=== PATIENT | female | born 1960 | race Caucasian/White ===

== ENCOUNTER 2016-12-01 15:24 | Observation (INO) | payer SELFPAY ==
[~2016-12-01 15:24] MED LIST: BACT2OIN TOP; BACT800T5 PO
[2016-12-01] MEDS ORDERED: IOHEXOL 350 MG/ML 10 ML VIAL (for RAD DIAG) IVCONTRAST ONE (15:25)
[2016-12-01] MEDS ORDERED: ASPIRIN 81 MG CHEW TAB PO ONE (15:45)
[2016-12-01] MEDS ORDERED: SODIUM CHLORIDE 0.9% FLUSH 10 ML FLUSH IVF PRN (15:45)
[2016-12-01] MEDS ORDERED: MORPHINE SULFATE 4 MG/ML INJ IV PUSH ONE (15:45)
[2016-12-01] MEDS ORDERED: SODIUM CHLORID 0.9% 500 ML INJ 500 ML IV ONE (15:45)
[2016-12-01 15:47] VITALS: BP 167/78; PULSE 122; RESP 18; O2SAT 97
[2016-12-01 15:50] LABS: AUTOMATED NEUTROPHIL # 7.8 TH/MM3 (1.8-7.7); BASOPHIL # 0.3 TH/MM3 (0-0.2); BASOPHIL % 2.7 % (0.0-2.0); EOSINOPHIL % 0.3 % (0.0-4.0); HEMATOCRIT 39.6 % (35.0-46.0); HEMO FLAGS DIFF FINAL; LYMPH % 22.1 % (9.0-44.0); LYMPHOCYTE # 2.5 TH/MM3 (1.0-4.8); MEAN CELL VOLUME 98.7 FL (80.0-100.0); MEAN CORPUSCULAR HEMOGLOBIN 33.3 PG (27.0-34.0); MEAN CORPUSCULAR HGB CONC 33.7 % (32.0-36.0); MONO % 5.3 % (0.0-8.0); NEUT % 69.6 % (16.0-70.0); PLATELET COUNT 168 TH/MM3 (150-450); RED BLOOD COUNT 4.02 MIL/MM3 (4.00-5.30); RED CELL DISTRIBUTION WIDTH 13.7 % (11.6-17.2); WHITE BLOOD COUNT 11.2 TH/MM3 (4.0-11.0)
[2016-12-01 15:57] VITALS: BP 157/82; PULSE 112; RESP 18; TEMP 98.1; O2SAT 99
[2016-12-01 15:59] LABS: CHLORIDE 97 MEQ/L (98-107); POTASSIUM 4.1 MEQ/L (3.5-5.1); SODIUM (NA) 130 MEQ/L (136-145)
[2016-12-01 16:03] LABS: ANION GAP 16 MEQ/L (5-15); BICARBONATE 17.3 MEQ/L (21.0-32.0); BLOOD UREA NITROGEN 4 MG/DL (7-18)
[2016-12-01 16:05] LABS: APTT (PATIENT) 26.4 SEC (24.3-30.1); INTERNATIONAL NORMALIZED RATIO 0.9 RATIO; PROTHROMBIN TIME - PATIENT 10.1 SEC (9.8-11.6)
[2016-12-01 16:06] LABS: ALT (GPT) 67 U/L (10-53); AST (GOT) 150 U/L (15-37); GLOMERULAR FILTRATION RATE 113 ML/MIN (>89)
[2016-12-01 16:07] LABS: TOTAL BILIRUBIN ADULT 1.1 MG/DL (0.2-1.0)
[2016-12-01 16:09] LABS: ALKALINE PHOSPHATASE 145 U/L (45-117)
--- NOTE | 2016-12-01 16:17 | RADRPT ---
EXAM DATE/TIME: 12/01/2016 15:46 [facility] COMPARISON: CHEST PA & LAT, April 06, 2014, 11:57. INDICATIONS : Chest pain, short of breath, nausea MEDICAL HISTORY : None. SURGICAL HISTORY : None. ENCOUNTER: Initial ACUITY: 1 day PAIN SCORE: 7/10 LOCATION: Bilateral chest FINDINGS: The current examination demonstrates abnormal opacity in the right paratracheal region, unchanged fro m previous studies. A right paratracheal mass can have this appearance. The lungs are otherwise clear . Heart size normal. Osseous structures are intact. CONCLUSION: Abnormal right paratracheal opacity. CT chest with contrast recommended for further assessment. Melvin Barnett MD on December 01, 2016 at 16:15 Board Certified Radiologist. This report was verified electronically.
[2016-12-01 16:22] LABS: CREATINE KINASE 55 U/L (26-192)
[2016-12-01 16:59] VITALS: BP 137/68; PULSE 105; RESP 18; O2SAT 97
--- NOTE | 2016-12-01 17:10 | RADRPT ---
EXAM DATE/TIME: 12/01/2016 16:44 [facility] COMPARISON: CHEST SINGLE AP, December 01, 2016, 15:46. INDICATIONS : Mass, seen on chest x-ray. Chest pain, shortness of breath, nausea. IV CONTRAST: 70 cc Omnipaque 350 (iohexol) IV RADIATION DOSE: 6.19 CTDIvol (mGy) MEDICAL HISTORY : None Smoker. SURGICAL HISTORY : Appendectomy. ENCOUNTER: Initial ACUITY: 2 days PAIN SCALE: 6/10 LOCATION: Bilateral chest TECHNIQUE: Volumetric scanning of the chest was performed. Using automated exposure control and adjustment of t he mA and/or kV according to patient size, radiation dose was kept as low as reasonably achievable to obtain optimal diagnostic quality images. DICOM format image data is available electronically for review and comparison. Follow-up recommendations for detected pulmonary nodules are based at a minimum on nodule size and pa tient risk factors according to Fleischner Society Guidelines. FINDINGS: LUNGS: There is moderate emphysema present diffusely. There is a 4 mm nodular density in the central right l bernabe base. No evidence of alveolar consolidation. PLEURA: There is no pleural thickening or pleural effusion. MEDIASTINUM: There is a large right paratracheal mass which measures slightly greater than 5 cm in maximum sagitta l dimension. There is additionally a slightly greater than 2 cm right hilar jamin mass. AXILLAE: Within normal limits. No lymphadenopathy. SKELETAL: Within normal limits for patient age. MISCELLANEOUS: The visualized upper abdominal organs demonstrate no acute abnormality. CONCLUSION: Right hilar and mediastinal jamin masses. Tiny right lung base nodule. Spenser Frey MD on December 01, 2016 at 17:03 Board Certified Radiologist. This report was verified electronically.
[2016-12-01] MEDS ORDERED: RESP: ALBUTEROL 2.5 MG/IPRATROPIUM 0.5 MG NEB (SCH) NEB ONE (17:15)
--- NOTE | 2016-12-01 17:18 | PD ---
HPI Chief Complaint: Chest Pain Time Seen by Provider: 15:35 Travel History International Travel<30 days: No Contact w/Intl Traveler<30days: No Traveled to known affect area: No History of Present Illness HPI Patient is a 55-year-old female comes in complaining of shortness of breath with chest pain and nausea. She says she started to have left-sided chest pain last night and has been on and off since then. She says she feels like she has a pressure and left-sided her chest. She also reports difficulty breathing and feeling very nauseous. She denies fever or chills. She says she has been coughing for a few days now. She is a smoker. She says she has never had pain like this before. PFSH Past Medical History Asthma: No Heart Rhythm Problems: No Diabetes: No Diminished Hearing: No Myocardial Infarction: No Influenza Vaccination: No ?: Not Menopausal: Yes Past Surgical History Appendectomy: Yes Section: Yes Gynecologic Surgery: Yes (CS X's 2) Social History Alcohol Use: Yes Tobacco Use: Yes (1 PPD) Substance Use: No (Denies) Allergies-Medications (Allergen,Severity, Reaction): Coded Allergies: No Known Allergies (Verified , 12/01/16) Reported Meds & Prescriptions Reported Meds & Active Scripts Active No Active Prescriptions or Reported Medications Review of Systems Except as stated in HPI: all other systems reviewed are Neg General / Constitutional: No: Fever, Chills Eyes: No: Blurred Vision HENT: No: Headaches, Lightheadedness Cardiovascular: Positive: Chest Pain or Discomfort Respiratory: Positive: Shortness of Breath Gastrointestinal: Positive: Nausea, No: Vomiting, Abdominal Pain Musculoskeletal: No: Myalgias, Edema Skin: No Rash, No Change in Pigmentation Neurologic: No: Weakness, Dizziness Physical Exam Narrative GENERAL: Awake and alert, in no acute distress. Ulnar than her stated age. SKIN: Focused skin assessment warm/dry. HEAD: Atraumatic. Normocephalic. EYES: Pupils equal and round. No scleral icterus. ENT: Mucous membranes pink and moist. NECK: Trachea midline. No JVD. CARDIOVASCULAR: Tachycardia. No murmur appreciated. RESPIRATORY: No accessory muscle use. Occasional wheezes. Breath sounds equal bilaterally. GASTROINTESTINAL: Abdomen soft, non-tender, nondistended. MUSCULOSKELETAL: No obvious deformities. No clubbing. No cyanosis. No edema. NEUROLOGICAL: Awake and alert. No obvious cranial nerve deficits. Motor grossly within normal limits. Normal speech. PSYCHIATRIC: Appropriate mood and affect; insight and judgment normal. Data Data Last Documented VS Vital Signs Date Time Temp Pulse Resp B/P (MAP) Pulse Ox O2 Delivery O2 Flow Rate FiO2 12/01/16 16:59 105 18 137/68 (91) 97 Room Air 12/01/16 15:57 98.1 Orders Orders Ckmb (Isoenzyme) Profile (12/01/16 15:39) Complete Blood Count With Diff (12/01/16 15:39) Comprehensive Metabolic Panel (12/01/16 15:39) Prothrombin Time / Inr (Pt) (12/01/16 15:39) Act Partial Throm Time (Ptt) (12/01/16 15:39) Troponin I (12/01/16 15:39) Chest, Single Ap (12/01/16 15:39) Ecg Monitoring (12/01/16 15:39) Bilateral Bp Monitoring (12/01/16 15:39) Iv Access Insert/Monitor (12/01/16 15:39) Oximetry (12/01/16 15:39) Oxygen Administration (12/01/16 15:39) Aspirin Chew (Aspirin Chew) (12/01/16 15:45) Morphine Inj (Morphine Inj) (12/01/16 15:45) Sodium Chloride 0.9% Flush (Ns Flush) (12/01/16 15:45) Sodium Chlorid 0.9% 500 Ml Inj (Ns 500 M (12/01/16 15:45) Ct Thorax/ Chest W Iv Contrast (12/01/16 ) Iohexol 350 Inj (Omnipaque 350 Inj) (12/01/16 15:25) Albuterol-Ipratropium Neb (Duoneb Neb) (12/01/16 17:15) Admit Order (Ed Use Only) (12/01/16 ) Arterial Blood Gas (Abg) (12/01/16 ) Labs Laboratory Tests Test 12/01/16 15:45 White Blood Count 11.2 TH/MM3 Red Blood Count 4.02 MIL/MM3 Hemoglobin 13.4 GM/DL Hematocrit 39.6 % Mean Corpuscular Volume 98.7 FL Mean Corpuscular Hemoglobin 33.3 PG Mean Corpuscular Hemoglobin Concent 33.7 % Red Cell Distribution Width 13.7 % Platelet Count 168 TH/MM3 Mean Platelet Volume 8.0 FL Neutrophils (%) (Auto) 69.6 % Lymphocytes (%) (Auto) 22.1 % Monocytes (%) (Auto) 5.3 % Eosinophils (%) (Auto) 0.3 % Basophils (%) (Auto) 2.7 % Neutrophils # (Auto) 7.8 TH/MM3 Lymphocytes # (Auto) 2.5 TH/MM3 Monocytes # (Auto) 0.6 TH/MM3 Eosinophils # (Auto) 0.0 TH/MM3 Basophils # (Auto) 0.3 TH/MM3 CBC Comment DIFF FINAL Differential Comment Prothrombin Time 10.1 SEC Prothromb Time International Ratio 0.9 RATIO Activated Partial Thromboplast Time 26.4 SEC Blood Urea Nitrogen 4 MG/DL Creatinine 0.56 MG/DL Random Glucose 114 MG/DL Total Protein 6.7 GM/DL Albumin 2.8 GM/DL Calcium Level 8.3 MG/DL Alkaline Phosphatase 145 U/L Aspartate Amino Transf (AST/SGOT) 150 U/L Alanine Aminotransferase (ALT/SGPT) 67 U/L Total Bilirubin 1.1 MG/DL Sodium Level 130 MEQ/L Potassium Level 4.1 MEQ/L Chloride Level 97 MEQ/L Carbon Dioxide Level 17.3 MEQ/L Anion Gap 16 MEQ/L Estimat Glomerular Filtration Rate 113 ML/MIN Total Creatine Kinase 55 U/L Troponin I LESS THAN 0.02 NG/ML MDM Medical Decision Making Medical Screen Exam Complete: Yes Emergency Medical Condition: Yes Medical Record Reviewed: Yes Interpretation(s) ECG shows sinus tachycardia at [address] elevation or depression. Differential Diagnosis ACS versus NSTEMI versus STEMI versus pneumonia versus COPD Narrative Course Patient is a 55-year-old female who comes in complaining of chest pain with shortness of breath and nausea. Exam shows tachycardia and occasional wheezes. IV established, labs sent. Patient given aspirin and a small dose of morphine. Her tachycardia improved with this. Chest x-ray shows possible mass. CT of the chest performed shows evidence of 2 masses around the hilum. Patient was informed of these results. She says she feels better, but is still having shortness of breath and feels like she needs a breathing treatment. Given 1 DuoNeb. Patient will require admission for ACS rule out and management of lung mass. Diagnosis Primary Impression: Chest pain Qualified Codes: R07.9 - Chest pain, unspecified Additional Impression: Lung mass Admitting Information Admitting Physician Requests: Admit Scripts No Active Prescriptions or Reported Meds Condition: Angélica Laguerre MD Dec 01, 2016 17:18
[2016-12-01] MEDS ORDERED: SENNOSIDES 8.6 MG TAB PO PRN (18:00)
[2016-12-01] MEDS ORDERED: NALOXONE HCL 0.4 MG/ML AMP IV PUSH PRN (18:00)
[2016-12-01] MEDS ORDERED: RESP: ALBUTEROL 2.5 MG/IPRATROPIUM 0.5 MG NEB (PRN) NEB (18:00)
[2016-12-01] MEDS ORDERED: ONDANSETRON HCL 4 MG/2 ML VIAL IVP PRN (18:00)
[2016-12-01] MEDS ORDERED: ACETAMINOPHEN 325 MG TAB PO PRN (18:00)
[2016-12-01] MEDS ORDERED: LORazepam 2 MG/ML VIAL IV PUSH PRN ×4 (18:00)
[2016-12-01] MEDS ORDERED: FLUMAZENIL 0.5 MG/5 ML VIAL IV PUSH PRN (18:00)
[2016-12-01] MEDS ORDERED: LORazepam 2 MG TAB PO PRN (18:00)
[2016-12-01] MEDS ORDERED: SODIUM CHLORIDE 0.9% FLUSH 10 ML FLUSH IV FLUSH PRN (18:00)
[2016-12-01] MEDS ORDERED: LORazepam 1 MG TAB PO PRN (18:00)
[2016-12-01] MEDS ORDERED: methylPREDNISolone SOD SUCC 125 MG/2 ML VIAL IV PUSH ONE (18:00)
--- NOTE | 2016-12-01 18:08 | HHI.HP ---
[facility] Primary Care Physician Unknown Admission Diagnosis Chest pain, COPD, lung mass Diagnoses: Chief Complaint: Chest pain Travel History International Travel<30 Days: No Contact w/Intl Traveler <30 Da: No Traveled to Known Affected Are: No History of Present Illness This patient is a 55-year-old female with minimal past medical history and a prolonged tobacco history who presents with left-sided chest pain associated with nausea occurring acutely at 9 PM while watching TV/at rest. She noted no aggravating factors but says the pain got better with some morphine here in the emergency room. She came to the emergency room because the pain was intermittent but did not resolve. She notes some nausea associated with the discomfort. On evaluation emergency which was found have a right. Tracheal mass of about 5 cm. She denies any history of COPD and no known history of a lung mass. Patient been admitted to the hospital for further evaluation of these symptoms. Review of Systems Constitutional: COMPLAINS OF: Weight loss (chronic and vaguely described in a patient who is always underweight) Endocrine: DENIES: Abnorml menstrual pattern, Heat/cold intolerance, Polydipsia , Polyuria, Polyphagia Eyes: DENIES: Blurred vision, Diplopia, Eye inflammation, Eye pain, Vision loss , Photosensitivity, Double Vision Ears, nose, mouth, throat: DENIES: Tinnitus, Hearing loss, Vertigo, Nasal discharge, Oral lesions, Throat pain, Hoarseness, Ear Pain, Running Nose, Epistaxis, Sinus Pain, Toothache, Odynophagia Respiratory: DENIES: Apneas, Cough, Snoring, Wheezing, Hemoptysis, Sputum production, Shortness of breath Cardiovascular: COMPLAINS OF: Chest pain, Dyspnea on Exertion, DENIES: Palpitations, Syncope, PND, Lower Extremity Edema, Orthopnea, Claudication Gastrointestinal: COMPLAINS OF: Nausea, DENIES: Abdominal pain, Black stools, Bloody stools, Constipation, Diarrhea, Vomiting, Difficulty Swallowing, Anorexia Genitourinary: DENIES: Abnormal vaginal bleeding, Dysmenorrhea, Dyspareunia, Sexual dysfunction, Urinary frequency, Urinary incontinence, Urgency, Hematuria , Dysuria, Nocturia, Vaginal discharge Musculoskeletal: DENIES: Joint pain, Muscle aches, Stiffness, Joint Swelling, Back pain, Neck pain Integumentary: DENIES: Abnormal pigmentation, Pruritus, Rash, Nail changes, Breast masses, Breast skin changes, Nipple discharge Immunologic/allergic: DENIES: Eczema, Urticaria Psychiatric: DENIES: Anxiety, Confusion, Mood changes, Depression, Hallucinations, Agitation, Suicidal Ideation, Homicidal Ideation, Delusions Except as stated in HPI: all other systems reviewed are Neg Past Family Social History Past Medical History none Past Surgical History c/s btl appy Reported Medications none Allergies: Coded Allergies: No Known Allergies (Verified , 12/01/16) Active Ordered Medications Reviewed in the EMR Family History Sister has diabetes, grandmother had ovarian cancer, mother from COPD father COPD Social History Patient smokes at least a pack per day for the last 50 years, alcohol 6 pack several times a week, not employed, no recent travel Physical Exam Vital Signs Vital Signs Date Time Temp Pulse Resp B/P (MAP) Pulse Ox O2 Delivery O2 Flow Rate FiO2 12/01/16 16:59 105 18 137/68 (91) 97 Room Air 12/01/16 16:07 18 12/01/16 15:57 98.1 112 18 157/82 (107) 99 Room Air 12/01/16 15:48 99 Room Air 12/01/16 15:47 122 18 167/78 (107) 97 Room Air 12/01/16 15:38 126 18 100 Room Air Physical Exam GENERAL: This is a frail, well-developed patient, in no apparent distress. SKIN: No rashes, ecchymoses or lesions. Cool and dry. HEAD: Atraumatic. Normocephalic. No temporal or scalp tenderness. EYES: Pupils equal round and reactive. Extraocular motions intact. No scleral icterus. No injection or drainage. ENT: Nose without bleeding, purulent drainage or septal hematoma. Throat without erythema, tonsillar hypertrophy or exudate. Uvula midline. Airway patent. NECK: Trachea midline. No JVD or lymphadenopathy. Supple, nontender, no meningeal signs. CARDIOVASCULAR: Regular rate and rhythm without murmurs, gallops, or rubs. RESPIRATORY: poor air flow, but Breath sounds equal bilaterally. No wheezes, rales, or rhonchi. GASTROINTESTINAL: Abdomen soft, non-tender, nondistended. No hepato-splenomegaly , or palpable masses. No guarding. MUSCULOSKELETAL: Extremities without clubbing, cyanosis, or edema. No joint tenderness, effusion, or edema noted. No calf tenderness. Negative Homans sign bilaterally. NEUROLOGICAL: Awake and alert. Cranial nerves II through XII intact. Motor and sensory grossly within normal limits. Five out of 5 muscle strength in all muscle groups. Normal speech. Laboratory Laboratory Tests Test 12/01/16 15:45 White Blood Count 11.2 Red Blood Count 4.02 Hemoglobin 13.4 Hematocrit 39.6 Mean Corpuscular Volume 98.7 Mean Corpuscular Hemoglobin 33.3 Mean Corpuscular Hemoglobin Concent 33.7 Red Cell Distribution Width 13.7 Platelet Count 168 Mean Platelet Volume 8.0 Neutrophils (%) (Auto) 69.6 Lymphocytes (%) (Auto) 22.1 Monocytes (%) (Auto) 5.3 Eosinophils (%) (Auto) 0.3 Basophils (%) (Auto) 2.7 Neutrophils # (Auto) 7.8 Lymphocytes # (Auto) 2.5 Monocytes # (Auto) 0.6 Eosinophils # (Auto) 0.0 Basophils # (Auto) 0.3 CBC Comment DIFF FINAL Differential Comment Prothrombin Time 10.1 Prothromb Time International Ratio 0.9 Activated Partial Thromboplast Time 26.4 Blood Urea Nitrogen 4 Creatinine 0.56 Random Glucose 114 Total Protein 6.7 Albumin 2.8 Calcium Level 8.3 Alkaline Phosphatase 145 Aspartate Amino Transf (AST/SGOT) 150 Alanine Aminotransferase (ALT/SGPT) 67 Total Bilirubin 1.1 Sodium Level 130 Potassium Level 4.1 Chloride Level 97 Carbon Dioxide Level 17.3 Anion Gap 16 Estimat Glomerular Filtration Rate 113 Total Creatine Kinase 55 Troponin I LESS THAN 0.02 Result Diagram: 12/01/16 1545 12/01/16 1545 Imaging Last Impressions Chest X-Ray 12/01/16 1539 Signed Impressions: Service Date/Time: Thursday, December 01, 2016 15:46 - CONCLUSION: Abnormal right paratracheal opacity. CT chest with contrast recommended for further assessment. Melvin Barnett MD Chest CT 12/01/16 0000 Signed Impressions: Service Date/Time: Thursday, December 01, 2016 16:44 - CONCLUSION: Right hilar and mediastinal jamin masses. Tiny right lung base nodule. Spenser MD Kelton Hoffman VTE Risk Assessment Caprinmelvi VTE Risk Assessment: Mod/High Risk (score >= 2) Caprini Risk Assessment Model Point Value = 1 Point Value = 2 Point Value = 3 Point Value = 5 Age 41-60 Minor surgery BMI > 25 kg/m2 Swollen legs Varicose veins or History of unexplained or recurrent spontaneous Oral contraceptives or hormone replacement Sepsis (< 1 month) Serious lung disease, including pneumonia (< 1 month) Abnormal pulmonary function Acute myocardial infarction Congestive heart failure (< 1 month) History of inflammatory bowel disease Medical patient at bed rest Age 61-74 Arthroscopic surgery Major open surgery (> 45 min) Laparoscopic surgery (> 45 min) Malignancy Confined to bed (> 72 hours) Immobilizing plaster cast Central venous access Age >= 75 History of VTE Family history of VTE Factor V Leiden Prothrombin [id number] Lupus anticoagulant Anticardiolipin antibodies Elevated serum homocysteine Heparin-induced thrombocytopenia Other congenital or acquired thrombophilia Stroke (< 1 month) Elective arthroplasty Hip, pelvis, or leg fracture Acute spinal cord injury (< 1 month) Prophylaxis Regimen Total Risk Factor Score Risk Level Prophylaxis Regimen 0-1 Low Early ambulation 2 Moderate Order ONE of the following: *Sequential Compression Device (SCD) *Heparin 5000 units SQ BID 3-4 Higher Order ONE of the following medications: *Heparin 5000 units SQ TID *Enoxaparin/Lovenox 40 mg SQ daily (WT < 150 kg, CrCl > 30 mL/min) *Enoxaparin/Lovenox 30 mg SQ daily (WT < 150 kg, CrCl > 10-29 mL/min) *Enoxaparin/Lovenox 30 mg SQ BID (WT < 150 kg, CrCl > 30 mL/min) AND/OR *Sequential Compression Device (SCD) 5 or more Highest Order ONE of the following medications: *Heparin 5000 units SQ TID (Preferred with Epidurals) *Enoxaparin/Lovenox 40 mg SQ daily (WT < 150 kg, CrCl > 30 mL/min) *Enoxaparin/Lovenox 30 mg SQ daily (WT < 150 kg, CrCl > 10-29 mL/min) *Enoxaparin/Lovenox 30 mg SQ BID (WT < 150 kg, CrCl > 30 mL/min) AND *Sequential Compression Device (SCD) Assessment and Plan Problem List: (1) Hyponatremia ICD Code: E87.1 - Hypo-osmolality and hyponatremia Plan: May be due to COPD versus dehydration, continue IV hydration and follow electrolytes (2) Transaminitis ICD Code: R74.0 - Nonspecific elevation of levels of transaminase and lactic acid dehydrogenase [LDH] Plan: Patient with a known history of alcohol dependence, will check hepatitis panel, follow clinically Liver ultrasound (3) EtOH dependence ICD Code: F10.20 - Alcohol dependence, uncomplicated Plan: [facility] protocol (4) Chest pain ICD Code: R07.9 - Chest pain, unspecified Status: Acute Plan: Atypical in nature, rule out mass related versus COPD related versus true cardiac chest discomfort Follow cardiac enzymes and EKG, continue on telemetry pending respiratory status may need stress test (5) Mediastinal mass ICD Code: J98.59 - Other diseases of mediastinum, not elsewhere classified Plan: May need biopsy Will discuss with pulmonology (6) Tachycardia ICD Code: R00.0 - Tachycardia, unspecified Plan: Continue telemetry, may be due to bronchodilator effect Consider stress test when stable Problem Qualifiers (1) Chest pain: Qualified Codes: R07.9 - Chest pain, unspecified Kelly Goldstein MD Dec 01, 2016 18:08
[2016-12-01] MEDS: SODIUM CHLOR 0.9% 1000 ML INJ 1,000 ML IV SCH (18:10)
[2016-12-01 18:26] LABS: BLOOD GAS BASE EXCESS -6.3 mmol/L (-2-2); BLOOD GAS CARBOXYHEMOGLOBIN 4.3 % (0-4); BLOOD GAS HCO3 17 mmol/L (22-26); BLOOD GAS O2 HGB SATURATION 92 % (90-100); BLOOD GAS OXYGEN CONTENT 16.3 Vol % (12.0-20.0); BLOOD GAS PCO2 28 mmHG (38-42); BLOOD GAS PO2 86 mmHG (61-120); BLOOD GAS TOTAL HGB 12.6 G/DL (12.0-16.0); CRITICAL VALUE NO; DRAW SITE LT RADIAL; FIO2 21 %; NUMBER OF ARTERIAL PUNCTURES 1; OXYGEN DEVICE ROOM AIR; STAT YES; TEMP CORR TO 98.6; ULNAR PULSE Y
[2016-12-01 18:30] VITALS: BP 144/66; PULSE 95; RESP 20; O2SAT 98
[2016-12-01 19:58] VITALS: O2SAT 99
[2016-12-01] MEDS: RESP: ALBUTEROL 2.5 MG/IPRATROPIUM 0.5 MG NEB (SCH) NEB (19:58)
[2016-12-01 20:00] VITALS: BP 122/74; PULSE 108; PULSE 110; RESP 18; TEMP 97.3; O2SAT 100
[2016-12-01] MEDS: SODIUM CHLORIDE 0.9% FLUSH 10 ML FLUSH IV FLUSH SCH (21:00)
[2016-12-01] MEDS: NITROGLYCERIN 0.4 MG SL 25 TABS/BTL SL PRN (21:39)
[2016-12-01] MEDS ORDERED: methylPREDNISolone SOD SUCC 40 MG/1 ML VIAL IV PUSH SCH (23:00)
[2016-12-01] MEDS ORDERED: methylPREDNISolone SOD SUCC 40 MG/1 ML VIAL IV PUSH ONE (23:30)
[2016-12-01] MEDS: HEPARIN SODIUM - SQ 10,000 UNITS/ML VIAL SQ SCH (23:37)
[2016-12-02] VITALS (9 sets, daily range): BP systolic 101–131; BP diastolic 54–86; PULSE 93–117; RESP 18; TEMP 96.8–98.2; O2SAT 95–100
[2016-12-02] MEDS: SODIUM CHLOR 0.9% 1000 ML INJ 1,000 ML IV SCH ×2 (03:53→06:27)
--- NOTE | 2016-12-02 06:00 | EKG ---
Date Performed: 12/01/2016 Time Performed: 15:33:25 PTAGE: 55 years EKG: SINUS TACHYCARDIA ANTEROSEPTAL MYOCARDIAL INFARCTION ABNORMAL ECG PREVIOUS TRACING : 12/04/2009 10.09 DOCTOR: Baldo Roque Interpretating Date/Time 12/02/2016 05:56:26
[2016-12-02] MEDS: HEPARIN SODIUM - SQ 10,000 UNITS/ML VIAL SQ SCH ×3 (06:27→21:58)
[2016-12-02] MEDS: RESP: ALBUTEROL 2.5 MG/IPRATROPIUM 0.5 MG NEB (SCH) NEB ×3 (07:42→20:10)
[2016-12-02 07:51] LABS: AUTOMATED NEUTROPHIL # 7.5 TH/MM3 (1.8-7.7); BASOPHIL # 0.1 TH/MM3 (0-0.2); BASOPHIL % 0.8 % (0.0-2.0); HEMATOCRIT 37.2 % (35.0-46.0); HEMO FLAGS DIFF FINAL; LYMPH % 3.8 % (9.0-44.0); LYMPHOCYTE # 0.3 TH/MM3 (1.0-4.8); MEAN CELL VOLUME 99.5 FL (80.0-100.0); MEAN CORPUSCULAR HEMOGLOBIN 32.3 PG (27.0-34.0); MEAN CORPUSCULAR HGB CONC 32.4 % (32.0-36.0); MONO % 0.3 % (0.0-8.0); NEUT % 95.1 % (16.0-70.0); PLATELET COUNT 149 TH/MM3 (150-450); RED BLOOD COUNT 3.74 MIL/MM3 (4.00-5.30); RED CELL DISTRIBUTION WIDTH 13.8 % (11.6-17.2); WHITE BLOOD COUNT 7.9 TH/MM3 (4.0-11.0)
[2016-12-02 07:59] LABS: CHLORIDE 102 MEQ/L (98-107); POTASSIUM 4.5 MEQ/L (3.5-5.1); SODIUM (NA) 136 MEQ/L (136-145)
[2016-12-02 08:04] LABS: ANION GAP 14 MEQ/L (5-15); BICARBONATE 20.4 MEQ/L (21.0-32.0); BLOOD UREA NITROGEN 3 MG/DL (7-18)
[2016-12-02 08:07] LABS: GLOMERULAR FILTRATION RATE 146 ML/MIN (>89)
--- NOTE | 2016-12-02 08:17 | PD.PN.STU ---
Subjective Remarks Pt. experiencing chest pain when examined which she described as "dull and increased heaviness" located in the sternal area with no radiation. Reports that the pain comes and goes and lasts for about 15min. Denies receiving morphine since first dose in the ER. reports chills. denies LUNA, SOB, fever. Objective Vitals Vital Signs Date Time Temp Pulse Resp B/P (MAP) Pulse Ox O2 Delivery O2 Flow Rate FiO2 12/02/16 04:00 97.7 93 18 107/69 (82) 99 12/02/16 00:00 98.1 102 18 117/70 (86) 99 12/01/16 20:00 97.3 110 18 122/74 (90) 100 12/01/16 20:00 108 12/01/16 19:58 99 21 12/01/16 18:36 12/01/16 18:30 95 20 144/66 (92) 98 Room Air 12/01/16 18:01 110 18 97 Room Air 12/01/16 16:59 105 18 137/68 (91) 97 Room Air 12/01/16 16:07 18 12/01/16 15:57 98.1 112 18 157/82 (107) 99 Room Air 12/01/16 15:48 99 Room Air 12/01/16 15:47 122 18 167/78 (107) 97 Room Air 12/01/16 15:38 126 18 100 Room Air I/O 12/01/16 12/01/16 12/01/16 12/02/16 12/02/16 12/02/16 07:00 15:00 23:00 07:00 15:00 23:00 Intake Total 500 ml 0 ml Balance 500 ml 0 ml Intake Oral 0 ml IV Total 500 ml # Voids 1 Result Diagram: 12/02/16 0735 12/02/1635 Objective Remarks GENERAL: frail, pleasant female who was in no acute distress SKIN: Warm and dry. HEAD: Normocephalic. EYES: No scleral icterus. No injection or drainage. NECK: Supple, trachea midline. No JVD or lymphadenopathy. CARDIOVASCULAR: Regular rate and rhythm without murmurs, gallops, or rubs. RESPIRATORY: decreased breath sounds bilaterally. No wheezes, ronchi, rales GASTROINTESTINAL: Abdomen soft, non-tender, nondistended. A/P Assessment and Plan 1. Chest pain- continue albuterol treatments, follow cardiac enzymes and EKG, continue on telemetry, provide pain management, order stress EKG when stable 2. Alcohol Dependence- monitor pt for DT, ciwa protocol 3. Mediastinal Mass- discuss with pulmonology about poss need for biopsy and further workup 4. Tachycardia- poss secondary to albuterol treatments, monitor telemetry 5. Hyponatremia- f/u with labs 6. Elevated LFT's- f/u with labs Medical Decision Making Impression and Plan The exam, history, and the medical decision-making described in the above note were completed with the assistance of the medical student. I reviewed and agree with the findings presented. I attest that I had a [id number] encounter with the patient on the same day, and personally performed and documented my assessment and findings in the medical record. GENERAL: This is a well-nourished, well-developed patient, in no apparent distress. CARDIOVASCULAR: Regular rate and rhythm without murmurs, gallops, or rubs. RESPIRATORY: Overall improved air flow after bronchodilator treatment. No wheezes, rales, or rhonchi. GASTROINTESTINAL: Abdomen soft, non-tender, nondistended. Normal active bowel sounds MUSCULOSKELETAL: Extremities without clubbing, cyanosis, or edema. NEURO: Alert & Oriented x4 to person, place, time, situation. Moves all ext x4 Chest pain as above, not improved with nitroglycerin but better with morphine Patient will continue with current medicine and follow-up with pulmonary regarding mediastinal mass Continue further workup, ST in am d/w pond workerLindsay Estevez Dec 02, 2016 07:40 Kelly Goldstein MD Dec 02, 2016 08:41
--- NOTE | 2016-12-02 08:23 | RADRPT ---
EXAM DATE/TIME: 12/02/2016 07:54 [facility] COMPARISON: No previous studies available for comparison. INDICATIONS : Increased lab values. MEDICAL HISTORY : Nausea. Vomiting. Weight loss. Alcohol use. Tobacco use. SURGICAL HISTORY : Appendectomy. section. ENCOUNTER: Initial ACUITY: 2 days PAIN SCORE: 0/10 LOCATION: Bilateral upper quadrant MEASUREMENTS: LIVER: 11.6 cm length COMMON DUCT: 2 mm RIGHT KIDNEY: 9.3 x 4.5 x 3.7 cm SPLEEN: 5.9 cm length FINDINGS: LIVER: There is mildly increased echotexture of the liver. No focal mass is seen. No biliary duct dilation i s evident. COMMON DUCT: No intraluminal mass or stone visualized. GALLBLADDER: Contains no stones, demonstrates no wall thickening or pericholecystic fluid. PANCREAS: The visualized portions are within normal limits. RIGHT KIDNEY: No hydronephrosis, stone or mass. SPLEEN: No focal lesion. CONCLUSION: 1. Increased echogenicity of the liver suggesting fatty infiltration. The exam is otherwise within no rmal limits. Joon Duval MD on December 02, 2016 at 8:20 Board Certified Radiologist. This report was verified electronically.
[2016-12-02] MEDS: SODIUM CHLORIDE 0.9% FLUSH 10 ML FLUSH IV FLUSH SCH ×2 (09:24→21:00)
[2016-12-02] MEDS: methylPREDNISolone SOD SUCC 40 MG/1 ML VIAL IV PUSH SCH ×2 (09:25→21:57)
--- NOTE | 2016-12-02 13:22 | MB ---
cc: LIVIER MAIER M.D. DATE OF CONSULTATION: 12/02/2016. REASON FOR CONSULTATION: Right hilar mass. HISTORY OF PRESENT ILLNESS: The patient is a 55-year-old female with a long smoking history. She smokes a pack of cigarettes a day for almost 30 years and continued to smoke until the time of hospitalization. Upon presentation, she complained of left-sided chest pain, which was atypical and dull in nature. It comes and goes, lasting for several minutes. She denies history of fever, chills, hemoptysis. She had a cough with expectoration of yellowish greenish mucoid sputum which has improved since hospitalization. Upon presentation to the emergency room, a CT scan of the chest was undertaken revealing a right hilar mass with mediastinal involvement. The patient denies history of anorexia or weight loss. PAST MEDICAL HISTORY: No diabetes. No hypertension. No heart disease. MEDICATIONS AT HOME: None. ALLERGIES: NONE KNOWN TO MEDICATIONS. FAMILY HISTORY: A sister is diabetic. Positive history of diabetes and COPD. REVIEW OF SYSTEMS: A twelve-point review of systems is as per the history of present illness and past history, otherwise negative. SOCIAL HISTORY: 50 pack/year smoking history and continues to smoke until presentation. Drinks alcohol regularly about three six-packs a week. PHYSICAL EXAMINATION: GENERAL: On exam, the patient is alert. VITAL SIGNS: Temperature 98, pulse 86, respirations 18, blood pressure 150/80. Oxygen saturation 97% on room air. HEAD, EYES, EARS, NOSE, THROAT: Unremarkable. Eyes without icterus. NECK: Without adenopathy, thyroid enlargement, central trachea. CHEST: Scattered rhonchi at bases and decreased with cough. CARDIAC: PMI distant. S1-S2 audible. There is a 1/6 systolic ejection murmur at the left sternal border. ABDOMEN: Lax. Liver two fingerbreadths below the right costal margin. Bowel sounds audible. EXTREMITIES: No cyanosis, clubbing or edema. LABS: White count 11,000, hemoglobin 13, hematocrit 39, platelets at 168,000. Sodium 130, potassium 4.1, BUN 4, creatinine 0.5. IMAGING STUDIES: CT scan of the chest as mentioned above with a right hilar mass with evidence of mediastinal adenopathy. IMPRESSION: 1. Right hilar mass, malignancy suspect. 2. Long heavy smoking history, underlying COPD suspect. 3. Atypical chest pain, significance unclear. PLAN: The patient is on bronchodilator therapy at present and treatment for underlying tracheobronchitis will be appropriate. Would obtain pulmonary function to assess if any significant underlying airway obstruction is present. Meanwhile, she will need tissue diagnosis and given the location of the mass, bronchoscopy would be the most direct approach and the patient will need to be transferred to the main campus to proceed with same. I have discussed this in detail with the patient and will follow her care along with you. I do thank you for asking me to partake in Mrs. Barillas's care. Livier Maier MD WWW/JAIR /1:01 PM /1:13 PM
[2016-12-02] MEDS: NITROGLYCERIN 0.4 MG SL 25 TABS/BTL SL PRN (19:59)
[2016-12-02] MEDS: diphenhydrAMINE HCL 50 MG CAP PO PRN (21:58)
[2016-12-03] VITALS (7 sets, daily range): BP systolic 109–144; BP diastolic 59–86; PULSE 96–116; RESP 17–20; TEMP 97.5–98.1; O2SAT 95–98
[2016-12-03] MEDS: SODIUM CHLOR 0.9% 1000 ML INJ 1,000 ML IV SCH ×4 (06:22→17:35)
[2016-12-03] MEDS: HEPARIN SODIUM - SQ 10,000 UNITS/ML VIAL SQ SCH ×3 (06:23→21:53)
[2016-12-03] MEDS: RESP: ALBUTEROL 2.5 MG/IPRATROPIUM 0.5 MG NEB (SCH) NEB ×2 (07:59→15:33)
[2016-12-03] MEDS: SODIUM CHLORIDE 0.9% FLUSH 10 ML FLUSH IV FLUSH SCH ×2 (09:58→20:09)
[2016-12-03] MEDS: methylPREDNISolone SOD SUCC 40 MG/1 ML VIAL IV PUSH SCH ×2 (09:59→20:09)
[2016-12-03] MEDS: ASPIRIN 325 MG TAB PO SCH (09:59)
--- NOTE | 2016-12-03 10:09 | HHI.PR ---
Subjective Remarks Patient seen and evaluated in follow-up for atypical chest pain and shortness of breath with new mediastinal mass. Pulmonary consult appreciated. No new issues overnight. Patient feels better breathing after bronchodilators. Still with intermittent vaguely described chest discomfort. Stress test completed this morning Objective Vitals Vital Signs Date Time Temp Pulse Resp B/P (MAP) Pulse Ox O2 Delivery O2 Flow Rate FiO2 12/03/16 08:01 95 21 12/03/16 08:00 98.1 99 17 122/86 (98) 98 12/03/16 04:33 98.0 110 20 130/63 (85) 97 12/03/16 00:32 98.0 109 18 127/60 (82) 98 12/02/16 21:49 117 18 131/86 (101) 100 12/02/16 20:10 97 21 12/02/16 20:00 106 12/02/16 16:00 98.2 113 18 101/54 (70) 98 12/02/16 12:00 98.2 112 18 113/57 (75) 98 12/02/16 10:32 18 I/O 12/02/16 12/02/16 12/02/16 12/03/16 12/03/16 12/03/16 07:00 15:00 23:00 07:00 15:00 23:00 Intake Total 0 ml 2111 ml Balance 0 ml 2111 ml Intake Oral 0 ml 1160 ml IV Total 951 ml # Voids 1 3 3 # Bowel Movements 1 0 Result Diagram: 12/02/16 0735 12/02/16 0735 Imaging Last Impressions Liver Ultrasound 12/02/16 0000 Signed Impressions: Service Date/Time: Friday, December 02, 2016 07:54 - CONCLUSION: 1. Increased echogenicity of the liver suggesting fatty infiltration. The exam is otherwise within normal limits. Joon Duval MD Chest X-Ray 12/01/16 1539 Signed Impressions: Service Date/Time: Thursday, December 01, 2016 15:46 - CONCLUSION: Abnormal right paratracheal opacity. CT chest with contrast recommended for further assessment. Melvin Barnett MD Chest CT 12/01/16 0000 Signed Impressions: Service Date/Time: Thursday, December 01, 2016 16:44 - CONCLUSION: Right hilar and mediastinal jamin masses. Tiny right lung base nodule. Spenser Frye MD Objective Remarks GENERAL: This is a thin but well-nourished, well-developed patient, in no apparent distress. CARDIOVASCULAR: Regular rate and rhythm without murmurs, gallops, or rubs. RESPIRATORY: Clear to auscultation. Breath sounds equal bilaterally. No wheezes , rales, or rhonchi. GASTROINTESTINAL: Abdomen soft, non-tender, nondistended. Normal active bowel sounds MUSCULOSKELETAL: Extremities without clubbing, cyanosis, or edema. NEURO: Alert & Oriented x4 to person, place, time, situation. Moves all ext x4 A/P Problem List: (1) Hyponatremia ICD Code: E87.1 - Hypo-osmolality and hyponatremia Plan: resolved (2) Transaminitis ICD Code: R74.0 - Nonspecific elevation of levels of transaminase and lactic acid dehydrogenase [LDH] Plan: Ultrasound consistent with fatty liver hepatitis panel pending (3) EtOH dependence ICD Code: F10.20 - Alcohol dependence, uncomplicated Plan: [facility] protocol (4) Chest pain ICD Code: R07.9 - Chest pain, unspecified Status: Acute Plan: Atypical in nature, rule out mass related versus COPD related versus true cardiac chest discomfort Enzymes negative, follow-up stress test (5) Mediastinal mass ICD Code: J98.59 - Other diseases of mediastinum, not elsewhere classified Plan: Likely for biopsy, we'll need to transfer to the main hospital for this Pulmonary consult appreciated (6) Tachycardia ICD Code: R00.0 - Tachycardia, unspecified Plan: Continue telemetry, may be due to bronchodilator effect f/u st Discharge Planning to [facility] for biopsy Problem Qualifiers (1) Chest pain: Qualified Codes: R07.9 - Chest pain, unspecified Kelly Goldstein MD Dec 03, 2016 10:09
--- NOTE | 2016-12-03 11:04 | RADRPT ---
EXAM DATE/TIME: 12/03/2016 08:49 [place] COMPARISON: No previous studies available for comparison. INDICATIONS : Left sided chest pain with nausea. Angina. DOSE: 26.1 mCi Tc99m Myoview at stress. 8.8 mCi Tc99m Myoview at rest. 0.4 mg Lexiscan STRESS SYMPTOMS: Dizziness. EJECTION FRACTION: > 70% MEDICAL HISTORY : None SURGICAL HISTORY : Appendectomy. Tubal ligation. ENCOUNTER: Initial ACUITY: 2 days PAIN SCALE: 4/10 LOCATION: Left chest TECHNIQUE: The patient underwent pharmacologic stress with infusion of prescribed dose. Continuous ECG tracing was monitored during stress. Gated SPECT imaging was performed after stress and conventional SPECT i maging was performed at rest. The examination was performed on a SPECT/CT scanner, both attenuation and non-corrected datasets were reviewed. FINDINGS: DISTRIBUTION: The maximum perfused segment at stress is in the anterior inferior wall PERFUSION STUDY: The pattern of perfusion at stress is within normal limits. GATED STUDY: There is intact wall motion and thickening without hypokinetic or dyskinetic segments. CONCLUSION: Negative for stress-induced ischemia. RISK CATEGORY: Low (<1% Annual Mortality Rate) Christopher Duval MD FACR on December 03, 2016 at 11:02 Board Certified Radiologist. This report was verified electronically.
[2016-12-03 12:43] LABS: CHLORIDE 106 MEQ/L (98-107); POTASSIUM 3.7 MEQ/L (3.5-5.1); SODIUM (NA) 139 MEQ/L (136-145)
[2016-12-03 12:47] LABS: ANION GAP 7 MEQ/L (5-15); BLOOD UREA NITROGEN 4 MG/DL (7-18)
[2016-12-03 12:50] LABS: ALT (GPT) 40 U/L (10-53); AST (GOT) 33 U/L (15-37); GLOMERULAR FILTRATION RATE 123 ML/MIN (>89)
[2016-12-03 12:51] LABS: TOTAL BILIRUBIN ADULT 0.4 MG/DL (0.2-1.0)
[2016-12-03 12:52] LABS: ALKALINE PHOSPHATASE 102 U/L (45-117)
--- NOTE | 2016-12-03 13:24 | HHI.PR ---
Subjective Remarks ALERT LESS SOB Objective Vital Signs Date Time Temp Pulse Resp B/P (MAP) Pulse Ox O2 Delivery O2 Flow Rate FiO2 12/03/16 08:01 95 21 12/03/16 08:00 98.1 99 17 122/86 (98) 98 12/03/16 08:00 111 12/03/16 04:33 98.0 110 20 130/63 (85) 97 12/03/16 00:32 98.0 109 18 127/60 (82) 98 12/02/16 21:49 117 18 131/86 (101) 100 12/02/16 20:10 97 21 12/02/16 20:00 106 12/02/16 16:00 98.2 113 18 101/54 (70) 98 I/O 12/02/16 12/02/16 12/02/16 12/03/16 12/03/16 12/03/16 06:59 14:59 22:59 06:59 14:59 22:59 Intake Total 0 ml 2111 ml Balance 0 ml 2111 ml Intake Oral 0 ml 1160 ml IV Total 951 ml # Voids 1 3 3 # Bowel Movements 1 0 Result Diagram: 12/02/16 0735 12/03/16 1220 Objective Remarks GENERAL: SKIN: Warm and dry. HEAD: Atraumatic. Normocephalic. EYES: Pupils equal and round. No scleral icterus. No injection or drainage. ENT: No nasal bleeding or discharge. Mucous membranes pink and moist. NECK: Trachea midline. No JVD. CARDIOVASCULAR: Regular rate and rhythm. RESPIRATORY: No accessory muscle use. Clear to auscultation. Breath sounds equal bilaterally. GASTROINTESTINAL: Abdomen soft, non-tender, nondistended. Hepatic and splenic margins not palpable. MUSCULOSKELETAL: Extremities without clubbing, cyanosis, or edema. No obvious deformities. NEUROLOGICAL: Awake and alert. No obvious cranial nerve deficits. Motor grossly within normal limits. Five out of 5 muscle strength in the arms and legs. Normal speech. PSYCHIATRIC: Appropriate mood and affect; insight and judgment normal. Medications and IVs Laboratory Tests Test 12/01/16 15:45 12/01/16 18:22 12/01/16 18:30 12/01/16 21:25 White Blood Count 11.2 TH/MM3 (4.0-11.0) Basophils (%) (Auto) 2.7 % (0.0-2.0) Neutrophils # (Auto) 7.8 TH/MM3 (1.8-7.7) Basophils # (Auto) 0.3 TH/MM3 (0-0.2) Blood Urea Nitrogen 4 MG/DL (7-18) Random Glucose 114 MG/DL (74-106) Albumin 2.8 GM/DL (3.4-5.0) Calcium Level 8.3 MG/DL (8.5-10.1) Alkaline Phosphatase 145 U/L (45-117) Aspartate Amino Transf (AST/SGOT) 150 U/L (15-37) Alanine Aminotransferase (ALT/SGPT) 67 U/L (10-53) Total Bilirubin 1.1 MG/DL (0.2-1.0) Sodium Level 130 MEQ/L (136-145) Chloride Level 97 MEQ/L (98-107) Carbon Dioxide Level 17.3 MEQ/L (21.0-32.0) Anion Gap 16 MEQ/L (5-15) Troponin I LESS THAN 0.02 NG/ML Blood Gas HCO3 17 mmol/L (22-26) Blood Gas Base Excess -6.3 mmol/L (-2-2) Arterial Blood Partial Pressure CO2 28 mmHG (38-42) Arterial Blood Carboxyhemoglobin 4.3 % (0-4) Test 12/02/16 07:35 12/03/16 12:20 Red Blood Count 3.74 MIL/MM3 (4.00-5.30) Platelet Count 149 TH/MM3 (150-450) Neutrophils (%) (Auto) 95.1 % (16.0-70.0) Lymphocytes (%) (Auto) 3.8 % (9.0-44.0) Lymphocytes # (Auto) 0.3 TH/MM3 (1.0-4.8) Blood Urea Nitrogen 3 MG/DL (7-18) 4 MG/DL (7-18) Creatinine 0.45 MG/DL (0.50-1.00) Random Glucose 165 MG/DL (74-106) 189 MG/DL (74-106) Calcium Level 7.9 MG/DL (8.5-10.1) 7.9 MG/DL (8.5-10.1) Carbon Dioxide Level 20.4 MEQ/L (21.0-32.0) Troponin I LESS THAN 0.02 NG/ML Total Protein 5.7 GM/DL (6.4-8.2) Albumin 2.3 GM/DL (3.4-5.0) Assessment and Plan Assessment and Plan HILAR MASS PLAN BRONCHOSCOPY Livier Ponce MD Dec 03, 2016 13:23
[2016-12-03 14:10] LABS: APTT (PATIENT) 26.1 SEC (24.3-30.1); INTERNATIONAL NORMALIZED RATIO 0.9 RATIO; PROTHROMBIN TIME - PATIENT 9.7 SEC (9.8-11.6)
[2016-12-03] MEDS: MORPHINE SULFATE 2 MG/ML INJ IV PUSH PRN ×2 (17:34→21:52)
[2016-12-03] MEDS ORDERED: REGADENOSON INJ 0.4 MG/5 ML SYR IV ONE (17:43)
[2016-12-03] MEDS: diphenhydrAMINE HCL 50 MG CAP PO PRN (21:52)
[2016-12-04] VITALS (12 sets, daily range): BP systolic 115–145; BP diastolic 59–95; PULSE 79–130; RESP 16–20; TEMP 97.1–98.5; O2SAT 94–97
[2016-12-04] MEDS: MORPHINE SULFATE 2 MG/ML INJ IV PUSH PRN ×3 (02:59→18:35)
[2016-12-04] MEDS: SODIUM CHLOR 0.9% 1000 ML INJ 1,000 ML IV SCH (03:13)
[2016-12-04] MEDS: HEPARIN SODIUM - SQ 10,000 UNITS/ML VIAL SQ SCH ×3 (05:51→20:04)
[2016-12-04] MEDS: SODIUM CHLORIDE 0.9% FLUSH 10 ML FLUSH IV FLUSH SCH ×2 (07:13→20:06)
[2016-12-04] MEDS: RESP: ALBUTEROL 2.5 MG/IPRATROPIUM 0.5 MG NEB (SCH) NEB ×3 (07:23→19:42)
[2016-12-04] MEDS: ASPIRIN 325 MG TAB PO SCH (08:59)
[2016-12-04] MEDS: methylPREDNISolone SOD SUCC 40 MG/1 ML VIAL IV PUSH SCH ×2 (09:01→20:07)
--- NOTE | 2016-12-04 09:35 | HHI.PR ---
Subjective Remarks Pt states she is anxious about the anesthesia. Pt states that when she had her c /s w her daughter she got very sick and is worried about this. otherwise denies any pains at this time. no worsening SOB, nausea or vomiting Objective Vitals Vital Signs Date Time Temp Pulse Resp B/P (MAP) Pulse Ox O2 Delivery O2 Flow Rate FiO2 12/04/16 08:00 97.5 100 134/62 (86) 94 12/04/16 07:25 97 12/04/16 06:00 97.8 97 16 115/67 (83) 96 12/04/16 04:00 79 12/04/16 00:00 88 12/04/16 00:00 98.5 100 17 120/70 (87) 97 12/03/16 20:00 98.1 104 18 109/59 (76) 97 12/03/16 20:00 116 12/03/16 17:38 105 12/03/16 12:00 97.5 96 17 118/72 (87) 96 I/O 12/03/16 12/03/16 12/03/16 12/04/16 12/04/16 12/04/16 07:00 15:00 23:00 07:00 15:00 23:00 Intake Total 1000 ml Balance 1000 ml IV Total 1000 ml # Voids 3 4 # Bowel Movements 0 Result Diagram: 12/02/16 0735 12/03/16 1220 Imaging Last Impressions Myocardial Perfusion Scan Nuc Med 12/03/16 0600 Signed Impressions: Service Date/Time: Saturday, December 03, 2016 08:49 - CONCLUSION: Negative for stress-induced ischemia. RISK CATEGORY: Low (<1%% Annual Mortality Rate) Christopher Duval MD FACR Liver Ultrasound 12/02/16 0000 Signed Impressions: Service Date/Time: Friday, December 02, 2016 07:54 - CONCLUSION: 1. Increased echogenicity of the liver suggesting fatty infiltration. The exam is otherwise within normal limits. Joon Duval MD Chest X-Ray 12/01/16 1539 Signed Impressions: Service Date/Time: Thursday, December 01, 2016 15:46 - CONCLUSION: Abnormal right paratracheal opacity. CT chest with contrast recommended for further assessment. Melvin Barnett MD Chest CT 12/01/16 0000 Signed Impressions: Service Date/Time: Thursday, December 01, 2016 16:44 - CONCLUSION: Right hilar and mediastinal jamin masses. Tiny right lung base nodule. Spenser Frye MD Objective Remarks GENERAL: This is a thin female, sitting up in bed. NC in place. CARDIOVASCULAR: Regular rate and rhythm without murmurs RESPIRATORY: Clear to auscultation. Breath sounds equal bilaterally. No wheezes GASTROINTESTINAL: Abdomen soft, non-tender, nondistended. Normal active bowel sounds MUSCULOSKELETAL: Extremities without edema. NEURO: Alert & Oriented. Moves all ext x4 A/P Problem List: (1) Hyponatremia ICD Code: E87.1 - Hypo-osmolality and hyponatremia (2) Transaminitis ICD Code: R74.0 - Nonspecific elevation of levels of transaminase and lactic acid dehydrogenase [LDH] (3) EtOH dependence ICD Code: F10.20 - Alcohol dependence, uncomplicated (4) Chest pain ICD Code: R07.9 - Chest pain, unspecified Status: Acute (5) Mediastinal mass ICD Code: J98.59 - Other diseases of mediastinum, not elsewhere classified (6) Tachycardia ICD Code: R00.0 - Tachycardia, unspecified Assessment and Plan (1) Hyponatremia resolved (2) Transaminitis Ultrasound consistent with fatty liver hepatitis panel neg (3) EtOH dependence ciwa protocol in place (4) Chest pain Atypical in nature, Enzymes negative, stress test neg (5) Mediastinal mass Pulmonary following. pt is scheduled for bronchoscopy this afternoon (6) Tachycardia Continue telemetry, may be due to bronchodilator effect seems to be resolving. Discharge Planning schedule for bronchoscopy this pm. Problem Qualifiers (1) Chest pain: Qualified Codes: R07.9 - Chest pain, unspecified Stephanie Case MD Dec 04, 2016 09:35
[2016-12-04] MEDS ORDERED: ESMOLOL HCL 100 MG/10 ML VIAL IV ONE (12:00)
[2016-12-04] MEDS ORDERED: LIDOCAINE HCL 1% PF 5 ML AMPULE OTHER ONE (12:00)
[2016-12-04] MEDS ORDERED: PROPOFOL 200 MG/20 ML AMP IV ONE (12:00)
[2016-12-04] MEDS ORDERED: DO NOT ADM ANY ANTICOAGULANT DRUGS PRN (17:43)
--- NOTE | 2016-12-04 18:35 | MR ---
cc: JERAMIE BOBO DATE 12/04/16 PROCEDURE Fiberoptic bronchoscopy flexible. REASON FOR BRONCHOSCOPY Right hilar mass, malignancy suspect. PROCEDURE IN DETAIL Fiberoptic bronchoscopy performed via LMA. Vocal cords visualized, appeared intact. Trachea mildly hyperemic. Shayy sharp. Right mainstem bronchus, right upper, middle and lower lobes, left main bronchus, left upper and lower lobes inspected. No obstructive pathology or mass lesion seen. Washings obtained from the right mainstem bronchus, upper, middle and lower lobe sent for cytological exam. Cytologic brush biopsies right midlung lobe with more hyperemia than the upper and lower lobes sent for cytological examination. Procedure well tolerated. The patient transferred to recovery in stable condition. IMPRESSION 1. Mild tracheobronchitis. 2. No obstruction or mass lesion. 3. Samples obtained as above. 4. Procedure well tolerated. 5. The patient transferred to the recovery room in stable condition. MD KEVIN Martell/ISRAEL /6:02 PM /6:20 PM
[2016-12-05] VITALS: BP 128/66; PULSE 115; PULSE 90; RESP 16; TEMP 97.8; O2SAT 98
[2016-12-05] MEDS: MORPHINE SULFATE 2 MG/ML INJ IV PUSH PRN ×2 (00:04→10:41)
[2016-12-05] MEDS: SODIUM CHLOR 0.9% 1000 ML INJ 1,000 ML IV SCH ×2 (01:35→10:45)
[2016-12-05 04:00] VITALS: BP 117/66; PULSE 106; PULSE 90; RESP 17; TEMP 96.3; O2SAT 95
[2016-12-05] MEDS: HEPARIN SODIUM - SQ 10,000 UNITS/ML VIAL SQ SCH (05:12)
[2016-12-05] MEDS: RESP: ALBUTEROL 2.5 MG/IPRATROPIUM 0.5 MG NEB (SCH) NEB ×2 (07:21→14:00)
[2016-12-05 07:50] VITALS: BP 153/70; PULSE 112; RESP 20; TEMP 96.8; O2SAT 94
[2016-12-05 08:02] VITALS: PULSE 86
[2016-12-05] MEDS: methylPREDNISolone SOD SUCC 40 MG/1 ML VIAL IV PUSH SCH (10:30)
[2016-12-05] MEDS: ASPIRIN 325 MG TAB PO SCH (10:30)
[2016-12-05] MEDS: SODIUM CHLORIDE 0.9% FLUSH 10 ML FLUSH IV FLUSH SCH (10:31)
[2016-12-05 11:50] VITALS: BP 138/66; PULSE 103; RESP 20; TEMP 98; O2SAT 92
[2016-12-05] MEDS ORDERED: ASPI325T PO (11:57)
[2016-12-05] MEDS ORDERED: PRED5PAK PO (11:57)
[2016-12-05] MEDS ORDERED: NORC5TAB PO (11:57)
[2016-12-05] MEDS ORDERED: PANT40TA3 PO (11:57)
--- NOTE | 2016-12-05 11:57 | HHI.DCPOC ---
Discharge Care Plan Diagnosis: (1) Chest pain (2) Hyponatremia (3) Tachycardia (4) Mediastinal mass (5) Transaminitis (6) EtOH dependence Goals to Promote Your Health * To prevent worsening of your condition and complications * To maintain your health at the optimal level Directions to Meet Your Goals Take your medications as prescribed Follow your dietary instruction Follow activity as directed Keep your appointments as scheduled Take your immunizations and boosters as scheduled If your symptoms worsen call your PCP, if no PCP go to Urgent Care Center or Emergency Room Smoking is Dangerous to Your Health. Avoid second hand smoke Call the 24-hour hour crisis hotline for domestic abuse at Ulises Crowe MD Dec 05, 2016 11:57
--- NOTE | 2016-12-05 11:59 | HHI.DS ---
Discharge Summary Admission Date Dec 01, 2016 at 17:42 Discharge Date: Dec 05, 2016 Admitting Diagnosis Chest pain, COPD, lung mass (1) Hyponatremia ICD Code: E87.1 - Hypo-osmolality and hyponatremia (2) Transaminitis ICD Code: R74.0 - Nonspecific elevation of levels of transaminase and lactic acid dehydrogenase [LDH] (3) EtOH dependence ICD Code: F10.20 - Alcohol dependence, uncomplicated (4) Chest pain ICD Code: R07.9 - Chest pain, unspecified Status: Acute (5) Mediastinal mass ICD Code: J98.59 - Other diseases of mediastinum, not elsewhere classified (6) Tachycardia ICD Code: R00.0 - Tachycardia, unspecified Procedures 12/04/16 bronchoscopy Brief History - From Admission This patient is a 55-year-old female with minimal past medical history and a prolonged tobacco history who presents with left-sided chest pain associated with nausea occurring acutely at 9 PM while watching TV/at rest. She noted no aggravating factors but says the pain got better with some morphine here in the emergency room. She came to the emergency room because the pain was intermittent but did not resolve. She notes some nausea associated with the discomfort. On evaluation emergency which was found have a right. Tracheal mass of about 5 cm. She denies any history of COPD and no known history of a lung mass. Patient been admitted to the hospital for further evaluation of these symptoms. CBC/BMP: 12/02/16 0735 12/03/16 1220 Significant Findings Laboratory Tests Test 12/03/16 12:20 12/03/16 13:50 Blood Urea Nitrogen 4 MG/DL (7-18) Random Glucose 189 MG/DL (74-106) Total Protein 5.7 GM/DL (6.4-8.2) Albumin 2.3 GM/DL (3.4-5.0) Calcium Level 7.9 MG/DL (8.5-10.1) Prothrombin Time 9.7 SEC (9.8-11.6) PE at Discharge General: Thin female in no acute distress. Appears older than stated age. Heart: Regular rate and rhythm. No murmur. Lungs: Clear to auscultation bilaterally. No wheezes, rales, or rhonchi. Breathing is nonlabored. Abdomen: Soft, nontender, nondistended. Extremities: No lower extremity edema. Psych: Alert and oriented. Hospital Course The patient was admitted for further evaluation of atypical chest pain and mediastinal mass. Pulmonology was consulted. Workup of the chest pain was negative for cardiac etiology. She was transferred to [facility] for bronchoscopy. The patient tolerated the procedure well and her symptoms were improving. She was cleared for discharge by pulmonology and given instructions to follow-up as an outpatient for biopsy results. Pt Condition on Discharge: Stable Discharge Disposition: Discharge Home Discharge Time: > 30 minutes Discharge Instructions DIET: Follow Instructions for: As Tolerated, No Restrictions Activities you can perform: Regular-No Restrictions Follow up Referrals: PCP Follow-up - 2 Weeks Pulmonology - 1 Week with Livier Maier MD New Medications: Hydrocodone-Acetaminophen ([place]) 5-325 mg Tab 1 TAB PO Q6H PRN for PAIN, #10 TAB 0 Refills Pantoprazole (Pantoprazole) 40 Mg Tab 40 MG PO DAILY for Reflux, #30 TAB 0 Refills Prednisone (21) 5 mg tab Dose Pack (Prednisone (21) 5 mg tab Dose Pack) 5 Mg Dspk 5 MG PO DIRECTED for Inflammation, #1 DSPK 0 Refills Aspirin (Aspirin) 325 Mg Tab 325 MG PO DAILY for Heart, #30 TAB 0 Refills Ulises Crowe MD Dec 05, 2016 11:58
[2016-12-05 12:16] VITALS: PULSE 94
--- NOTE | 2016-12-07 12:25 | RSPPFT ---
DATE OF PROCEDURE: 12/02/16 COMMENTS: Spirometry with FVC of 2.7, FEV1 of 1.8, FEV1/FVC ratio at 65%. A non-significant response to acutely inhaled bronchodilator noted. IMPRESSION: 1. Moderately severe airways obstruction. 2. Non-significant response to inhaled bronchodilator.
== END 2016-12-05 15:35 | disposition home or self-care (01) ==
LOC: PHED 15:24 → PHEDA 17:42 → INTOOBSV 17:42 → PH3A 18:42 → HOCA 12-03 17:09
PROVIDERS: ADMIT Family Medicine; ATTEND Family Medicine
DX: E87.1 Hypo-osmolality and hyponatremia (principal); R74.0 Nonspecific elevation of levels of transaminase and lactic acid dehydrogenase [LDH]; F10.20 Alcohol dependence, uncomplicated; R07.9 Chest pain, unspecified; J98.59 Other diseases of mediastinum, not elsewhere classified; R00.0 Tachycardia, unspecified; J44.9 Chronic obstructive pulmonary disease, unspecified; R11.0 Nausea; R63.4 Abnormal weight loss; R06.02 Shortness of breath; I20.9 Angina pectoris, unspecified; R94.31 Abnormal electrocardiogram [ECG] [EKG]; R79.89 Other specified abnormal findings of blood chemistry; J40 Bronchitis, not specified as acute or chronic; F17.200 Nicotine dependence, unspecified, uncomplicated
CPT/HCPCS: 36600; 71010; 71260; 76705; 78452; 80048; 80053; 80074; 82550; 82805; 84484; 85025; 85610; 85730; 87015; 87070; 87102; 87116; 87205; 87206; 93005; 93017; 94060; 94640; 94664; 96361; 96372; 96374; 96375; 96376; 99281; A9502; G0378; J1644; J2270; J2405; J2785; J2920; J7030; J7040; Q0163; Q9967

== ENCOUNTER 2017-01-07 18:18 | Emergency (ER) | payer OTHER ==
[~2017-01-07] VITALS: Ht 157.5 cm; Wt 40.0 kg
[~2017-01-07 18:18] MED LIST changes: +ASPI-183 PO; -BACT2OIN TOP; -BACT800T5 PO; +NORC5TAB PO; +PANT40TA3 PO; +PRED5PAK PO
[2017-01-07 18:29] VITALS: BP 124/77; PULSE 110; RESP 20; TEMP 97.8; O2SAT 95
--- NOTE | 2017-01-07 19:06 | PD ---
HPI . Fall Chief Complaint: Fall Time Seen by Provider: 18:29 Travel History International Travel<30 days: No Contact w/Intl Traveler<30days: No Traveled to known affect area: No History of Present Illness HPI This patient presents to us via [facility] status post a fall. She has a [place]. She was walking the dog when it pulled her causing her to fall forward onto her knees. I was initially told that she was complaining with neck pain. She did complain of low back pain. However, on subsequent interview , she is complaining with bilateral knee pain. She now denies neck or back pain. She doesn't really have a mechanism for injury to her neck or back. She landed on her knees. This patient is also complaining with chest pain. She's been having chest pain for a month or so. She rates the pain 8/10. She was admitted to the hospital in mid November for further evaluation of her chest pain. She was found to have a perihilar mass by bronchoscopy. Bronchial washings were negative for cancer. She has continued to have chest discomfort since that time. She has a history of COPD was treated in the hospital with duo nebs and Solu-Medrol. It does not appear that she was discharged on a bronchodilator. PFSH Past Medical History Asthma: No Heart Rhythm Problems: No Congestive Heart Failure: No Coronary Artery Disease: No Diabetes: No Diminished Hearing: No Myocardial Infarction: No ?: Not Menopausal: Yes Past Surgical History Appendectomy: Yes Section: Yes Gynecologic Surgery: Yes (CS X's 2) Other Surgery: Yes (appy, tubal) Social History Alcohol Use: Yes Tobacco Use: Yes (1 PPD) Substance Use: No Allergies-Medications (Allergen,Severity, Reaction): Coded Allergies: No Known Allergies (Verified Adverse Reaction, Unknown, 01/07/17) Reported Meds & Prescriptions Reported Meds & Active Scripts Active Aspirin 325 Mg Tab 325 Mg PO DAILY Review of Systems Except as stated in HPI: all other systems reviewed are Neg Cardiovascular: Positive: Chest Pain or Discomfort Respiratory: Positive: Shortness of Breath Musculoskeletal: Positive: Arthralgias (bilateral knees, left worse than right) Physical Exam Narrative GENERAL: This is a very thin woman who does not appear to be in any acute distress. SKIN: warm/dry. Multiple scabbed lesions especially on her left upper extremity. HEAD: Normocephalic. Atraumatic. EYES: Pupils equal and round. No scleral icterus. No injection or drainage. ENT: No nasal bleeding or discharge. Mucous membranes pink and moist. NECK: Trachea midline. She was initially immobilized. Immobilization was discontinued when she stated that she no longer has neck pain. CARDIOVASCULAR: Regular rate and rhythm. Heart sounds are normal. RESPIRATORY: No accessory muscle use. Diminished breath sounds throughout. GASTROINTESTINAL: Abdomen soft. Nontender. Bowel sounds present. Nondistended. MUSCULOSKELETAL: No obvious deformities. She does have some bruising especially over the left knee. Both knees are tender. She is distally neurovascularly intact. She is able to flex and extend her knees without difficulty. NEUROLOGICAL: Awake and alert. No obvious cranial nerve deficits. Motor grossly within normal limits. Normal speech. PSYCHIATRIC: Appropriate mood and affect; insight and judgment normal. Data Data Last Documented VS Vital Signs Date Time Temp Pulse Resp B/P (MAP) Pulse Ox O2 Delivery O2 Flow Rate FiO2 01/07/17 18:29 97.8 110 20 124/77 (93) 95 Orders Orders Drug Screen, Random Urine (01/07/17 18:35) Knee, Complete (4vws) (01/07/17 18:54) Knee, Complete (4vws) (01/07/17 18:54) Albuterol-Ipratropium Neb (Duoneb Neb) (01/07/17 19:00) Labs Laboratory Tests Test 01/07/17 19:30 Urine Opiates Screen NEG Urine Barbiturates Screen NEG Urine Amphetamines Screen NEG Urine Benzodiazepines Screen NEG Urine Cocaine Screen NEG Urine Cannabinoids Screen NEG MDM Medical Decision Making Medical Screen Exam Complete: Yes Emergency Medical Condition: Yes Medical Record Reviewed: Yes (patient was admitted here 12/01-12/05 for evaluation of chest pain and a newly found perihilar mass. Cardiac evaluation was negative. Cytology from bronchial washing was negative.) Differential Diagnosis Differential diagnosis of extremity trauma includes but is not limited to fracture, sprain or strain, dislocation, contusion Narrative Course Patient presented status post fall. We were initially told that she had neck and back pain. However, on subsequent interview, she is complaining with bilateral knee pain. She is also complaining with chest pain but the chest pain is chronic. The previously ordered CT of her neck and back were discontinued and replaced by plain films of her knees. The patient's diminished breath sounds will be treated with nebs. Last Impressions Knee X-Ray 01/07/[id number] Signed Impressions: Service Date/Time: Saturday, January 07, 2017 19:05 - CONCLUSION: No acute disease. Spenser Borjas MD Knee X-Ray [id number]/07/[id number] Signed Impressions: Service Date/Time: Saturday, January 07, 2017 19:09 - CONCLUSION: No acute disease. Spenser Borjas MD The x-rays were independently viewed by me. I did a drug screen because of the scabbing in her left arm. The scabbing look like it could be track awad. Drug screen was negative. Diagnosis Primary Impression: Contusion of left knee, initial encounter Additional Impressions: Contusion of right knee, initial encounter COPD (chronic obstructive pulmonary disease) Qualified Codes: J44.1 - Chronic obstructive pulmonary disease with (acute) exacerbation Patient Instructions: COPD (Chronic Obstructive Pulmonary Disease) (DC), General Instructions Med/Other Pt SpecificInfo: Prescription(s) given Scripts Albuterol 18 GM Inh (Ventolin Hfa 18 GM Inh) 90 Mcg/Act Aer 2 PUFF INH Q4H Y for SHORTNESS OF BREATH, #1 INHALER 0 Refills Prov: Paola Winn MD 01/07/17 Disposition: 01 DISCHARGE HOME Condition: Stable Paola Winn MD Jan 07, 2017 19:06
[2017-01-07] MEDS: RESP: ALBUTEROL 2.5 MG/IPRATROPIUM 0.5 MG NEB (SCH) INH ×2 (19:34→19:35)
--- NOTE | 2017-01-07 19:41 | RADRPT ---
EXAM DATE/TIME: 01/07/2017 19:05 [facility] COMPARISON: No previous studies available for comparison. INDICATIONS : Evaluate right knee for trauma, fell MEDICAL HISTORY : None. SURGICAL HISTORY : None. ENCOUNTER: Initial ACUITY: 1 day PAIN SCORE: 0/10 LOCATION: Right Knee FINDINGS: Four view examination of the right knee demonstrates no evidence of fracture or dislocation. Bony mi neralization is normal. The articular surfaces are intact. The suprapatellar soft tissues have a no rmal configuration. CONCLUSION: No acute disease. Spenser Borjas MD on January 07, 2017 at 19:39 Board Certified Radiologist. This report was verified electronically.
--- NOTE | 2017-01-07 19:48 | RADRPT ---
EXAM DATE/TIME: 01/07/2017 19:09 [facility] COMPARISON: No previous studies available for comparison. INDICATIONS : Left knee pain, fell MEDICAL HISTORY : None. SURGICAL HISTORY : None. ENCOUNTER: Initial ACUITY: 1 day PAIN SCORE: 8/10 LOCATION: Left Knee FINDINGS: Four view examination of the left knee demonstrates no evidence of fracture or dislocation. The bones are osteopenic. The articular surfaces are intact. The suprapatellar soft tissues have a normal con figuration. CONCLUSION: No acute disease. Spenser Borjas MD on January 07, 2017 at 19:46 Board Certified Radiologist. This report was verified electronically.
[2017-01-07] MEDS ORDERED: VENTAER INH (20:30)
[2017-01-07] MEDS ORDERED: IBUPROFEN 800 MG TAB PO ONE (21:00)
== END 2017-01-07 21:56 | disposition home or self-care (01) ==
LOC: NEPD 18:18
DX: M25.561 Pain in right knee (principal); S80.02XA Contusion of left knee, initial encounter; S80.01XA Contusion of right knee, initial encounter; J44.1 Chronic obstructive pulmonary disease with (acute) exacerbation; W18.39XA Other fall on same level, initial encounter; Y93.K1 Activity, walking an animal
CPT/HCPCS: 73564; 80307; 94640; 94664; 99285

== ENCOUNTER 2017-02-08 12:15 | Inpatient (IN) | payer OTHER ==
[2017-02-08] VITALS (8 sets, daily range): BP systolic 96–143; BP diastolic 55–83; PULSE 79–127; RESP 18–20; TEMP 98.4; O2SAT 98–100
[~2017-02-08] VITALS: Ht 157.5 cm; Wt 43.9 kg
[~2017-02-08 12:15] MED LIST changes: -NORC5TAB PO; -PANT40TA3 PO; -PRED5PAK PO; +VENTAER INH
[2017-02-08] MEDS ORDERED: MORPHINE SULFATE 2 MG/ML INJ IV PUSH ONE (12:45)
[2017-02-08] MEDS ORDERED: SODIUM CHLOR 0.9% 1000 ML INJ 1,000 ML IV SCH (12:45)
[2017-02-08] MEDS ORDERED: ONDANSETRON HCL 4 MG/2 ML VIAL IV PUSH ONE (12:45)
--- NOTE | 2017-02-08 12:59 | PD ---
HPI Chief Complaint: Pain: Acute or Chronic Time Seen by Provider: 12:28 Travel History International Travel<30 days: No Contact w/Intl Traveler<30days: No Traveled to known affect area: No History of Present Illness HPI 56-year-old female complains of chest pain and epigastric abdominal pain. Patient states that the pain started several months ago. Patient was admitted to [facility] in November 2016 for chest pain. Patient was diagnosed with hyponatremia, transaminitis, EtOH dependence, chest pain, intestinal mass, tachycardia. Patient was referred to outpatient follow-up for lung mass. Interventional radiologist was consulted and advised that patient is not amenable to percutaneous access to the mastoid biopsy. Patient was referred to Dr. Pittman, thoracic surgeon for biopsy. Patient's awaiting appointment. Patient states that she had persistent substernal chest pain for the past few months. Patient states the pain inflammation of sharp pain and heaviness pressure pain substernally and epigastric area. Patient denies any pain radiation. Patient denies any fever chills. Patient states that she productive cough recently. Patient denies any nausea vomiting diarrhea. Patient denies any dysuria or frequency. Patient is a smoker. Patient Has nebulizer at home. On a scale of 1-10 the pain is an 8. PFSH Past Medical History Asthma: No Heart Rhythm Problems: No Congestive Heart Failure: No Coronary Artery Disease: No Diabetes: No Diminished Hearing: No Respiratory: Yes (lung mass) Myocardial Infarction: No ?: Not Menopausal: Yes Past Surgical History Appendectomy: Yes Section: Yes Gynecologic Surgery: Yes (CS X's 2) Other Surgery: Yes (appy, tubal) Social History Alcohol Use: Yes Tobacco Use: Yes (1 PPD) Substance Use: No Allergies-Medications (Allergen,Severity, Reaction): Coded Allergies: No Known Allergies (Verified Adverse Reaction, Unknown, 01/07/17) Reported Meds & Prescriptions Reported Meds & Active Scripts Active Ventolin Hfa 18 GM Inh (Albuterol Sulfate) 90 Mcg/Act Aer 2 Puff INH Q4H PRN Aspirin 325 Mg Tab 325 Mg PO DAILY Review of Systems General / Constitutional: No: Fever Eyes: No: Visual changes HENT: No: Headaches Cardiovascular: Positive: Chest Pain or Discomfort Respiratory: No: Shortness of Breath Gastrointestinal: No: Abdominal Pain Genitourinary: No: Dysuria Musculoskeletal: No: Pain Skin: No Rash Neurologic: No: Weakness Psychiatric: No: Depression Endocrine: No: Polydipsia Hematologic/Lymphatic: No: Easy Bruising Physical Exam Narrative GENERAL: Well-nourished, well-developed patient. SKIN: Focused skin assessment warm/dry. HEAD: Normocephalic. EYES: No scleral icterus. No injection or drainage. NECK: Supple, trachea midline. No JVD or lymphadenopathy. CARDIOVASCULAR: Tachycardia rate and rhythm without murmurs, gallops, or rubs. RESPIRATORY: Breath sounds equal bilaterally. No accessory muscle use. GASTROINTESTINAL: Abdomen soft, non-tender, nondistended. MUSCULOSKELETAL: No cyanosis, or edema. BACK: Nontender without obvious deformity. No CVA tenderness. Neurologic exam. Data Data Last Documented VS Vital Signs Date Time Temp Pulse Resp B/P (MAP) Pulse Ox O2 Delivery O2 Flow Rate FiO2 02/08/17 13:22 99 Nasal Cannula 2.00 02/08/17 13:20 19 02/08/17 12:35 127 143/80 (101) Orders Orders Electrocardiogram (02/08/17 12:43) Complete Blood Count With Diff (02/08/17 12:43) Comprehensive Metabolic Panel (02/08/17 12:43) Creatine Kinase (Cpk) (02/08/17 12:43) Troponin I (02/08/17 12:43) Prothrombin Time / Inr (Pt) (02/08/17 12:43) Act Partial Throm Time (Ptt) (02/08/17 12:43) D-Dimer (02/08/17 12:43) Iv Access Insert/Monitor (02/08/17 12:43) Ecg Monitoring (02/08/17 12:43) Oxygen Administration (02/08/17 12:43) Oximetry (02/08/17 12:43) Sodium Chlor 0.9% 1000 Ml Inj (Ns 1000 M (02/08/17 12:45) Morphine Inj (Morphine Inj) (02/08/17 12:45) Ondansetron Inj (Zofran Inj) (02/08/17 12:45) Ct Pulmonary Angiogram (02/08/17 12:45) Lipase (02/08/17 12:46) Famotidine Inj (Pepcid Inj) (02/08/17 13:00) Al-Mag Hy-Si 40-40-4 Mg/Ml Liq (Mag-Al P (02/08/17 13:00) Hnhit-Mfimin-Gvhtrn-Pb Liq ( Liq (02/08/17 13:00) Potassium Chloride (Kcl) (02/08/17 13:45) Potassium Chlor 20 Meq Premix (Kcl 20 Me (02/08/17 13:45) Sodium Chlor 0.9% 1000 Ml Inj (Ns 1000 M (02/08/17 14:30) Iohexol 350 Inj (Omnipaque 350 Inj) (02/08/17 14:30) Labs Laboratory Tests Test 02/08/17 13:00 White Blood Count 11.8 TH/MM3 Red Blood Count 4.12 MIL/MM3 Hemoglobin 13.7 GM/DL Hematocrit 40.3 % Mean Corpuscular Volume 98.0 FL Mean Corpuscular Hemoglobin 33.3 PG Mean Corpuscular Hemoglobin Concent 34.0 % Red Cell Distribution Width 12.7 % Platelet Count 171 TH/MM3 Mean Platelet Volume 8.6 FL Neutrophils (%) (Auto) 82.4 % Lymphocytes (%) (Auto) 9.1 % Monocytes (%) (Auto) 5.5 % Eosinophils (%) (Auto) 0.1 % Basophils (%) (Auto) 2.9 % Neutrophils # (Auto) 9.8 TH/MM3 Lymphocytes # (Auto) 1.1 TH/MM3 Monocytes # (Auto) 0.6 TH/MM3 Eosinophils # (Auto) 0.0 TH/MM3 Basophils # (Auto) 0.3 TH/MM3 CBC Comment DIFF FINAL Differential Comment Prothrombin Time 9.8 SEC Prothromb Time International Ratio 1.0 RATIO Activated Partial Thromboplast Time 25.3 SEC D-Dimer Quantitative (PE/DVT) 0.54 MG/L FEU Blood Urea Nitrogen 4 MG/DL Creatinine 0.71 MG/DL Random Glucose 149 MG/DL Total Protein 6.8 GM/DL Albumin 2.8 GM/DL Calcium Level 8.5 MG/DL Alkaline Phosphatase 149 U/L Aspartate Amino Transf (AST/SGOT) 52 U/L Alanine Aminotransferase (ALT/SGPT) 30 U/L Total Bilirubin 0.9 MG/DL Sodium Level 129 MEQ/L Potassium Level 2.9 MEQ/L Chloride Level 94 MEQ/L Carbon Dioxide Level 22.2 MEQ/L Anion Gap 13 MEQ/L Estimat Glomerular Filtration Rate 86 ML/MIN Total Creatine Kinase 56 U/L Troponin I LESS THAN 0.02 NG/ML Lipase 97 U/L [facility] Medical Decision Making Medical Screen Exam Complete: Yes Emergency Medical Condition: Yes Interpretation(s) 1427 PM. CBC WBC 11.8. 82 neutrophil. Sodium 129. Potassium 2.9. Chloride 94. Bicarbonate 22.2. AST 52. Alkaline phosphatase 149. Cardiac enzymes are normal. Lipase 97. D-dimer 0.54. 1504 PM. Differential Diagnosis Differential diagnosis including acute exacerbation of chronic pain, angina, [place] , PE, pneumothorax, gastritis, PUD, pancreatitis, colitis, UTI, pyelonephritis. Narrative Course 56-year-old female with chest pain and lung mass. Patient awaiting lung biopsy. Patient has history of COPD and is a smoker. Normal saline solution 1 25 cc an hour. Morphine 2 mg IV. Zofran 4 mg IV. Normal saline solution 1 L IV bolus. KCl 40 mEq by mouth given. KCl 20 mEq IV given. Pepcid 20 mg IV. Maalox 30 cc by mouth 10 cc by mouth. Diagnosis Primary Impression: Chest pain Qualified Codes: R07.9 - Chest pain, unspecified Additional Impressions: Lung mass Pancreatic mass Hypokalemia Hyponatremia Kenny Herman MD Feb 08, 2017 12:59
[2017-02-08] MEDS ORDERED: FAMOTIDINE 20 MG/2 ML VIAL IV PUSH ONE (13:00)
[2017-02-08] MEDS ORDERED: ATROPINE/SCOPOLAM/HYOSCYAM/PB ELIXIR 10 ML CUP PO ONE (13:00)
[2017-02-08] MEDS ORDERED: ALUMINUM/MAGNESIUM/SIMETH 30 ML CUP PO ONE (13:00)
[2017-02-08 13:32] LABS: ALKALINE PHOSPHATASE 149 U/L (45-117); ALT (GPT) 30 U/L (10-53); ANION GAP 13 MEQ/L (5-15); AST (GOT) 52 U/L (15-37); BICARBONATE 22.2 MEQ/L (21.0-32.0); BLOOD UREA NITROGEN 4 MG/DL (7-18); CHLORIDE 94 MEQ/L (98-107); GLOMERULAR FILTRATION RATE 86 ML/MIN (>89); SODIUM (NA) 129 MEQ/L (136-145); TOTAL BILIRUBIN ADULT 0.9 MG/DL (0.2-1.0)
[2017-02-08 13:36] LABS: CREATINE KINASE 56 U/L (26-192)
[2017-02-08 13:39] LABS: POTASSIUM 2.9 MEQ/L (3.5-5.1)
[2017-02-08 13:41] LABS: AUTOMATED NEUTROPHIL # 9.8 TH/MM3 (1.8-7.7); BASOPHIL # 0.3 TH/MM3 (0-0.2); BASOPHIL % 2.9 % (0.0-2.0); EOSINOPHIL % 0.1 % (0.0-4.0); HEMATOCRIT 40.3 % (35.0-46.0); HEMO FLAGS DIFF FINAL; LYMPH % 9.1 % (9.0-44.0); LYMPHOCYTE # 1.1 TH/MM3 (1.0-4.8); MEAN CORPUSCULAR HEMOGLOBIN 33.3 PG (27.0-34.0); MONO % 5.5 % (0.0-8.0); NEUT % 82.4 % (16.0-70.0); PLATELET COUNT 171 TH/MM3 (150-450); RED BLOOD COUNT 4.12 MIL/MM3 (4.00-5.30); RED CELL DISTRIBUTION WIDTH 12.7 % (11.6-17.2); WHITE BLOOD COUNT 11.8 TH/MM3 (4.0-11.0)
[2017-02-08 13:42] LABS: APTT (PATIENT) 25.3 SEC (24.3-30.1); PROTHROMBIN TIME - PATIENT 9.8 SEC (9.8-11.6)
[2017-02-08] MEDS ORDERED: POTASSIUM CHLORIDE 20 MEQ CONTROLLED RELEASE TAB PO ONE (13:45)
[2017-02-08] MEDS ORDERED: POTASSIUM CHLOR 20 MEQ PREMIX 100 ML IV ONE (13:45)
[2017-02-08] MEDS ORDERED: IOHEXOL 350 MG/ML 10 ML VIAL (for RAD DIAG) IVCONTRAST ONE (14:30)
[2017-02-08] MEDS ORDERED: SODIUM CHLOR 0.9% 1000 ML INJ 1,000 ML IV ONE (14:30)
--- NOTE | 2017-02-08 14:49 | RADRPT ---
EXAM DATE/TIME: 02/08/2017 14:18 [facility] COMPARISON: CT THORAX W CONTRAST, December 01, 2016, 16:44. CT CONSULTATION, December 28, 2016, 0:00. INDICATIONS : Substernal chest pain and epigastric pain. Recent productive cough. IV CONTRAST: 75 cc Omnipaque 350 (iohexol) IV RADIATION DOSE: 5.48 CTDIvol (mGy) MEDICAL HISTORY : Lung mass. SURGICAL HISTORY : Appendectomy. Tubal ligation. section. ENCOUNTER: Initial ACUITY: 4 - 6 days PAIN SCALE: 8/10 LOCATION: Bilateral chest TECHNIQUE: Volumetric scanning of the chest was performed using a pulmonary embolism protocol MIP images were re constructed. Using automated exposure control and adjustment of the mA and/or kV according to patien t size, radiation dose was kept as low as reasonably achievable to obtain optimal diagnostic quality images. DICOM format image data is available electronically for review and comparison. Follow-up recommendations for detected pulmonary nodules are based at a minimum on nodule size and pa tient risk factors according to Fleischner Society Guidelines. FINDINGS: The examination is of good diagnostic quality. The pulmonary outflow tract is well visualized. No pul monary embolus is identified. Imaging through the mediastinum demonstrates a 4.3 x 2.6 cm mediastinal mass. In addition, there is a 2.1 x 1.9 cm right hilar mass. Direct comparison is made to the patient's previous study of 12/01/16. The overall size of these lesions is similar. They are suspicious for malignancy. Imaging through the pulmonary parenchyma demonstrates advanced COPD changes. There is no significant pleural effusion. There is a 4.4 mm nodule in the right lung base. The remainder of the parenchyma is clear. The The limited portions of upper abdomen demonstrate a partially visualized possible mass within the mid body and tail of pancreas. CT imaging of the abdomen and pelvis would be warranted for further asses sment. The visualized bony structures are grossly intact. CONCLUSION: 1. No pulmonary embolus identified. 2. 4.3 x 2.5 cm mediastinal mass. 3. 1.9 x 2.1 cm right hilar mass. 4. The mediastinal masses are suspicious for malignancy. 5. 4 mm nonspecific nodule in the right lung base. 6. COPD changes. 7. Possible partially visualized mass in the tail of the pancreas. This is only seen on the last imag e of the study. CT imaging of the abdomen and pelvis would be of benefit for further assessment. Joon Duval MD on February 08, 2017 at 14:41 Board Certified Radiologist. This report was verified electronically.
[2017-02-08] MEDS: SODIUM CHLOR 0.9% 1000 ML INJ 1,000 ML IV SCH (15:39)
[2017-02-08] MEDS ORDERED: ACETAMINOPHEN 325 MG TAB PO PRN (15:45)
[2017-02-08] MEDS ORDERED: ONDANSETRON HCL 4 MG/2 ML VIAL IVP PRN (15:45)
[2017-02-08] MEDS ORDERED: NALOXONE HCL 0.4 MG/ML AMP IV PUSH PRN (15:45)
--- NOTE | 2017-02-08 16:59 | HHI.HP ---
[facility] No Primary Care Physician Admission Diagnosis Chest pain. Lung mass. Pancreatic mass. Hypokalemia. Hyponatremia. Diagnoses: (1) Lung mass Chief Complaint: Epigastric pain Chest pain Travel History International Travel<30 Days: No Contact w/Intl Traveler <30 Da: No Traveled to Known Affected Are: No History of Present Illness Ms. Sosa is a 56-year-old female patient with a known medical history of COPD , tobacco abuse and lung mass who presented to the ED with complaints of epigastric vs chest pain. Patient states that on Saturday of this week she became nauseous and has been dry heaving intermittently. Has not been able to tolerate any PO intake without emesis. She states that she also has pain in her epigastric area that radiates to her midsternal chest. Feels pressure-like in and intermittent in nature, cannot identify any aggravating factors, rates the pain an 8/10 on pain scale, improved with IV narcotics. Admits to associated shortness of breath with pain. Denies any associated diaphoresis. Last BM was today, admits to diarrhea. Denies any recent dysuria. Denies any hematochezia. Patient states that she was recently admitted to the hospital in November of this year for similar complaints. At that time it was found that patient had been diagnosed with a lung mass. Patient sees Dr. Maier, pulmonology, in the outpatient setting who attempted to bronchoscope and biopsy the mass with no amendable way to obtain the biopsy. Interventional radiologist was then consulted who attempted to perform a percutaneous biopsy who also did not feel it safe to obtain biopsy through percutaneous access. Patient does have an appointment with the cardiothoracic surgeon on 02/14/17. Does admit to a significant amount of weight loss over the past few months. Admits to current tobacco use and usually drinks 5 beers daily, last drink was 1 week ago. A nuclear stress test was performed on 12/03/16 of this year which was negative for any stressed-induced ischemia. Review of Systems Constitutional: COMPLAINS OF: Fever, Weight loss, Chills Respiratory: COMPLAINS OF: Shortness of breath, DENIES: Cough, Sputum production Cardiovascular: DENIES: Chest pain Gastrointestinal: COMPLAINS OF: Abdominal pain, Diarrhea, Nausea, DENIES: Black stools, Bloody stools, Constipation, Vomiting Musculoskeletal: DENIES: Joint pain Neurologic: DENIES: Abnormal gait Psychiatric: COMPLAINS OF: Anxiety Except as stated in HPI: all other systems reviewed are Neg Past Family Social History Past Medical History COPD Lung mass ETOH dependance Past Surgical History x 2 Tubal ligation Appendectomy Reported Medications Active Ventolin Hfa 18 GM Inh (Albuterol Sulfate) 90 Mcg/Act Aer 2 Puff INH Q4H PRN Aspirin 325 Mg Tab 325 Mg PO DAILY Allergies: Coded Allergies: No Known Allergies (Verified Allergy, Unknown, 02/08/17) Active Ordered Medications Current Medications Medications (Trade) Dose Ordered Sig/Tonya Route Start Time Stop Time Status Last Admin Sodium Chloride 1,000 ml @ 125 mls/hr Q8H IV 02/08/17 12:45 02/08/17 13:06 Sodium Chloride 1,000 ml @ 100 mls/hr Q10H IV 02/08/17 15:39 (NS Flush) 2 ml UNSCH PRN IV FLUSH 02/08/17 15:45 (NS Flush) 2 ml BID IV FLUSH 02/08/17 21:00 (Tylenol) 650 mg Q4H PRN PO 02/08/17 15:45 (Zofran Inj) 4 mg Q6H PRN IVP 02/08/17 15:45 (Narcan Inj) 0.4 mg UNSCH PRN IV PUSH 02/08/17 15:45 (Britt-Colace) 1 tab BID PO 02/08/17 21:00 Family History Sister has a history of lung CA now . Brother has a history of bladder CA now . Father and mother have a history of COPD. Social History Admits to smoking 1/2 ppd x 17 years. Admits to drinking 5 beers per day, last drink was one week ago. Denies any illicit drug use. Physical Exam Vital Signs Vital Signs Date Time Temp Pulse Resp B/P (MAP) Pulse Ox O2 Delivery O2 Flow Rate FiO2 02/08/17 16:34 89 18 108/65 (79) 100 Room Air 02/08/17 14:30 103 20 105/83 (90) 100 Nasal Cannula 2.00 02/08/17 13:22 99 Nasal Cannula 2.00 02/08/17 13:20 19 98 Room Air 02/08/17 12:35 127 20 143/80 (101) 100 Physical Exam GENERAL: This is a well-developed, thin and frail female patient, lying in bed on supplemental O2, in no apparent distress. SKIN: No rashes, ecchymoses or lesions. Warm and dry. HEAD: Atraumatic. Normocephalic. Pupils equal round and reactive. Extraocular motions intact. No scleral icterus. No injection or drainage. Nose without bleeding. Airway patent. NECK: Trachea midline. No JVD. Supple. CARDIOVASCULAR: Regular rate and rhythm without murmurs, gallops, or rubs. RESPIRATORY: Clear to auscultation. Breath sounds equal bilaterally. No wheezes , rales, or rhonchi. GASTROINTESTINAL: Abdomen soft, non-tender, nondistended. No guarding. MUSCULOSKELETAL: Extremities without clubbing, cyanosis, or edema. No joint tenderness, effusion, or edema noted. NEUROLOGICAL: Awake and alert. Cranial nerves II through XII intact. Motor and sensory grossly within normal limits. Five out of 5 muscle strength in all muscle groups. Normal speech. Laboratory Laboratory Tests Test 02/08/17 13:00 White Blood Count 11.8 Red Blood Count 4.12 Hemoglobin 13.7 Hematocrit 40.3 Mean Corpuscular Volume 98.0 Mean Corpuscular Hemoglobin 33.3 Mean Corpuscular Hemoglobin Concent 34.0 Red Cell Distribution Width 12.7 Platelet Count 171 Mean Platelet Volume 8.6 Neutrophils (%) (Auto) 82.4 Lymphocytes (%) (Auto) 9.1 Monocytes (%) (Auto) 5.5 Eosinophils (%) (Auto) 0.1 Basophils (%) (Auto) 2.9 Neutrophils # (Auto) 9.8 Lymphocytes # (Auto) 1.1 Monocytes # (Auto) 0.6 Eosinophils # (Auto) 0.0 Basophils # (Auto) 0.3 CBC Comment DIFF FINAL Differential Comment Prothrombin Time 9.8 Prothromb Time International Ratio 1.0 Activated Partial Thromboplast Time 25.3 D-Dimer Quantitative (PE/DVT) 0.54 Blood Urea Nitrogen 4 Creatinine 0.71 Random Glucose 149 Total Protein 6.8 Albumin 2.8 Calcium Level 8.5 Alkaline Phosphatase 149 Aspartate Amino Transf (AST/SGOT) 52 Alanine Aminotransferase (ALT/SGPT) 30 Total Bilirubin 0.9 Sodium Level 129 Potassium Level 2.9 Chloride Level 94 Carbon Dioxide Level 22.2 Anion Gap 13 Estimat Glomerular Filtration Rate 86 Total Creatine Kinase 56 Troponin I LESS THAN 0.02 Lipase 97 Result Diagram: 02/08/17 1300 02/08/17 [address] Angiography 02/08/17 1245 Signed Impressions: Service Date/Time: Wednesday, February 08, 2017 14:18 - CONCLUSION: 1. No pulmonary embolus identified. 2. 4.3 x 2.5 cm mediastinal mass. 3. 1.9 x 2.1 cm right hilar mass. 4. The mediastinal masses are suspicious for malignancy. 5. 4 mm nonspecific nodule in the right lung base. 6. COPD changes. 7. Possible partially visualized mass in the tail of the pancreas. This is only seen on the last image of the study. CT imaging of the abdomen and pelvis would be of benefit for further assessment. Joon Duval MD Septic Shock Reassessment Septic shock perfusion: reassessment completed Caprini VTE Risk Assessment Caprini VTE Risk Assessment: No/Low Risk (score <= 1) Caprini Risk Assessment Model Point Value = 1 Point Value = 2 Point Value = 3 Point Value = 5 Age 41-60 Minor surgery BMI > 25 kg/m2 Swollen legs Varicose veins or History of unexplained or recurrent spontaneous Oral contraceptives or hormone replacement Sepsis (< 1 month) Serious lung disease, including pneumonia (< 1 month) Abnormal pulmonary function Acute myocardial infarction Congestive heart failure (< 1 month) History of inflammatory bowel disease Medical patient at bed rest Age 61-74 Arthroscopic surgery Major open surgery (> 45 min) Laparoscopic surgery (> 45 min) Malignancy Confined to bed (> 72 hours) Immobilizing plaster cast Central venous access Age >= 75 History of VTE Family history of VTE Factor V Leiden Prothrombin [id number] Lupus anticoagulant Anticardiolipin antibodies Elevated serum homocysteine Heparin-induced thrombocytopenia Other congenital or acquired thrombophilia Stroke (< 1 month) Elective arthroplasty Hip, pelvis, or leg fracture Acute spinal cord injury (< 1 month) Prophylaxis Regimen Total Risk Factor Score Risk Level Prophylaxis Regimen 0-1 Low Early ambulation 2 Moderate Order ONE of the following: *Sequential Compression Device (SCD) *Heparin 5000 units SQ BID 3-4 Higher Order ONE of the following medications: *Heparin 5000 units SQ TID *Enoxaparin/Lovenox 40 mg SQ daily (WT < 150 kg, CrCl > 30 mL/min) *Enoxaparin/Lovenox 30 mg SQ daily (WT < 150 kg, CrCl > 10-29 mL/min) *Enoxaparin/Lovenox 30 mg SQ BID (WT < 150 kg, CrCl > 30 mL/min) AND/OR *Sequential Compression Device (SCD) 5 or more Highest Order ONE of the following medications: *Heparin 5000 units SQ TID (Preferred with Epidurals) *Enoxaparin/Lovenox 40 mg SQ daily (WT < 150 kg, CrCl > 30 mL/min) *Enoxaparin/Lovenox 30 mg SQ daily (WT < 150 kg, CrCl > 10-29 mL/min) *Enoxaparin/Lovenox 30 mg SQ BID (WT < 150 kg, CrCl > 30 mL/min) AND *Sequential Compression Device (SCD) Assessment and Plan Problem List: (1) Lung mass ICD Code: R91.8 - Other nonspecific abnormal finding of lung field Status: Acute Plan: D-dimer mildly elevated on presentation, 0.54. CTA reviewed showing no signs of PE. Does show a 4.3 cm x 2.5cm mediastinal mass 1.9 cm x 2.1cm right hilar mass which are suspicious for malignancy. Also a 4 mm nonspecific nodule found in the right base. A new mass was found on the tail of the pancreas. CT ab /pelvis recommended for further assessment. Ordered and pending. Follow. Patient will be transferred to [facility] for possible lung biopsy and evaluation of pancreatic mass. Consult will be placed to cardiothoracic surgeon depending on CT results. Follow. Medical oncology will also be consulted for lung mass and new finding of pancreatic mass, appreciate further input and recommendations in diagnosis and next step in treatment. (2) Pancreatic mass ICD Code: K86.9 - Disease of pancreas, unspecified Status: Acute Plan: Please see plan above. Lipase level 97. (3) Chest pain ICD Code: R07.9 - Chest pain, unspecified Status: Acute Plan: Suspect secondary to above. Serial EKGs and serial troponins will be ordered for ruling out ACS purposes. A nuclear stress test was performed in 11/2016 which was negative for ischemia. Continue to monitor on cardiac telemetry for any arrhythmias. EKG reviewed showing NSR with HR initially 135. Now NSR HR 90's. Will continue to trend. At this time patient's pain is located in the epigastric area. Chest pain has resolved. Morphine IV given in ED. Maalox 30 ml by mouth 10 ml by mouth. (4) Hyponatremia ICD Code: E87.1 - Hypo-osmolality and hyponatremia Plan: Status post 1 L NS bolus in ED. Continue IVF. Recheck BMP in am. Follow. (5) Hypokalemia ICD Code: E87.6 - Hypokalemia Status: Acute Plan: Suspect secondary to poor PO intake and diarrhea. K 2.9 on presentation. Given a total of 60 meq replacement. Recheck BMP in am. Follow. DVT prophylaxis: SCDs. Physician Certification 2 Midnight Certification Type: Admission for Inpatient Services Order for Inpatient Services The services are ordered in accordance with Medicare regulations or non- Medicare payer requirements, as applicable. In the case of services not specified as inpatient-only, they are appropriately provided as inpatient services in accordance with the 2-midnight benchmark. Estimated LOS (days): 3 3 days is the estimated time the patient will need to remain in the hospital, assuming treatment plan goals are met and no additional complications. Post-Hospital Plan: Home Problem Qualifiers (1) Chest pain: Qualified Codes: R07.9 - Chest pain, unspecified Angélica Knapp Feb 08, 2017 16:59
--- NOTE | 2017-02-08 17:29 | EKG ---
Date Performed: 02/08/2017 Time Performed: 12:24:21 PTAGE: 56 years EKG: SINUS TACHYCARDIA SEPTAL MYOCARDIAL INFARCTION BASELINE ARTEFACT ABNORMAL ECG NO PREVIOUS TRACING DOCTOR: Lexa Daley Interpretating Date/Time 02/08/2017 17:27:32
[2017-02-08] MEDS ORDERED: GLUCAGON 1 MG/ML VIAL OTHER PRN (18:30)
[2017-02-08] MEDS ORDERED: DEXTROSE 50% IN WATER 50 ML VIAL(D50) IV PUSH PRN (18:30)
[2017-02-08] MEDS: MORPHINE SULFATE 4 MG/ML INJ IV PUSH PRN ×2 (19:11→22:43)
[2017-02-08] MEDS: DOCUSATE SODIUM 50 MG/SENNA 8.6 MG TAB PO SCH (21:00)
--- NOTE | 2017-02-08 21:24 | MB ---
cc: JANNA KNAPP HUNG MD DEVERAS,TU Varma M.D. DATE OF CONSULTATION 02/08/17 [address] Kenny Herman CHIEF COMPLAINT Dr. Knapp requests a consultation for Ms. Sosa regarding a mediastinal mass associated with right hilar mass and possible mass in the tail of the pancreas. HISTORY OF PRESENT ILLNESS Ms. Sosa is a 56-year-old woman with long history of smoking. She presented with left-sided chest pain and nausea. She came into the emergency room initially in November of 2106. She was found to have a pretracheal mass measuring about [address] scan of the chest from 12/01/2016 shows a large right paratracheal mass measuring 5 cm with additional 2 cm right hilar jamin mass. There is a small right lung base nodule as well. She underwent a bronchoscopic evaluation by Dr. Livier Maier on December 05, 2016. Fortunately, the bronchoscopy was non-diagnostic. She was referred to interventional radiology to do a percutaneous biopsy of the large right paratracheal node. There was no safe percutaneous access to this biopsy. She was subsequently referred to cardiothoracic surgery and she awaits other consultative appointment. She represented to the emergency room on 02/08/2017 with chest pain, epigastric abdominal pain. Her appetite has been decreased. She describes having dry heaves. It hurts when she eats. She denies any weight loss prior to that, but has lost 10 pounds since her presentation in November. She has worsening shortness of breath as well. CT angiogram was performed on 02/08/2017 and the finding shows no pulmonary embolism. There is a 4.3 x 2.5 cm mediastinal mass, a 1.9 x 2.1 cm right hilar mass and a 4 mm nonspecific nodule in the right lung base. There are COPD changes and a possible mass in the tail of the pancreas. For this reason, she was admitted for further evaluation and management of the shortness of breath. Laboratory evaluation shows a mild leukocytosis. Sodium was 129, potassium of 2.9, glucose was 149. No prior history of diabetes. Lipase is normal. D-dimer is elevated. She denies any blurry vision. She describes intermittent whitish rim in the lower part of her vision. She denies any abdominal discomfort or urinary complaints. She has no neurologic deficit. She feels weak at times. She has shortness of breath with activity as described above. The rest of her review of systems is negative. PAST MEDICAL HISTORY 1. Chronic tobacco use 2. Lung mass, 3. COPD, 4. Unintentional weight loss 5. Hyponatremia, 6. Hypokalemia. 7. Hyperglycemia. PAST SURGICAL HISTORY 1. x2. 2. Tubal ligation, 3. Appendectomy 4. Bronchoscopy FAMILY HISTORY A younger sister had of cancer in her late 30s, brother of cancer in his 60s. Both parents are , a mother at age 72, father age 73. No cancer. SOCIAL HISTORY She lives with her son. She smoked half a pack a day for 17 years. She drinks five beers per day. Last drink a week ago. She denies any illicit drug use. PHYSICAL EXAMINATION VITAL SIGNS: She is afebrile, heart rate 95, respiratory rate 16, blood pressure 114/70, saturation 100%. GENERAL: Ms. Sosa is a slender woman who looks older than stated age. HEENT: Her pupils are round, reactive to light and accommodation. Oropharynx is dry. NECK: Supple. LUNGS: Diminished breath sounds throughout. CARDIOVASCULAR: Exam reveals mild tachycardia. ABDOMEN: Benign EXTREMITIES: Lower extremity with no edema. SKIN: With erythematous, excoriated rash on the left forearm and antecubital area. LABORATORY DATA As described above. ASSESSMENT/PLAN Ms. Sosa is a 56-year-old woman with history of tobacco and alcohol use. She has mediastinal hilar mass concerning for bronchogenic carcinoma. There has been a non-diagnostic bronchoscopy and no easy way to do a CT-guided biopsy. We will consult Dr. Maier and see if a repeat bronchoscopy may be able to yield us with a diagnosis. She is having symptoms of dysphagia. We will consult gastroenterology to see if endoscopic ultrasound may be able to yield a diagnosis as well. I suspect a mediastinal mass is affecting her ability to swallow. She has evidence of hyponatremia. We will correct her dehydration and poor oral intake. Potassium will be replaced. Sodium will be checked to the morning. I am concerned if this is a paraneoplastic syndrome. She has excoriations left arm from itching. Seems to be a local effect. There is no other skin rash. CT scan of the abdomen with pancreatic protocol will be performed. Ultimately, she will need an MRI of the brain to rule out LEAD C[employer] MANAGER metastatic disease. The visual symptoms she describes do not appear to be the LEAD C[employer] MANAGER metastatic disease. I defer recommendations on treatment of cancer pending definitive diagnosis. Continue treatment and support of her underlying medical problems. MD DOROTA Gilliam/ /8:34 PM /8:56 PM [id number]
[2017-02-08] MEDS: SODIUM CHLORIDE 0.9% FLUSH 10 ML FLUSH IV FLUSH SCH (21:49)
[2017-02-09] VITALS (10 sets, daily range): BP systolic 108–151; BP diastolic 55–82; PULSE 73–107; RESP 18–22; TEMP 97.1–98.4; O2SAT 94–100
[2017-02-09 00:07] LABS: CREATINE KINASE 49 U/L (26-192)
[2017-02-09] MEDS: SODIUM CHLOR 0.9% 1000 ML INJ 1,000 ML IV SCH ×3 (01:17→21:11)
[2017-02-09] MEDS: MORPHINE SULFATE 4 MG/ML INJ IV PUSH PRN ×6 (02:13→21:10)
[2017-02-09 08:06] LABS: AUTOMATED NEUTROPHIL # 4.6 TH/MM3 (1.8-7.7); BASOPHIL % 0.6 % (0.0-2.0); EOSINOPHIL # 0.1 TH/MM3 (0-0.4); EOSINOPHIL % 1.8 % (0.0-4.0); HEMATOCRIT 34.1 % (35.0-46.0); HEMO FLAGS DIFF FINAL; LYMPH % 25.9 % (9.0-44.0); LYMPHOCYTE # 1.9 TH/MM3 (1.0-4.8); MEAN CELL VOLUME 103.4 FL (80.0-100.0); MEAN CORPUSCULAR HEMOGLOBIN 34.6 PG (27.0-34.0); MEAN CORPUSCULAR HGB CONC 33.4 % (32.0-36.0); MONO % 8.2 % (0.0-8.0); NEUT % 63.5 % (16.0-70.0); PLATELET COUNT 127 TH/MM3 (150-450); RED CELL DISTRIBUTION WIDTH 12.9 % (11.6-17.2); WHITE BLOOD COUNT 7.2 TH/MM3 (4.0-11.0)
[2017-02-09 08:13] LABS: ANION GAP 7 MEQ/L (5-15); BICARBONATE 23.2 MEQ/L (21.0-32.0); BLOOD UREA NITROGEN 2 MG/DL (7-18); CHLORIDE 108 MEQ/L (98-107); GLOMERULAR FILTRATION RATE 145 ML/MIN (>89); POTASSIUM 3.9 MEQ/L (3.5-5.1); SODIUM (NA) 138 MEQ/L (136-145)
[2017-02-09 08:18] LABS: CREATINE KINASE 49 U/L (26-192)
[2017-02-09] MEDS: SODIUM CHLORIDE 0.9% FLUSH 10 ML FLUSH IV FLUSH SCH ×2 (09:00→21:00)
[2017-02-09] MEDS: DOCUSATE SODIUM 50 MG/SENNA 8.6 MG TAB PO SCH (09:09)
[2017-02-09] MEDS ORDERED: PNEUMOCOCCAL POLYVALENT INJ 25 MCG/0.5 ML SYR IM ONE (10:00)
[2017-02-09] MEDS ORDERED: INFLUENZA VIRUS VACCINE (QUADRIVALENT) 0.5 ML SYR IM ONE (10:00)
--- NOTE | 2017-02-09 11:12 | PD.CONS ---
HPI History of Present Illness This is a 56 year old F who presented to the ER yesterday with complaints of epigastric pain. Pain started on Saturday, intermittent, denies any relation to eating or known aggravating factors. Associated nausea and dry heaving, has not vomited, but reports she has been unable to eat. Also report diarrhea which began the day before coming to the ER, denies blood in the stool. Reports ten pound weight loss since admission in November when she was admitted with SOB and found to have a lung mass. Pt has been evaluated by pulmonology and IR who have both been unsuccessful at obtaining biopsy, plan is cardiothoracic to evaluate pt and do biopsy. GI was consulted due to new pancreatic mass seen on chest CTA (02/08) --> Poosible partially visualized mass in the tail of the pancreas. This is only seen on the last image of the study. Ct imaging of the abdomen and pelvis would be of benefit for further assessment. This test has been ordered, but is pending. Lipase currently 97. Pt denies history of pancreatitis. She does report ETOH use of 4-5 beers approx 3-4 times a week, last ETOH drink was a little over a week. Pt is also a heavy smoker, reports ten cigarettes a day recently, previously pack a day smoker but has cut back since admission in November when she was diagnosed with lung mass. Has been smoking since 19 years old. Denies ever having EGD or colonoscopy. PFSH Past Medical History COPD Lung mass ETOH dependance Nicotine dependence Past Surgical History x 2 Tubal ligation Appendectomy Coded Allergies: No Known Allergies (Verified Allergy, Unknown, 02/08/17) Family History Sister has a history of lung CA now . Brother has a history of bladder CA now . Father and mother have a history of COPD. Social History Admits to smoking 1/2 ppd x 17 years. Admits to drinking 5 beers per day, last drink was one week ago. Denies any illicit drug use. Review of Systems Constitutional: COMPLAINS OF: Weight loss Gastrointestinal: COMPLAINS OF: Abdominal pain (epigastric pain- TTP), Diarrhea , Nausea, DENIES: Black stools, Bloody stools, Constipation, Vomiting, Difficulty Swallowing, Swelling of Abdomen, Heartburn, Hematemesis GI Exam Vitals I&O Vital Signs Date Time Temp Pulse Resp B/P (MAP) Pulse Ox O2 Delivery O2 Flow Rate FiO2 02/09/17 08:00 98.0 95 18 108/68 (81) 100 02/09/17 08:00 105 02/09/17 04:00 97.9 97 22 151/82 (105) 95 02/09/17 04:00 84 02/09/17 00:00 98.4 73 20 117/59 (78) 100 02/09/17 00:00 77 02/08/17 21:00 Nasal Cannula 2.00 02/08/17 21:00 86 02/08/17 20:06 98.4 79 19 106/55 (72) 100 02/08/17 19:25 95 16 114/70 (85) 100 02/08/17 19:25 16 02/08/17 19:00 95 16 02/08/17 18:04 85 20 96/66 (76) 100 Nasal Cannula 2.00 02/08/17 16:34 89 18 108/65 (79) 100 Room Air 02/08/17 14:30 103 20 105/83 (90) 100 Nasal Cannula 2.00 02/08/17 13:22 99 Nasal Cannula 2.00 02/08/17 13:20 19 98 Room Air 02/08/17 12:35 127 20 143/80 (101) 100 I/O 02/08/17 02/08/17 02/08/17 02/09/17 02/09/17 02/09/17 07:00 15:00 23:00 07:00 15:00 23:00 Intake Total 1900 ml 400 ml Output Total 450 ml Balance 1900 ml -50 ml Intake Oral 400 ml IV Total 1900 ml Output Urine Total 450 ml Imaging Last Impressions CT Angiography 02/08/17 1245 Signed Impressions: Service Date/Time: Wednesday, February 08, 2017 14:18 - CONCLUSION: 1. No pulmonary embolus identified. 2. 4.3 x 2.5 cm mediastinal mass. 3. 1.9 x 2.1 cm right hilar mass. 4. The mediastinal masses are suspicious for malignancy. 5. 4 mm nonspecific nodule in the right lung base. 6. COPD changes. 7. Possible partially visualized mass in the tail of the pancreas. This is only seen on the last image of the study. CT imaging of the abdomen and pelvis would be of benefit for further assessment. Joon Duval MD Laboratory Test 02/08/17 13:00 02/08/17 23:19 02/09/17 06:50 White Blood Count 11.8 TH/MM3 7.2 TH/MM3 Red Blood Count 4.12 MIL/MM3 3.30 MIL/MM3 Hemoglobin 13.7 GM/DL 11.4 GM/DL Hematocrit 40.3 % 34.1 % Mean Corpuscular Volume 98.0 FL 103.4 FL Mean Corpuscular Hemoglobin 33.3 PG 34.6 PG Mean Corpuscular Hemoglobin Concent 34.0 % 33.4 % Red Cell Distribution Width 12.7 % 12.9 % Platelet Count 171 TH/MM3 127 TH/MM3 Mean Platelet Volume 8.6 FL 9.0 FL Neutrophils (%) (Auto) 82.4 % 63.5 % Lymphocytes (%) (Auto) 9.1 % 25.9 % Monocytes (%) (Auto) 5.5 % 8.2 % Eosinophils (%) (Auto) 0.1 % 1.8 % Basophils (%) (Auto) 2.9 % 0.6 % Neutrophils # (Auto) 9.8 TH/MM3 4.6 TH/MM3 Lymphocytes # (Auto) 1.1 TH/MM3 1.9 TH/MM3 Monocytes # (Auto) 0.6 TH/MM3 0.6 TH/MM3 Eosinophils # (Auto) 0.0 TH/MM3 0.1 TH/MM3 Basophils # (Auto) 0.3 TH/MM3 0.0 TH/MM3 CBC Comment DIFF FINAL DIFF FINAL Differential Comment Prothrombin Time 9.8 SEC Prothromb Time International Ratio 1.0 RATIO Activated Partial Thromboplast Time 25.3 SEC D-Dimer Quantitative (PE/DVT) 0.54 MG/L FEU Blood Urea Nitrogen 4 MG/DL 2 MG/DL Creatinine 0.71 MG/DL 0.45 MG/DL Random Glucose 149 MG/DL 63 MG/DL Total Protein 6.8 GM/DL Albumin 2.8 GM/DL Calcium Level 8.5 MG/DL 8.0 MG/DL Alkaline Phosphatase 149 U/L Aspartate Amino Transf (AST/SGOT) 52 U/L Alanine Aminotransferase (ALT/SGPT) 30 U/L Total Bilirubin 0.9 MG/DL Sodium Level 129 MEQ/L 138 MEQ/L Potassium Level 2.9 MEQ/L 3.9 MEQ/L Chloride Level 94 MEQ/L 108 MEQ/L Carbon Dioxide Level 22.2 MEQ/L 23.2 MEQ/L Anion Gap 13 MEQ/L 7 MEQ/L Estimat Glomerular Filtration Rate 86 ML/MIN 145 ML/MIN Total Creatine Kinase 56 U/L 49 U/L 49 U/L Troponin I LESS THAN 0.02 NG/ML LESS THAN 0.02 NG/ML LESS THAN 0.02 NG/ML Lipase 97 U/L Physical Examination HEENT: Normocephalic; atraumatic CHEST: Even/unlabored- 2 L NC CARDIAC: RRR ABDOMEN: Soft, nondistended, epigastric TTP; no hepatosplenomegaly; bowel sounds active x 4. EXTREMITIES: No clubbing, cyanosis, or edema. SKIN: Normal; no rash; no jaundice. METAL GRADER: No focal deficits; alert and oriented times three. Assessment and Plan Plan Assessment: - Possible mass in the tail of the pancreas- CT pulmonary angiogram (02/08) -- > Possible partially visualized mass in the tail of the pancreas. This is only seen on the last image of the study. CT imaging of the abdomen and pelvis would be of benefit for further assessment. CT abdomen/pelvis pending at this time. Pt denies history of pancreatitis. Lipase currently-97. Heavy ETOH, approx 4-5 beers 3-4 times a week. Reports epigastric pain, TTP, nausea, and dry heaving. Denies acid reflux, does report taking Protonix at home. Has never had EGD or colonoscopy. Will plan for EGD on Saturday. Pending CT abdomen results and CA 19-9, if EUS is indicated then would plan for this procedure to be done at later date, possibly Feb 23. - Diarrhea- Began day prior to hospitalization- per nurse pt has not had a BM since being transferred from [place] yesterday. Denies blood on in stool. Will order stool studies and plan for colonoscopy on Saturday, prep on Saturday. Of note, pt does report family history of colon cancer, maternal aunt. - Known lung mass- no biopsy has been done yet. Pulmonology and IR unable to obtain biopsy, plan is for cardiothoracic to biopsy. Nicotine dependence, 10 cigarettes a day since being diagnosed with mass during admission in November was previously pack a day smoker since 19 years old. Plan - Stool studies - PPI - Pending CT abdomen/pelvis - CA 19-9 - EGD/colonoscopy on Saturday - [facility] prep on Saturday - Obtain consents - NPO after MN Saturday - Clear liquids Saturday - Monitor labs - Supportive care - Further recommendations to follow based on results of above Pt has been seen and examined by myself and Dr. Rolon and this note is written on his behalf Rebeca Bella Feb 09, 2017 11:12
--- NOTE | 2017-02-09 11:48 | HHI.PR ---
Subjective Remarks Patient reports she is feeling okay. Still having some midepigastric discomfort. She will like medications to help her sleep. Objective Vitals Vital Signs Date Time Temp Pulse Resp B/P (MAP) Pulse Ox O2 Delivery O2 Flow Rate FiO2 02/09/17 08:00 98.0 95 18 108/68 (81) 100 02/09/17 08:00 105 02/09/17 07:00 2.00 02/09/17 04:00 97.9 97 22 151/82 (105) 95 02/09/17 04:00 84 02/09/17 00:00 98.4 73 20 117/59 (78) 100 02/09/17 00:00 77 02/08/17 21:00 Nasal Cannula 2.00 02/08/17 21:00 86 02/08/17 20:06 98.4 79 19 106/55 (72) 100 02/08/17 19:25 95 16 114/70 (85) 100 02/08/17 19:25 16 02/08/17 19:00 95 16 02/08/17 18:04 85 20 96/66 (76) 100 Nasal Cannula 2.00 02/08/17 16:34 89 18 108/65 (79) 100 Room Air 02/08/17 14:30 103 20 105/83 (90) 100 Nasal Cannula 2.00 02/08/17 13:22 99 Nasal Cannula 2.00 02/08/17 13:20 19 98 Room Air 02/08/17 12:35 127 20 143/80 (101) 100 I/O 02/08/17 02/08/17 02/08/17 02/09/17 02/09/17 02/09/17 07:00 15:00 23:00 07:00 15:00 23:00 Intake Total 1900 ml 400 ml Output Total 450 ml Balance 1900 ml -50 ml Intake Oral 400 ml IV Total 1900 ml Output Urine Total 450 ml Result Diagram: 02/09/17 0650 02/09/[address] Angiography 02/08/17 1245 Signed Impressions: Service Date/Time: Wednesday, February 08, 2017 14:18 - CONCLUSION: 1. No pulmonary embolus identified. 2. 4.3 x 2.5 cm mediastinal mass. 3. 1.9 x 2.1 cm right hilar mass. 4. The mediastinal masses are suspicious for malignancy. 5. 4 mm nonspecific nodule in the right lung base. 6. COPD changes. 7. Possible partially visualized mass in the tail of the pancreas. This is only seen on the last image of the study. CT imaging of the abdomen and pelvis would be of benefit for further assessment. Joon Duval MD Objective Remarks GENERAL: Cachectic-looking patient. In no acute distress CARDIOVASCULAR: Normal rate and regular rhythm without murmurs, gallops, or rubs. RESPIRATORY: Good respiratory efforts. Diminished breath sounds at the bases. GASTROINTESTINAL: Abdomen soft, tender to palpation in the midepigastric region. Normal and active bowel sounds MUSCULOSKELETAL: Extremities without cyanosis, or edema. NEURO: Alert & Oriented x4 to person, place, time, situation. Moves all ext x4 PSYCH: Appropriate mood and affect. A/P Problem List: (1) Lung mass ICD Code: R91.8 - Other nonspecific abnormal finding of lung field Status: Acute (2) Pancreatic mass ICD Code: K86.9 - Disease of pancreas, unspecified Status: Acute (3) Chest pain ICD Code: R07.9 - Chest pain, unspecified Status: Acute (4) Hyponatremia ICD Code: E87.1 - Hypo-osmolality and hyponatremia (5) Hypokalemia ICD Code: E87.6 - Hypokalemia Status: Acute Assessment and Plan 56-year-old female who presented with a mediastinal mass associated with a right hilar mass suspicious for malignancy. The patient also has a mass about the tail of the pancreas. - Hematology, CT surgery following. Pulmonology following - CT surgery planning for biopsy. - GI also on the case and planning for EGD/colonoscopy - Abdomen/pelvis CT has been ordered to further evaluate the pancreatic mass. - Breathing treatments as needed. Supplemental oxygen as needed - Pain control with morphine as needed Insomnia: - Add Ambien as needed at night. DVT PPx: SCDs. Problem Qualifiers (1) Chest pain: Qualified Codes: R07.9 - Chest pain, unspecified Fred Rodriguez MD Feb 09, 2017 11:48
--- NOTE | 2017-02-09 12:59 | PD.ONC.PN ---
Subjective Subjective Remarks Afebrile Having a hard time breathing; asking for nebulizers that she normally takes at home Reports she is having EGD in a.m. Still waiting to see a pumping station engineer Objective Data Date Time Temp Pulse Resp B/P (MAP) Pulse Ox O2 Delivery O2 Flow Rate FiO2 02/09/17 12:00 97.1 96 18 120/72 (88) 98 02/09/17 08:00 98.0 95 18 108/68 (81) 100 02/09/17 08:00 105 02/09/17 07:00 2.00 02/09/17 04:00 97.9 97 22 151/82 (105) 95 02/09/17 04:00 84 02/09/17 00:00 98.4 73 20 117/59 (78) 100 02/09/17 00:00 77 02/08/17 21:00 Nasal Cannula 2.00 02/08/17 21:00 86 02/08/17 20:06 98.4 79 19 106/55 (72) 100 02/08/17 19:25 95 16 114/70 (85) 100 02/08/17 19:25 16 02/08/17 19:00 95 16 02/08/17 18:04 85 20 96/66 (76) 100 Nasal Cannula 2.00 02/08/17 16:34 89 18 108/65 (79) 100 Room Air 02/08/17 14:30 103 20 105/83 (90) 100 Nasal Cannula 2.00 02/08/17 13:22 99 Nasal Cannula 2.00 02/08/17 13:20 19 98 Room Air 02/09/17 02/09/17 02/09/17 07:00 15:00 23:00 Intake Total 400 ml 1000 ml Output Total 450 ml Balance -50 ml 1000 ml Result Diagram: 02/09/17 0650 02/09/17 0650 Laboratory Results Laboratory Tests Test 02/08/17 13:00 02/08/17 23:19 02/09/17 06:50 White Blood Count 11.8 TH/MM3 7.2 TH/MM3 Red Blood Count 4.12 MIL/MM3 3.30 MIL/MM3 Hemoglobin 13.7 GM/DL 11.4 GM/DL Hematocrit 40.3 % 34.1 % Mean Corpuscular Volume 98.0 FL 103.4 FL Mean Corpuscular Hemoglobin 33.3 PG 34.6 PG Mean Corpuscular Hemoglobin Concent 34.0 % 33.4 % Red Cell Distribution Width 12.7 % 12.9 % Platelet Count 171 TH/MM3 127 TH/MM3 Mean Platelet Volume 8.6 FL 9.0 FL Neutrophils (%) (Auto) 82.4 % 63.5 % Lymphocytes (%) (Auto) 9.1 % 25.9 % Monocytes (%) (Auto) 5.5 % 8.2 % Eosinophils (%) (Auto) 0.1 % 1.8 % Basophils (%) (Auto) 2.9 % 0.6 % Neutrophils # (Auto) 9.8 TH/MM3 4.6 TH/MM3 Lymphocytes # (Auto) 1.1 TH/MM3 1.9 TH/MM3 Monocytes # (Auto) 0.6 TH/MM3 0.6 TH/MM3 Eosinophils # (Auto) 0.0 TH/MM3 0.1 TH/MM3 Basophils # (Auto) 0.3 TH/MM3 0.0 TH/MM3 CBC Comment DIFF FINAL DIFF FINAL Differential Comment Prothrombin Time 9.8 SEC Prothromb Time International Ratio 1.0 RATIO Activated Partial Thromboplast Time 25.3 SEC D-Dimer Quantitative (PE/DVT) 0.54 MG/L FEU Blood Urea Nitrogen 4 MG/DL 2 MG/DL Creatinine 0.71 MG/DL 0.45 MG/DL Random Glucose 149 MG/DL 63 MG/DL Total Protein 6.8 GM/DL Albumin 2.8 GM/DL Calcium Level 8.5 MG/DL 8.0 MG/DL Alkaline Phosphatase 149 U/L Aspartate Amino Transf (AST/SGOT) 52 U/L Alanine Aminotransferase (ALT/SGPT) 30 U/L Total Bilirubin 0.9 MG/DL Sodium Level 129 MEQ/L 138 MEQ/L Potassium Level 2.9 MEQ/L 3.9 MEQ/L Chloride Level 94 MEQ/L 108 MEQ/L Carbon Dioxide Level 22.2 MEQ/L 23.2 MEQ/L Anion Gap 13 MEQ/L 7 MEQ/L Estimat Glomerular Filtration Rate 86 ML/MIN 145 ML/MIN Total Creatine Kinase 56 U/L 49 U/L 49 U/L Troponin I LESS THAN 0.02 NG/ML LESS THAN 0.02 NG/ML LESS THAN 0.02 NG/ML Lipase 97 U/L Administered Medications Medications (Trade) Dose Ordered Sig/Tonya Route PRN Reason Start Time Stop Time Status Last Admin Dose Admin Sodium Chloride 1,000 ml @ 100 mls/hr Q10H IV 02/08/17 15:39 02/09/17 11:41 Sodium Chloride (NS Flush) 2 ml BID IV FLUSH 02/08/17 21:00 02/08/17 21:49 Ondansetron HCl (Zofran Inj) 4 mg Q6H PRN IVP NAUSEA OR VOMITING 02/08/17 15:45 02/08/17 19:11 Senna/Docusate Sodium (Britt-Colace) 1 tab BID PO 02/08/17 21:00 02/09/17 09:09 Morphine Sulfate (Morphine Inj) 4 mg Q3H PRN IV PUSH PAIN 02/08/17 18:00 02/09/17 12:06 Objective Remarks GENERAL: Older female resting in bed in no acute distress SKIN: Warm and dry. HEAD: Normocephalic. EYES: No scleral icterus. No injection or drainage. NECK: Supple, trachea midline. No JVD or lymphadenopathy. CARDIOVASCULAR: Regular rate and rhythm without murmurs. RESPIRATORY: Scattered rhonchi. On 2 L nasal cannula GASTROINTESTINAL: Abdomen soft, non-tender, nondistended. EXTREMITIES: No cyanosis. MUSCULOSKELETAL: Adequate muscle tone. NEUROLOGICAL: No obvious focal deficit. Awake, alert, and oriented x3. Assessment/Plan Problem List: (1) Lung mass ICD Codes: R91.8 - Other nonspecific abnormal finding of lung field Status: Acute Plan: -- Patient has a mediastinal mass associated with right hilar mass and possible mass in the tail of the pancreas. -- Mediastinal mass concerning for bronchogenic carcinoma -- CTA shows 4.3 x 2.5 cm mediastinal mass and a 1.9 x 2.1 cm right hilar mass -- Awaiting pulmonary consult for repeat bronchoscopy for eventual diagnosis -- GI has also been consulted to see if they can do biopsy via endoscopic ultrasound -- Patient having electrolyte abnormalities concerning for perineoplastic syndrome Hx/Workup: Patient has long history of smoking. She initially presented in November [address] scan of the chest showed a large right paratracheal mass measuring 5 cm with additional 2 cm right hilar jamin mass unfortunately bronchoscopic evaluation of the time was nondiagnostic. She was unable to safely percutaneous biopsy either. She has lost 10 pounds from her previous presentation in November and her shortness of breath is worsening. (2) Pancreatic mass ICD Codes: K86.9 - Disease of pancreas, unspecified Status: Acute Plan: -- CT abdomen and pelvis with pancreatic protocol ordered Assessment 56 y/o female with mediastinal mass admitted for worsening shortness of breath Plan 1. Await results of CT abdomen pelvis with pancreatic focus 2. Await pulmonology consult 3. Monitor electrolytes 4. Add on Duonebs Q6H prn Attending Statement The exam, history, and the medical decision-making described in the above note were completed with the assistance of the mid-level provider. I reviewed and agree with the findings presented. I attest that I had a [id number] encounter with the patient on the same day, and personally performed and documented my assessment and findings in the medical record. Pt seen and examined. Family at bedside. Noted evaluation by GI, dysphagia resolved, she was able to eat now. Noted CTS surgery plan for biopsy. Pulmonary likewise has a plan for repeat bronchoscopy to evaluate for tissue. Pt preference to have CTS. Pending biopsy on Saturday. Anabel Chacon Feb 09, 2017 12:59 Florinda Lowe MD Feb 09, 2017 15:00
[2017-02-09] MEDS ORDERED: RESP: ALBUTEROL 2.5 MG/IPRATROPIUM 0.5 MG NEB (PRN) NEB (13:00)
--- NOTE | 2017-02-09 13:12 | PD.CONS ---
History of Present Illness Service CT Surgery Consult Requested By Dr. Maier Reason for Consult Right mediastinal and hilar mass Primary Care Physician No Primary Care Physician Diagnoses: (1) Tobacco abuse (2) COPD (chronic obstructive pulmonary disease) (3) Lung mass (4) Mediastinal mass (5) Pancreatic mass History of Present Illness 56y/o female with longstanding smoking history presents with ~10 lb weight loss , fatigue, epigastric pain, nausea, and vomiting. She initially presented with chest pain and malaise in November and was admitted. She was found to have a mediastinal mass in the right paratracheal area as well as a hilar lung mass. She underwent bronchoscopy which is non-diagnostic. She underwent a stress test which was low-risk for ischemia. Percutaneous biopsy was deemed unsafe based on the mass location. She was transferred to [facility] for further evaluation. She is currently asymptomatic but is weak. She continues to smoke and also has a significant ETOH history. She was also found to have a mass on the distal pancreas. Review of Systems Constitutional: COMPLAINS OF: Fatigue, Weight loss, DENIES: Diaphoretic episodes, Fever, Weight gain, Chills, Dizziness, Change in appetite, Night Sweats Endocrine: DENIES: Abnorml menstrual pattern, Heat/cold intolerance, Polydipsia , Polyuria, Polyphagia Eyes: DENIES: Blurred vision, Diplopia, Eye inflammation, Eye pain, Vision loss , Photosensitivity, Double Vision Ears, nose, mouth, throat: DENIES: Tinnitus, Hearing loss, Vertigo, Nasal discharge, Oral lesions, Throat pain, Hoarseness, Ear Pain, Running Nose, Epistaxis, Sinus Pain, Toothache, Odynophagia Respiratory: DENIES: Apneas, Cough, Snoring, Wheezing, Hemoptysis, Sputum production, Shortness of breath Cardiovascular: COMPLAINS OF: Chest pain, DENIES: Palpitations, Syncope, Dyspnea on Exertion, PND, Lower Extremity Edema, Orthopnea, Claudication Gastrointestinal: COMPLAINS OF: Abdominal pain, Constipation, Nausea, Vomiting , Anorexia, DENIES: Black stools, Bloody stools, Diarrhea, Difficulty Swallowing Genitourinary: DENIES: Abnormal vaginal bleeding, Dysmenorrhea, Dyspareunia, Sexual dysfunction, Urinary frequency, Urinary incontinence, Urgency, Hematuria , Dysuria, Nocturia, Vaginal discharge Musculoskeletal: DENIES: Joint pain, Muscle aches, Stiffness, Joint Swelling, Back pain, Neck pain Integumentary: DENIES: Abnormal pigmentation, Pruritus, Rash, Nail changes, Breast masses, Breast skin changes, Nipple discharge Hematologic/lymphatic: DENIES: Bruising, Lymphadenopathy Immunologic/allergic: DENIES: Eczema, Urticaria Neurologic: DENIES: Abnormal gait, Headache, Localized weakness, Paresthesias, Seizures, Speech Problems, Tremor, Poor Balance Psychiatric: DENIES: Anxiety, Confusion, Mood changes, Depression, Hallucinations, Agitation, Suicidal Ideation, Homicidal Ideation, Delusions Past Family Social History Allergies: Coded Allergies: No Known Allergies (Verified Allergy, Unknown, 02/08/17) Past Medical History as above COPD Tobacco abuse ETOH abuse Past Surgical History C section x 2 Appendectomy Bronchoscopy Tubal ligation Reported Medications ASA Albuterol inhaler Active Ordered Medications Current Medications Medications (Trade) Dose Ordered Sig/Tonya Route Start Time Stop Time Status Last Admin Sodium Chloride 1,000 ml @ 100 mls/hr Q10H IV 02/08/17 15:39 02/09/17 11:41 (NS Flush) 2 ml UNSCH PRN IV FLUSH 02/08/17 15:45 (NS Flush) 2 ml BID IV FLUSH 02/08/17 21:00 02/08/17 21:49 (Tylenol) 650 mg Q4H PRN PO 02/08/17 15:45 (Zofran Inj) 4 mg Q6H PRN IVP 02/08/17 15:45 02/08/17 19:11 (Narcan Inj) 0.4 mg UNSCH PRN IV PUSH 02/08/17 15:45 (Britt-Colace) 1 tab BID PO 02/08/17 21:00 02/09/17 09:09 (Morphine Inj) 4 mg Q3H PRN IV PUSH 02/08/17 18:00 02/09/17 12:06 (D50w (Vial) Inj) 50 ml UNSCH PRN IV PUSH 02/08/17 18:30 (Glucagon Inj) 1 mg UNSCH PRN OTHER 02/08/17 18:30 (Colyte Liq) 4,000 ml ONCE ONCE PO 02/10/17 16:00 02/10/17 16:01 Family History Family h/o cancer - sister passed recently Social History + tobacco at least 1 ppd since age 19 + ETOH, 5 beers daily Physical Exam Vital Signs Vital Signs Date Time Temp Pulse Resp B/P (MAP) Pulse Ox O2 Delivery O2 Flow Rate FiO2 02/09/17 12:00 97.1 96 18 120/72 (88) 98 02/09/17 08:00 98.0 95 18 108/68 (81) 100 02/09/17 08:00 105 02/09/17 07:00 2.00 02/09/17 04:00 97.9 97 22 151/82 (105) 95 02/09/17 04:00 84 02/09/17 00:00 98.4 73 20 117/59 (78) 100 02/09/17 00:00 77 02/08/17 21:00 Nasal Cannula 2.00 02/08/17 21:00 86 02/08/17 20:06 98.4 79 19 106/55 (72) 100 02/08/17 19:25 95 16 114/70 (85) 100 02/08/17 19:25 16 02/08/17 19:00 95 16 02/08/17 18:04 85 20 96/66 (76) 100 Nasal Cannula 2.00 02/08/17 16:34 89 18 108/65 (79) 100 Room Air 02/08/17 14:30 103 20 105/83 (90) 100 Nasal Cannula 2.00 02/08/17 13:22 99 Nasal Cannula 2.00 02/08/17 13:20 19 98 Room Air Physical Exam GENERAL: This is a cachectic patient, in no apparent distress. She appears much older than her stated age. SKIN: No rashes, ecchymoses or lesions. Cool and dry. HEAD: Atraumatic. Normocephalic. No temporal or scalp tenderness. EYES: Pupils equal round and reactive. Extraocular motions intact. No scleral icterus. No injection or drainage. ENT: Nose without bleeding, purulent drainage or septal hematoma. Throat without erythema, tonsillar hypertrophy or exudate. Uvula midline. Airway patent. NECK: Trachea midline. No JVD or lymphadenopathy. Supple, nontender, no meningeal signs. CARDIOVASCULAR: Regular rate and rhythm without murmurs, gallops, or rubs. RESPIRATORY: Clear to auscultation. Breath sounds equal bilaterally. No wheezes , rales, or rhonchi. GASTROINTESTINAL: Abdomen soft, non-tender, nondistended. No hepato-splenomegaly , or palpable masses. No guarding. MUSCULOSKELETAL: Extremities without clubbing, cyanosis, or edema. No joint tenderness, effusion, or edema noted. No calf tenderness. Negative Homans sign bilaterally. NEUROLOGICAL: Awake and alert. Cranial nerves II through XII intact. Motor and sensory grossly within normal limits. Five out of 5 muscle strength in all muscle groups. Normal speech. Laboratory Laboratory Tests Test 02/08/17 13:00 02/08/17 23:19 02/09/17 06:50 White Blood Count 11.8 7.2 Red Blood Count 4.12 3.30 Hemoglobin 13.7 11.4 Hematocrit 40.3 34.1 Mean Corpuscular Volume 98.0 103.4 Mean Corpuscular Hemoglobin 33.3 34.6 Mean Corpuscular Hemoglobin Concent 34.0 33.4 Red Cell Distribution Width 12.7 12.9 Platelet Count 171 127 Mean Platelet Volume 8.6 9.0 Neutrophils (%) (Auto) 82.4 63.5 Lymphocytes (%) (Auto) 9.1 25.9 Monocytes (%) (Auto) 5.5 8.2 Eosinophils (%) (Auto) 0.1 1.8 Basophils (%) (Auto) 2.9 0.6 Neutrophils # (Auto) 9.8 4.6 Lymphocytes # (Auto) 1.1 1.9 Monocytes # (Auto) 0.6 0.6 Eosinophils # (Auto) 0.0 0.1 Basophils # (Auto) 0.3 0.0 CBC Comment DIFF FINAL DIFF FINAL Differential Comment Prothrombin Time 9.8 Prothromb Time International Ratio 1.0 Activated Partial Thromboplast Time 25.3 D-Dimer Quantitative (PE/DVT) 0.54 Blood Urea Nitrogen 4 2 Creatinine 0.71 0.45 Random Glucose 149 63 Total Protein 6.8 Albumin 2.8 Calcium Level 8.5 8.0 Alkaline Phosphatase 149 Aspartate Amino Transf (AST/SGOT) 52 Alanine Aminotransferase (ALT/SGPT) 30 Total Bilirubin 0.9 Sodium Level 129 138 Potassium Level 2.9 3.9 Chloride Level 94 108 Carbon Dioxide Level 22.2 23.2 Anion Gap 13 7 Estimat Glomerular Filtration Rate 86 145 Total Creatine Kinase 56 49 49 Troponin I LESS THAN 0.02 LESS THAN 0.02 LESS THAN 0.02 Lipase 97 Result Diagram: 02/09/17 0650 02/09/[address] Angiography 02/08/17 1245 Signed Impressions: Service Date/Time: Wednesday, February 08, 2017 14:18 - CONCLUSION: 1. No pulmonary embolus identified. 2. 4.3 x 2.5 cm mediastinal mass. 3. 1.9 x 2.1 cm right hilar mass. 4. The mediastinal masses are suspicious for malignancy. 5. 4 mm nonspecific nodule in the right lung base. 6. COPD changes. 7. Possible partially visualized mass in the tail of the pancreas. This is only seen on the last image of the study. CT imaging of the abdomen and pelvis would be of benefit for further assessment. Joon Duval MD Course Patient has been seen by Oncology and GI. Endoscopy is planned for Saturday. Assessment and Plan Problem List: (1) Mediastinal mass ICD Codes: J98.59 - Other diseases of mediastinum, not elsewhere classified Status: Chronic (2) Lung mass ICD Codes: R91.8 - Other nonspecific abnormal finding of lung field Status: Acute (3) COPD (chronic obstructive pulmonary disease) ICD Codes: J44.9 - Chronic obstructive pulmonary disease, unspecified Status: Chronic (4) Tobacco abuse ICD Codes: Z72.0 - Tobacco use Status: Chronic (5) Pancreatic mass ICD Codes: K86.9 - Disease of pancreas, unspecified Status: Acute Assessment and Plan 56y/o cachectic female presents with probable malignancy of undetermined etiology. She is being evaluated by GI for GI source. The mediastinal mass appears large and should be accessible by transbronchial biopsy. If this is not feasible, the mass would also be amenable to mediastinoscopy or VATS for biopsy. The location this mass would likely preclude complete resection. Will follow. Problem Qualifiers (1) COPD (chronic obstructive pulmonary disease): Qualified Codes: J43.9 - Emphysema, unspecified Sena Vance MD Feb 09, 2017 13:12
[2017-02-09] MEDS ORDERED: DIATRIZOATE MEGLUM/DIATRIZOATE SOD 9 ML CUP PO ONE (13:30)
[2017-02-09] MEDS: RESP: ALBUTEROL 2.5 MG/IPRATROPIUM 0.5 MG NEB (SCH) NEB ×2 (14:00→22:13)
--- NOTE | 2017-02-09 15:32 | MB ---
cc: Maria Esther RYDER M.D. DATE OF CONSULTATION: 02/09/2017. HISTORY OF PRESENT ILLNESS: Ms. Sosa is a 56-year-old white female who has a mediastinal mass and a right hilar lymph node enlargement suspicious for primary lung malignancy. She has been followed now for a little over a month and had a negative bronchoscopy back in November, was seen by interventional radiology but they did not feel that access to this lesion was safe percutaneously and thoracic surgery has seen her and asked if we could consider endobronchial ultrasound directed transthoracic biopsy. The patient has been a lifelong smoker. She also drinks beer excessively up to five per day but has not had anything to drink in the last five days. She also came in with abdominal complaints and GI is seeing her and plans an endoscopy on Saturday. She has had no hematemesis, no hemoptysis. She has had some anterior chest discomfort, probably related to this mass. A CT angiogram on 02/08 revealed no pulmonary embolism but a 4 x 2 cm mediastinal mass in the right with a right perihilar lymph node as well. There is a questionable mass in the tail of the pancreas. PAST MEDICAL HISTORY: 1. COPD. 2. Hyponatremia. 3. Prior tubal ligation. 4. section. 5. Appendectomy. 6. A bronchoscopy in November that was nondiagnostic. FAMILY HISTORY: A sister who of cancer in her 30s. Another brother with cancer as well. Parents both in their 70s. SOCIAL HISTORY: She is single, lives with her son, smoking and drinking noted above. PHYSICAL EXAMINATION: GENERAL: A thin elderly appearing woman in no distress at rest. VITAL SIGNS: Afebrile, pulse is 90, respirations 18, 02 saturation on two liters 99%, blood pressure 120/70. LYMPHATIC: No adenopathy in the neck or supraclavicular regions. CHEST: Clear. Diminished but no congestion or wheezing. No rales. HEART: No harsh murmur. No audible S3. EXTREMITIES: Thin extremities. No edema. No cyanosis. LABORATORY STUDIES: White count is 7200, hemoglobin is 11.4, platelet count is 127,000. BUN is 2, sodium is 138. PT and INR, APTT normal. DISCUSSION: Ms. Sosa presents into the hospital with some nausea and vomiting, no hemoptysis or hematemesis and a large anterior mediastinal mass with right perihilar lymph node enlargement as well. This certainly appears to be a primary lung malignancy and given its size and location, small cell cancer would be suspect. Her previous bronchoscopy revealed no endobronchial pathology and was nondiagnostic. She is scheduled for an endoscopy Saturday. If all are in agreement, will try to get her scheduled for a transthoracic needle aspirate with ultrasound on Saturday and see if we can establish a definitive diagnosis. Further diagnostic and/or therapeutic intervention will depend on these initial diagnostic studies. R. MD NIALL Booker/JAIR /1:46 PM /3:12 PM
[2017-02-09 16:57] LABS: BLOOD GAS BASE EXCESS -1.7 mmol/L (-2-2); BLOOD GAS CARBOXYHEMOGLOBIN 1.4 % (0-4); BLOOD GAS HCO3 23 mmol/L (22-26); BLOOD GAS METHEMOGLOBIN 1.1 % (0-2); BLOOD GAS O2 HGB SATURATION 94 % (90-100); BLOOD GAS PCO2 39 mmHg (38-42); BLOOD GAS PO2 82 mmHg (61-120); BLOOD GAS TOTAL HGB 10.5 G/DL (12.0-16.0); CRITICAL VALUE NO; DRAW SITE LT RADIAL; NUMBER OF ARTERIAL PUNCTURES 1; OXYGEN DEVICE RA; STAT NO; TEMP CORR TO 98.6; ULNAR PULSE Y
[2017-02-09] MEDS ORDERED: IOHEXOL 350 MG/ML 10 ML VIAL (for RAD DIAG) IVCONTRAST ONE (20:38)
--- NOTE | 2017-02-09 20:57 | RADRPT ---
EXAM DATE/TIME: 02/09/2017 20:32 [facility] COMPARISON: No previous studies available for comparison. INDICATIONS : Upper abdominal pain; possible pancreatitis. IV CONTRAST: 65 cc Omnipaque 350 (iohexol) IV ORAL CONTRAST: Prescribed oral contrast ingested. RADIATION DOSE: 5.62 CTDIvol (mGy) MEDICAL HISTORY : Cardiovascular disease. SURGICAL HISTORY : Appendectomy. Tubal ligation. ENCOUNTER: Initial ACUITY: 1 day PAIN SCALE: 6/10 LOCATION: abdomen TECHNIQUE: Volumetric scanning of the abdomen and pelvis was performed. Using automated exposure control and ad justment of the mA and/or kV according to patient size, radiation dose was kept as low as reasonably achievable to obtain optimal diagnostic quality images. DICOM format image data is available electro nically for review and comparison. FINDINGS: Small bilateral pleural effusions are present. No acute findings in the liver, spleen, adrenals or pa ncreas. There is a rotation abnormality in the left kidney. Right kidney unremarkable. No calcified g allstones. There is dependent density in the gallbladder possibly from excretion of contrast or sludg e. There is mild anasarca. The bladder is distended. No pelvic masses or significant free fluid. Stomach is fairly markedly distended. CONCLUSION: 1. No CT findings of pancreatitis. 2. Marked gastric distention and mild bladder distention. 3. Mild anasarca. No bowel obstruction, free air or significant free fluid. Trace bilateral pleural e ffusions. Beni Bolton MD on February 09, 2017 at 20:50 Board Certified Radiologist. This report was verified electronically.
[2017-02-09] MEDS: ZOLPIDEM TARTRATE 5 MG TAB PO PRN (21:09)
[2017-02-10] VITALS (10 sets, daily range): BP systolic 97–136; BP diastolic 53–61; PULSE 87–116; RESP 18–21; TEMP 97.5–98.4; O2SAT 95–100
[2017-02-10] MEDS: MORPHINE SULFATE 4 MG/ML INJ IV PUSH PRN ×7 (00:34→23:56)
[2017-02-10 01:58] LABS: C. DIFF EPI 027 PRESUMPTIVE NEGATIVE (NEGATIVE)
[2017-02-10] MEDS: RESP: ALBUTEROL 2.5 MG/IPRATROPIUM 0.5 MG NEB (SCH) NEB ×3 (07:34→20:55)
[2017-02-10] MEDS: SODIUM CHLOR 0.9% 1000 ML INJ 1,000 ML IV SCH ×2 (08:30→18:49)
[2017-02-10] MEDS: SODIUM CHLORIDE 0.9% FLUSH 10 ML FLUSH IV FLUSH SCH ×2 (08:38→20:43)
[2017-02-10 09:59] LABS: ANION GAP 10 MEQ/L (5-15); BICARBONATE 19.9 MEQ/L (21.0-32.0); BLOOD UREA NITROGEN LESS THAN 1 MG/DL (7-18); CHLORIDE 103 MEQ/L (98-107); GLOMERULAR FILTRATION RATE 176 ML/MIN (>89); SODIUM (NA) 133 MEQ/L (136-145)
[2017-02-10 10:00] LABS: POTASSIUM 3.9 MEQ/L (3.5-5.1)
[2017-02-10 10:09] LABS: HEMATOCRIT 35.1 % (35.0-46.0); MEAN CELL VOLUME 101.4 FL (80.0-100.0); MEAN CORPUSCULAR HEMOGLOBIN 34.1 PG (27.0-34.0); MEAN CORPUSCULAR HGB CONC 33.6 % (32.0-36.0); PLATELET COUNT 98 TH/MM3 (150-450); RED BLOOD COUNT 3.46 MIL/MM3 (4.00-5.30); RED CELL DISTRIBUTION WIDTH 12.8 % (11.6-17.2)
[2017-02-10 10:10] LABS: REVIEW FLAG FINAL
--- NOTE | 2017-02-10 10:43 | PD.ONC.PN ---
Subjective Subjective Remarks No complaints. Eating well. No vomiting. Mild anxiety over EGD and colonoscopy, never had colonoscopy. Objective Data Date Time Temp Pulse Resp B/P (MAP) Pulse Ox O2 Delivery O2 Flow Rate FiO2 02/10/17 08:00 97.5 104 18 108/56 (73) 98 02/10/17 04:00 Nasal Cannula 2.00 02/10/17 04:00 87 02/10/17 04:00 97.8 96 18 97/54 (68) 100 02/10/17 00:00 97.8 110 20 108/58 (75) 95 02/10/17 00:00 Nasal Cannula 2.00 02/09/17 23:47 84 02/09/17 22:14 94 21 02/09/17 20:00 Nasal Cannula 2.00 02/09/17 20:00 97.6 107 18 128/60 (82) 95 02/09/17 19:43 80 02/09/17 16:00 86 02/09/17 16:00 97.5 86 18 111/55 (73) 100 02/09/17 13:23 99 Nasal Cannula 2.00 02/09/17 12:00 97.1 96 18 120/72 (88) 98 02/10/17 02/10/17 02/10/17 07:00 15:00 23:00 Intake Total 1219 ml 121 ml Balance 1219 ml 121 ml Result Diagram: 02/10/17 0815 02/10/17 0815 Laboratory Results Laboratory Tests Test 02/09/17 13:55 02/09/17 16:40 02/09/17 21:25 02/10/17 08:15 CA 19-9 Antigen 36.5 U/ML Blood Gas Puncture Site LT RADIAL Blood Gas Patient Temperature 98.6 Blood Gas HCO3 23 mmol/L Blood Gas Base Excess -1.7 mmol/L Blood Gas Oxygen Saturation 94 % Arterial Blood pH 7.38 Arterial Blood Partial Pressure CO2 39 mmHg Arterial Blood Partial Pressure O2 82 mmHg Arterial Blood Oxygen Content 14.0 Vol % Arterial Blood Carboxyhemoglobin 1.4 % Arterial Blood Methemoglobin 1.1 % Blood Gas Hemoglobin 10.5 G/DL Oxygen Delivery Device RA Stool C. difficile Toxin (PCR) NEGATIVE Stl C. difficile Toxin Epiderm 027 PRESUMPTIVE NEGATIVE White Blood Count 11.0 TH/MM3 Red Blood Count 3.46 MIL/MM3 Hemoglobin 11.8 GM/DL Hematocrit 35.1 % Mean Corpuscular Volume 101.4 FL Mean Corpuscular Hemoglobin 34.1 PG Mean Corpuscular Hemoglobin Concent 33.6 % Red Cell Distribution Width 12.8 % Platelet Count 98 TH/MM3 Mean Platelet Volume 9.3 FL Hematology Comments Blood Urea Nitrogen LESS THAN 1 MG/DL Creatinine 0.38 MG/DL Random Glucose 73 MG/DL Calcium Level 7.7 MG/DL Sodium Level 133 MEQ/L Potassium Level 3.9 MEQ/L Chloride Level 103 MEQ/L Carbon Dioxide Level 19.9 MEQ/L Anion Gap 10 MEQ/L Estimat Glomerular Filtration Rate 176 ML/MIN Culture Results Microbiology Date/Time Source Procedure Growth Status 02/09/17 21:25 Stool Stool Cryptosporidium Exam - Final NEGATIVE - NO CRYPTOSPORIDIUM ANTIGEN... Complete 02/09/17 21:25 Stool Stool Giardia Antigen (STACIE) - Final NEGATIVE - NO GIARDIA ANTIGEN DETECTE... Complete 02/09/17 21:25 Stool Stool Pending Received Imaging Studies Last 24 hours Impressions Abdomen/Pelvis CT 02/09/17 1203 Signed Impressions: Service Date/Time: Thursday, February 09, 2017 20:32 - CONCLUSION: 1. No CT findings of pancreatitis. 2. Marked gastric distention and mild bladder distention. 3. Mild anasarca. No bowel obstruction, free air or significant free fluid. Trace bilateral pleural effusions. Beni Bolton MD Administered Medications Medications (Trade) Dose Ordered Sig/Tonya Route PRN Reason Start Time Stop Time Status Last Admin Dose Admin Sodium Chloride 1,000 ml @ 100 mls/hr Q10H IV 02/08/17 15:39 02/10/17 08:30 Sodium Chloride (NS Flush) 2 ml BID IV FLUSH 02/08/17 21:00 02/09/17 21:00 Ondansetron HCl (Zofran Inj) 4 mg Q6H PRN IVP NAUSEA OR VOMITING 02/08/17 15:45 02/08/17 19:11 Morphine Sulfate (Morphine Inj) 4 mg Q3H PRN IV PUSH PAIN 02/08/17 18:00 02/10/17 10:16 Albuterol/ Ipratropium (Duoneb Neb) 1 ampule Q6HR NEB PRN NEB SHORTNESS OF BREATH 02/09/17 13:00 02/09/17 13:20 Albuterol/ Ipratropium (Duoneb Neb) 1 ampule TID NEB NEB 02/09/17 14:00 02/10/17 07:34 Zolpidem Tartrate (Ambien) 5 mg HS PRN PO INSOMNIA 02/09/17 21:00 02/09/17 21:09 Objective Remarks GENERAL: Looks older than stated age. Resting in bed in no acute distress SKIN: Warm and dry. HEAD: Normocephalic. EYES: No scleral icterus. No injection or drainage. NECK: Supple, trachea midline. No JVD or lymphadenopathy. CARDIOVASCULAR: Regular rate and rhythm without murmurs. RESPIRATORY: Scattered rhonchi. On 2 L nasal cannula GASTROINTESTINAL: Abdomen soft, non-tender, nondistended. EXTREMITIES: No cyanosis. MUSCULOSKELETAL: Adequate muscle tone. NEUROLOGICAL: No obvious focal deficit. Awake, alert, and oriented x3. Assessment/Plan Problem List: (1) Lung mass ICD Codes: R91.8 - Other nonspecific abnormal finding of lung field Status: Acute Plan: -- Patient has a mediastinal mass associated with right hilar mass and possible mass in the tail of the pancreas. -- Mediastinal mass concerning for bronchogenic carcinoma -- CTA shows 4.3 x 2.5 cm mediastinal mass and a 1.9 x 2.1 cm right hilar mass -- Awaiting pulmonary consult for repeat bronchoscopy for eventual diagnosis -- GI has also been consulted to see if they can do biopsy via endoscopic ultrasound -- Patient having electrolyte abnormalities concerning for perineoplastic syndrome Hx/Workup: Patient has long history of smoking. She initially presented in November [address] scan of the chest showed a large right paratracheal mass measuring 5 cm with additional 2 cm right hilar jamin mass unfortunately bronchoscopic evaluation of the time was nondiagnostic. She was unable to safely percutaneous biopsy either. She has lost 10 pounds from her previous presentation in November and her shortness of breath is worsening. 02/10/17. Noted CT of abdomen. No lesion to biopsy. Defer to CTS for biopsy. Appreciate pulmonary consult. Further recommendation pending results of biopsy. (2) Pancreatic mass ICD Codes: K86.9 - Disease of pancreas, unspecified Status: Acute Plan: -- CT abdomen and pelvis with pancreatic protocol ordered 02/10/17. CT show no mass in pancreas. Disease in chest. (3) Thrombocytopenia ICD Codes: D69.6 - Thrombocytopenia, unspecified Status: Acute Plan: r/o DIC, possible dilutional. Ct abdomen do not show disease in liver or splenomegaly. Unable to r/o drug effect, no exposure to heparin. No bleeding. Assessment 56 y/o female with mediastinal mass admitted for worsening shortness of breath Plan 1. Proceed with plan for biopsy by CTS 2. Follow MARIAN[facility] at [facility], information for follow up given. 3. Monitor electrolytes 4. Thrombocytopenia- evaluation Coag, fibrinogen, smear, LAC Florinda Lowe MD Feb 10, 2017 10:43
--- NOTE | 2017-02-10 12:37 | HHI.GIFU ---
Subjective Remarks Sitting up in bed, in no apparent distress. Family at bedside. States she is nervous about EGD/Colonoscopy tomorrow. Objective Vitals I&O Vital Signs Date Time Temp Pulse Resp B/P (MAP) Pulse Ox O2 Delivery O2 Flow Rate FiO2 02/10/17 08:00 97.5 104 18 108/56 (73) 98 02/10/17 04:00 Nasal Cannula 2.00 02/10/17 04:00 87 02/10/17 04:00 97.8 96 18 97/54 (68) 100 02/10/17 00:00 97.8 110 20 108/58 (75) 95 02/10/17 00:00 Nasal Cannula 2.00 02/09/17 23:47 84 02/09/17 22:14 94 21 02/09/17 20:00 Nasal Cannula 2.00 02/09/17 20:00 97.6 107 18 128/60 (82) 95 02/09/17 19:43 80 02/09/17 16:00 86 02/09/17 16:00 97.5 86 18 111/55 (73) 100 02/09/17 13:23 99 Nasal Cannula 2.00 I/O 02/09/17 02/09/17 02/09/17 02/10/17 02/10/17 02/10/17 07:00 15:00 23:00 07:00 15:00 23:00 Intake Total 400 ml 1000 ml 2480 ml 1219 ml 121 ml Output Total 450 ml 500 ml Balance -50 ml 1000 ml 1980 ml 1219 ml 121 ml Intake Oral 400 ml 480 ml 340 ml IV Total 1000 ml 2000 ml 879 ml 121 ml Output Urine Total 450 ml 500 ml # Voids 3 # Bowel Movements 0 Laboratory Laboratory Tests Test 02/09/17 13:55 02/09/17 16:40 02/09/17 21:25 02/10/17 08:15 CA 19-9 Antigen 36.5 Blood Gas Puncture Site LT RADIAL Blood Gas Patient Temperature 98.6 Blood Gas HCO3 23 Blood Gas Base Excess -1.7 Blood Gas Oxygen Saturation 94 Arterial Blood pH 7.38 Arterial Blood Partial Pressure CO2 39 Arterial Blood Partial Pressure O2 82 Arterial Blood Oxygen Content 14.0 Arterial Blood Carboxyhemoglobin 1.4 Arterial Blood Methemoglobin 1.1 Blood Gas Hemoglobin 10.5 Oxygen Delivery Device RA Stool C. difficile Toxin (PCR) NEGATIVE Stl C. difficile Toxin Epiderm 027 PRESUMPTIVE NEGATIVE White Blood Count 11.0 Red Blood Count 3.46 Hemoglobin 11.8 Hematocrit 35.1 Mean Corpuscular Volume 101.4 Mean Corpuscular Hemoglobin 34.1 Mean Corpuscular Hemoglobin Concent 33.6 Red Cell Distribution Width 12.8 Platelet Count 98 Mean Platelet Volume 9.3 Hematology Comments Blood Urea Nitrogen LESS THAN 1 Creatinine 0.38 Random Glucose 73 Calcium Level 7.7 Sodium Level 133 Potassium Level 3.9 Chloride Level 103 Carbon Dioxide Level 19.9 Anion Gap 10 Estimat Glomerular Filtration Rate 176 Date/Time Source Procedure Growth Status 02/09/17 21:25 Stool Stool Cryptosporidium Exam - Final NEGATIVE - NO CRYPTOSPORIDIUM ANTIGEN... Complete 02/09/17 21:25 Stool Stool Giardia Antigen (STACIE) - Final NEGATIVE - NO GIARDIA ANTIGEN DETECTE... Complete Imaging Last Impressions Abdomen/Pelvis CT 02/09/17 1203 Signed Impressions: Service Date/Time: Thursday, February 09, 2017 20:32 - CONCLUSION: 1. No CT findings of pancreatitis. 2. Marked gastric distention and mild bladder distention. 3. Mild anasarca. No bowel obstruction, free air or significant free fluid. Trace bilateral pleural effusions. Beni Bolton MD CT Angiography 02/08/17 1245 Signed Impressions: Service Date/Time: Wednesday, February 08, 2017 14:18 - CONCLUSION: 1. No pulmonary embolus identified. 2. 4.3 x 2.5 cm mediastinal mass. 3. 1.9 x 2.1 cm right hilar mass. 4. The mediastinal masses are suspicious for malignancy. 5. 4 mm nonspecific nodule in the right lung base. 6. COPD changes. 7. Possible partially visualized mass in the tail of the pancreas. This is only seen on the last image of the study. CT imaging of the abdomen and pelvis would be of benefit for further assessment. Joon Duval MD Physical Exam HEENT: Normocephalic; atraumatic; no jaundice. NECK: Neck is supple CHEST: Rhonchi. On 2L O2 via NC CARDIAC: RRR with no murmur gallop or rubs. ABDOMEN: Soft, nondistended, nontender; no hepatosplenomegaly; bowel sounds are present in all four quadrants. EXTREMITIES: No clubbing, cyanosis, or edema. SKIN: Normal; no rash; no jaundice. FURNITURE INSTALLER: No focal deficits; alert and oriented times three. Assessment and Plan Plan ASSESSMENT: - Possible mass in the tail of the pancreas- CT pulmonary angiogram (02/08) -- > Possible partially visualized mass in the tail of the pancreas. This is only seen on the last image of the study. CT imaging of the abdomen and pelvis would be of benefit for further assessment. CT abdomen/pelvis pending at this time. Pt denies history of pancreatitis. Lipase currently-97. Heavy ETOH, approx 4-5 beers 3-4 times a week. Reports epigastric pain, TTP, nausea, and dry heaving. Denies acid reflux, does report taking Protonix at home. Has never had EGD or colonoscopy. If EUS is indicated then would plan for this procedure to be done at later date, possibly Feb 23. - Diarrhea- Began day prior to hospitalization- per nurse pt has not had a BM since being transferred from [place] yesterday. Denies blood on in stool. Of note, pt does report family history of colon cancer, maternal aunt. - Known lung mass- no biopsy has been done yet. Pulmonology and IR unable to obtain biopsy, plan is for cardiothoracic to biopsy. Nicotine dependence, 10 cigarettes a day since being diagnosed with mass during admission in November was previously pack a day smoker since 19 years old. 02/10/17--No mass in pancreas noted on CT. Abdomen CT 02/09/17--1. No CT findings of pancreatitis. 2. Marked gastric distention and mild bladder distention 3. Mild anasarca. No bowel obstruction, free air or significant free fluid. Trace bilateral pleural effusions. Pulmonary consulted for repeat bronchoscopy. CA 19-9 elevated, 36.5. C diff negative. Cryptosporidium, Giardia negative PLAN: - EGD/Colonoscopy Saturday - Clear liquid diet today - [facility] - Bowel prep today - Monitor labs - Supportive care - Further recommendations to follow based on results of above Patient seen and examined by Dr. Rolon and myself and this note is written on his behalf. Janice Umana Feb 10, 2017 12:37
--- NOTE | 2017-02-10 13:04 | MB ---
cc: Maria Esther RYDER DATE OF CONSULTATION: 02/10/2017 REASON FOR CONSULTATION: Mediastinal mass in a right hilar lymph node HISTORY OF PRESENT ILLNESS: Ms. Sosa is a 56-year-old white female whom I saw yesterday with a mediastinal mass in a right hilar lymph node that is enlarged. This is suspicious for malignancy. She has had a previous bronchoscopy and was negative but no transbronchial aspirates have been done. I spoke with Dr. Maier and Dr. Vance, cardiovascular surgeon yesterday and we all agreed that the next procedure that might be very helpful would be ultrasound bronchoscopy with needle aspiration. I have returned today and discussed this with the patient and her sister. I have described the procedure in simple terms so she understands what it involves. She understands that there are risks of complications related to anesthesia and/or the biopsy including although not limited to, bleeding and/or pneumothorax. She is agreeable to proceed. Further diagnostic and/or therapeutic intervention will depend on the results of this study. MD NIALL John/MADDY /12:39 PM /12:58 PM
--- NOTE | 2017-02-10 13:39 | HHI.PR ---
Subjective Remarks Patient reports she is feeling okay today. Tolerating clear liquid diet. No increased in shortness of breath. Objective Vitals Vital Signs Date Time Temp Pulse Resp B/P (MAP) Pulse Ox O2 Delivery O2 Flow Rate FiO2 02/10/17 08:00 97.5 104 18 108/56 (73) 98 02/10/17 04:00 Nasal Cannula 2.00 02/10/17 04:00 87 02/10/17 04:00 97.8 96 18 97/54 (68) 100 02/10/17 00:00 97.8 110 20 108/58 (75) 95 02/10/17 00:00 Nasal Cannula 2.00 02/09/17 23:47 84 02/09/17 22:14 94 21 02/09/17 20:00 Nasal Cannula 2.00 02/09/17 20:00 97.6 107 18 128/60 (82) 95 02/09/17 19:43 80 02/09/17 16:00 86 02/09/17 16:00 97.5 86 18 111/55 (73) 100 I/O 02/09/17 02/09/17 02/09/17 02/10/17 02/10/17 02/10/17 07:00 15:00 23:00 07:00 15:00 23:00 Intake Total 400 ml 1000 ml 2480 ml 1219 ml 121 ml Output Total 450 ml 500 ml Balance -50 ml 1000 ml 1980 ml 1219 ml 121 ml Intake Oral 400 ml 480 ml 340 ml IV Total 1000 ml 2000 ml 879 ml 121 ml Output Urine Total 450 ml 500 ml # Voids 3 # Bowel Movements 0 Result Diagram: 02/10/1715 02/10/17 0815 Objective Remarks GENERAL: Cachectic-looking patient. In no acute distress CARDIOVASCULAR: Normal rate and regular rhythm without murmurs, gallops, or rubs. RESPIRATORY: Good respiratory efforts. Diminished breath sounds at the bases. GASTROINTESTINAL: Abdomen soft, tender to palpation in the midepigastric region. Normal and active bowel sounds MUSCULOSKELETAL: Extremities without cyanosis, or edema. NEURO: Alert & Oriented x4 to person, place, time, situation. Moves all ext x4 PSYCH: Appropriate mood and affect. A/P Problem List: (1) Lung mass ICD Code: R91.8 - Other nonspecific abnormal finding of lung field Status: Acute (2) Pancreatic mass ICD Code: K86.9 - Disease of pancreas, unspecified Status: Acute (3) Chest pain ICD Code: R07.9 - Chest pain, unspecified Status: Acute (4) Hyponatremia ICD Code: E87.1 - Hypo-osmolality and hyponatremia (5) Hypokalemia ICD Code: E87.6 - Hypokalemia Status: Acute Assessment and Plan 56-year-old female who presented with a mediastinal mass associated with a right hilar mass suspicious for malignancy. The patient also has a mass about the tail of the pancreas. - Hematology, CT surgery following. Pulmonology following -Pulmonology planning for bronchoscopy and biopsy. - GI also on the case and planning for EGD/colonoscopy tomorrow. CA-19-9 slightly elevated. - Abdomen/pelvis CT did not show a pancreatic mass. Mild gastric distention noted. - Breathing treatments as needed. Supplemental oxygen as needed - Pain control with morphine as needed Insomnia: - Ambien as needed at night. DVT PPx: SCDs. Problem Qualifiers (1) Chest pain: Qualified Codes: R07.9 - Chest pain, unspecified Fred Rodriguez MD Feb 10, 2017 13:39
[2017-02-10] MEDS ORDERED: PEG (High)/E-LYTE SOLN 4000 ML BTL PO ONE (16:00)
[2017-02-10] MEDS: ZOLPIDEM TARTRATE 5 MG TAB PO PRN (23:56)
[2017-02-10] MEDS: SODIUM CHLORIDE 0.9% FLUSH 10 ML FLUSH IV FLUSH PRN (23:57)
[2017-02-11] VITALS (7 sets, daily range): BP systolic 106–123; BP diastolic 52–57; PULSE 89–103; RESP 16–21; TEMP 97.6–98.9; O2SAT 95–100
[2017-02-11] MEDS: SODIUM CHLOR 0.9% 1000 ML INJ 1,000 ML IV SCH (04:07)
[2017-02-11] MEDS: MORPHINE SULFATE 4 MG/ML INJ IV PUSH PRN ×2 (04:09→08:21)
[2017-02-11] MEDS: SODIUM CHLORIDE 0.9% FLUSH 10 ML FLUSH IV FLUSH PRN (04:10)
[2017-02-11] MEDS ORDERED: LACTATED RINGER'S 1000 ML IV PRN (06:15)
[2017-02-11] MEDS ORDERED: CHLORHEXIDINE GLUCONATE 2 % 1 PACK (2 CLOTHS) TOPICAL PRN (06:15)
[2017-02-11] MEDS ORDERED: POVIDONE IODINE 5% (ANTISEPSIS KIT) 4 APPLICATIONS EACH NARE PRN (06:15)
[2017-02-11] MEDS: RESP: ALBUTEROL 2.5 MG/IPRATROPIUM 0.5 MG NEB (SCH) NEB ×3 (07:59→21:40)
[2017-02-11 09:10] LABS: AUTOMATED NEUTROPHIL # 6.9 TH/MM3 (1.8-7.7); BASOPHIL % 0.6 % (0.0-2.0); EOSINOPHIL # 0.1 TH/MM3 (0-0.4); EOSINOPHIL % 0.8 % (0.0-4.0); HEMATOCRIT 29.1 % (35.0-46.0); LYMPH % 11.6 % (9.0-44.0); MEAN CELL VOLUME 100.8 FL (80.0-100.0); MEAN CORPUSCULAR HEMOGLOBIN 34.7 PG (27.0-34.0); MEAN CORPUSCULAR HGB CONC 34.4 % (32.0-36.0); MONO % 7.4 % (0.0-8.0); NEUT % 79.6 % (16.0-70.0); PLATELET COUNT 86 TH/MM3 (150-450); RED BLOOD COUNT 2.89 MIL/MM3 (4.00-5.30); RED CELL DISTRIBUTION WIDTH 12.9 % (11.6-17.2); WHITE BLOOD COUNT 8.7 TH/MM3 (4.0-11.0)
[2017-02-11 09:20] LABS: APTT (PATIENT) 28.9 SEC (24.3-30.1); INTERNATIONAL NORMALIZED RATIO 1.1 RATIO; PROTHROMBIN TIME - PATIENT 10.7 SEC (9.8-11.6)
[2017-02-11 09:53] LABS: HEMO FLAGS AUTO DIFF
[2017-02-11 09:54] LABS: PLATELET ESTIMATE SMEAR LOW (NORMAL); PLATELET MORPHOLOGY NORMAL (NORMAL); SCAN/DIFF AUTO DIFF CONFIRMED
--- NOTE | 2017-02-11 10:10 | GIPROC ---
[facility] [address] [facility]. [facility], [address] EGD PROCEDURE REPORT EXAM DATE: 02/11/2017 PATIENT NAME: Khushbu Sosa MR #: [id number] BIRTHDATE: 1960 ATTENDING: Nathan Sanchez MD ORDER #: [id number] CYCLE LIAISON: Hannah Thomas and Sola Andres STATUS: inpatient INDICATIONS: The patient is a 56 yr old female here for an EGD due to abdominal pain PROCEDURE PERFORMED: EGD w/ biopsy MEDICATIONS: None and Per Anesthesia. TOPICAL ANESTHETIC: none CONSENT: The patient understands the risks and benefits of the procedure and understands that these risks include, but are not limited to: sedation, allergic reaction, infection, perforation and/or bleeding. Alternative means of evaluation and treatment include, among others: physical exam, x-rays, and/or surgical intervention. The patient elects to proceed with this endoscopic procedure. medical equipment was checked for proper function. Hand hygiene and appropriate measures for infection prevention was taken. After the risks, benefits and alternatives of the procedure were thoroughly explained, Informed consent was verified, confirmed and timeout was successfully executed by the treatment team. The patient was anesthetized with topical anesthesia and the EC-3490Li (Pedi C) endoscope was introduced through the mouth and advanced to the second portion of the duodenum. Retroflexion was performed and was normal The gastroscope was then slowly withdrawn and removed. ESOPHAGUS: The mucosa of the esophagus appeared normal. STOMACH: There was erythematous moderate and erosive gastritis in the entire examined stomach. Multiple biopsies were performed using cold forceps. Sample sent for histology. DUODENUM: Medium sized non-bleeding, round and clean-based ulcer(s) were found in the duodenal bulb. ADVERSE EVENTS: There were no complications. IMPRESSIONS: 1. The esophagus appeared normal 2. There was erythematous gastritis in the entire examined stomach; multiple biopsies were performed 3. Medium sized ulcer was found in the duodenal bulb 4. Retroflexion was performed and was normal RECOMMENDATIONS: 1. Await biopsy results. Biopsy results will not be ready for 7-10 days. If you don't hear from us in two weeks, call our office for biopsy results. 2. Continue PPI PATIENT CONDITION: stable DISPOSITION: Observation REPEAT EXAM: NONE Nathan Sanchez MD eSigned: Nathan Sanchez MD 02/11/2017 10:10 AM cc: PATIENT NAME: Khushbu Sosa MR#: [id number]
--- NOTE | 2017-02-11 10:13 | GIPROC ---
[facility] [address] [facility]. [facility], [address] COLONOSCOPY PROCEDURE REPORT EXAM DATE: 02/11/2017 PATIENT NAME: Khusbhu Sosa MR #: [id number] BIRTHDATE: 1960 ENDOSCOPIST: Nathan Sanchez MD ORDER #: [id number] LATHMAKER: Hannah Thomas and Sola Andres STATUS: inpatient INDICATIONS: The patient is a 56 yr old female here for a colonoscopy due to abdominal pain PROCEDURE PERFORMED: Colonoscopy, diagnostic MEDICATIONS: None and Per Anesthesia. PREP QUALITY: fair PREP TYPE:GoLytely ESTIMATED BLOOD LOSS: None CONSENT: The patient understands the risks and benefits of the procedure and understands that these risks include, but are not limited to: sedation, allergic reaction, infection, perforation and/or bleeding. Alternative means of evaluation and treatment include, among others: physical exam, x-rays, and/or surgical intervention. The patient elects to proceed with this endoscopic procedure. medical equipment was checked for proper function. Hand hygiene and appropriate measures for infection prevention was taken. After the risks, benefits and alternatives of the procedure were thoroughly explained, Informed consent was verified, confirmed and timeout was successfully executed by the treatment team. A digital exam revealed no abnormalities of the rectum The Pentax EC-3490Li endoscope was introduced through the anus and advanced to the cecum, which was identified by both the appendix and ileocecal valve. The instrument was then slowly withdrawn as the colon was fully examined. COLON FINDINGS: The colonic mucosa appeared normal throughout the entire examined colon. Retroflexed views revealed internal hemorrhoids and Retroflexed views revealed small internal hemorrhoids The scope was then completely withdrawn from the patient and the procedure terminated. PROCEDURE WITHDRAWAL TIME:9minutes ADVERSE EVENTS: There were no complications. IMPRESSIONS: 1. The colonic mucosa appeared normal throughout the entire examined colon 2. Retroflexed views revealed internal hemorrhoids 3. Retroflexed views revealed small internal hemorrhoids RECOMMENDATIONS: Continue surveillance RECALL: Return 10 years Colonoscopy Nathan Sanchez MD eSigned: Nathan Sanchez MD 02/11/2017 10:12 AM cc:
[2017-02-11] MEDS ORDERED: SODIUM CHLOR 0.45% 1000 ML INJ 1,000 ML IV SCH (11:34)
[2017-02-11] MEDS: MORPHINE SULFATE 2 MG/ML INJ IV PUSH PRN ×4 (11:35→22:52)
[2017-02-11] MEDS ORDERED: RESP: ALBUTEROL CONC 2.5 MG/0.5 ML NEB NEB SCH (11:45)
[2017-02-11] MEDS ORDERED: RESP: LIDOCAINE HCL 4% PF 5 ML NEB NEB SCH (11:45)
[2017-02-11] MEDS ORDERED: CYANOCOBALAMIN 1000 MCG/ML VIAL SQ ONE (12:30)
[2017-02-11] MEDS: FOLIC ACID 1 MG TAB PO SCH (12:30)
--- NOTE | 2017-02-11 13:54 | PD.ONC.PN ---
Subjective Subjective Remarks Afebrile overnight. Patient resting in room. Just back from colonoscopy. Feeling well without pain. Objective Data Date Time Temp Pulse Resp B/P (MAP) Pulse Ox O2 Delivery O2 Flow Rate FiO2 02/11/17 12:00 97.7 89 17 111/53 (72) 96 02/11/17 10:15 99 Nasal Cannula 2 02/11/17 10:15 98.2 94 18 93/53 (66) 99 02/11/17 08:00 98.4 103 17 111/53 (72) 96 02/11/17 08:00 96 Nasal Cannula 2.00 02/11/17 04:00 98.9 102 20 106/57 (73) 99 02/11/17 00:00 97.8 94 16 110/53 (72) 100 02/11/17 00:00 Nasal Cannula 3.00 02/10/17 23:43 97 02/10/17 20:57 98 Nasal Cannula 2.00 02/10/17 20:00 Nasal Cannula 3.00 02/10/17 20:00 98.2 108 21 102/53 (69) 100 02/10/17 19:28 98 02/10/17 16:00 108 02/10/17 16:00 98.0 106 18 113/60 (77) 97 02/11/17 02/11/17 02/11/17 07:00 15:00 23:00 Intake Total 2952 ml 100 ml Balance 2952 ml 100 ml Result Diagram: 02/11/17 0848 02/10/17 0815 Laboratory Results Laboratory Tests Test 02/11/17 08:48 02/11/17 12:40 White Blood Count 8.7 TH/MM3 Red Blood Count 2.89 MIL/MM3 Hemoglobin 10.0 GM/DL Hematocrit 29.1 % Mean Corpuscular Volume 100.8 FL Mean Corpuscular Hemoglobin 34.7 PG Mean Corpuscular Hemoglobin Concent 34.4 % Red Cell Distribution Width 12.9 % Platelet Count 86 TH/MM3 Mean Platelet Volume 9.5 FL Neutrophils (%) (Auto) 79.6 % Lymphocytes (%) (Auto) 11.6 % Monocytes (%) (Auto) 7.4 % Eosinophils (%) (Auto) 0.8 % Basophils (%) (Auto) 0.6 % Neutrophils # (Auto) 6.9 TH/MM3 Lymphocytes # (Auto) 1.0 TH/MM3 Monocytes # (Auto) 0.6 TH/MM3 Eosinophils # (Auto) 0.1 TH/MM3 Basophils # (Auto) 0.0 TH/MM3 CBC Comment AUTO DIFF Differential Comment AUTO DIFF CONFIRMED Platelet Estimate LOW Platelet Morphology Comment NORMAL Blood Smear Pathologist Review Prothrombin Time 10.7 SEC Prothromb Time International Ratio 1.1 RATIO Activated Partial Thromboplast Time 28.9 SEC Fibrinogen 317 mg/dL Mix DRVV Patient/Normal 1:1 Culture Results Microbiology Date/Time Source Procedure Growth Status 02/09/17 21:25 Stool Stool Cryptosporidium Exam - Final NEGATIVE - NO CRYPTOSPORIDIUM ANTIGEN... Complete 02/09/17 21:25 Stool Stool Giardia Antigen (STACIE) - Final NEGATIVE - NO GIARDIA ANTIGEN DETECTE... Complete 02/09/17 21:25 Stool Stool - Final NO ENTERIC PATHOGENS DETECTED BY PCR... Complete Administered Medications Medications (Trade) Dose Ordered Sig/Tonya Route PRN Reason Start Time Stop Time Status Last Admin Dose Admin Sodium Chloride (NS Flush) 2 ml UNSCH PRN IV FLUSH FLUSH AFTER USING IV ACCESS 02/08/17 15:45 02/11/17 04:10 Sodium Chloride (NS Flush) 2 ml BID IV FLUSH 02/08/17 21:00 02/10/17 20:43 Ondansetron HCl (Zofran Inj) 4 mg Q6H PRN IVP NAUSEA OR VOMITING 02/08/17 15:45 02/08/17 19:11 Albuterol/ Ipratropium (Duoneb Neb) 1 ampule Q6HR NEB PRN NEB SHORTNESS OF BREATH 02/09/17 13:00 02/09/17 13:20 Albuterol/ Ipratropium (Duoneb Neb) 1 ampule TID NEB NEB 02/09/17 14:00 02/11/17 07:59 Zolpidem Tartrate (Ambien) 5 mg HS PRN PO INSOMNIA 02/09/17 21:00 02/10/17 23:56 Morphine Sulfate (Morphine Inj) 4 mg Q3H PRN IV PUSH PAIN 02/11/17 11:00 02/11/17 11:35 Objective Remarks GENERAL: Pleasant middle aged female sitting up in bed eating lunch SKIN: Warm and dry. HEAD: Normocephalic. EYES: No injection or drainage. NECK: Supple, trachea midline. CARDIOVASCULAR: Regular rate and rhythm RESPIRATORY: anterior kelly clear. On 2L O2 via NC GASTROINTESTINAL: Abdomen soft, non-tender, nondistended. EXTREMITIES: No cyanosis MUSCULOSKELETAL: Adequate muscle tone. NEUROLOGICAL: No obvious focal deficit. Awake, alert, and oriented x3. Assessment/Plan Problem List: (1) Lung mass ICD Codes: R91.8 - Other nonspecific abnormal finding of lung field Status: Acute Plan: -- Patient has a mediastinal mass associated with right hilar mass and possible mass in the tail of the pancreas. -- Mediastinal mass concerning for bronchogenic carcinoma -- CTA shows 4.3 x 2.5 cm mediastinal mass and a 1.9 x 2.1 cm right hilar mass -- Awaiting pulmonary consult for repeat bronchoscopy for eventual diagnosis -- GI has also been consulted to see if they can do biopsy via endoscopic ultrasound -- Patient having electrolyte abnormalities concerning for perineoplastic syndrome Hx/Workup: Patient has long history of smoking. She initially presented in November [address] scan of the chest showed a large right paratracheal mass measuring 5 cm with additional 2 cm right hilar jamin mass unfortunately bronchoscopic evaluation of the time was nondiagnostic. She was unable to safely percutaneous biopsy either. She has lost 10 pounds from her previous presentation in November and her shortness of breath is worsening. 02/10/17. Noted CT of abdomen. No lesion to biopsy. Defer to CTS for biopsy. Appreciate pulmonary consult. Further recommendation pending results of biopsy. 02/11: pulmonology following and plans ultrasound bronchoscopy with needle aspiration, ?tomorrow. If they are unable to obtain biopsy via bronch, the mass would also be amenable to mediastinoscopy or VATS for biopsy via CTS. (2) Thrombocytopenia ICD Codes: D69.6 - Thrombocytopenia, unspecified Status: Acute Plan: 02/11: HIT pending, LDH and Direct Agustin ordered. will obtain platelet count in blue top tube in case of platelet clumping. Ct abdomen shows no disease in liver or splenomegaly. Unable to r/o drug effect, no exposure to heparin. No bleeding. Assessment 56 y/o female with mediastinal mass admitted for worsening shortness of breath Plan 1. await HIT, LDH, Direct Agustin 2. obtain platelet count in blue top tube in case of platelet clumping. 3. await biopsy tomorrow via bronchoscopy Attending Statement The exam, history, and the medical decision-making described in the above note were completed with the assistance of the mid-level provider. I reviewed and agree with the findings presented. I attest that I had a [id number] encounter with the patient on the same day, and personally performed and documented my assessment and findings in the medical record. Noted thrombocytopenia. No drugs/antibiotics implicated. No clinical bleeding. No liver disease or splenomegaly. PT/PTT Fibrinogen normal argues against DIC. MPV normal argues against ITP or peripheral destruction/consumption. Clinically no signs of VTE. LDH only slightly elevated, normal bilirubin unlikely microangiopathic hemolytic process. Coomb's neg suggest not post transfusion purpura HIT antibody pending, no exposure to heparin this admission. Question of paraneoplastic since platelet count decrease <200K in 2017, previously >200K. Pseudothrombocytopenia most likely. Mariah Delcid Feb 11, 2017 13:54 Florinda Lowe MD Feb 11, 2017 18:24
--- NOTE | 2017-02-11 14:20 | HHI.PR ---
Subjective Remarks Patient is status post EGD with biopsy. Somewhat mild epigastric discomfort. Otherwise no other complaints. Objective Vitals Vital Signs Date Time Temp Pulse Resp B/P (MAP) Pulse Ox O2 Delivery O2 Flow Rate FiO2 02/11/17 12:00 97.7 89 17 111/53 (72) 96 02/11/17 10:15 99 Nasal Cannula 2 02/11/17 10:15 98.2 94 18 93/53 (66) 99 02/11/17 08:00 98.4 103 17 111/53 (72) 96 02/11/17 08:00 96 Nasal Cannula 2.00 02/11/17 04:00 98.9 102 20 106/57 (73) 99 02/11/17 00:00 97.8 94 16 110/53 (72) 100 02/11/17 00:00 Nasal Cannula 3.00 02/10/17 23:43 97 02/10/17 20:57 98 Nasal Cannula 2.00 02/10/17 20:00 Nasal Cannula 3.00 02/10/17 20:00 98.2 108 21 102/53 (69) 100 02/10/17 19:28 98 02/10/17 16:00 108 02/10/17 16:00 98.0 106 18 113/60 (77) 97 I/O 02/10/17 02/10/17 02/10/17 02/11/17 02/11/17 02/11/17 07:00 15:00 23:00 07:00 15:00 23:00 Intake Total 1219 ml 121 ml 2600 ml 2952 ml 100 ml Balance 1219 ml 121 ml 2600 ml 2952 ml 100 ml Intake Oral 340 ml 1700 ml IV Total 879 ml 121 ml 900 ml 2952 ml Other 100 ml # Voids 3 5 # Bowel Movements 3 Result Diagram: 02/11/17 0848 02/10/17 0815 Objective Remarks GENERAL: Cachectic-looking patient. In no acute distress CARDIOVASCULAR: Normal rate and regular rhythm without murmurs, gallops, or rubs. RESPIRATORY: Good respiratory efforts. Diminished breath sounds at the bases. GASTROINTESTINAL: Abdomen soft, tender to palpation in the midepigastric region. Normal and active bowel sounds MUSCULOSKELETAL: Extremities without cyanosis, or edema. NEURO: Alert & Oriented x4 to person, place, time, situation. Moves all ext x4 PSYCH: Appropriate mood and affect. A/P Problem List: (1) Lung mass ICD Code: R91.8 - Other nonspecific abnormal finding of lung field Status: Acute (2) Pancreatic mass ICD Code: K86.9 - Disease of pancreas, unspecified Status: Acute (3) Chest pain ICD Code: R07.9 - Chest pain, unspecified Status: Acute (4) Hyponatremia ICD Code: E87.1 - Hypo-osmolality and hyponatremia (5) Hypokalemia ICD Code: E87.6 - Hypokalemia Status: Acute Assessment and Plan 56-year-old female who presented with a mediastinal mass associated with a right hilar mass suspicious for malignancy. CA-19-9 slightly elevated. - Hematology, CT surgery following. Pulmonology following - Pulmonology planning for bronchoscopy and biopsy tomorrow. -Patient is status post EGD and colonoscopy. EGD shows gastritis and duodenal ulcer. Biopsy taken. Colonoscopy unremarkable. - Abdomen/pelvis CT did not show a pancreatic mass. Mild gastric distention noted. - Breathing treatments as needed. Supplemental oxygen as needed - Pain control with morphine as needed Insomnia: - Ambien as needed at night. DVT PPx: SCDs. Discharge Planning Continue workup for possible malignancy Problem Qualifiers (1) Chest pain: Qualified Codes: R07.9 - Chest pain, unspecified Fred Rodriguez MD Feb 11, 2017 14:20
--- NOTE | 2017-02-11 15:49 | HHI.PR ---
Subjective Remarks ALERT NO SOB POST EGD Objective GENERAL: SKIN: Warm and dry. HEAD: Atraumatic. Normocephalic. EYES: Pupils equal and round. No scleral icterus. No injection or drainage. ENT: No nasal bleeding or discharge. Mucous membranes pink and moist. NECK: Trachea midline. No JVD. CARDIOVASCULAR: Regular rate and rhythm. RESPIRATORY: No accessory muscle use. Clear to auscultation. Breath sounds equal bilaterally. GASTROINTESTINAL: Abdomen soft, non-tender, nondistended. Hepatic and splenic margins not palpable. MUSCULOSKELETAL: Extremities without clubbing, cyanosis, or edema. No obvious deformities. NEUROLOGICAL: Awake and alert. No obvious cranial nerve deficits. Motor grossly within normal limits. Five out of 5 muscle strength in the arms and legs. Normal speech. PSYCHIATRIC: Appropriate mood and affect; insight and judgment normal. Vital Signs Date Time Temp Pulse Resp B/P (MAP) Pulse Ox O2 Delivery O2 Flow Rate FiO2 02/11/17 12:00 97.7 89 17 111/53 (72) 96 02/11/17 10:15 99 Nasal Cannula 2 02/11/17 10:15 98.2 94 18 93/53 (66) 99 02/11/17 08:00 98.4 103 17 111/53 (72) 96 02/11/17 08:00 96 Nasal Cannula 2.00 02/11/17 04:00 98.9 102 20 106/57 (73) 99 02/11/17 00:00 97.8 94 16 110/53 (72) 100 02/11/17 00:00 Nasal Cannula 3.00 02/10/17 23:43 97 02/10/17 20:57 98 Nasal Cannula 2.00 02/10/17 20:00 Nasal Cannula 3.00 02/10/17 20:00 98.2 108 21 102/53 (69) 100 02/10/17 19:28 98 02/10/17 16:00 108 02/10/17 16:00 98.0 106 18 113/60 (77) 97 I/O 02/10/17 02/10/17 02/10/17 02/11/17 02/11/17 02/11/17 07:00 15:00 23:00 07:00 15:00 23:00 Intake Total 1219 ml 121 ml 2600 ml 2952 ml 100 ml Balance 1219 ml 121 ml 2600 ml 2952 ml 100 ml Intake Oral 340 ml 1700 ml IV Total 879 ml 121 ml 900 ml 2952 ml Other 100 ml # Voids 3 5 # Bowel Movements 3 Result Diagram: 02/11/17 1353 02/10/17 0815 Procedures LUNG MASS, MEDIASTINAL AND HILAR PLAN BRONCHOSCOPY AM Medications and IVs GENERAL: SKIN: Warm and dry. HEAD: Atraumatic. Normocephalic. EYES: Pupils equal and round. No scleral icterus. No injection or drainage. ENT: No nasal bleeding or discharge. Mucous membranes pink and moist. NECK: Trachea midline. No JVD. CARDIOVASCULAR: Regular rate and rhythm. RESPIRATORY: No accessory muscle use. Clear to auscultation. Breath sounds equal bilaterally. GASTROINTESTINAL: Abdomen soft, non-tender, nondistended. Hepatic and splenic margins not palpable. MUSCULOSKELETAL: Extremities without clubbing, cyanosis, or edema. No obvious deformities. NEUROLOGICAL: Awake and alert. No obvious cranial nerve deficits. Motor grossly within normal limits. Five out of 5 muscle strength in the arms and legs. Normal speech. PSYCHIATRIC: Appropriate mood and affect; insight and judgment normal. Assessment and Plan Assessment and Plan PLAN BRONCHOSCOPT Livier Patrick MD Feb 11, 2017 15:49
[2017-02-11] MEDS: SODIUM CHLORIDE 0.9% FLUSH 10 ML FLUSH IV FLUSH SCH (22:51)
[2017-02-11] MEDS: ZOLPIDEM TARTRATE 5 MG TAB PO PRN (22:53)
[2017-02-12] VITALS (8 sets, daily range): BP systolic 97–123; BP diastolic 52–59; PULSE 86–99; RESP 18–22; TEMP 97.4–98.2; O2SAT 92–97
[2017-02-12] MEDS: MORPHINE SULFATE 2 MG/ML INJ IV PUSH PRN ×6 (02:10→23:15)
[2017-02-12 07:30] LABS: HEMATOCRIT 27.7 % (35.0-46.0); MEAN CELL VOLUME 100.5 FL (80.0-100.0); MEAN CORPUSCULAR HEMOGLOBIN 35.1 PG (27.0-34.0); MEAN CORPUSCULAR HGB CONC 34.9 % (32.0-36.0); PLATELET COUNT 121 TH/MM3 (150-450); RED BLOOD COUNT 2.75 MIL/MM3 (4.00-5.30); RED CELL DISTRIBUTION WIDTH 12.8 % (11.6-17.2); REVIEW FLAG FINAL
[2017-02-12] MEDS: RESP: ALBUTEROL 2.5 MG/IPRATROPIUM 0.5 MG NEB (SCH) NEB ×3 (07:57→19:13)
--- NOTE | 2017-02-12 08:55 | RSPPFT ---
DATE OF PROCEDURE: 02/11/17 COMMENTS: VOLUMES DYNAMIC: FVC mildly reduced; FEV1 moderately reduced. FLOWS: FEV1% moderately reduced; FEF 25-75 severely reduced. IMPRESSION: Moderate obstructive ventilatory defect with some improvement post-bronchodilator.
[2017-02-12] MEDS: SODIUM CHLORIDE 0.9% FLUSH 10 ML FLUSH IV FLUSH SCH ×2 (09:00→20:01)
[2017-02-12] MEDS: FOLIC ACID 1 MG TAB PO SCH (09:00)
--- NOTE | 2017-02-12 11:16 | PD.ONC.PN ---
Subjective Subjective Remarks Afebrile overnight. Patient resting in bed in nad. Nervous about bronchoscopy today. Objective Data Date Time Temp Pulse Resp B/P (MAP) Pulse Ox O2 Delivery O2 Flow Rate FiO2 02/12/17 08:09 98.0 93 18 109/57 (74) 96 02/12/17 08:00 96 Nasal Cannula 2.00 21 02/12/17 08:00 86 02/12/17 07:57 92 Nasal Cannula 2.00 02/12/17 04:00 98.2 99 18 114/55 (74) 95 02/12/17 04:00 89 02/12/17 00:00 97.6 99 21 115/59 (77) 97 02/12/17 00:00 90 02/11/17 21:40 95 Nasal Cannula 3.00 02/11/17 20:00 Nasal Cannula 2.00 02/11/17 20:00 91 02/11/17 20:00 97.6 92 21 123/52 (75) 97 02/11/17 16:00 98.7 99 17 108/56 (73) 96 02/11/17 12:00 97.7 89 17 111/53 (72) 96 02/12/17 02/12/17 02/12/17 07:00 15:00 23:00 Intake Total 300 ml Output Total 700 ml Balance -400 ml Result Diagram: 02/12/17 0710 02/10/17 0815 Laboratory Results Laboratory Tests Test 02/11/17 12:40 02/11/17 13:53 02/11/17 15:35 02/12/17 07:10 Platelet Count 104 TH/MM3 121 TH/MM3 White Blood Count 10.0 TH/MM3 Red Blood Count 2.75 MIL/MM3 Hemoglobin 9.7 GM/DL Hematocrit 27.7 % Mean Corpuscular Volume 100.5 FL Mean Corpuscular Hemoglobin 35.1 PG Mean Corpuscular Hemoglobin Concent 34.9 % Red Cell Distribution Width 12.8 % Mean Platelet Volume 9.1 FL Culture Results Microbiology Date/Time Source Procedure Growth Status 02/09/17 21:25 Stool Stool Cryptosporidium Exam - Final NEGATIVE - NO CRYPTOSPORIDIUM ANTIGEN... Complete 02/09/17 21:25 Stool Stool Giardia Antigen (STACIE) - Final NEGATIVE - NO GIARDIA ANTIGEN DETECTE... Complete 02/09/17 21:25 Stool Stool - Final NO ENTERIC PATHOGENS DETECTED BY PCR... Complete Administered Medications Medications (Trade) Dose Ordered Sig/Tonya Route PRN Reason Start Time Stop Time Status Last Admin Dose Admin Sodium Chloride (NS Flush) 2 ml UNSCH PRN IV FLUSH FLUSH AFTER USING IV ACCESS 02/08/17 15:45 02/11/17 04:10 Sodium Chloride (NS Flush) 2 ml BID IV FLUSH 02/08/17 21:00 02/11/17 22:51 Ondansetron HCl (Zofran Inj) 4 mg Q6H PRN IVP NAUSEA OR VOMITING 02/08/17 15:45 02/08/17 19:11 Albuterol/ Ipratropium (Duoneb Neb) 1 ampule Q6HR NEB PRN NEB SHORTNESS OF BREATH 02/09/17 13:00 02/09/17 13:20 Albuterol/ Ipratropium (Duoneb Neb) 1 ampule TID NEB NEB 02/09/17 14:00 02/12/17 07:57 Zolpidem Tartrate (Ambien) 5 mg HS PRN PO INSOMNIA 02/09/17 21:00 02/11/17 22:53 Morphine Sulfate (Morphine Inj) 4 mg Q3H PRN IV PUSH PAIN 02/11/17 11:00 02/12/17 08:15 Sodium Chloride 1,000 ml @ 42 mls/hr [id number] IV 02/11/17 11:34 02/11/17 22:53 Objective Remarks GENERAL: Pleasant middle aged female upright in bed in [facility]. SKIN: Warm and dry. HEAD: Normocephalic. EYES: No injection or drainage. NECK: Supple, trachea midline. CARDIOVASCULAR: Regular rate and rhythm RESPIRATORY: diminished at bases, anterior kelly with occasional rhonchi. GASTROINTESTINAL: Abdomen soft, non-tender, nondistended. EXTREMITIES: No cyanosis MUSCULOSKELETAL: Adequate muscle tone. NEUROLOGICAL: awake and alert, normal speech. moving all extremities. Assessment/Plan Problem List: (1) Lung mass ICD Codes: R91.8 - Other nonspecific abnormal finding of lung field Status: Acute Plan: -- Patient has a mediastinal mass associated with right hilar mass and possible mass in the tail of the pancreas. -- Mediastinal mass concerning for bronchogenic carcinoma -- CTA shows 4.3 x 2.5 cm mediastinal mass and a 1.9 x 2.1 cm right hilar mass -- Awaiting pulmonary consult for repeat bronchoscopy for eventual diagnosis -- GI has also been consulted to see if they can do biopsy via endoscopic ultrasound -- Patient having electrolyte abnormalities concerning for perineoplastic syndrome Hx/Workup: Patient has long history of smoking. She initially presented in November [address] scan of the chest showed a large right paratracheal mass measuring 5 cm with additional 2 cm right hilar jamin mass unfortunately bronchoscopic evaluation of the time was nondiagnostic. She was unable to safely percutaneous biopsy either. She has lost 10 pounds from her previous presentation in November and her shortness of breath is worsening. 02/10/17. Noted CT of abdomen. No lesion to biopsy. Defer to CTS for biopsy. Appreciate pulmonary consult. Further recommendation pending results of biopsy. 02/11: pulmonology following and plans ultrasound bronchoscopy with needle aspiration, ?tomorrow. If they are unable to obtain biopsy via bronch, the mass would also be amenable to mediastinoscopy or VATS for biopsy via CTS. 02/12: bronchoscopy today (2) Thrombocytopenia ICD Codes: D69.6 - Thrombocytopenia, unspecified Status: Acute Plan: 02/12: platelets improved to 121K today. Ct abdomen shows no disease in liver or splenomegaly. Unable to r/o drug effect, no exposure to heparin. No bleeding. Assessment 56 y/o female with mediastinal mass admitted for worsening shortness of breath Plan 1. bronchoscopy today 2. monitor CBC Attending Statement The exam, history, and the medical decision-making described in the above note were completed with the assistance of the mid-level provider. I reviewed and agree with the findings presented. I attest that I had a [id number] encounter with the patient on the same day, and personally performed and documented my assessment and findings in the medical record. Pt seen and examined. 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 Discussed plan for after DC tomorrow to fu in [facility] on . Need to coordinate pt assistance, chemotherapy approval for carboplatin and VP16. Consider consult radiation oncology- although it does not seem that disease can be placed in one XRT port. Effusions not likely malignant. Degree w/ anasarca. OK to DC tomorrow form heme/onc standpoint. Mariah Delcid Feb 12, 2017 11:16 Florinda Lowe MD Feb 12, 2017 21:30
--- NOTE | 2017-02-12 12:49 | HHI.GIFU ---
Subjective Remarks Resting in the bed No acute abdominal pain Afebrile Status post colonoscopy and EGD 1218 Bronchoscopy today (Leeann Faust) Objective Vitals I&O Vital Signs Date Time Temp Pulse Resp B/P (MAP) Pulse Ox O2 Delivery O2 Flow Rate FiO2 02/12/17 12:10 97.7 97 18 113/57 (75) 94 02/12/17 08:09 98.0 93 18 109/57 (74) 96 02/12/17 08:00 96 Nasal Cannula 2.00 21 02/12/17 08:00 86 02/12/17 07:57 92 Nasal Cannula 2.00 02/12/17 04:00 98.2 99 18 114/55 (74) 95 02/12/17 04:00 89 02/12/17 00:00 97.6 99 21 115/59 (77) 97 02/12/17 00:00 90 02/11/17 21:40 95 Nasal Cannula 3.00 02/11/17 20:00 Nasal Cannula 2.00 02/11/17 20:00 91 02/11/17 20:00 97.6 92 21 123/52 (75) 97 02/11/17 16:00 98.7 99 17 108/56 (73) 96 I/O 02/11/17 02/11/17 02/11/17 02/12/17 02/12/17 02/12/17 07:00 15:00 23:00 07:00 15:00 23:00 Intake Total 2952 ml 100 ml 1200 ml 300 ml Output Total 700 ml Balance 2952 ml 100 ml 1200 ml -400 ml Intake Oral 1200 ml 300 ml IV Total 2952 ml Other 100 ml Output Urine Total 700 ml # Voids 5 Laboratory Laboratory Tests Test 02/11/17 13:53 02/11/17 15:35 02/12/17 07:10 Platelet Count 104 121 White Blood Count 10.0 Red Blood Count 2.75 Hemoglobin 9.7 Hematocrit 27.7 Mean Corpuscular Volume 100.5 Mean Corpuscular Hemoglobin 35.1 Mean Corpuscular Hemoglobin Concent 34.9 Red Cell Distribution Width 12.8 Mean Platelet Volume 9.1 Date/Time Source Procedure Growth Status 02/09/17 21:25 Stool Stool Cryptosporidium Exam - Final NEGATIVE - NO CRYPTOSPORIDIUM ANTIGEN... Complete 02/09/17 21:25 Stool Stool Giardia Antigen (STACIE) - Final NEGATIVE - NO GIARDIA ANTIGEN DETECTE... Complete Imaging Last Impressions Abdomen/Pelvis CT 02/09/17 1203 Signed Impressions: Service Date/Time: Thursday, February 09, 2017 20:32 - CONCLUSION: 1. No CT findings of pancreatitis. 2. Marked gastric distention and mild bladder distention. 3. Mild anasarca. No bowel obstruction, free air or significant free fluid. Trace bilateral pleural effusions. Beni Bolton MD CT Angiography 02/08/17 1245 Signed Impressions: Service Date/Time: Wednesday, February 08, 2017 14:18 - CONCLUSION: 1. No pulmonary embolus identified. 2. 4.3 x 2.5 cm mediastinal mass. 3. 1.9 x 2.1 cm right hilar mass. 4. The mediastinal masses are suspicious for malignancy. 5. 4 mm nonspecific nodule in the right lung base. 6. COPD changes. 7. Possible partially visualized mass in the tail of the pancreas. This is only seen on the last image of the study. CT imaging of the abdomen and pelvis would be of benefit for further assessment. Joon Duval MD Physical Exam HEENT: Normocephalic; atraumatic; no jaundice. NECK: Neck is supple CHEST: Rhonchi. On 2L, mild diminished breath sounds CARDIAC: RRR ABDOMEN: Soft, nondistended, nontender; no hepatosplenomegaly; bowel sounds are present in all four quadrants. EXTREMITIES: No clubbing, cyanosis, or edema. SKIN: Normal; no rash; no jaundice. FRAME OPENER: No focal deficits; alert and oriented times three. (Leeann Faust) Assessment and Plan Plan ASSESSMENT: History - Possible mass in the tail of the pancreas- CT pulmonary angiogram (02/08) -- > Possible partially visualized mass in the tail of the pancreas. This is only seen on the last image of the study. CT imaging of the abdomen and pelvis would be of benefit for further assessment. CT abdomen/pelvis pending at this time. Pt denies history of pancreatitis. Lipase currently-97. Heavy ETOH, approx 4-5 beers 3-4 times a week. Reports epigastric pain, TTP, nausea, and dry heaving. Denies acid reflux, does report taking Protonix at home. Has never had EGD or colonoscopy. If EUS is indicated then would plan for this procedure to be done at later date, possibly Feb 23. - Diarrhea- Began day prior to hospitalization- per nurse pt has not had a BM since being transferred from [place] yesterday. Denies blood on in stool. Of note, pt does report family history of colon cancer, maternal aunt. - Known lung mass- no biopsy has been done yet. Pulmonology and IR unable to obtain biopsy, plan is for cardiothoracic to biopsy. Nicotine dependence, 10 cigarettes a day since being diagnosed with mass during admission in November was previously pack a day smoker since 19 years old. 02/10/17--No mass in pancreas noted on CT. Abdomen CT 02/09/17--1. No CT findings of pancreatitis. 2. Marked gastric distention and mild bladder distention 3. Mild anasarca. No bowel obstruction, free air or significant free fluid. Trace bilateral pleural effusions. Pulmonary consulted for repeat bronchoscopy. CA 19-9 elevated, 36.5. C diff negative. Cryptosporidium, Giardia negative 02/11/17= EGD showed erythematous gastritis in the entire examined stomach; multiple biopsies were performed. Medium sized ulcer was found in the duodenal bulb 02/11/17= colonoscopy showed colonic mucosa appeared normal throughout the entire examined colon, small internal hemorrhoids Follow-up testing in 10 years Plan - Monitor labs - Supportive care - Further recommendations to follow based on results of above Stable from a GI standpoint will see if needed on a when necessary basis. Patient seen and examined by Dr. Sanchez and myself and this note is written on his behalf. (Leeann Faust) Physician Comments Agree with above, please notify us if needed. (Nathan Sanchez MD) Leeann Faust Feb 12, 2017 12:49 Nathan Sanchez MD Feb 12, 2017 14:12
--- NOTE | 2017-02-12 13:14 | HHI.PR ---
Subjective Remarks Patient to have bronchoscopy today. No new complaints. Objective Vitals Vital Signs Date Time Temp Pulse Resp B/P (MAP) Pulse Ox O2 Delivery O2 Flow Rate FiO2 02/12/17 12:10 97.7 97 18 113/57 (75) 94 02/12/17 08:09 98.0 93 18 109/57 (74) 96 02/12/17 08:00 96 Nasal Cannula 2.00 21 02/12/17 08:00 86 02/12/17 07:57 92 Nasal Cannula 2.00 02/12/17 04:00 98.2 99 18 114/55 (74) 95 02/12/17 04:00 89 02/12/17 00:00 97.6 99 21 115/59 (77) 97 02/12/17 00:00 90 02/11/17 21:40 95 Nasal Cannula 3.00 02/11/17 20:00 Nasal Cannula 2.00 02/11/17 20:00 91 02/11/17 20:00 97.6 92 21 123/52 (75) 97 02/11/17 16:00 98.7 99 17 108/56 (73) 96 I/O 02/11/17 02/11/17 02/11/17 02/12/17 02/12/17 02/12/17 06:59 14:59 22:59 06:59 14:59 22:59 Intake Total 2952 ml 100 ml 1200 ml 300 ml Output Total 700 ml Balance 2952 ml 100 ml 1200 ml -400 ml Intake Oral 1200 ml 300 ml IV Total 2952 ml Other 100 ml Output Urine Total 700 ml # Voids 5 Result Diagram: 02/12/17 0710 02/10/17 0815 Objective Remarks GENERAL: Cachectic-looking patient. In no acute distress CARDIOVASCULAR: Normal rate and regular rhythm without murmurs, gallops, or rubs. RESPIRATORY: Good respiratory efforts. Diminished breath sounds at the bases. GASTROINTESTINAL: Abdomen soft, tender to palpation in the midepigastric region. Normal and active bowel sounds MUSCULOSKELETAL: Extremities without cyanosis, or edema. NEURO: Alert & Oriented x4 to person, place, time, situation. Moves all ext x4 PSYCH: Appropriate mood and affect. A/P Problem List: (1) Lung mass ICD Code: R91.8 - Other nonspecific abnormal finding of lung field Status: Acute (2) Pancreatic mass ICD Code: K86.9 - Disease of pancreas, unspecified Status: Acute (3) Chest pain ICD Code: R07.9 - Chest pain, unspecified Status: Acute (4) Hyponatremia ICD Code: E87.1 - Hypo-osmolality and hyponatremia (5) Hypokalemia ICD Code: E87.6 - Hypokalemia Status: Acute Assessment and Plan 56-year-old female who presented with a mediastinal mass associated with a right hilar mass suspicious for malignancy. CA-19-9 slightly elevated. - Hematology, CT surgery following. Pulmonology following - Pulmonology planning for bronchoscopy and biopsy today -Patient is status post EGD and colonoscopy. EGD shows gastritis and duodenal ulcer. Biopsy taken. Colonoscopy unremarkable. Protonix ordered. - Abdomen/pelvis CT did not show a pancreatic mass. Mild gastric distention noted. - Breathing treatments as needed. Supplemental oxygen as needed - Pain control with morphine as needed Insomnia: - Ambien as needed at night. DVT PPx: SCDs. Discharge Planning Continue workup for possible malignancy Problem Qualifiers (1) Chest pain: Qualified Codes: R07.9 - Chest pain, unspecified Fred Rodriguez MD Feb 12, 2017 13:14
[2017-02-12 15:29] LABS: HEPARIN AB OD 0.047 O.D. (0.000-0.300); HEPARIN INDUCED PLATELET AB NEGATIVE (NEGATIVE)
[2017-02-12] MEDS ORDERED: RESP: ALBUTEROL 2.5 MG/IPRATROPIUM 0.5 MG NEB (PRN) NEB (16:30)
[2017-02-12] MEDS ORDERED: DO NOT ADM ANY ANTICOAGULANT DRUGS PRN (16:33)
[2017-02-12] MEDS: ZOLPIDEM TARTRATE 5 MG TAB PO PRN (23:20)
[2017-02-13] VITALS (11 sets, daily range): BP systolic 92–111; BP diastolic 51–62; PULSE 78–108; RESP 18–20; TEMP 97.7–98.6; O2SAT 97–100
[2017-02-13] MEDS: MORPHINE SULFATE 2 MG/ML INJ IV PUSH PRN (02:15)
[2017-02-13 07:31] LABS: HEMATOCRIT 30.3 % (35.0-46.0); MEAN CELL VOLUME 101.2 FL (80.0-100.0); MEAN CORPUSCULAR HEMOGLOBIN 34.2 PG (27.0-34.0); MEAN CORPUSCULAR HGB CONC 33.8 % (32.0-36.0); PLATELET COUNT 194 TH/MM3 (150-450); RED CELL DISTRIBUTION WIDTH 13.1 % (11.6-17.2); REVIEW FLAG FINAL; WHITE BLOOD COUNT 11.1 TH/MM3 (4.0-11.0)
--- NOTE | 2017-02-13 07:41 | MP ---
cc: Maria Esther RYDER DATE OF SURGERY 02/12/2017 PROCEDURE Bronchoscopy INDICATION Mediastinal mass. After informed consent was obtained the patient underwent diagnostic bronchoscopy. Examination of the mid to distal trachea was normal. Examination of the right main stem bronchus, right middle and lower lobes were entirely unremarkable with no endobronchial pathology. Examination of the left main stem bronchus, left upper lobe, lingula and lower lobes were also normal with no endobronchial pathology. Based on the CT scan, we then evaluated what would represent the right station 4 lymph node region in the mediastinum and there were several very large masses measuring 3-4 cm. With ultrasound guidance, four separate passes were made into the abnormal areas in the mediastinum. Rapid on site evaluation indicated adequate material confirmed by pathology with final decisions being made. There was minimal bleeding. She tolerated the procedure well without otherwise apparent complication. SUMMARY In summary, this is a normal endoscopic examination and multiple specimens were obtained with ultrasound guidance from the mediastinal mass. FINAL DIAGNOSIS Pending. The patient is being transferred to recovery. MD NIALL John/RIYA /4:23 PM /7:30 AM
[2017-02-13 08:00] LABS: BICARBONATE 29.2 MEQ/L (21.0-32.0)
[2017-02-13] MEDS: RESP: ALBUTEROL 2.5 MG/IPRATROPIUM 0.5 MG NEB (SCH) NEB ×2 (08:00→12:17)
[2017-02-13 08:04] LABS: POTASSIUM 2.6 MEQ/L (3.5-5.1)
[2017-02-13] MEDS: PANTOPRAZOLE SOD 40 MG DELAYED RELEASE TAB PO SCH (08:18)
[2017-02-13] MEDS: SODIUM CHLORIDE 0.9% FLUSH 10 ML FLUSH IV FLUSH SCH ×2 (08:18→21:00)
[2017-02-13] MEDS: FOLIC ACID 1 MG TAB PO SCH (08:18)
[2017-02-13] MEDS ORDERED: ACETAMINOPHEN/HYDROcodone 325 MG/5 MG TAB PO PRN (10:45)
--- NOTE | 2017-02-13 10:45 | HHI.PR ---
Subjective Remarks in no acute distress. but with some sob and now on three liters of oxygen via N/C. complaining of some pain to the rib cage. Objective Vitals Vital Signs Date Time Temp Pulse Resp B/P (MAP) Pulse Ox O2 Delivery O2 Flow Rate FiO2 02/13/17 08:36 3.00 02/13/17 08:09 97.7 101 20 96/54 (68) 98 02/13/17 07:00 83 02/13/17 04:00 78 02/13/17 04:00 97.8 81 19 94/62 (73) 98 02/13/17 00:00 97.8 80 20 92/58 (69) 97 02/13/17 00:00 78 02/12/17 20:00 98.2 96 22 97/55 (69) 97 02/12/17 20:00 Nasal Cannula 2.00 02/12/17 20:00 95 02/12/17 19:13 93 Nasal Cannula 2.00 02/12/17 17:00 97.8 100 16 110/60 (77) 93 Nasal Cannula 3 02/12/17 16:45 106 16 121/63 (82) 92 Nasal Cannula 3 02/12/17 16:30 98.3 119 22 131/65 (87) 92 Nasal Cannula 3 02/12/17 12:10 97.7 97 18 113/57 (75) 94 I/O 02/12/17 02/12/17 02/12/17 02/13/17 02/13/17 02/13/17 07:00 15:00 23:00 07:00 15:00 23:00 Intake Total 300 ml 240 ml Output Total 700 ml Balance -400 ml 240 ml Intake Oral 300 ml 240 ml Output Urine Total 700 ml # Voids 0 4 # Bowel Movements 0 Result Diagram: 02/13/17 0700 02/13/17 0700 Imaging Last Impressions Abdomen/Pelvis CT 02/09/17 1203 Signed Impressions: Service Date/Time: Thursday, February 09, 2017 20:32 - CONCLUSION: 1. No CT findings of pancreatitis. 2. Marked gastric distention and mild bladder distention. 3. Mild anasarca. No bowel obstruction, free air or significant free fluid. Trace bilateral pleural effusions. Beni Bolton MD CT Angiography 02/08/17 1245 Signed Impressions: Service Date/Time: Wednesday, February 08, 2017 14:18 - CONCLUSION: 1. No pulmonary embolus identified. 2. 4.3 x 2.5 cm mediastinal mass. 3. 1.9 x 2.1 cm right hilar mass. 4. The mediastinal masses are suspicious for malignancy. 5. 4 mm nonspecific nodule in the right lung base. 6. COPD changes. 7. Possible partially visualized mass in the tail of the pancreas. This is only seen on the last image of the study. CT imaging of the abdomen and pelvis would be of benefit for further assessment. Joon Duval MD Objective Remarks GENERAL: with some sob. CARDIOVASCULAR: Regular rate and regular rhythm without murmurs, gallops, or rubs. RESPIRATORY: Clear to auscultation. Breath sounds equal bilaterally. No wheezes , rales, or rhonchi. GASTROINTESTINAL: Abdomen soft, non-tender, nondistended. Normal, active bowel sounds MUSCULOSKELETAL: Extremities without clubbing, cyanosis, or edema. NEURO: Alert & Oriented x4 to person, place, time, situation. Moves all ext x4 Procedures bronchoscopy Medications and IVs Inpatient Medications Acetaminophen (Tylenol) 650 mg Q4H PRN PO TEMP > 100.4 Last administered on 17:33; Start 02/08/17 at 15:45 Al Hydrox/Mg Hydrox/Simethicone (Mag-Al Plus Susp Liq) 30 ml ONCE ONCE PO Last administered on 02/08/17 13:08; Start 02/08/17 at 13:00; Stop 02/08/17 at 13:01; Status DC Albuterol Sulfate (Albuterol Concentrated Neb) 2.5 mg CORE MANAGER NEB Last administered on 02/12/17 14:52; Start 02/11/17 at 11:45; Stop 02/15/17 at 11 :44 Albuterol/ Ipratropium (Duoneb Neb) 1 ampule UNSCH X1 PRN NEB SHORTNESS OF BREATH; Start 02/12/17 at 16:30; Stop 02/13/17 at 16:29 Atropine/Hyoscyam/ Phenobarb/Scopol ( Liq) 10 ml ONCE ONCE PO Last administered on 02/08/17 13:08; Start 02/08/17 at 13:00; Stop 02/08/17 at 13 :01; Status DC Chlorhexidine Gluconate (Chlorhexidine 2% Cloth) 3 pack CORE MANAGER PRN TOPICAL SEE LABEL COMMENTS; Start 02/11/17 at 06:15; Stop 02/14/17 at 06:14 Cyanocobalamin (Vitamin B12 Inj) 1,000 mcg ONCE ONCE SQ ; Start 02/11/17 at 12 :30; Stop 02/11/17 at 12:40; Status DC Dextrose (D50w (Vial) Inj) 50 ml UNSCH PRN IV PUSH HYPOGLYCEMIA-SEE COMMENTS; Start 02/08/17 at 18:30 Diatrizoate Meglum/ Diatrizoate Sod ( Gastroview Liq) 18 ml ONCE ONCE PO Last administered on 02/09/17 15:20; Start 02/09/17 at 13:30; Stop 02/09/17 at 13:31; Status DC Famotidine (Pepcid Inj) 20 mg ONCE ONCE IV PUSH Last administered on 13:08; Start 02/08/17 at 13:00; Stop 02/08/17 at 13:01; Status DC Folic Acid (Folate) 1 mg DAILY PO Last administered on 02/13/17 08:18; Start 02/11/17 at 12:30 Glucagon (Glucagon Inj) 1 mg UNSCH PRN OTHER HYPOGLYCEMIA-SEE COMMENTS; Start 02/08/17 at 18:30 Influenza Virus Vaccine (Flu (Quadrivalent) Vaccine Inj) 0.5 ml ONCE ONCE IM Last administered on 02/09/17 11:53; Start 02/09/17 at 10:00; Stop 02/09/17 at 10:01; Status DC Lactated Ringer's 1,000 ml @ 30 mls/hr Q24H PRN IV SEE LABEL COMMENTS; Start 02/11/17 at 06:15; Stop 02/11/17 at 12:14; Status DC Lidocaine HCl (Lidocaine Pf 4% Neb) 3 ml CORE MANAGER NEB Last administered on 14:52; Start 02/11/17 at 11:45; Stop 02/15/17 at 11:44 Miscellaneous Information ALL NURSING DEPARTME... UNSCH PRN .XX SEE LABEL COMMENTS; Start 02/12/17 at 16:33; Stop 02/13/17 at 16:32 Morphine Sulfate (Morphine Inj) 4 mg Q3H PRN IV PUSH PAIN Last administered on 02/13/17 02:15; Start 02/11/17 at 11:00 Naloxone HCl (Narcan Inj) 0.4 mg UNSCH PRN IV PUSH SEE LABEL COMMENTS; Start 02/08/17 at 15:45 Ondansetron HCl (Zofran Inj) 4 mg Q6H PRN IVP NAUSEA OR VOMITING Last administered on 02/08/17 19:11; Start 02/08/17 at 15:45 Pantoprazole Sodium (Protonix) 40 mg DAILY PO Last administered on 02/13/17 08:18; Start 02/13/17 at 09:00 Pneumococcal Polyvalent Vaccine (Pneumovax-23 Inj) 25 mcg ONCE ONCE IM Last administered on 02/09/17 11:52; Start 02/09/17 at 10:00; Stop 02/09/17 at 10 :01; Status DC Polyethylene Glycol/ Electrolytes (Colyte Liq) 4,000 ml ONCE ONCE PO Last administered on 02/10/17 16:04; Start 02/10/17 at 16:00; Stop 02/10/17 at 16 :01; Status DC Potassium Chloride 100 ml @ 50 mls/hr BOLUS ONCE IV Last administered on 14:56; Start 02/08/17 at 13:45; Stop 02/08/17 at 15:44; Status DC Potassium Chloride (KCl) 40 meq ONCE ONCE PO Last administered on 02/08/17 14:56; Start 02/08/17 at 13:45; Stop 02/08/17 at 13:46; Status DC Povidone Iodine (Betadine 5% Antisepsis Kit) 1 applic CORE MANAGER PRN EACH NARE SEE LABEL COMMENTS; Start 02/11/17 at 06:15; Stop 02/14/17 at 06:14 Senna/Docusate Sodium (Britt-Colace) 1 tab BID PO Last administered on 09:09; Start 02/08/17 at 21:00; Stop 02/09/17 at 15:33; Status DC Sodium Chloride 1,000 ml @ 42 mls/hr [id number] IV Last administered on 22:53; Start 02/11/17 at 11:34; Stop 02/12/17 at 20:43; Status DC Sodium Chloride (NS Flush) 2 ml BID IV FLUSH Last administered on 02/13/17 08 :18; Start 02/08/17 at 21:00 Zolpidem Tartrate (Ambien) 5 mg HS PRN PO INSOMNIA Last administered on 23:20; Start 02/09/17 at 21:00 A/P Problem List: (1) Lung mass ICD Code: R91.8 - Other nonspecific abnormal finding of lung field Status: Acute (2) Pancreatic mass ICD Code: K86.9 - Disease of pancreas, unspecified Status: Acute (3) Chest pain ICD Code: R07.9 - Chest pain, unspecified Status: Acute (4) Hyponatremia ICD Code: E87.1 - Hypo-osmolality and hyponatremia (5) Hypokalemia ICD Code: E87.6 - Hypokalemia Status: Acute Assessment and Plan 56-year-old female who presented with a mediastinal mass associated with a right hilar mass suspicious for malignancy. CA-19-9 slightly elevated. - s/p bronchoscopy with preliminary report of small cell lung cancer - Hematology follow-up appreciated; chemo as outpatient. - Pulmonology following. -Patient is status post EGD and colonoscopy. EGD shows gastritis and duodenal ulcer. Biopsy taken. Colonoscopy unremarkable. Protonix ordered. - Abdomen/pelvis CT did not show a pancreatic mass. Mild gastric distention noted. - Breathing treatments as needed. Supplemental oxygen as needed - Pain control with norco and morphine as needed hypokalemia; will replace and monitor. Insomnia: - Ambien as needed at night. DVT PPx: SCDs. Discharge Planning dc home tomorrow if stable. walk test before discharge. Problem Qualifiers (1) Chest pain: Qualified Codes: R07.9 - Chest pain, unspecified Gabo Miller MD Feb 13, 2017 10:45
[2017-02-13] MEDS ORDERED: POTASSIUM CHLOR 20 MEQ PREMIX 100 ML IV ONE (12:00)
[2017-02-13] MEDS ORDERED: POTASSIUM CHLORIDE 20 MEQ CONTROLLED RELEASE TAB PO ONE ×3 (12:00→21:00)
[2017-02-13] MEDS: ACETAMINOPHEN/HYDROcodone 325 MG/5 MG TAB PO PRN ×3 (12:09→23:50)
[2017-02-13] MEDS ORDERED: OXYGENDME NAS.CANULA (12:48)
--- NOTE | 2017-02-13 13:09 | PD.ONC.PN ---
Subjective Subjective Remarks Afebrile "I failed the walk test and now have to have home O2" Breathing is about the same today No other acute complaints Objective Data Date Time Temp Pulse Resp B/P (MAP) Pulse Ox O2 Delivery O2 Flow Rate FiO2 02/13/17 12:39 3.00 02/13/17 12:19 98.6 100 19 97/51 (66) 100 02/13/17 08:36 3.00 02/13/17 08:09 97.7 101 20 96/54 (68) 98 02/13/17 07:00 83 02/13/17 04:00 78 02/13/17 04:00 97.8 81 19 94/62 (73) 98 02/13/17 00:00 97.8 80 20 92/58 (69) 97 02/13/17 00:00 78 02/12/17 20:00 98.2 96 22 97/55 (69) 97 02/12/17 20:00 Nasal Cannula 2.00 02/12/17 20:00 95 02/12/17 19:13 93 Nasal Cannula 2.00 02/12/17 17:00 97.8 100 16 110/60 (77) 93 Nasal Cannula 3 02/12/17 16:45 106 16 121/63 (82) 92 Nasal Cannula 3 02/12/17 16:30 98.3 119 22 131/65 (87) 92 Nasal Cannula 3 02/13/17 02/13/17 02/13/17 07:00 15:00 23:00 Intake Total 240 ml Balance 240 ml Result Diagram: 02/13/17 0700 02/13/17 0700 Laboratory Results Laboratory Tests Test 02/13/17 07:00 White Blood Count 11.1 TH/MM3 Red Blood Count 3.00 MIL/MM3 Hemoglobin 10.3 GM/DL Hematocrit 30.3 % Mean Corpuscular Volume 101.2 FL Mean Corpuscular Hemoglobin 34.2 PG Mean Corpuscular Hemoglobin Concent 33.8 % Red Cell Distribution Width 13.1 % Platelet Count 194 TH/MM3 Mean Platelet Volume 9.1 FL Blood Urea Nitrogen 1 MG/DL Creatinine 0.53 MG/DL Random Glucose 175 MG/DL Calcium Level 8.3 MG/DL Sodium Level 138 MEQ/L Potassium Level 2.6 MEQ/L Chloride Level 100 MEQ/L Carbon Dioxide Level 29.2 MEQ/L Anion Gap 9 MEQ/L Estimat Glomerular Filtration Rate 120 ML/MIN Culture Results Microbiology Date/Time Source Procedure Growth Status 02/12/17 16:05 Bronchial Washings Other Fungal Smear - Final NO FUNGAL ELEMENTS SEEN. Resulted 02/12/17 16:05 Bronchial Washings Other Fungal Culture Pending Resulted 02/12/17 16:05 Bronchial Washings Other Acid Fast Stain Pending Received 02/12/17 16:05 Bronchial Washings Other Mycobacterial Culture Pending Received 02/12/17 16:05 Bronchial Washings Other Gram Stain - Final Resulted 02/12/17 16:05 Bronchial Washings Other Bronchial Culture Pending Resulted Administered Medications Medications (Trade) Dose Ordered Sig/Tonya Route PRN Reason Start Time Stop Time Status Last Admin Dose Admin Sodium Chloride (NS Flush) 2 ml UNSCH PRN IV FLUSH FLUSH AFTER USING IV ACCESS 02/08/17 15:45 02/11/17 04:10 Sodium Chloride (NS Flush) 2 ml BID IV FLUSH 02/08/17 21:00 02/13/17 08:18 Acetaminophen (Tylenol) 650 mg Q4H PRN PO TEMP > 100.4 02/08/17 15:45 02/12/17 17:33 Ondansetron HCl (Zofran Inj) 4 mg Q6H PRN IVP NAUSEA OR VOMITING 02/08/17 15:45 02/08/17 19:11 Albuterol/ Ipratropium (Duoneb Neb) 1 ampule Q6HR NEB PRN NEB SHORTNESS OF BREATH 02/09/17 13:00 02/09/17 13:20 Albuterol/ Ipratropium (Duoneb Neb) 1 ampule TID NEB NEB 02/09/17 14:00 02/13/17 12:17 Zolpidem Tartrate (Ambien) 5 mg HS PRN PO INSOMNIA 02/09/17 21:00 02/12/17 23:20 Morphine Sulfate (Morphine Inj) 4 mg Q3H PRN IV PUSH BREAKTHROUGH PAIN 02/11/17 11:00 02/13/17 02:15 Albuterol Sulfate (Albuterol Concentrated Neb) 2.5 mg RESEARCH QUALITY ASSURANCE SPECIALIST NEB 02/11/17 11:45 02/15/17 11:44 02/12/17 14:52 Lidocaine HCl (Lidocaine Pf 4% Neb) 3 ml RESEARCH QUALITY ASSURANCE SPECIALIST NEB 02/11/17 11:45 02/15/17 11:44 02/12/17 14:52 Folic Acid (Folate) 1 mg DAILY PO 02/11/17 12:30 02/13/17 08:18 Pantoprazole Sodium (Protonix) 40 mg DAILY PO 02/13/17 09:00 02/13/17 08:18 Acetaminophen/ Hydrocodone Bitart ([place] 5-325 Mg) 2 tab Q6H PRN PO PAIN SCALE 8 TO 10 02/13/17 10:45 02/13/17 12:09 Objective Remarks GENERAL: Pleasant middle aged female upright in bed in no acute distress SKIN: Warm and dry. HEAD: Normocephalic. EYES: No injection or drainage. NECK: Supple, trachea midline. CARDIOVASCULAR: Regular rate and rhythm RESPIRATORY: Occasional rhonchi anteriorly. On 3 L nasal cannula GASTROINTESTINAL: Abdomen soft, non-tender, nondistended. EXTREMITIES: No cyanosis MUSCULOSKELETAL: Adequate muscle tone. NEUROLOGICAL: No obvious focal deficit. Moving all extremities. Assessment/Plan Problem List: (1) Lung mass ICD Codes: R91.8 - Other nonspecific abnormal finding of lung field Status: Acute Plan: -- Patient has a mediastinal mass associated with right hilar mass and possible mass in the tail of the pancreas. -- Mediastinal mass concerning for bronchogenic carcinoma -- CTA shows 4.3 x 2.5 cm mediastinal mass and a 1.9 x 2.1 cm right hilar mass -- Awaiting pulmonary consult for repeat bronchoscopy for eventual diagnosis -- GI has also been consulted to see if they can do biopsy via endoscopic ultrasound -- Patient having electrolyte abnormalities concerning for perineoplastic syndrome 02/13: Preliminary cytology shows small cell lung cancer Hx/Workup: Patient has long history of smoking. She initially presented in November [address] scan of the chest showed a large right paratracheal mass measuring 5 cm with additional 2 cm right hilar jamin mass unfortunately bronchoscopic evaluation of the time was nondiagnostic. She was unable to safely percutaneous biopsy either. She has lost 10 pounds from her previous presentation in November and her shortness of breath is worsening. (2) Thrombocytopenia ICD Codes: D69.6 - Thrombocytopenia, unspecified Status: Resolved Plan: Ct abdomen shows no disease in liver or splenomegaly. Unable to r/o drug effect, no exposure to heparin. No bleeding. Assessment 56 y/o female with mediastinal mass admitted for worsening shortness of breath Plan 1. Preliminary cytology shows small cell lung cancer 2. Plan for outpatient chemotherapy Saturday next week 3. Potassium replacement per primary 4. Monitor CBC, BMP Anabel Chacon Feb 13, 2017 13:09
[2017-02-13] MEDS ORDERED: POTASSIUM CHLORIDE 10 MEQ CONTROLLED RELEASE TAB PO ONE (18:15)
--- NOTE | 2017-02-13 19:30 | HHI.PR ---
Subjective Remarks ALERT NO SOB STABLE POST BRONCH Objective Vital Signs Date Time Temp Pulse Resp B/P (MAP) Pulse Ox O2 Delivery O2 Flow Rate FiO2 02/13/17 16:14 98.0 94 18 111/56 (74) 98 02/13/17 13:38 16 02/13/17 12:39 3.00 02/13/17 12:19 98.6 100 19 97/51 (66) 100 02/13/17 11:39 108 02/13/17 08:36 3.00 02/13/17 08:09 97.7 101 20 96/54 (68) 98 02/13/17 07:00 83 02/13/17 04:00 78 02/13/17 04:00 97.8 81 19 94/62 (73) 98 02/13/17 00:00 97.8 80 20 92/58 (69) 97 02/13/17 00:00 78 02/12/17 20:00 98.2 96 22 97/55 (69) 97 02/12/17 20:00 Nasal Cannula 2.00 02/12/17 20:00 95 I/O 02/12/17 02/12/17 02/12/17 02/13/17 02/13/17 02/13/17 07:00 15:00 23:00 07:00 15:00 23:00 Intake Total 300 ml 240 ml 960 ml Output Total 700 ml Balance -400 ml 240 ml 960 ml Intake Oral 300 ml 240 ml 960 ml Output Urine Total 700 ml # Voids 0 4 3 # Bowel Movements 0 0 Result Diagram: 02/13/17 0700 02/13/17 1600 Procedures LUNG MASS, MEDIASTINAL AND HILAR PLAN BRONCHOSCOPY AM Objective Remarks GENERAL: SKIN: Warm and dry. HEAD: Atraumatic. Normocephalic. EYES: Pupils equal and round. No scleral icterus. No injection or drainage. ENT: No nasal bleeding or discharge. Mucous membranes pink and moist. NECK: Trachea midline. No JVD. CARDIOVASCULAR: Regular rate and rhythm. RESPIRATORY: No accessory muscle use. Clear to auscultation. Breath sounds equal bilaterally. GASTROINTESTINAL: Abdomen soft, non-tender, nondistended. Hepatic and splenic margins not palpable. MUSCULOSKELETAL: Extremities without clubbing, cyanosis, or edema. No obvious deformities. NEUROLOGICAL: Awake and alert. No obvious cranial nerve deficits. Motor grossly within normal limits. Five out of 5 muscle strength in the arms and legs. Normal speech. PSYCHIATRIC: Appropriate mood and affect; insight and judgment normal. Assessment and Plan Assessment and Plan LUNG MASS PLAN ONCOLOGY CONSULTED PATH PENDING Livier Maier MD Feb 13, 2017 19:30
[2017-02-13] MEDS: ZOLPIDEM TARTRATE 5 MG TAB PO PRN (23:49)
[2017-02-14] VITALS (10 sets, daily range): BP systolic 84–101; BP diastolic 49–57; PULSE 70–101; RESP 14–20; TEMP 97.4–98.4; O2SAT 98–100
--- NOTE | 2017-02-14 07:12 | HHI.PR ---
Subjective Remarks in no acute distress. on three liters of oxygen via N/C. pain seems to be better today. d/w the RN and no acute issues over night. Objective Vitals Vital Signs Date Time Temp Pulse Resp B/P (MAP) Pulse Ox O2 Delivery O2 Flow Rate FiO2 02/14/17 04:08 72 02/14/17 04:00 97.4 98 18 101/57 (72) 98 02/14/17 01:45 98/50 (66) 02/14/17 01:44 76 89/53 (65) 02/14/17 00:00 Nasal Cannula 3.00 Humidified 02/14/17 00:00 98.3 77 20 84/49 (61) 100 02/14/17 00:00 101 02/13/17 20:19 80 02/13/17 20:01 100 Nasal Cannula 3.00 02/13/17 20:00 97.9 84 18 110/55 (73) 100 02/13/17 20:00 Nasal Cannula 3.00 Humidified 02/13/17 19:43 16 02/13/17 16:14 98.0 94 18 111/56 (74) 98 02/13/17 16:00 85 02/13/17 12:39 3.00 02/13/17 12:19 98.6 100 19 97/51 (66) 100 02/13/17 11:39 108 02/13/17 08:36 3.00 02/13/17 08:09 97.7 101 20 96/54 (68) 98 I/O 02/13/17 02/13/17 02/13/17 02/14/17 02/14/17 02/14/17 07:00 15:00 23:00 07:00 15:00 23:00 Intake Total 240 ml 960 ml Balance 240 ml 960 ml Intake Oral 240 ml 960 ml # Voids 4 3 3 # Bowel Movements 0 0 Result Diagram: 02/13/17 0700 02/13/17 1600 Imaging Last Impressions Abdomen/Pelvis CT 02/09/17 1203 Signed Impressions: Service Date/Time: Thursday, February 09, 2017 20:32 - CONCLUSION: 1. No CT findings of pancreatitis. 2. Marked gastric distention and mild bladder distention. 3. Mild anasarca. No bowel obstruction, free air or significant free fluid. Trace bilateral pleural effusions. Beni Bolton MD CT Angiography 02/08/17 1245 Signed Impressions: Service Date/Time: Wednesday, February 08, 2017 14:18 - CONCLUSION: 1. No pulmonary embolus identified. 2. 4.3 x 2.5 cm mediastinal mass. 3. 1.9 x 2.1 cm right hilar mass. 4. The mediastinal masses are suspicious for malignancy. 5. 4 mm nonspecific nodule in the right lung base. 6. COPD changes. 7. Possible partially visualized mass in the tail of the pancreas. This is only seen on the last image of the study. CT imaging of the abdomen and pelvis would be of benefit for further assessment. Joon Duval MD Objective Remarks GENERAL: with some sob. CARDIOVASCULAR: Regular rate and regular rhythm without murmurs, gallops, or rubs. RESPIRATORY: Clear to auscultation. Breath sounds equal bilaterally. No wheezes , rales, or rhonchi. GASTROINTESTINAL: Abdomen soft, non-tender, nondistended. Normal, active bowel sounds MUSCULOSKELETAL: Extremities without clubbing, cyanosis, or edema. NEURO: Alert & Oriented x4 to person, place, time, situation. Moves all ext x4 Procedures bronchoscopy EGD/colonoscopy Medications and IVs Inpatient Medications Acetaminophen (Tylenol) 650 mg Q4H PRN PO TEMP > 100.4 Last administered on 17:33; Start 02/08/17 at 15:45 Acetaminophen/ Hydrocodone Bitart ([place] 5-325 Mg) 2 tab Q6H PRN PO PAIN SCALE 8 TO 10 Last administered on 02/13/17 23:50; Start 02/13/17 at 10:45 Al Hydrox/Mg Hydrox/Simethicone (Mag-Al Plus Susp Liq) 30 ml ONCE ONCE PO Last administered on 02/08/17 13:08; Start 02/08/17 at 13:00; Stop 02/08/17 at 13:01; Status DC Albuterol Sulfate (Albuterol Concentrated Neb) 2.5 mg MAMMOGRAPHER NEB Last administered on 02/12/17 14:52; Start 02/11/17 at 11:45; Stop 02/15/17 at 11 :44 Albuterol/ Ipratropium (Duoneb Neb) 1 ampule UNSCH X1 PRN NEB SHORTNESS OF BREATH; Start 02/12/17 at 16:30; Stop 02/13/17 at 16:29; Status DC Atropine/Hyoscyam/ Phenobarb/Scopol ( Liq) 10 ml ONCE ONCE PO Last administered on 02/08/17 13:08; Start 02/08/17 at 13:00; Stop 02/08/17 at 13 :01; Status DC Chlorhexidine Gluconate (Chlorhexidine 2% Cloth) 3 pack MAMMOGRAPHER PRN TOPICAL SEE LABEL COMMENTS; Start 02/11/17 at 06:15; Stop 02/14/17 at 06:14; Status DC Cyanocobalamin (Vitamin B12 Inj) 1,000 mcg ONCE ONCE SQ ; Start 02/11/17 at 12 :30; Stop 02/11/17 at 12:40; Status DC Dextrose (D50w (Vial) Inj) 50 ml UNSCH PRN IV PUSH HYPOGLYCEMIA-SEE COMMENTS; Start 02/08/17 at 18:30 Diatrizoate Meglum/ Diatrizoate Sod ( Gastroview Liq) 18 ml ONCE ONCE PO Last administered on 02/09/17 15:20; Start 02/09/17 at 13:30; Stop 02/09/17 at 13:31; Status DC Famotidine (Pepcid Inj) 20 mg ONCE ONCE IV PUSH Last administered on 13:08; Start 02/08/17 at 13:00; Stop 02/08/17 at 13:01; Status DC Folic Acid (Folate) 1 mg DAILY PO Last administered on 02/13/17 08:18; Start 02/11/17 at 12:30 Glucagon (Glucagon Inj) 1 mg UNSCH PRN OTHER HYPOGLYCEMIA-SEE COMMENTS; Start 02/08/17 at 18:30 Influenza Virus Vaccine (Flu (Quadrivalent) Vaccine Inj) 0.5 ml ONCE ONCE IM Last administered on 02/09/17 11:53; Start 02/09/17 at 10:00; Stop 02/09/17 at 10:01; Status DC Lactated Ringer's 1,000 ml @ 30 mls/hr Q24H PRN IV SEE LABEL COMMENTS; Start 02/11/17 at 06:15; Stop 02/11/17 at 12:14; Status DC Lidocaine HCl (Lidocaine Pf 4% Neb) 3 ml MAMMOGRAPHER NEB Last administered on 14:52; Start 02/11/17 at 11:45; Stop 02/15/17 at 11:44 Miscellaneous Information ALL NURSING DEPARTME... UNSCH PRN .XX SEE LABEL COMMENTS; Start 02/12/17 at 16:33; Stop 02/13/17 at 16:32; Status DC Morphine Sulfate (Morphine Inj) 4 mg Q3H PRN IV PUSH BREAKTHROUGH PAIN Last administered on 02/13/17 02:15; Start 02/11/17 at 11:00 Naloxone HCl (Narcan Inj) 0.4 mg UNSCH PRN IV PUSH SEE LABEL COMMENTS; Start 02/08/17 at 15:45 Ondansetron HCl (Zofran Inj) 4 mg Q6H PRN IVP NAUSEA OR VOMITING Last administered on 02/08/17 19:11; Start 02/08/17 at 15:45 Pantoprazole Sodium (Protonix) 40 mg DAILY PO Last administered on 02/13/17 08:18; Start 02/13/17 at 09:00 Pneumococcal Polyvalent Vaccine (Pneumovax-23 Inj) 25 mcg ONCE ONCE IM Last administered on 02/09/17 11:52; Start 02/09/17 at 10:00; Stop 02/09/17 at 10 :01; Status DC Polyethylene Glycol/ Electrolytes (Colyte Liq) 4,000 ml ONCE ONCE PO Last administered on 02/10/17 16:04; Start 02/10/17 at 16:00; Stop 02/10/17 at 16 :01; Status DC Potassium Chloride (KCl) 20 meq ONCE ONCE PO Last administered on 02/13/17 22:12; Start 02/13/17 at 21:00; Stop 02/13/17 at 21:01; Status DC Povidone Iodine (Betadine 5% Antisepsis Kit) 1 applic MAMMOGRAPHER PRN EACH NARE SEE LABEL COMMENTS; Start 02/11/17 at 06:15; Stop 02/14/17 at 06:14; Status DC Senna/Docusate Sodium (Britt-Colace) 1 tab BID PO Last administered on 09:09; Start 02/08/17 at 21:00; Stop 02/09/17 at 15:33; Status DC Sodium Chloride 1,000 ml @ 42 mls/hr [id number] IV Last administered on 22:53; Start 02/11/17 at 11:34; Stop 02/12/17 at 20:43; Status DC Sodium Chloride (NS Flush) 2 ml BID IV FLUSH Last administered on 02/13/17 08 :18; Start 02/08/17 at 21:00 Zolpidem Tartrate (Ambien) 5 mg HS PRN PO INSOMNIA Last administered on 23:49; Start 02/09/17 at 21:00 A/P Problem List: (1) Lung mass ICD Code: R91.8 - Other nonspecific abnormal finding of lung field Status: Acute (2) Pancreatic mass ICD Code: K86.9 - Disease of pancreas, unspecified Status: Acute (3) Chest pain ICD Code: R07.9 - Chest pain, unspecified Status: Acute (4) Hyponatremia ICD Code: E87.1 - Hypo-osmolality and hyponatremia (5) Hypokalemia ICD Code: E87.6 - Hypokalemia Status: Acute Assessment and Plan 56-year-old female who presented with a mediastinal mass associated with a right hilar mass suspicious for malignancy. CA-19-9 slightly elevated. - s/p bronchoscopy with preliminary report of small cell lung cancer - Hematology follow-up appreciated; chemo as outpatient. - Pulmonology following. -Patient is status post EGD and colonoscopy. EGD shows gastritis and duodenal ulcer. Biopsy taken. Colonoscopy unremarkable. Protonix ordered. - Abdomen/pelvis CT did not show a pancreatic mass. Mild gastric distention noted. - Breathing treatments as needed. Supplemental oxygen as needed -failed walk test; needs home oxygen. - Pain control with norco and morphine as needed hypokalemia; replaced- will monitor. Insomnia: - Ambien as needed at night. DVT PPx: SCDs. Discharge Planning dc home when home oxygen provided-pending potassium level. see med list. d/w the patient. f/u; pcp, pulmonary and oncology. time spent 35 min. Problem Qualifiers (1) Chest pain: Qualified Codes: R07.9 - Chest pain, unspecified Gabo Miller MD Feb 14, 2017 07:12
[2017-02-14] MEDS ORDERED: HYDR-3516 PO (07:13)
[2017-02-14] MEDS ORDERED: PANT40TA3 PO (07:13)
[2017-02-14] MEDS: SODIUM CHLORIDE 0.9% FLUSH 10 ML FLUSH IV FLUSH SCH (08:32)
[2017-02-14] MEDS: FOLIC ACID 1 MG TAB PO SCH (08:32)
[2017-02-14] MEDS: PANTOPRAZOLE SOD 40 MG DELAYED RELEASE TAB PO SCH (08:32)
--- NOTE | 2017-02-14 11:05 | HHI.DS ---
Discharge Summary Admission Date Feb 08, 2017 at 15:20 Discharge Date: Feb 14, 2017 Admitting Diagnosis Chest pain. Lung mass. Pancreatic mass. Hypokalemia. Hyponatremia. (1) Lung mass ICD Code: R91.8 - Other nonspecific abnormal finding of lung field Diagnosis: Principal Status: Acute (2) Chest pain ICD Code: R07.9 - Chest pain, unspecified Diagnosis: Secondary Status: Acute (3) Hyponatremia ICD Code: E87.1 - Hypo-osmolality and hyponatremia Diagnosis: Secondary (4) Hypokalemia ICD Code: E87.6 - Hypokalemia Diagnosis: Secondary Status: Acute Procedures bronchoscopy EGD/colonoscopy Brief History - From Admission Ms. Sosa is a 56-year-old female patient with a known medical history of COPD , tobacco abuse and lung mass who presented to the ED with complaints of epigastric vs chest pain. Patient states that on Saturday of this week she became nauseous and has been dry heaving intermittently. Has not been able to tolerate any PO intake without emesis. She states that she also has pain in her epigastric area that radiates to her midsternal chest. Feels pressure-like in and intermittent in nature, cannot identify any aggravating factors, rates the pain an 8/10 on pain scale, improved with IV narcotics. Admits to associated shortness of breath with pain. Denies any associated diaphoresis. Last BM was today, admits to diarrhea. Denies any recent dysuria. Denies any hematochezia. Patient states that she was recently admitted to the hospital in November of this year for similar complaints. At that time it was found that patient had been diagnosed with a lung mass. Patient sees Dr. Maier, pulmonology, in the outpatient setting who attempted to bronchoscope and biopsy the mass with no amendable way to obtain the biopsy. Interventional radiologist was then consulted who attempted to perform a percutaneous biopsy who also did not feel it safe to obtain biopsy through percutaneous access. Patient does have an appointment with the cardiothoracic surgeon on 02/14/17. Does admit to a significant amount of weight loss over the past few months. Admits to current tobacco use and usually drinks 5 beers daily, last drink was 1 week ago. A nuclear stress test was performed on 12/03/16 of this year which was negative for any stressed-induced ischemia. CBC/BMP: 02/13/17 0700 02/14/17 0606 Significant Findings Laboratory Tests Test 02/11/17 12:40 02/11/17 13:53 02/11/17 15:35 02/12/17 07:10 Platelet Count 104 TH/MM3 (150-450) 121 TH/MM3 (150-450) Red Blood Count 2.75 MIL/MM3 (4.00-5.30) Hemoglobin 9.7 GM/DL (11.6-15.3) Hematocrit 27.7 % (35.0-46.0) Mean Corpuscular Volume 100.5 FL (80.0-100.0) Mean Corpuscular Hemoglobin 35.1 PG (27.0-34.0) Test 02/13/17 07:00 02/13/17 16:00 02/14/17 06:06 White Blood Count 11.1 TH/MM3 (4.0-11.0) Red Blood Count 3.00 MIL/MM3 (4.00-5.30) Hemoglobin 10.3 GM/DL (11.6-15.3) Hematocrit 30.3 % (35.0-46.0) Mean Corpuscular Volume 101.2 FL (80.0-100.0) Mean Corpuscular Hemoglobin 34.2 PG (27.0-34.0) Blood Urea Nitrogen 1 MG/DL (7-18) Random Glucose 175 MG/DL (74-106) Calcium Level 8.3 MG/DL (8.5-10.1) Potassium Level 2.6 MEQ/L (3.5-5.1) 2.9 MEQ/L (3.5-5.1) Imaging Last Impressions Abdomen/Pelvis CT 02/09/17 1203 Signed Impressions: Service Date/Time: Thursday, February 09, 2017 20:32 - CONCLUSION: 1. No CT findings of pancreatitis. 2. Marked gastric distention and mild bladder distention. 3. Mild anasarca. No bowel obstruction, free air or significant free fluid. Trace bilateral pleural effusions. Beni Bolton MD CT Angiography 02/08/17 0579 Signed Impressions: Service Date/Time: Wednesday, February 08, 2017 14:18 - CONCLUSION: 1. No pulmonary embolus identified. 2. 4.3 x 2.5 cm mediastinal mass. 3. 1.9 x 2.1 cm right hilar mass. 4. The mediastinal masses are suspicious for malignancy. 5. 4 mm nonspecific nodule in the right lung base. 6. COPD changes. 7. Possible partially visualized mass in the tail of the pancreas. This is only seen on the last image of the study. CT imaging of the abdomen and pelvis would be of benefit for further assessment. Joon Duval MD PE at Discharge GENERAL: with some sob. CARDIOVASCULAR: Regular rate and regular rhythm without murmurs, gallops, or rubs. RESPIRATORY: Clear to auscultation. Breath sounds equal bilaterally. No wheezes , rales, or rhonchi. GASTROINTESTINAL: Abdomen soft, non-tender, nondistended. Normal, active bowel sounds MUSCULOSKELETAL: Extremities without clubbing, cyanosis, or edema. NEURO: Alert & Oriented x4 to person, place, time, situation. Moves all ext x4 Hospital Course patient was admitted with mediastinal mass. 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 she will have a follow-up by oncology as outpatient. she was also seen by GI. she was found to have gastritis and duodenal ulcer. colonoscopy was unremarkable.she failed the walk test for which case management was consulted for home oxygen. hyponatremia and hypokalemia was corrected during this hospitalization. Pt Condition on Discharge: Fair Discharge Disposition: Discharge Home Discharge Time: > 30 minutes Discharge Instructions DIET: Follow Instructions for: Heart Healthy Diet Activities you can perform: Regular-No Restrictions Follow up Referrals: Gastroenterology Oncology PCP Follow-up Pulmonology New Medications: Oxygen (O2) (Oxygen (O2)) Device LITER MADDY.CANULA CONTINUOUS for Prevent Hypoxemia, #3 Oxygen Concentrator Portable Gaseous 3 L/min via Nasal Canula Continuous For 99 months Hydrocodone/Acetaminophen (Hydrocodone-Acetamin 5-325 mg) 5 Mg-325 Mg Tablet 1 TAB PO Q6H PRN for pain, #15 TAB 0 Refills Pantoprazole (Pantoprazole) 40 Mg Tab 40 MG PO DAILY for ppi for 30 Days, #30 TAB 0 Refills Continued Medications: Albuterol 18 GM Inh (Ventolin Hfa 18 GM Inh) 90 Mcg/Act Aer 2 PUFF INH Q4H PRN for SHORTNESS OF BREATH, #1 INHALER 0 Refills Aspirin (Aspirin) 325 Mg Tab 325 MG PO DAILY for Heart, #30 TAB 0 Refills Gabo Miller MD Feb 14, 2017 11:05
--- NOTE | 2017-02-14 11:10 | HHI.FF ---
Face to Face Verification Diagnosis: (1) Lung mass Home Health Nursing Order: Medical education Signs/symptoms of disease process Oxygen administration education Nursing assessment with vital signs I have seen patient Khushbu Sosa on 02/14/17. My clinical findings support the need for the requested home health care services because: Patient has SOB I certify that my clinical findings support that this patient is homebound because: Hx COPD- exertion dyspnea/weakness Gabo Miller MD Feb 14, 2017 11:10
[2017-02-14] MEDS: ACETAMINOPHEN/HYDROcodone 325 MG/5 MG TAB PO PRN (12:30)
[2017-02-14 13:53] LABS: VWF CLEAVING PROT ACT 109 (68-163); VWF PROTEASE INH ND BEU (<0.4)
[2017-02-14 17:53] LABS: VWF AG 246 % (50-217)
--- NOTE | 2017-02-14 18:17 | HHI.PR ---
Subjective Remarks ALERT NO SOB STABLE Objective Vital Signs Date Time Temp Pulse Resp B/P (MAP) Pulse Ox O2 Delivery O2 Flow Rate FiO2 02/14/17 14:43 14 02/14/17 12:02 76 02/14/17 12:00 98.1 82 18 97/52 (67) 98 97/57 (70) 02/14/17 09:12 Nasal Cannula 3.00 21 Humidified 02/14/17 08:00 98.4 89 18 95/53 (67) 98 02/14/17 04:08 72 02/14/17 04:00 97.4 98 18 101/57 (72) 98 02/14/17 01:45 98/50 (66) 02/14/17 01:44 76 89/53 (65) 02/14/17 00:00 Nasal Cannula 3.00 Humidified 02/14/17 00:00 98.3 77 20 84/49 (61) 100 02/14/17 00:00 101 02/13/17 20:19 80 02/13/17 20:01 100 Nasal Cannula 3.00 02/13/17 20:00 97.9 84 18 110/55 (73) 100 02/13/17 20:00 Nasal Cannula 3.00 Humidified I/O 02/13/17 02/13/17 02/13/17 02/14/17 02/14/17 02/14/17 07:00 15:00 23:00 07:00 15:00 23:00 Intake Total 240 ml 960 ml Balance 240 ml 960 ml Intake Oral 240 ml 960 ml # Voids 4 3 3 # Bowel Movements 0 0 Result Diagram: 02/13/17 0700 02/14/17 0606 Procedures LUNG MASS, MEDIASTINAL AND HILAR PLAN BRONCHOSCOPY AM Objective Remarks GENERAL: SKIN: Warm and dry. HEAD: Atraumatic. Normocephalic. EYES: Pupils equal and round. No scleral icterus. No injection or drainage. ENT: No nasal bleeding or discharge. Mucous membranes pink and moist. NECK: Trachea midline. No JVD. CARDIOVASCULAR: Regular rate and rhythm. RESPIRATORY: No accessory muscle use. Clear to auscultation. Breath sounds equal bilaterally. GASTROINTESTINAL: Abdomen soft, non-tender, nondistended. Hepatic and splenic margins not palpable. MUSCULOSKELETAL: Extremities without clubbing, cyanosis, or edema. No obvious deformities. NEUROLOGICAL: Awake and alert. No obvious cranial nerve deficits. Motor grossly within normal limits. Five out of 5 muscle strength in the arms and legs. Normal speech. PSYCHIATRIC: Appropriate mood and affect; insight and judgment normal. Assessment and Plan Assessment and Plan LUNG MASS PLAN going home , f/u out patient PATH PENDING Livier Maier MD Feb 14, 2017 18:17
[2017-02-14 23:52] LABS: COAG FACTOR VIII 91 (50-180)
[2017-02-16 03:50] LABS: BETA2 GLYCOPROTEIN I AB IGA LESS THAN 9.0 SAU (< OR = 20)
== END 2017-02-14 18:38 | disposition home or self-care (01) | DRG 181 ==
LOC: PHED 12:15 → PHEDA 15:20 → N04A 19:57
PROVIDERS: ADMIT Internal Medicine; ATTEND Internal Medicine
PROC: 0DJD8ZZ Inspection of Lower Intestinal Tract, Via Natural or Artificial Opening Endoscopic (ICD-10-PCS; 2017-02-11)
PROC: 0DB68ZX Excision of Stomach, Via Natural or Artificial Opening Endoscopic, Diagnostic (ICD-10-PCS; 2017-02-11)
PROC: 0WBC3ZX Excision of Mediastinum, Percutaneous Approach, Diagnostic (ICD-10-PCS; principal; 2017-02-12)
PROC: 0BJ08ZZ Inspection of Tracheobronchial Tree, Via Natural or Artificial Opening Endoscopic (ICD-10-PCS; 2017-02-12)
PROC: 07D73ZX Extraction of Thorax Lymphatic, Percutaneous Approach, Diagnostic (ICD-10-PCS; 2017-02-12)
DX: C34.90 Malignant neoplasm of unspecified part of unspecified bronchus or lung (principal); R64 Cachexia; E87.1 Hypo-osmolality and hyponatremia; R13.10 Dysphagia, unspecified; K26.9 Duodenal ulcer, unspecified as acute or chronic, without hemorrhage or perforation; J43.9 Emphysema, unspecified; K86.9 Disease of pancreas, unspecified; F17.210 Nicotine dependence, cigarettes, uncomplicated; E87.6 Hypokalemia; F10.20 Alcohol dependence, uncomplicated; F41.9 Anxiety disorder, unspecified; Z80.52 Family history of malignant neoplasm of bladder; Z80.1 Family history of malignant neoplasm of trachea, bronchus and lung; Z83.6 Family history of other diseases of the respiratory system; Z80.0 Family history of malignant neoplasm of digestive organs; Z98.51 Tubal ligation status; Z23 Encounter for immunization; K64.4 Residual hemorrhoidal skin tags; K64.8 Other hemorrhoids; G47.00 Insomnia, unspecified; K29.70 Gastritis, unspecified, without bleeding
CPT/HCPCS: 36600; 71275; 74177; 80048; 80053; 82550; 82607; 82805; 82948; 83090; 83615; 83690; 84132; 84484; 85025; 85027; 85049; 85060; 85240; 85245; 85246; 85247; 85379; 85384; 85397; 85610; 85613; 85730; 86022; 86146; 86147; 86301; 86880; 87015; 87070; 87102; 87116; 87185; 87205; 87206; 87328; 87329; 87493; 87506; 88112; 88172; 88173; 88305; 88341; 88342; 90686; 90732; 93005; 94060; 94620; 94640; 94664; 96361; 96365; 96375; J2270; J2405; J3480; J7030; J7611; Q2038; Q9963; Q9967

== ENCOUNTER 2017-03-11 06:32 | Day surgery (SDC) | payer OTHER ==
[~2017-03-11] VITALS: Ht 157.5 cm; Wt 39.0 kg
[~2017-03-11 06:32] MED LIST changes: +HYDR-3516 PO; +OXYGENDME NAS.CANULA; +PANT40TA3 PO
[2017-03-11 06:49] VITALS: BP 118/73; PULSE 119; RESP 20; TEMP 98; O2SAT 96
[2017-03-11] MEDS ORDERED: OXYC1CAP PO (06:49)
[2017-03-11] MEDS ORDERED: METH5TAB PO (06:50)
[2017-03-11] MEDS ORDERED: PROC10TA PO (06:52)
[2017-03-11] MEDS ORDERED: CEPH500C PO (06:53)
[2017-03-11] MEDS ORDERED: PRED5TAB PO (06:53)
[2017-03-11] MEDS ORDERED: CHLORHEXIDINE GLUCONATE 2 % 1 PACK (2 CLOTHS) TOPICAL SCH (07:15)
[2017-03-11] MEDS ORDERED: POVIDONE IODINE 5% (ANTISEPSIS KIT) 4 APPLICATIONS EACH NARE SCH (07:15)
[2017-03-11] MEDS ORDERED: SODIUM CHLORIDE 0.9% 1000 ML IV SCH (07:15)
[2017-03-11] MEDS ORDERED: ceFAZolin 2 GM PREMIX 50 ML - implanted port/tunneled catheter insertion IV SCH (07:15)
[2017-03-11] MEDS ORDERED: MUPIROCIN 2% OINT 1 APPLIC/GM SYR EACH NARE SCH (07:15)
[2017-03-11] MEDS ORDERED: VANCOMYCIN 1000 MG/NS 250 ML - implanted port/tunneled catheter IV SCH ×2 (07:15)
[2017-03-11 07:43] LABS: AUTOMATED NEUTROPHIL # 10.1 TH/MM3 (1.8-7.7); BASOPHIL # 0.3 TH/MM3 (0-0.2); BASOPHIL % 1.7 % (0.0-2.0); HEMOGLOBIN 10.2 GM/DL (11.6-15.3); LYMPH % 31.6 % (9.0-44.0); LYMPHOCYTE # 5.3 TH/MM3 (1.0-4.8); MEAN CELL VOLUME 98.4 FL (80.0-100.0); MEAN CORPUSCULAR HEMOGLOBIN 33.5 PG (27.0-34.0); MEAN PLATELET VOLUME 8.1 FL (7.0-11.0); MONO % 6.5 % (0.0-8.0); MONOCYTE # 1.1 TH/MM3 (0-0.9); NEUT % 60.2 % (16.0-70.0); PLATELET COUNT 454 TH/MM3 (150-450); RED BLOOD COUNT 3.04 MIL/MM3 (4.00-5.30); RED CELL DISTRIBUTION WIDTH 14.1 % (11.6-17.2); WHITE BLOOD COUNT 16.7 TH/MM3 (4.0-11.0)
[2017-03-11 07:53] LABS: PROTHROMBIN TIME - PATIENT 10.4 SEC (9.8-11.6)
[2017-03-11] MEDS ORDERED: MIDAZOLAM HCL 2 MG/2 ML VIAL ONE ×2 (08:21)
[2017-03-11 08:28] LABS: BANDS 3 % (0-6); LYMPHOCYTES 34 % (9-44); MONOCYTES 4 % (0-8); NEUTROPHIL # MANUAL DIFF 10.4 TH/MM3 (1.8-7.7); POLYS (SEG NEUTROPHILS) 59 % (16-70)
[2017-03-11 08:29] LABS: TOXIC GRANULATION 2+ (NORMAL)
[2017-03-11 09:30] VITALS: BP 115/66; PULSE 90; RESP 17; TEMP 97.7; O2SAT 92
[2017-03-11 10:00] VITALS: BP 103/67; PULSE 80; RESP 16; O2SAT 97
[2017-03-11] MEDS ORDERED: SODIUM CHLORIDE 0.9% FLUSH 10 ML FLUSH IVF PRN (10:15)
--- NOTE | 2017-03-11 10:16 | PD.RAD ---
Post Procedure Progress Note Pre Procedure Diagnosis: (1) Lung cancer Post Procedure Diagnosis: (1) Lung cancer Procedure Date: Mar 11, 2017 Supervising Radiologist: Spenser Frye Proceduralist/Assist: RT Jessica(R) Anesthesia: Local, Conscious Sedation Plan of Activity Patient to Unit: ROPU Patient Condition: Good See PACS Report for procedural detail/treatment Central Venous Access Device Procedure 1 Right Internal Jugular Infusaport Placement single lumen Nauruan: 8 Spenser Frye MD Mar 11, 2017 10:16
[2017-03-11 10:30] VITALS: BP 114/72; PULSE 78; RESP 17; O2SAT 98
--- NOTE | 2017-03-11 10:31 | RADRPT ---
EXAM DATE/TIME: 03/11/2017 09:31 [facility] COMPARISON: No previous studies available for comparison. INDICATIONS : Patient with newdiagnosis of lung cancer. Will need chemotherapy. MEDICAL HISTORY : 1.Lung cancer 2. COPD 3. SMoker 4. Thrombocytopenia 5. pancreatic mass SURGICAL HISTORY : 1. Appendectomy 2. bronchosopy 3. c section 4. tubal ligation ENCOUNTER: Initial ACUITY: 1 month PAIN SCORE: 0/10 FLUORO TIME: 0.5 minutes IMAGE SERIES: 1 SEDATION TIME: 30 minutes ACCESS: Right internal jugular vein SEDATION: 1.) 1.5 mg midazolam (Versed) IV 2.) 75 mcg fentanyl (Sublimaze) IV Prophylactic antibiotics were administered with appropriate pre-procedure timing. Vancomycin within 2 hours of procedure, Ancef (or alternative) within 1 hour of procedure. DEVICE: 1. 8 Portuguese single lumen Bard Power Port PROCEDURE : 1. Continuous pulse oximetry and EKG monitoring. 2. Intravenous conscious sedation. 3. Ultrasound guidance for venous access. 4. Fluoroscopic guided implantable central venous port placement. The patient was placed supine. The neck was prepped in sterile fashion. Full sterile technique was u sed, including cap, mask, sterile gloves and gown, and a large sterile sheet. Hand hygiene and 2% ch lorhexidine Betadine was utilized per protocol for cutaneous antisepsis with appropriate dry time for site. Sterile gel and sterile probe cover were utilized for ultrasound guidance. The skin and sub cutaneous tissues were infiltrated with local anesthetic solution. Under direct ultrasound guidance, central venous access was accomplished in the targeted vessel. The ultrasound images depicting access guidance were stored and saved to PACS for permanent record. A s ubcutaneous pocket was created using blunt dissection. The port was introduced to the pocket. The c atheter tubing was fed through a subcutaneous tunnel to the venotomy site. The catheter tubing was c ut to a suitable length and then was introduced through a valved Peel-Away sheath and positioned with catheter tubing tip at the cavo-atrial junction level. The pocket incision was closed with subcutic ular Vicryl suture. Steri-Strips were applied. The port was flushed and locked with heparin solutio n per protocol. Sterile dressing was applied to the site. The patient tolerated the procedure well. Conscious sedation was performed with the prescribed dosages and duration as above in the presence of an independent trained radiology nurse to assist in the monitoring of the patient. EKG and oximetry remained stable throughout the procedure. The patient tolerated the procedure well and there were no complications. The patient was sent to post anesthesia recovery in stable condition. CONCLUSION: Uncomplicated ultrasound and fluoroscopic guided implanted central venous port catheter placement as described in detail above. An 8 Portuguese Power port was placed. Spenser Frye MD on March 11, 2017 at 10:28 Board Certified Radiologist. This report was verified electronically.
--- NOTE | 2017-03-11 10:31 | RADRPT ---
EXAM DATE/TIME: 03/11/2017 09:26 [facility] COMPARISON: No previous studies available for comparison. INDICATIONS : Patient needs goood access. [place] a port placement for lung cancer. MEDICAL HISTORY : 1. Lung ca 2. Pancreatic mass 3. COPD 4. smoker SURGICAL HISTORY : 1. C section x2 2. tubal ligation 3. appendectomy ENCOUNTER: Initial ACUITY: 1 day PAIN SCORE: 0/10 IMAGE SERIES: ACCESS: Right basilic vein DEVICE(S): 1.) 3/4 Afghan Dilator PROCEDURE : 1. Ultrasound guided venous access. The risks, benefits and alternatives to the procedure were explained and verbal and written consent w as obtained. The site was prepped in sterile fashion. Full sterile technique was used, including ca p, mask, sterile gloves and gown and a large sterile sheet. Hand hygiene and 2% chlorhexidine and/or betadine/alcohol prep was utilized per protocol for cutaneous antisepsis. Sterile gel and sterile p robe cover were utilized for ultrasound guidance. The skin and subcutaneous tissues were infiltrate d with local anesthetic solution. With ultrasound guidance the prescribed vein was punctured for venous access. A 4 Afghan dilator was placed and was flushed and locked with heparin. The patient tolerated procedure well and there were n o complications. CONCLUSION: Uncomplicated ultrasound guided venous access. Spenser Frye MD on March 11, 2017 at 10:28 Board Certified Radiologist. This report was verified electronically.
[2017-03-11 11:00] VITALS: BP 100/60; PULSE 77; RESP 18; O2SAT 99
== END 2017-03-11 11:40 | disposition home or self-care (01) ==
LOC: HROP 06:32 → HRIP 06:40 → HROP 11:40
PROVIDERS: ATTEND Internal Medicine Hematology & Oncology
DX: C34.90 Malignant neoplasm of unspecified part of unspecified bronchus or lung (principal); J44.9 Chronic obstructive pulmonary disease, unspecified; D69.6 Thrombocytopenia, unspecified; F17.200 Nicotine dependence, unspecified, uncomplicated; K86.9 Disease of pancreas, unspecified
CPT/HCPCS: 36410; 36561; 76937; 77001; 85007; 85027; 85610; 85730; 99152; 99153; C1788; J0690; J1642; J2250; J3010; J3370; J7030; J7050

== ENCOUNTER 2017-05-06 10:39 | Day surgery (SDC) | payer OTHER ==
[~2017-05-06] VITALS: Ht 157.5 cm; Wt 40.0 kg
[~2017-05-06 10:39] MED LIST changes: -ASPI-183 PO; +CEPH500C PO; -HYDR-3516 PO; +METH5TAB PO; +OXYC1CAP PO; -PANT40TA3 PO; +PRED5TAB PO; +PROC10TA PO
[2017-05-06 11:09] VITALS: BP 137/65; PULSE 80; RESP 18; TEMP 97.7; O2SAT 100
[2017-05-06] MEDS ORDERED: OMEP20CA2 PO (11:09)
[2017-05-06] MEDS ORDERED: PRED20 PO (11:09)
[2017-05-06] MEDS ORDERED: SODIUM CHLOR 0.9% 1000 ML IV SCH (12:00)
[2017-05-06] MEDS ORDERED: SODIUM CHLORIDE 2 ML FLUSH PRN IV FLUSH (12:00)
[2017-05-06] MEDS ORDERED: IMPLANTED VASCULAR ACCESS DEVICE/PORT - SODIUM CHLORIDE FLUSH PRN IV FLUSH (12:00)
[2017-05-06] MEDS ORDERED: IMPLANTED VASCULAR ACCESS DEVICE/PORT - SODIUM CHLORIDE FLUSH IV FLUSH SCH (12:00)
[2017-05-06] MEDS ORDERED: LIDOCAINE HCL 1% 20 ML VIAL ONE (12:46)
[2017-05-06] MEDS ORDERED: MIDAZOLAM HCL 2 MG/2 ML VIAL ONE ×2 (12:59→13:24)
[2017-05-06 13:55] VITALS: BP 109/55; PULSE 76; RESP 20; O2SAT 96
[2017-05-06 14:10] VITALS: BP 102/51; PULSE 68; RESP 18; O2SAT 95
--- NOTE | 2017-05-06 14:26 | RADRPT ---
EXAM DATE/TIME: 05/06/2017 13:16 [facility] COMPARISON: No previous studies available for comparison. INDICATIONS : Thrombocytopenia SEDATION TIME: 30 minutes BIOPSY SITE: Right ilium MEDICATION(S): 1.) 3 mg midazolam (Versed) IV 2.) 100 mcg fentanyl (Sublimaze) IV DEVICE(S): 1.) 11 gauge On-Control needle MEDICAL HISTORY : Carcinoma, lung. SURGICAL HISTORY : Appendectomy. Tubal ligation. ENCOUNTER: Initial ACUITY: 1 day PAIN SCORE: 0/10 LOCATION: Right ilium A total of one core specimen(s) were obtained and sent to the laboratory for pathologic evaluation. PROCEDURE: 1. CT guided bone marrow biopsy. Prior to the procedure informed consent was obtained. Any appropriate prior imaging studies were rev iewed. Using automated exposure control and adjustment of the mA and/or kV according to patient size , radiation dose was kept as low as reasonably achievable to obtain optimal diagnostic quality images . DICOM format image data is available electronically for review and comparison. The site was prepped in a sterile fashion. Full sterile technique was used, including cap, mask, mary rile gloves and gown and a large sterile sheet. Hand hygiene and 2% chlorhexidine and/or betadine/al cohol prep was utilized per protocol for cutaneous antisepsis. The skin and subcutaneous tissues wer e infiltrated with local anesthetic solution. With CT guidance the previously identified target was localized. Biopsy was performed using the presc ribed needle as above. Following biopsy marrow aspiration was performed with repeat puncture. Adequa te hemostasis was obtained with compression at the puncture site. Follow-up CT scan reveals no hemorrhage. Conscious sedation was performed with the prescribed dosages and duration as above in the presence of an independent trained radiology nurse to assist in the monitoring of the patient. EKG and oximetry remained stable throughout the procedure. The patient tolerated the procedure well and there were no complications. The patient was sent to Radiology Outpatient Unit in stable condition. CONCLUSION: 1. Uncomplicated CT guided bone marrow aspirate. 2. Uncomplicated CT guided bone marrow biopsy. Kendrick Walker MD on May 06, 2017 at 14:24 Board Certified Radiologist. This report was verified electronically.
[2017-05-06 14:40] VITALS: BP 96/54; PULSE 82; RESP 18; O2SAT 94
[2017-05-06 15:10] VITALS: BP 100/53; PULSE 70; RESP 18; O2SAT 95
[2017-05-06 15:40] VITALS: BP 112/87; PULSE 81; RESP 15; O2SAT 95
[2017-05-06] MEDS ORDERED: SODIUM CHLORIDE 2 ML FLUSH BID IV FLUSH SCH (21:00)
== END 2017-05-06 16:05 | disposition home or self-care (01) ==
LOC: HRAD 10:39 → HRIP 10:46 → HRAD 16:05
PROVIDERS: ATTEND Nurse Practitioner Family
DX: D69.6 Thrombocytopenia, unspecified (principal)
CPT/HCPCS: 38222; 77012; 85097; 88184; 88185; 88237; 88264; 88280; 88305; 88311; 88313; 99152; 99153; J2250; J3010

== ENCOUNTER 2017-05-17 14:44 | Emergency (ER) | payer OTHER ==
[~2017-05-17] VITALS: Ht 157.5 cm; Wt 34.4 kg
[~2017-05-17 14:44] MED LIST changes: -CEPH500C PO; +OMEP20CA2 PO; +PRED20 PO; -PRED5TAB PO; -VENTAER INH
[2017-05-17 14:49] VITALS: BP 141/74; PULSE 133; RESP 16; TEMP 98.3; O2SAT 100
[2017-05-17] MEDS ORDERED: SODIUM CHLORID 0.9% 500 ML INJ 500 ML IV ONE (16:15)
[2017-05-17] MEDS ORDERED: methylPREDNISolone SOD SUCC 125 MG/2 ML VIAL IV PUSH ONE (16:15)
[2017-05-17] MEDS ORDERED: SODIUM CHLORIDE 0.9% FLUSH 10 ML FLUSH IVF PRN (16:15)
--- NOTE | 2017-05-17 16:21 | PD ---
HPI Chief Complaint: Respiratory Symptoms Time Seen by Provider: 16:01 Travel History International Travel<30 days: No Contact w/Intl Traveler<30days: No Traveled to known affect area: No History of Present Illness HPI The patient is a 56-year-old female who presents to the emergency department for increased lethargy, generalized weakness, and shortness of breath of 2 days duration. The patient states her symptoms started yesterday. She does complain of shortness of breath, worse with exertion. The patient does have a history of COPD and small cell lung carcinoma, is on oxygen at home via nasal cannula 2 L as needed shortness of breath. The patient is currently followed by her oncologist, Dr. Lowe. The patient was receiving chemotherapy and radiation therapy, however, stopped several weeks ago secondary to cytopenia. The patient denies any known history of pulmonary embolism, DVT, or congestive heart failure. She does have a history of COPD, does note a slight dry mostly nonproductive cough without any chest pain. She denies any nausea or vomiting, however, does note weight loss over the last several months. She denies any significant edema to the lower extremities. Symptoms are moderate and worse with exertion. The patient denies any current fever, chills, or sweats. The patient does not have a local primary physician. PFSH Past Medical History Asthma: No Anxiety: No Depression: No Heart Rhythm Problems: No Cardiovascular Problems: Yes Chemotherapy: Yes Chest Pain: Yes (Admitted with ) Congestive Heart Failure: No COPD: Yes Coronary Artery Disease: No Diabetes: No Diminished Hearing: No Endocrine: No Genitourinary: No Immune Disorder: No Musculoskeletal: No Neurologic: No Psychiatric: No Reproductive: No Respiratory: Yes (lung mass) Myocardial Infarction: No Radiation Therapy: No Sleep Apnea: No Menopausal: Yes Tubal Ligation: Yes Past Surgical History Abdominal Surgery: No AICD: No Appendectomy: Yes Cardiac Surgery: No Section: Yes (x 2) Ear Surgery: No Endocrine Surgery: No Eye Surgery: No Genitourinary Surgery: No Gynecologic Surgery: Yes (CS X's 2) Joint Replacement: No Oral Surgery: No Pacemaker: No Thoracic Surgery: Yes (port insertion) Other Surgery: Yes (appy, tubal) Social History Alcohol Use: Yes (few times a wk) Tobacco Use: Yes (1/2 ppd) Substance Use: No Allergies-Medications (Allergen,Severity, Reaction): Coded Allergies: No Known Allergies (Verified Allergy, Unknown, 02/08/17) Reported Meds & Prescriptions Reported Meds & Active Scripts Active Oxygen (O2) Device Liter MADDY.CANULA CONTINUOUS Oxygen Concentrator Portable Gaseous 3 L/min via Nasal Canula Continuous For 99 months Reported Lactulose Liq (Lactulose) 10 Gm/15 Ml Soln 30 Ml PO Q6H PRN Omeprazole 20 Mg Cap 20 Mg PO DAILY Prednisone 20 Mg Tab 20 Mg PO DAILY Prochlorperazine Maleate 10 Mg Tab 10 Mg PO Q6H PRN Methadone (Methadone HCl) 5 Mg Tab 10 Mg PO DAILY Oxycodone (Oxycodone HCl) 5 Mg Cap 5 Mg PO Q4H PRN Review of Systems Except as stated in HPI: all other systems reviewed are Neg General / Constitutional: Positive: Weight Loss, No: Fever Cardiovascular: Positive: Dyspnea on exertion, No: Chest Pain or Discomfort Respiratory: Positive: Cough, Shortness of Breath Gastrointestinal: No: Nausea, Vomiting, Abdominal Pain Musculoskeletal: Positive: Myalgias, Weakness Neurologic: Positive: Weakness, No: Dizziness Hematologic/Lymphatic: Positive: Other (History of small cell lung carcinoma with cytopenia status post radiation/chemotherapy) Physical Exam Narrative GENERAL: Awake, alert, pleasant 56-year-old female who appears her stated age and is in no acute respiratory distress. SKIN: Focused skin assessment warm/dry. HEAD: Atraumatic. Normocephalic. Thinning hair on top of the head, most likely secondary to recent chemotherapy. EYES: Pupils equal and round. No scleral icterus. No injection or drainage. ENT: No nasal bleeding or discharge. Slightly dry mucous membranes. NECK: Trachea midline. No JVD. CARDIOVASCULAR: Regular, tachycardic with a heart rate of [address]. [address] right chest wall. RESPIRATORY: No accessory muscle use. Diminished breath sounds in the right base. Prolonged expiratory phase. GASTROINTESTINAL: Abdomen soft, non-tender, nondistended. No rebound tenderness. MUSCULOSKELETAL: No obvious deformities. No clubbing. No cyanosis. No edema. Calves are soft bilaterally. NEUROLOGICAL: Awake and alert. No obvious cranial nerve deficits. Motor grossly within normal limits. Normal speech. PSYCHIATRIC: Appropriate mood and affect; insight and judgment normal. Data Data Last Documented VS Vital Signs Date Time Temp Pulse Resp B/P (MAP) Pulse Ox O2 Delivery O2 Flow Rate FiO2 05/17/17 16:48 16 99 Room Air 05/17/17 16:44 21 05/17/17 16:30 108 05/17/17 14:49 98.3 141/74 (96) Orders Orders Complete Blood Count With Diff (05/17/17 16:14) Comprehensive Metabolic Panel (05/17/17 16:14) B-Type Natriuretic Peptide (05/17/17 16:14) Act Partial Throm Time (Ptt) (05/17/17 16:14) Prothrombin Time / Inr (Pt) (05/17/17 16:14) Magnesium (Mg) (05/17/17 16:14) Ckmb (Isoenzyme) Profile (05/17/17 16:14) Troponin I (05/17/17 16:14) Urinalysis - C+S If Indicated (05/17/17 16:14) Influenzae A/B Antigen (05/17/17 16:14) Blood Culture (05/17/17 16:14) Iv Access Insert/Monitor (05/17/17 16:14) Electrocardiogram (05/17/17 16:14) Ecg Monitoring (05/17/17 16:14) Oximetry (05/17/17 16:14) Oxygen Administration (05/17/17 16:14) Chest, Single Ap (05/17/17 16:14) Sodium Chloride 0.9% Flush (Ns Flush) (05/17/17 16:15) Methylprednisolone So Succ Inj (Solumedr (05/17/17 16:15) Albuterol-Ipratropium Neb (Duoneb Neb) (05/17/17 16:15) Lactic Acid (05/17/17 16:14) Sodium Chlorid 0.9% 500 Ml Inj (Ns 500 M (05/17/17 16:15) Sodium Chlor 0.9% 1000 Ml Inj (Ns 1000 M (05/17/17 17:45) Oseltamivir (Tamiflu) (05/17/17 18:15) Ed Discharge Order (05/17/17 18:12) Labs Laboratory Tests Test 05/17/17 16:25 White Blood Count 4.8 TH/MM3 Red Blood Count 3.43 MIL/MM3 Hemoglobin 11.7 GM/DL Hematocrit 34.7 % Mean Corpuscular Volume 101.0 FL Mean Corpuscular Hemoglobin 34.1 PG Mean Corpuscular Hemoglobin Concent 33.8 % Red Cell Distribution Width 27.6 % Platelet Count 50 TH/MM3 Mean Platelet Volume 8.6 FL Neutrophils (%) (Auto) 69.5 % Lymphocytes (%) (Auto) 13.5 % Monocytes (%) (Auto) 15.9 % Eosinophils (%) (Auto) 0.2 % Basophils (%) (Auto) 0.9 % Neutrophils # (Auto) 3.4 TH/MM3 Lymphocytes # (Auto) 0.6 TH/MM3 Monocytes # (Auto) 0.8 TH/MM3 Eosinophils # (Auto) 0.0 TH/MM3 Basophils # (Auto) 0.0 TH/MM3 CBC Comment DIFF FINAL Differential Comment Prothrombin Time 9.9 SEC Prothromb Time International Ratio 1.0 RATIO Activated Partial Thromboplast Time 27.6 SEC Blood Urea Nitrogen 8 MG/DL Creatinine 0.44 MG/DL Random Glucose 85 MG/DL Total Protein 7.7 GM/DL Albumin 3.3 GM/DL Calcium Level 9.1 MG/DL Magnesium Level 1.9 MG/DL Alkaline Phosphatase 86 U/L Aspartate Amino Transf (AST/SGOT) 19 U/L Alanine Aminotransferase (ALT/SGPT) 15 U/L Total Bilirubin 0.5 MG/DL Sodium Level 130 MEQ/L Potassium Level 3.7 MEQ/L Chloride Level 91 MEQ/L Carbon Dioxide Level 26.3 MEQ/L Anion Gap 13 MEQ/L Estimat Glomerular Filtration Rate 149 ML/MIN Lactic Acid Level 1.7 mmol/L Total Creatine Kinase 16 U/L Troponin I LESS THAN 0.02 NG/ML B-Type Natriuretic Peptide 47 PG/ML MDM Medical Decision Making Medical Screen Exam Complete: Yes Emergency Medical Condition: Yes Medical Record Reviewed: Yes Interpretation(s) EKG reveals sinus tachycardia with a heart rate of 101. Right atrial enlargement. Chest x-ray reveals no acute disease. Last Impressions Chest X-Ray 05/17/17 1614 Signed Impressions: Service Date/Time: Wednesday, May 17, 2017 16:16 - CONCLUSION: No acute disease. Christopher Duval MD FACR Laboratory Tests Test 05/17/17 16:25 White Blood Count 4.8 TH/MM3 Red Blood Count 3.43 MIL/MM3 Hemoglobin 11.7 GM/DL Hematocrit 34.7 % Mean Corpuscular Volume 101.0 FL Mean Corpuscular Hemoglobin 34.1 PG Mean Corpuscular Hemoglobin Concent 33.8 % Red Cell Distribution Width 27.6 % Platelet Count 50 TH/MM3 Mean Platelet Volume 8.6 FL Neutrophils (%) (Auto) 69.5 % Lymphocytes (%) (Auto) 13.5 % Monocytes (%) (Auto) 15.9 % Eosinophils (%) (Auto) 0.2 % Basophils (%) (Auto) 0.9 % Neutrophils # (Auto) 3.4 TH/MM3 Lymphocytes # (Auto) 0.6 TH/MM3 Monocytes # (Auto) 0.8 TH/MM3 Eosinophils # (Auto) 0.0 TH/MM3 Basophils # (Auto) 0.0 TH/MM3 CBC Comment DIFF FINAL Differential Comment Prothrombin Time 9.9 SEC Prothromb Time International Ratio 1.0 RATIO Activated Partial Thromboplast Time 27.6 SEC Blood Urea Nitrogen 8 MG/DL Creatinine 0.44 MG/DL Random Glucose 85 MG/DL Total Protein 7.7 GM/DL Albumin 3.3 GM/DL Calcium Level 9.1 MG/DL Magnesium Level 1.9 MG/DL Alkaline Phosphatase 86 U/L Aspartate Amino Transf (AST/SGOT) 19 U/L Alanine Aminotransferase (ALT/SGPT) 15 U/L Total Bilirubin 0.5 MG/DL Sodium Level 130 MEQ/L Potassium Level 3.7 MEQ/L Chloride Level 91 MEQ/L Carbon Dioxide Level 26.3 MEQ/L Anion Gap 13 MEQ/L Estimat Glomerular Filtration Rate 149 ML/MIN Lactic Acid Level 1.7 mmol/L Total Creatine Kinase 16 U/L Troponin I LESS THAN 0.02 NG/ML B-Type Natriuretic Peptide 47 PG/ML Date/Time Source Procedure Growth Status 05/17/17 16:45 Blood Peripheral Aerobic Blood Culture Pending Received 05/17/17 16:45 Blood Peripheral Anaerobic Blood Culture Pending Received 05/17/17 16:25 Blood Peripheral Aerobic Blood Culture Pending Received 05/17/17 16:25 Blood Peripheral Anaerobic Blood Culture Pending Received 05/17/17 17:45 Nasal Aspirate Influenza Types A,B Antigen (STACIE) - Final Positive For Flu A Antigen Complete Differential Diagnosis Differential diagnosis includes COPD exacerbation, bronchitis, pneumonia, pleural effusion, hyponatremia, UTI, dehydration, lung carcinoma, pancytopenia. Narrative Course The patient's port was already accessed, labs were drawn and sent, and the patient was placed on cardiac telemetry monitoring a continuous pulse oximetry monitor. EKG was ordered and interpreted. Chest x-ray was obtained. The patient received normal saline bolus and was administered Solu-Medrol to pushpa ramos. Influenza screen and blood cultures were sent to lab. The patient's hemoglobin has improved, platelets are still low at 50. White count is normal. MCV is slightly elevated. Sodium was 130, previous was 137. Influenza screen is positive for influenza A. Chest x-ray is negative for pneumonia. The patient was administered a second fluid bolus. I had a discussion with the patient and recommended admission as she does have influenza A with COPD exacerbation and was recently immunocompromised, receiving radiation therapy and chemotherapy. However, the patient would prefer to go home and be discharged. I did advise the patient I still treat her for influenza and COPD exacerbation with Tamiflu, steroids, nebulizers. She is advised to return immediately if symptoms worsen or progress. Patient agrees and understands. Diagnosis Primary Impression: Influenza A Additional Impressions: COPD exacerbation Thrombocytopenia Patient Instructions: General Instructions Additional Instructions: Please provide the patient a copy of her x-ray results, lab results, and flu results at discharge. Medications as directed. Return immediately if symptoms worsen or progress. Follow-up with your oncologist. Med/Other Pt SpecificInfo: Prescription(s) given Scripts Albuterol Neb (Albuterol Neb) 2.5 Mg/3 Ml Neb 2.5 MG NEB Q4HR NEB Y for SHORTNESS OF BREATH, #60 NEBULE 0 Refills Prov: Tu Loomis MD 05/17/17 Prednisone (Prednisone) 20 Mg Tab 40 MG PO DAILY for 4 Days, #8 TAB 0 Refills Take 40 mg (2 tablets) daily for 5 days Prov: Tu Loomis MD 05/17/17 Oseltamivir (Tamiflu) 75 Mg Cap 75 MG PO BID for Mgmt Viral Infection for 5 Days, #10 CAP 0 Refills Prov: Tu Loomis MD 05/17/17 Disposition: 01 DISCHARGE HOME Condition: Stable Tu Loomis MD May 17, 2017 16:21
--- NOTE | 2017-05-17 16:29 | RADRPT ---
EXAM DATE/TIME: 05/17/2017 16:16 [facility] COMPARISON: CHEST SINGLE AP, December 01, 2016, 15:46. INDICATIONS : Shortness of breath. MEDICAL HISTORY : Cardiovascular disease. Carcinoma, lung SURGICAL HISTORY : Appendectomy. Tubal ligation. Infusaport ENCOUNTER: Initial ACUITY: 1 day PAIN SCORE: 110 LOCATION: Bilateral chest FINDINGS: A single view of the chest demonstrates the lungs to be symmetrically aerated without evidence of mas s, infiltrate or effusion. [id number] in good position. Nipple shadows both base The cardiomedia stinal contours are unremarkable. Osseous structures are intact. CONCLUSION: No acute disease. Christopher Duval MD FACR on May 17, 2017 at 16:26 Board Certified Radiologist. This report was verified electronically.
[2017-05-17] MEDS: RESP: ALBUTEROL 2.5 MG/IPRATROPIUM 0.5 MG NEB (SCH) INH (16:42)
[2017-05-17 16:44] VITALS: O2SAT 99
[2017-05-17 16:48] VITALS: RESP 16; O2SAT 99
[2017-05-17 16:56] LABS: CHLORIDE 91 MEQ/L (98-107); SODIUM (NA) 130 MEQ/L (136-145)
[2017-05-17 16:59] LABS: CALCIUM 9.1 MG/DL (8.5-10.1)
[2017-05-17 17:00] LABS: ALBUMIN 3.3 GM/DL (3.4-5.0); BICARBONATE 26.3 MEQ/L (21.0-32.0); BLOOD UREA NITROGEN 8 MG/DL (7-18); GLUCOSE,RANDOM 85 MG/DL (74-106); MAGNESIUM 1.9 MG/DL (1.5-2.5)
[2017-05-17 17:01] LABS: PROTHROMBIN TIME - PATIENT 9.9 SEC (9.8-11.6)
[2017-05-17 17:03] LABS: ALT (GPT) 15 U/L (10-53); AST (GOT) 19 U/L (15-37); CREATININE 0.44 MG/DL (0.50-1.00); GLOMERULAR FILTRATION RATE 149 ML/MIN (>89)
[2017-05-17 17:04] LABS: TOTAL BILIRUBIN ADULT 0.5 MG/DL (0.2-1.0); TOTAL PROTEIN 7.7 GM/DL (6.4-8.2)
[2017-05-17 17:06] LABS: ALKALINE PHOSPHATASE 86 U/L (45-117)
[2017-05-17 17:08] LABS: TROPONIN I LESS THAN 0.02 NG/ML (0.02-0.05)
[2017-05-17] MEDS ORDERED: LACT10SO PO (17:14)
[2017-05-17 17:36] LABS: AUTOMATED NEUTROPHIL # 3.4 TH/MM3 (1.8-7.7); BASOPHIL % 0.9 % (0.0-2.0); EOSINOPHIL % 0.2 % (0.0-4.0); HEMATOCRIT 34.7 % (35.0-46.0); HEMOGLOBIN 11.7 GM/DL (11.6-15.3); LYMPH % 13.5 % (9.0-44.0); LYMPHOCYTE # 0.6 TH/MM3 (1.0-4.8); MEAN CORPUSCULAR HEMOGLOBIN 34.1 PG (27.0-34.0); MEAN CORPUSCULAR HGB CONC 33.8 % (32.0-36.0); MEAN PLATELET VOLUME 8.6 FL (7.0-11.0); MONO % 15.9 % (0.0-8.0); MONOCYTE # 0.8 TH/MM3 (0-0.9); NEUT % 69.5 % (16.0-70.0); PLATELET COUNT 50 TH/MM3 (150-450); RED BLOOD COUNT 3.43 MIL/MM3 (4.00-5.30); RED CELL DISTRIBUTION WIDTH 27.6 % (11.6-17.2); WHITE BLOOD COUNT 4.8 TH/MM3 (4.0-11.0)
[2017-05-17] MEDS ORDERED: SODIUM CHLOR 0.9% 1000 ML INJ 1,000 ML IV ONE (17:45)
[2017-05-17] MEDS ORDERED: OSELTAMIVIR PHOSPHATE 75 MG CAP PO ONE (18:15)
[2017-05-17] MEDS ORDERED: OSEL75 PO (18:17)
[2017-05-17] MEDS ORDERED: PRED20 PO (18:17)
[2017-05-17] MEDS ORDERED: ALBU0.08 NEB (18:17)
[2017-05-17 19:12] LABS: BILIRUBIN, URINE NEG (NEG); BLOOD, URINE NEG (NEG); GLUCOSE,URINE NEG (NEG); KETONE, URINE 40 mg/dL (NEG); NITRITE,URINE NEG (NEG); PH, URINE 5.5 (5.0-8.5); URINE COLOR YELLOW (YELLW/STRAW); URINE LEUKOCYTE ESTERASE NEG (NEG)
[2017-05-17 19:17] VITALS: BP 108/59
[2017-05-17 19:19] LABS: BACTERIA, URINE OCC /hpf; RBC, URINE 0-2 /hpf (0-3); WBC, URINE 0-2 /hpf (0-5)
--- NOTE | 2017-05-18 20:11 | EKG ---
Date Performed: 05/17/2017 Time Performed: 16:32:22 PTAGE: 56 years EKG: SINUS TACHYCARDIA RIGHT ATRIAL ENLARGEMENT ABNORMAL ECG Since the PREVIOUS TRACING , no significant change noted PREVIOUS TRACIN02/08/2017 12.24 DOCTOR: Donaldo Chong Interpretating Date/Time 05/18/2017 20:09:16
== END 2017-05-17 19:20 | disposition home or self-care (01) ==
LOC: PHED 14:44
DX: J09.X2 Influenza due to identified novel influenza A virus with other respiratory manifestations (principal); J44.1 Chronic obstructive pulmonary disease with (acute) exacerbation; D69.6 Thrombocytopenia, unspecified; R00.0 Tachycardia, unspecified; R94.31 Abnormal electrocardiogram [ECG] [EKG]; R53.1 Weakness; R06.02 Shortness of breath; C34.90 Malignant neoplasm of unspecified part of unspecified bronchus or lung; F17.200 Nicotine dependence, unspecified, uncomplicated; Z99.81 Dependence on supplemental oxygen; Z79.899 Other long term (current) drug therapy; Z86.79 Personal history of other diseases of the circulatory system
CPT/HCPCS: 71045; 80053; 81001; 82550; 83605; 83735; 83880; 84484; 85025; 85610; 85730; 87040; 87804; 93005; 94640; 94664; 96361; 96374; 99285; J1642; J2930; J7030; J7040

== ENCOUNTER 2017-07-25 12:08 | Emergency (ER) | payer OTHER ==
[~2017-07-25] VITALS: Ht 157.5 cm; Wt 40.0 kg
[~2017-07-25 12:08] MED LIST changes: +ALBU0.08 NEB; +LACT10SO PO; +OSEL75 PO
[2017-07-25 12:29] VITALS: BP 173/88; PULSE 139; RESP 22; TEMP 98.4; O2SAT 100
[2017-07-25] MEDS ORDERED: VENL37.595 PO (12:35)
[2017-07-25] MEDS ORDERED: LORA0.5T PO (12:35)
[2017-07-25] MEDS ORDERED: OXYC-395 PO (12:35)
--- NOTE | 2017-07-25 12:46 | PD ---
HPI Chief Complaint: Respiratory Symptoms Time Seen by Provider: 12:40 Travel History International Travel<30 days: No Contact w/Intl Traveler<30days: No Traveled to known affect area: No History of Present Illness HPI LUNG CA, 2 WEEKS POST RADIATION, 2 MONTHS POST CHEMO. Patient came in complaining of 2 hours worsened sharp chest pain with some slight shortness of breath. Patient states that she has not had any fever, productive cough, nausea vomiting diarrhea. No known drug allergy Past medical history significant for corrective lenses, lung cancer, COPD, port insertion, appendectomy, x2, tubal ligation, anxiety, PFSH Past Medical History Asthma: No Anxiety: Yes Depression: No Heart Rhythm Problems: No Cancer: Yes (lung cancer right lobe?) Cardiovascular Problems: Yes Chemotherapy: Yes (states one month ago last chemo ) Chest Pain: Yes (Admitted with ) Congestive Heart Failure: No COPD: Yes Coronary Artery Disease: No Diabetes: No Diminished Hearing: No Endocrine: No Genitourinary: No Immune Disorder: No Implanted Vascular Access Dvce: Yes (right subclavin infusa port) Musculoskeletal: No Neurologic: No Psychiatric: No Reproductive: No Respiratory: Yes (Lung cancer) Myocardial Infarction: No Radiation Therapy: Yes (states 2 weeks ago) Sleep Apnea: No ?: Not Menopausal: Yes Tubal Ligation: Yes Past Surgical History Abdominal Surgery: No AICD: No Appendectomy: Yes Cardiac Surgery: No Section: Yes (x 2) Ear Surgery: No Endocrine Surgery: No Eye Surgery: No Genitourinary Surgery: No Gynecologic Surgery: Yes (CS X's 2) Joint Replacement: No Oral Surgery: No Pacemaker: No Thoracic Surgery: Yes (port insertion) Other Surgery: Yes (appy, tubal) Social History Alcohol Use: Yes (occas beer) Tobacco Use: Yes (states 2-3 cigs a day. pt states use to smoke 1 1/2 ppd since of age 20) Substance Use: No Allergies-Medications (Allergen,Severity, Reaction): Coded Allergies: No Known Allergies (Verified Allergy, Unknown, 02/08/17) Reported Meds & Prescriptions Reported Meds & Active Scripts Active Albuterol Neb (Albuterol Sulfate) 2.5 Mg/3 Ml Neb 2.5 Mg NEB Q4HR NEB PRN Oxygen (O2) Device Liter MADDY.CANULA CONTINUOUS Oxygen Concentrator Portable Gaseous 3 L/min via Nasal Canula Continuous For 99 months Reported Oxycodone (Oxycodone HCl) 10 Mg Tab 10 Mg PO Q4HR Venlafaxine ER 24 HR (Venlafaxine HCl) 37.5 Mg Cap 37.5 Mg PO DAILY Lorazepam 0.5 Mg Tab 0.5 Mg PO Q4H PRN Lactulose Liq (Lactulose) 10 Gm/15 Ml Soln 30 Ml PO Q6H PRN Omeprazole 20 Mg Cap 20 Mg PO DAILY Prochlorperazine Maleate 10 Mg Tab 10 Mg PO Q6H PRN Methadone (Methadone HCl) 5 Mg Tab 10 Mg PO DAILY Review of Systems General / Constitutional: No: Fever Eyes: No: Visual changes HENT: No: Headaches Cardiovascular: Positive: Chest Pain or Discomfort, Palpitations Respiratory: Positive: Shortness of Breath Gastrointestinal: No: Abdominal Pain Genitourinary: No: Dysuria Musculoskeletal: No: Pain Skin: No Rash Neurologic: No: Weakness Psychiatric: No: Depression Endocrine: No: Polydipsia Hematologic/Lymphatic: No: Easy Bruising Physical Exam Narrative GENERAL: SKIN: Warm and dry. HEAD: Atraumatic. Normocephalic. EYES: Pupils equal and round. No scleral icterus. No injection or drainage. ENT: No nasal bleeding or discharge. Mucous membranes pink and moist. NECK: Trachea midline. No JVD. CARDIOVASCULAR: Regular rhythm, tachycardic rate RESPIRATORY: No accessory muscle use. Clear to auscultation. Breath sounds equal bilaterally. GASTROINTESTINAL: Abdomen soft, non-tender, nondistended. MUSCULOSKELETAL: Extremities without clubbing, cyanosis, or edema. No obvious deformities. NEUROLOGICAL: Awake and alert. No obvious cranial nerve deficits. Motor grossly within normal limits. Five out of 5 muscle strength in the arms and legs. Normal speech. PSYCHIATRIC: Appropriate mood and affect; insight and judgment normal. Data Data Last Documented VS Vital Signs Date Time Temp Pulse Resp B/P (MAP) Pulse Ox O2 Delivery O2 Flow Rate FiO2 07/25/17 14:39 88 18 102/62 (75) 100 Nasal Cannula 2.00 07/25/17 12:29 98.4 Orders Orders Electrocardiogram (07/25/17 12:46) B-Type Natriuretic Peptide (07/25/17 12:46) Ckmb (Isoenzyme) Profile (07/25/17 12:46) Complete Blood Count With Diff (07/25/17 12:46) Comprehensive Metabolic Panel (07/25/17 12:46) Prothrombin Time / Inr (Pt) (07/25/17 12:46) Act Partial Throm Time (Ptt) (07/25/17 12:46) Troponin I (07/25/17 12:46) Lipase (07/25/17 12:46) Chest, Single Ap (07/25/17 12:46) Ecg Monitoring (07/25/17 12:46) Iv Access Insert/Monitor (07/25/17 12:46) Oximetry (07/25/17 12:46) Morphine Inj (Morphine Inj) (07/25/17 13:00) Sodium Chloride 0.9% Flush (Ns Flush) (07/25/17 13:00) Metoprolol Tartrate Inj (Lopressor Inj) (07/25/17 13:00) Sodium Chlorid 0.9% 500 Ml Inj (Ns 500 M (07/25/17 13:00) Morphine Inj (Morphine Inj) (07/25/17 15:15) Ed Discharge Order (07/25/17 15:14) Labs Laboratory Tests Test 07/25/17 13:00 White Blood Count 6.0 TH/MM3 Red Blood Count 2.97 MIL/MM3 Hemoglobin 11.9 GM/DL Hematocrit 34.0 % Mean Corpuscular Volume 114.3 FL Mean Corpuscular Hemoglobin 40.0 PG Mean Corpuscular Hemoglobin Concent 35.0 % Red Cell Distribution Width 18.6 % Platelet Count 72 TH/MM3 Mean Platelet Volume 7.8 FL Neutrophils (%) (Auto) 78.5 % Lymphocytes (%) (Auto) 11.1 % Monocytes (%) (Auto) 7.9 % Eosinophils (%) (Auto) 0.2 % Basophils (%) (Auto) 2.3 % Neutrophils # (Auto) 4.7 TH/MM3 Lymphocytes # (Auto) 0.7 TH/MM3 Monocytes # (Auto) 0.5 TH/MM3 Eosinophils # (Auto) 0.0 TH/MM3 Basophils # (Auto) 0.1 TH/MM3 CBC Comment AUTO DIFF Differential Comment AUTO DIFF CONFIRMED Platelet Estimate LOW Platelet Morphology Comment NORMAL Red Cell Morphology Comment NORMAL Prothrombin Time 9.8 SEC Prothromb Time International Ratio 1.0 RATIO Activated Partial Thromboplast Time 54.4 SEC Blood Urea Nitrogen 8 MG/DL Creatinine 0.50 MG/DL Random Glucose 95 MG/DL Total Protein 7.5 GM/DL Albumin 2.9 GM/DL Calcium Level 9.3 MG/DL Alkaline Phosphatase 68 U/L Aspartate Amino Transf (AST/SGOT) 14 U/L Alanine Aminotransferase (ALT/SGPT) 11 U/L Total Bilirubin 0.6 MG/DL Sodium Level 133 MEQ/L Potassium Level 3.5 MEQ/L Chloride Level 96 MEQ/L Carbon Dioxide Level 23.8 MEQ/L Anion Gap 13 MEQ/L Estimat Glomerular Filtration Rate 129 ML/MIN Total Creatine Kinase 17 U/L Troponin I LESS THAN 0.02 NG/ML B-Type Natriuretic Peptide 53 PG/ML Lipase 34 U/L MDM Medical Decision Making Medical Screen Exam Complete: Yes Emergency Medical Condition: Yes Medical Record Reviewed: Yes Interpretation(s) KG showed sinus tachycardia, 125 bpm,, no evidence of any ST elevation NV pattern. Differential Diagnosis Dehydration versus infectious disease versus pneumonia versus Narrative Course CBC shows no leukocytosis, notes left shift, H&H stable at 11 and 34, platelet count low at 72,000, neutrophilia 79% Coagulation profile is within normal limits Electrolytes show mild hyponatremia 133, otherwise electrolytes within normal limits. First set of cardiac enzymes negative Normal liver and pancreatic enzymes Beta natruretic peptide is 53 Patient states that she feels much better, states that she has OxyContin and methadone prescription at home but she needs to refill. Patient's current heart rate is in the 80s, blood pressure stable as well, and patient is able to ambulate without any difficulty. Diagnosis Primary Impression: Chest pain secondary to lung CA Additional Impression: Tachycardia secondary to dehydration Patient Instructions: Dehydration (ED), General Instructions, Lung Cancer (GEN) Disposition: 01 DISCHARGE HOME Condition: Stable Jeanmarie Walsh MD July 25, 2017 12:46
[2017-07-25] MEDS ORDERED: SODIUM CHLORID 0.9% 500 ML INJ 500 ML IV ONE (13:00)
[2017-07-25] MEDS ORDERED: SODIUM CHLORIDE 0.9% FLUSH 10 ML FLUSH IVF PRN (13:00)
[2017-07-25] MEDS ORDERED: MORPHINE SULFATE 4 MG/ML INJ IV PUSH ONE (13:00)
[2017-07-25] MEDS: METOPROLOL TARTRATE 5 MG/5 ML VIAL IVS SCH ×3 (13:10→13:45)
[2017-07-25 13:21] LABS: AUTOMATED NEUTROPHIL # 4.7 TH/MM3 (1.8-7.7); BASOPHIL # 0.1 TH/MM3 (0-0.2); BASOPHIL % 2.3 % (0.0-2.0); EOSINOPHIL % 0.2 % (0.0-4.0); HEMOGLOBIN 11.9 GM/DL (11.6-15.3); LYMPH % 11.1 % (9.0-44.0); LYMPHOCYTE # 0.7 TH/MM3 (1.0-4.8); MEAN CELL VOLUME 114.3 FL (80.0-100.0); MEAN PLATELET VOLUME 7.8 FL (7.0-11.0); MONO % 7.9 % (0.0-8.0); MONOCYTE # 0.5 TH/MM3 (0-0.9); NEUT % 78.5 % (16.0-70.0); PLATELET COUNT 72 TH/MM3 (150-450); RED BLOOD COUNT 2.97 MIL/MM3 (4.00-5.30); RED CELL DISTRIBUTION WIDTH 18.6 % (11.6-17.2)
[2017-07-25 13:22] LABS: CHLORIDE 96 MEQ/L (98-107); SODIUM (NA) 133 MEQ/L (136-145)
[2017-07-25 13:26] LABS: ALBUMIN 2.9 GM/DL (3.4-5.0); BICARBONATE 23.8 MEQ/L (21.0-32.0); BLOOD UREA NITROGEN 8 MG/DL (7-18); CALCIUM 9.3 MG/DL (8.5-10.1); GLUCOSE,RANDOM 95 MG/DL (74-106)
[2017-07-25 13:29] LABS: ALT (GPT) 11 U/L (10-53); AST (GOT) 14 U/L (15-37); GLOMERULAR FILTRATION RATE 129 ML/MIN (>89)
[2017-07-25 13:31] LABS: TOTAL BILIRUBIN ADULT 0.6 MG/DL (0.2-1.0); TOTAL PROTEIN 7.5 GM/DL (6.4-8.2)
[2017-07-25 13:32] LABS: ALKALINE PHOSPHATASE 68 U/L (45-117)
[2017-07-25 13:34] LABS: TROPONIN I LESS THAN 0.02 NG/ML (0.02-0.05)
[2017-07-25 13:42] VITALS: BP 113/64; PULSE 95; RESP 20; O2SAT 92
[2017-07-25 13:56] VITALS: BP 104/67; PULSE 90; RESP 18; O2SAT 100
[2017-07-25 14:02] LABS: PROTHROMBIN TIME - PATIENT 9.8 SEC (9.8-11.6)
--- NOTE | 2017-07-25 14:17 | RADRPT ---
EXAM DATE: 07/25/2017 2:07 PM EDT AGE/SEX: 56 years / Female INDICATIONS: Chest pain, short of breath. CLINICAL DATA: This is the patient's initial encounter. Patient reports that signs and symptoms have been present for 1 day and indicates a pain score of 1/10. MEDICAL/SURGICAL HISTORY: Chronic obstructive pulmonary disease. Emphysema. Carcinoma, lung. chemotherapy, radiation, smoker Appendectomy. Tubal ligation. section. infusaport COMPARISON: [facility], CHEST SINGLE AP, 05/17/2017. . FINDINGS: Stable right IJ [id number]. No new focal pleural or parenchymal opacities. Cardiomediastinal conto urs are within normal limits. Bony thorax is intact. CONCLUSION: 1. No acute abnormality or significant interval change. Electronically signed by: Jovanni Garcia MD 07/25/2017 2:16 PM EDT
[2017-07-25 14:39] VITALS: BP 102/62; PULSE 88; RESP 18; O2SAT 100
[2017-07-25] MEDS ORDERED: MORPHINE SULFATE 2 MG/ML SYRINGE IV PUSH ONE (15:15)
[2017-07-25] MEDS ORDERED: HEPARIN SODIUM - IV 10,000 UNITS/10 ML VIAL ONE (16:00)
--- NOTE | 2017-07-26 14:47 | EKG ---
Date Performed: 07/25/2017 Time Performed: 13:33:21 PTAGE: 56 years EKG: SINUS TACHYCARDIA POSSIBLE RIGHT VENTRICULAR CONDUCTION DELAY ANTEROSEPTAL MYOCARDIAL INFAR CTION ABNORMAL ECG Since the PREVIOUS TRACING , no significant change noted PREVIOUS TRACIN05/17/2017 16.32 DOCTOR: Arturo Vizcaino Interpretating Date/Time 07/26/2017 14:47:12
== END 2017-07-25 16:14 | disposition home or self-care (01) ==
LOC: PHED 12:08
DX: G89.3 Neoplasm related pain (acute) (chronic) (principal); R07.9 Chest pain, unspecified; C34.90 Malignant neoplasm of unspecified part of unspecified bronchus or lung; E86.0 Dehydration; R00.0 Tachycardia, unspecified; E87.1 Hypo-osmolality and hyponatremia; J44.9 Chronic obstructive pulmonary disease, unspecified; F41.9 Anxiety disorder, unspecified; F17.210 Nicotine dependence, cigarettes, uncomplicated
CPT/HCPCS: 71045; 80053; 82550; 83690; 83880; 84484; 85025; 85610; 85730; 93005; 96361; 96374; 96375; 96376; 99285; J1644; J2270; J7040

== ENCOUNTER 2017-07-29 10:29 | Emergency (ER) | payer OTHER ==
[~2017-07-29 10:29] MED LIST changes: +LORA0.5T PO; -OSEL75 PO; +OXYC-395 PO; -OXYC1CAP PO; -PRED20 PO; +VENL37.595 PO
[2017-07-29 10:37] VITALS: BP 142/94; PULSE 135; RESP 22; TEMP 98.9; O2SAT 99
[2017-07-29] MEDS ORDERED: SODIUM CHLORID 0.9% 500 ML INJ 500 ML IV SCH (11:00)
[2017-07-29] MEDS ORDERED: LORazepam 0.5 MG TAB PO ONE (11:00)
--- NOTE | 2017-07-29 11:11 | PD ---
HPI Chief Complaint: Chest Pain Time Seen by Provider: 10:43 Travel History International Travel<30 days: No Contact w/Intl Traveler<30days: No Traveled to known affect area: No History of Present Illness HPI The patient was seen and examined in the presence of the nurse. This patient complains of chest pain and shortness of breath and rapid heartbeat. These are all chronic problems for this patient who has history of lung cancer. She is recently completed chemotherapy and radiation. She is not compliant with therapy it sounds like. She is ran out of her inhalers and nebulizer several days ago. She has scripts for them but never bothered to fill them. She did not fill the prescription and her oncologist wrote 1 week ago for her pain medication. She is not wearing her oxygen at home. Her saturation is 99%. Symptoms have been going on for many months. She was here 4 days ago for the same symptoms. Severity is moderate. No alleviating factors. Symptoms exacerbated by her lung cancer and COPD and noncompliance. PFSH Past Medical History Asthma: No Anxiety: Yes Depression: No Heart Rhythm Problems: No Cancer: Yes (lung cancer right lobe?) Cardiovascular Problems: Yes Chemotherapy: Yes (states one month ago last chemo) Chest Pain: Yes (Admitted with ) Congestive Heart Failure: No COPD: Yes Coronary Artery Disease: No Diabetes: No Diminished Hearing: No Endocrine: No Genitourinary: No Immune Disorder: No Implanted Vascular Access Dvce: Yes (right subclavin infusa port) Musculoskeletal: No Neurologic: No Psychiatric: No Reproductive: No Respiratory: Yes (Lung cancer) Myocardial Infarction: No Radiation Therapy: Yes (states 2 weeks ago) Sleep Apnea: No ?: Not Menopausal: Yes Tubal Ligation: Yes Past Surgical History Abdominal Surgery: No AICD: No Appendectomy: Yes Cardiac Surgery: No Section: Yes (x 2) Ear Surgery: No Endocrine Surgery: No Eye Surgery: No Genitourinary Surgery: No Gynecologic Surgery: Yes (CS X's 2) Joint Replacement: No Oral Surgery: No Pacemaker: No Thoracic Surgery: Yes (port insertion) Other Surgery: Yes (appy, tubal) Social History Alcohol Use: Yes (occas beer) Tobacco Use: Yes (states 2-3 cigs a day. pt states use to smoke 1 1/2 ppd since of age 20) Substance Use: No Allergies-Medications (Allergen,Severity, Reaction): Coded Allergies: No Known Allergies (Verified Allergy, Unknown, 07/29/17) Reported Meds & Prescriptions Reported Meds & Active Scripts Active Albuterol Neb (Albuterol Sulfate) 2.5 Mg/3 Ml Neb 2.5 Mg NEB Q4HR NEB PRN Oxygen (O2) Device Liter MADDY.CANULA CONTINUOUS Oxygen Concentrator Portable Gaseous 3 L/min via Nasal Canula Continuous For 99 months Reported Oxycodone (Oxycodone HCl) 10 Mg Tab 10 Mg PO Q4HR Venlafaxine ER 24 HR (Venlafaxine HCl) 37.5 Mg Cap 37.5 Mg PO DAILY Lorazepam 0.5 Mg Tab 0.5 Mg PO Q4H PRN Lactulose Liq (Lactulose) 10 Gm/15 Ml Soln 30 Ml PO Q6H PRN Omeprazole 20 Mg Cap 20 Mg PO DAILY Prochlorperazine Maleate 10 Mg Tab 10 Mg PO Q6H PRN Methadone (Methadone HCl) 5 Mg Tab 10 Mg PO DAILY Review of Systems General / Constitutional: No: Fever Eyes: No: Visual changes HENT: No: Headaches Cardiovascular: Positive: Chest Pain or Discomfort, Tachycardia Respiratory: Positive: Cough, Shortness of Breath Gastrointestinal: No: Abdominal Pain Genitourinary: No: Dysuria Musculoskeletal: No: Pain Skin: No Rash Neurologic: No: Weakness Psychiatric: No: Depression Endocrine: No: Polydipsia Hematologic/Lymphatic: No: Easy Bruising Physical Exam Narrative GENERAL: Cachectic anxious patient in with dyspnea and tachycardia. SKIN: Focused skin assessment reveals no rash and nodules. Skin is Warm and dry. HEAD: Atraumatic. Normocephalic. EYES: Pupils equal and round. No scleral icterus. No injection or drainage. ENT: No nasal bleeding or discharge. Mucous membranes pink and moist. NECK: Trachea midline. No JVD. CARDIOVASCULAR: Regular rate and rhythm. No murmur appreciated. Tachycardic 130 RESPIRATORY: No accessory muscle use. Clear to auscultation. Breath sounds equal bilaterally. GASTROINTESTINAL: Abdomen soft, non-tender, nondistended. Hepatic and splenic margins not palpable. MUSCULOSKELETAL: No obvious deformities. No clubbing. No cyanosis. No edema. NEUROLOGICAL: Awake and alert. No obvious cranial nerve deficits. Motor grossly within normal limits. Normal speech. PSYCHIATRIC: Anxious mood and affect; insight and judgment poor . Data Data Last Documented VS Vital Signs Date Time Temp Pulse Resp B/P (MAP) Pulse Ox O2 Delivery O2 Flow Rate FiO2 07/29/17 13:23 98 16 129/71 (90) 96 Room Air 07/29/17 11:24 98.9 Orders Orders Chest, Single Ap (07/29/17 ) Electrocardiogram (07/29/17 ) Heparin Central Flush (Heparin Central F (07/29/17 11:00) Complete Blood Count With Diff (07/29/17 10:58) Basic Metabolic Panel (Bmp) (07/29/17 10:58) Sodium Chlorid 0.9% 500 Ml Inj (Ns 500 M (07/29/17 11:00) Lorazepam (Ativan) (07/29/17 11:00) Ct Pulmonary Angiogram (07/29/17 ) Iohexol 350 Inj (Omnipaque 350 Inj) (07/29/17 12:36) Labs Laboratory Tests Test 07/29/17 11:13 White Blood Count 7.6 TH/MM3 Red Blood Count 2.96 MIL/MM3 Hemoglobin 11.2 GM/DL Hematocrit 33.8 % Mean Corpuscular Volume 114.0 FL Mean Corpuscular Hemoglobin 37.7 PG Mean Corpuscular Hemoglobin Concent 33.1 % Red Cell Distribution Width 17.7 % Platelet Count 76 TH/MM3 Mean Platelet Volume 7.3 FL Neutrophils (%) (Auto) 69.9 % Lymphocytes (%) (Auto) 12.1 % Monocytes (%) (Auto) 11.9 % Eosinophils (%) (Auto) 0.2 % Basophils (%) (Auto) 5.9 % Neutrophils # (Auto) 5.4 TH/MM3 Lymphocytes # (Auto) 0.9 TH/MM3 Monocytes # (Auto) 0.9 TH/MM3 Eosinophils # (Auto) 0.0 TH/MM3 Basophils # (Auto) 0.4 TH/MM3 CBC Comment AUTO DIFF Differential Total Cells Counted 100 Neutrophils % (Manual) 70 % Band Neutrophils % 5 % Lymphocytes % 11 % Monocytes % 13 % Basophils % 1 % Neutrophils # (Manual) 5.7 TH/MM3 Differential Comment FINAL DIFF MANUAL Platelet Estimate LOW Platelet Morphology Comment NORMAL Red Cell Morphology Comment NORMAL Blood Urea Nitrogen 6 MG/DL Creatinine 0.40 MG/DL Random Glucose 121 MG/DL Calcium Level 9.2 MG/DL Sodium Level 137 MEQ/L Potassium Level 3.2 MEQ/L Chloride Level 100 MEQ/L Carbon Dioxide Level 28.8 MEQ/L Anion Gap 8 MEQ/L Estimat Glomerular Filtration Rate 166 ML/MIN MDM Medical Decision Making Medical Screen Exam Complete: Yes Emergency Medical Condition: Yes Medical Record Reviewed: Yes Differential Diagnosis Chronic chest wall pain, anxiety, narcotic withdrawal, pulmonary effusion, PE Narrative Course I have reviewed the patient's electronic medical record. I reviewed her last ER visit from 4 days ago and her oncologist note from 1 week ago Port is accessed and labs sent I gave her 500 cc of normal saline bolus I reviewed her EKG which shows sinus tachycardia without ectopy or ST elevation Saturations are 99% on room air I gave her a small dose of Ativan I reviewed her chest x-ray which is normal Given her chest pain and dyspnea and tachycardia with history of active cancer I have decided to rule out PE. This was done 5 or 6 months ago but not recent. CT pulmonary angiogram was done and negative for PE the other findings are stable and chronic On recheck she looks much better. Her heart rate is 103 Diagnosis Primary Impression: Chest pain, non-cardiac Additional Impressions: Shortness of breath Lung cancer Qualified Codes: C34.90 - Malignant neoplasm of unspecified part of unspecified bronchus or lung Tachycardia Additional Instructions: The patient was advised to follow up with their physician and return if they worsen. Med/Other Pt SpecificInfo: Other Disposition: 01 DISCHARGE HOME Condition: Stable Ulises Lemus MD Jul 29, 2017 11:11
[2017-07-29 11:24] VITALS: BP 134/77; PULSE 107; RESP 20; TEMP 98.9; O2SAT 99
[2017-07-29 11:27] LABS: AUTOMATED NEUTROPHIL # 5.4 TH/MM3 (1.8-7.7); BASOPHIL # 0.4 TH/MM3 (0-0.2); BASOPHIL % 5.9 % (0.0-2.0); EOSINOPHIL % 0.2 % (0.0-4.0); HEMATOCRIT 33.8 % (35.0-46.0); HEMOGLOBIN 11.2 GM/DL (11.6-15.3); LYMPH % 12.1 % (9.0-44.0); LYMPHOCYTE # 0.9 TH/MM3 (1.0-4.8); MEAN CORPUSCULAR HEMOGLOBIN 37.7 PG (27.0-34.0); MEAN CORPUSCULAR HGB CONC 33.1 % (32.0-36.0); MEAN PLATELET VOLUME 7.3 FL (7.0-11.0); MONO % 11.9 % (0.0-8.0); MONOCYTE # 0.9 TH/MM3 (0-0.9); NEUT % 69.9 % (16.0-70.0); PLATELET COUNT 76 TH/MM3 (150-450); RED BLOOD COUNT 2.96 MIL/MM3 (4.00-5.30); RED CELL DISTRIBUTION WIDTH 17.7 % (11.6-17.2); WHITE BLOOD COUNT 7.6 TH/MM3 (4.0-11.0)
[2017-07-29 11:40] LABS: CALCIUM 9.2 MG/DL (8.5-10.1)
[2017-07-29 11:41] LABS: BICARBONATE 28.8 MEQ/L (21.0-32.0)
[2017-07-29 11:44] LABS: CREATININE 0.4 MG/DL (0.50-1.00)
--- NOTE | 2017-07-29 11:44 | RADRPT ---
EXAM DATE: 07/29/2017 11:33 AM EDT AGE/SEX: 56 years / Female INDICATIONS: Short of Breath and chest pain. CLINICAL DATA: This is the patient's initial encounter. Patient reports that signs and symptoms have been present for 1 day and indicates a pain score of 4/10. MEDICAL/SURGICAL HISTORY: Carcinoma, lung. . Port placement COMPARISON: [facility], CHEST SINGLE AP, 07/25/2017. . FINDINGS: Right chest port is present in good position and is accessed. Lungs are clear. No pleural effusion is evident. Cardiomediastinal contours are stable and satisfactory for technique and projection. CONCLUSION: No acute disease Electronically signed by: Spenser Frye MD 07/29/2017 11:42 AM EDT
[2017-07-29 11:53] LABS: BANDS 5 % (0-6); BASOPHILS 1 % (0-2); LYMPHOCYTES 11 % (9-44); MONOCYTES 13 % (0-8); NEUTROPHIL # MANUAL DIFF 5.7 TH/MM3 (1.8-7.7); POLYS (SEG NEUTROPHILS) 70 % (16-70)
[2017-07-29 12:23] VITALS: BP 121/75; PULSE 109; RESP 20; O2SAT 96
[2017-07-29] MEDS ORDERED: IOHEXOL 350 MG/ML 10 ML VIAL (for RAD DIAG) IVCONTRAST ONE (12:36)
--- NOTE | 2017-07-29 12:48 | RADRPT ---
EXAM DATE: 07/29/2017 12:35 PM EDT AGE/SEX: 56 years / Female INDICATIONS: Short of breath and chest pain. CLINICAL DATA: This is the patient's initial encounter. Patient reports that signs and symptoms have been present for 1 day and indicates a pain score of 3/10. MEDICAL/SURGICAL HISTORY: Carcinoma, lung. Chronic obstructive pulmonary disease. Appendectomy. T ubal ligation. RADIATION DOSE: 5.50 CTDI (mGy) COMPARISON: [facility] [place], CT THORAX W/O CONTRAST, 05/07/2017. . TECHNIQUE: Volumetric scanning was performed using a multi-row detector CT scanner during bolus infu analia of 40 ml Omnipaque 350 (iohexol) nonionic water-soluble contrast as a single exam dose. The shazia a was post processed with a variety of visualization algorithms including full volume maximum intensi ty projection and sliding thin slab reformation. Using automated exposure control and adjustment of the mA and/or kV according to patient size, radiation dose was kept as low as reasonably achievable t o obtain optimal diagnostic quality images. FINDINGS: Pulmonary Arteries: No filling defects are seen in the pulmonary arteries out to the subsegmental ve ssels. The left and right pulmonary arteries are normal in diameter. Lung: There is emphysematous change seen throughout the upper and mid lungs. There is chronic appear ing peripheral interstitial disease being worse at the bases. There is a stable 4 mm smooth nodule se en in the inferior right lower lobe. Effusion: None. Mediastinum: There is a persistent prominent right paratracheal lymph node measuring 1.4 cm. This i s unchanged. Other: The axilla is unremarkable. There is a right-sided [id number]. CONCLUSION: 1. No pulmonary embolus. 2. Chronic emphysematous change and interstitial disease. 3. Stable 4 mm nodule at the right lung base. 4. Stable prominent lymph node in the right paratracheal region. Electronically signed by: Spenser Borjas MD 07/29/2017 12:47 PM EDT
[2017-07-29 13:23] VITALS: BP 129/71; PULSE 98; RESP 16; O2SAT 96
--- NOTE | 2017-07-30 15:29 | EKG ---
Date Performed: 07/29/2017 Time Performed: 10:42:21 PTAGE: 56 years EKG: SINUS TACHYCARDIA WITH SHORT WI INTERVAL ANTEROSEPTAL MYOCARDIAL INFARCTION ABNORMAL ECG Ri ght atrial enlargement with possible right atrial strain PREVIOUS TRACING : 07/25/2017 13.33 Since the prior tracing, there has been no significan t serial change. EKG continues to suggest a pulmonary problem including the possibility of pulmonary embolis. Clinical correlation will be important. DOCTOR: Sandie Frances Interpretating Date/Time 07/30/2017 15:27:34
== END 2017-07-29 14:00 | disposition home or self-care (01) ==
LOC: PHED 10:29
DX: R07.89 Other chest pain (principal); C34.90 Malignant neoplasm of unspecified part of unspecified bronchus or lung; R00.0 Tachycardia, unspecified; R94.31 Abnormal electrocardiogram [ECG] [EKG]; F41.9 Anxiety disorder, unspecified; J44.9 Chronic obstructive pulmonary disease, unspecified; Z91.19 Patient's noncompliance with other medical treatment and regimen; F17.210 Nicotine dependence, cigarettes, uncomplicated
CPT/HCPCS: 71045; 71275; 80048; 85007; 85027; 93005; 96360; 99285; J1642; J7040; Q9967

== ENCOUNTER 2017-08-19 07:19 | Observation (INO) | payer OTHER ==
[2017-08-19] VITALS (11 sets, daily range): BP systolic 85–190; BP diastolic 51–80; PULSE 88–104; RESP 16–20; TEMP 98.3–98.4; O2SAT 95–100
--- NOTE | 2017-08-19 07:21 | PD ---
HPI Chief Complaint: Chest pain, shortness of breath Time Seen by Provider: 07:20 Travel History International Travel<30 days: No Contact w/Intl Traveler<30days: No Traveled to known affect area: No History of Present Illness HPI 56-year-old female with history of chest pain and shortness of breath that started last night. Patient has history of lung cancer. Her oncologist is Dr. Lyons. Her last chemotherapy was 3 months ago and last radiation 6 weeks ago. Patient says she still has active cancer. She has been coughing and is producing clear sputum. No history of hemoptysis. Patient appeared to be anxious in moderate distress. She says that the pain is in the center of her chest and radiates to her left side. She is also experiencing right-sided arm tingling and numbness. Patient was slightly hypertensive but rest of her vital signs were within normal limit. She appears to be anxious. Patient says her last stress test was 6 months ago and within normal limits. She continues to smoke. This morning she was feeling palpitations and took 125 mg of her metoprolol. This was at around 7 AM. Currently the pain is 6 out of 10. It is sharp in nature. Patient used to be on methadone and her primary care stopped that 2 weeks ago. [facility] Past Medical History Narrative Medical List of her past medical, surgical, social and family history is reviewed from the nursing note Asthma: No Anxiety: Yes Depression: No Heart Rhythm Problems: No Cancer: Yes (lung cancer right lobe?) Cardiovascular Problems: Yes Chemotherapy: Yes (states one month ago last chemo) Chest Pain: Yes (Admitted with ) Congestive Heart Failure: No COPD: Yes Coronary Artery Disease: No Diabetes: No Diminished Hearing: No Endocrine: No Genitourinary: No Immune Disorder: No Implanted Vascular Access Dvce: Yes (right subclavin infusa port) Musculoskeletal: No Neurologic: No Psychiatric: No Reproductive: No Respiratory: Yes (Lung cancer) Myocardial Infarction: No Radiation Therapy: Yes (states 2 weeks ago) Sleep Apnea: No Menopausal: Yes Tubal Ligation: Yes Past Surgical History Abdominal Surgery: No AICD: No Appendectomy: Yes Cardiac Surgery: No Section: Yes (x 2) Ear Surgery: No Endocrine Surgery: No Eye Surgery: No Genitourinary Surgery: No Gynecologic Surgery: Yes (CS X's 2) Joint Replacement: No Oral Surgery: No Pacemaker: No Thoracic Surgery: Yes (port insertion) Other Surgery: Yes (appy, tubal) Social History Alcohol Use: Yes (occas beer) Tobacco Use: Yes (states 2-3 cigs a day. pt states use to smoke 1 1/2 ppd since of age 20) Substance Use: No Allergies-Medications (Allergen,Severity, Reaction): Coded Allergies: No Known Allergies (Verified Allergy, Unknown, 08/19/17) Comments No known drug allergies. Reported Meds & Prescriptions Reported Meds & Active Scripts Active Oxycodone (Oxycodone HCl) 10 Mg Tab 10 Mg PO Q4HR 3 Days Albuterol Neb (Albuterol Sulfate) 2.5 Mg/3 Ml Neb 2.5 Mg NEB Q4HR NEB PRN Reported Venlafaxine ER 24 HR (Venlafaxine HCl) 37.5 Mg Cap 37.5 Mg PO DAILY Lorazepam 0.5 Mg Tab 0.5 Mg PO Q4H PRN Lactulose Liq (Lactulose) 10 Gm/15 Ml Soln 30 Ml PO Q6H PRN Omeprazole 20 Mg Cap 20 Mg PO DAILY Prochlorperazine Maleate 10 Mg Tab 10 Mg PO Q6H PRN Narrative Medication List of her home medications reviewed from the nursing note. Review of Systems Except as stated in HPI: all other systems reviewed are Neg Cardiovascular: Positive: Chest Pain or Discomfort Respiratory: Positive: Shortness of Breath Neurologic: Positive: Paresthesia Physical Exam Narrative GENERAL: Awake, alert, anxious, moderate distress SKIN: Focused skin assessment warm/dry. HEAD: Atraumatic. Normocephalic. EYES: Pupils equal and round. No scleral icterus. No injection or drainage. ENT: No nasal bleeding or discharge. Mucous membranes pink and moist. NECK: Trachea midline. No JVD. CARDIOVASCULAR: Regular rate and rhythm. No murmur appreciated. RESPIRATORY: No accessory muscle use. Clear to auscultation. Breath sounds equal bilaterally. GASTROINTESTINAL: Abdomen soft, non-tender, nondistended. Hepatic and splenic margins not palpable. MUSCULOSKELETAL: No obvious deformities. No clubbing. No cyanosis. No edema. NEUROLOGICAL: Awake and alert. No obvious cranial nerve deficits. Motor grossly within normal limits. Normal speech. Tremulous PSYCHIATRIC: Appropriate mood and affect; insight and judgment normal. Data Data Last Documented VS Vital Signs Date Time Temp Pulse Resp B/P (MAP) Pulse Ox O2 Delivery O2 Flow Rate FiO2 08/19/17 11:12 88 16 90/67 (75) 95 Room Air 08/19/17 07:33 98.4 Orders Orders Electrocardiogram (08/19/17 07:28) Basic Metabolic Panel (Bmp) (08/19/17 07:28) Ckmb (Isoenzyme) Profile (08/19/17 07:28) Complete Blood Count With Diff (08/19/17 07:28) D-Dimer (08/19/17 07:28) Magnesium (Mg) (08/19/17 07:28) Prothrombin Time / Inr (Pt) (08/19/17 07:28) Act Partial Throm Time (Ptt) (08/19/17 07:28) Troponin I (08/19/17 07:28) Chest, Single Ap (08/19/17 07:28) Ecg Monitoring (08/19/17 07:28) Bilateral Bp Monitoring (08/19/17 07:28) Iv Access Insert/Monitor (08/19/17 07:28) Oximetry (08/19/17 07:28) Oxygen Administration (08/19/17 07:28) Sodium Chloride 0.9% Flush (Ns Flush) (08/19/17 07:30) Sodium Chlorid 0.9% 500 Ml Inj (Ns 500 M (08/19/17 07:30) Aspirin Chew (Aspirin Chew) (08/19/17 07:30) Nitroglycerin Sl (Nitrostat Sl) (08/19/17 07:30) Ct Pulmonary Angiogram (08/19/17 ) Ct Brain W/O Iv Contrast(Rout) (08/19/17 ) Iohexol 350 Inj (Omnipaque 350 Inj) (08/19/17 09:44) Ondansetron Odt (Zofran Odt) (08/19/17 10:45) Place In Observation (08/19/17 11:10) Activity Bed Rest With Brp (08/19/17 11:10) Vital Signs (Adult) Q4H (08/19/17 11:10) Cardiac Rhythm .As Directed (08/19/17 11:10) Notify Dr: Other .PRN (08/19/17 11:10) Notify Dr. Parameters (08/19/17 11:10) Resp Oxygen Nasal Cannula (08/19/17 ) Ckmb (Isoenzyme) Profile (08/19/17 11:10) Ckmb (Isoenzyme) Profile (08/19/17 14:10) Troponin I (08/19/17 11:10) Troponin I (08/19/17 14:10) Electrocardiogram (08/19/17 11:10) Electrocardiogram (08/19/17 14:10) ^ Obtain (08/19/17 11:10) Sodium Chloride 0.9% Flush (Ns Flush) (08/19/17 11:15) Sodium Chloride 0.9% Flush (Ns Flush) (08/19/17 21:00) Acetaminophen (Tylenol) (08/19/17 11:15) Neuro Psych Sales Specialist / Telemetry TOY.Q8H (08/19/17 11:10) Scd Bilateral/Knee High TOY.BID (08/19/17 11:10) Diet Npo Except Meds (08/19/17 Lunch) Admit Order (Ed Use Only) (08/19/17 11:43) Labs Laboratory Tests Test 08/19/17 08:00 08/19/17 11:20 White Blood Count 6.9 TH/MM3 Red Blood Count 2.90 MIL/MM3 Hemoglobin 11.4 GM/DL Hematocrit 34.3 % Mean Corpuscular Volume 118.3 FL Mean Corpuscular Hemoglobin 39.5 PG Mean Corpuscular Hemoglobin Concent 33.3 % Red Cell Distribution Width 14.5 % Platelet Count 113 TH/MM3 Mean Platelet Volume 7.0 FL Neutrophils (%) (Auto) 75.7 % Lymphocytes (%) (Auto) 12.6 % Monocytes (%) (Auto) 8.3 % Eosinophils (%) (Auto) 0.5 % Basophils (%) (Auto) 2.9 % Neutrophils # (Auto) 5.1 TH/MM3 Lymphocytes # (Auto) 0.9 TH/MM3 Monocytes # (Auto) 0.6 TH/MM3 Eosinophils # (Auto) 0.0 TH/MM3 Basophils # (Auto) 0.2 TH/MM3 CBC Comment AUTO DIFF Differential Comment AUTO DIFF CONFIRMED Platelet Estimate LOW Platelet Morphology Comment NORMAL Prothrombin Time 9.8 SEC Prothromb Time International Ratio 1.0 RATIO Activated Partial Thromboplast Time 28.4 SEC D-Dimer Quantitative (PE/DVT) 1.26 MG/L FEU Blood Urea Nitrogen 7 MG/DL Creatinine 0.39 MG/DL Random Glucose 98 MG/DL Calcium Level 9.3 MG/DL Magnesium Level 1.8 MG/DL Sodium Level 136 MEQ/L Potassium Level 3.6 MEQ/L Chloride Level 101 MEQ/L Carbon Dioxide Level 28.1 MEQ/L Anion Gap 7 MEQ/L Estimat Glomerular Filtration Rate 171 ML/MIN Total Creatine Kinase 18 U/L 18 U/L Troponin I LESS THAN 0.02 NG/ML LESS THAN 0.02 NG/ML MDM Medical Decision Making Medical Screen Exam Complete: Yes Emergency Medical Condition: Yes Medical Record Reviewed: Yes Interpretation(s) Twelve-lead EKG was reviewed by me. Normal sinus rhythm, normal axis, questionable old anterior PA, poor R-wave progression, nonspecific ST-T wave changes. Heart rate of 92 bpm. Differential Diagnosis ACS, PE, chest pain from lung cancer Narrative Course 8:53 AM blood test results are back and d-dimer is elevated. Rest of the test results are within acceptable limits. I was told that the chest x-ray has been done but I cannot see the image. I have ordered a CT pulmonary angiogram for the elevated d-dimer. Awaiting for the CT to be done and resulted. Patient was given 2 baby aspirins to chew and 1 sublingual nitro. Sublingual nitro dropped the blood pressure significantly. Patient is getting a 500 cc fluid bolus. 10:[address] pulmonary angiogram was negative for PE. I looked up in her past medical record and did not see any stress test ever being done for this patient. I went back and asked her if she had this done anywhere else and she said that she always comes to [facility]. At this point she said she was not sure if she had the stress test ever. Based on this I would like to admit her to be ruled out for ACS. Awaiting for the hospitalist to call back. Procedures EKG Prior to Arrival: No Physician Communication Physician Communication Dr. Lowe Diagnosis Primary Impression: Chest pain Qualified Codes: R07.9 - Chest pain, unspecified Admitting Information Admitting Physician Requests: Observation Scripts Oxycodone (Oxycodone) 10 Mg Tab 10 MG PO Q4HR for Pain Management for 3 Days, TAB 0 Refills Prov: Ulises Burnette 08/19/17 Michelle Mason MD Aug 19, 2017 07:21
[2017-08-19] MEDS ORDERED: NITROGLYCERIN 0.4 MG SL 25 TABS/BTL SL ONE (07:30)
[2017-08-19] MEDS ORDERED: ASPIRIN 81 MG CHEW TAB CHEW ONE (07:30)
[2017-08-19] MEDS ORDERED: SODIUM CHLORIDE 0.9% FLUSH 10 ML FLUSH IVF PRN (07:30)
[2017-08-19] MEDS ORDERED: SODIUM CHLORID 0.9% 500 ML INJ 500 ML IV ONE (07:30)
[2017-08-19 08:08] LABS: AUTOMATED NEUTROPHIL # 5.1 TH/MM3 (1.8-7.7); BASOPHIL # 0.2 TH/MM3 (0-0.2); BASOPHIL % 2.9 % (0.0-2.0); EOSINOPHIL % 0.5 % (0.0-4.0); HEMATOCRIT 34.3 % (35.0-46.0); HEMOGLOBIN 11.4 GM/DL (11.6-15.3); LYMPH % 12.6 % (9.0-44.0); LYMPHOCYTE # 0.9 TH/MM3 (1.0-4.8); MEAN CELL VOLUME 118.3 FL (80.0-100.0); MEAN CORPUSCULAR HEMOGLOBIN 39.5 PG (27.0-34.0); MEAN CORPUSCULAR HGB CONC 33.3 % (32.0-36.0); MONO % 8.3 % (0.0-8.0); MONOCYTE # 0.6 TH/MM3 (0-0.9); NEUT % 75.7 % (16.0-70.0); PLATELET COUNT 113 TH/MM3 (150-450); RED CELL DISTRIBUTION WIDTH 14.5 % (11.6-17.2); WHITE BLOOD COUNT 6.9 TH/MM3 (4.0-11.0)
[2017-08-19 08:16] LABS: CHLORIDE 101 MEQ/L (98-107); SODIUM (NA) 136 MEQ/L (136-145)
[2017-08-19 08:18] LABS: CALCIUM 9.3 MG/DL (8.5-10.1)
[2017-08-19 08:19] LABS: BICARBONATE 28.1 MEQ/L (21.0-32.0); BLOOD UREA NITROGEN 7 MG/DL (7-18); GLUCOSE,RANDOM 98 MG/DL (74-106); MAGNESIUM 1.8 MG/DL (1.5-2.5)
[2017-08-19 08:22] LABS: CREATININE 0.39 MG/DL (0.50-1.00); GLOMERULAR FILTRATION RATE 171 ML/MIN (>89)
[2017-08-19 08:23] LABS: PROTHROMBIN TIME - PATIENT 9.8 SEC (9.8-11.6)
[2017-08-19 08:24] LABS: D-DIMER 1.26 MG/L FEU (0.00-0.50)
[2017-08-19 08:27] LABS: TROPONIN I LESS THAN 0.02 NG/ML (0.02-0.05)
--- NOTE | 2017-08-19 09:08 | RADRPT ---
EXAM DATE: 08/19/2017 8:59 AM EDT AGE/SEX: 56 years / Female INDICATIONS: Chess Pain CLINICAL DATA: This is the patient's initial encounter. Patient reports that signs and symptoms have been present for 1 day and indicates a pain score of 0/10. MEDICAL/SURGICAL HISTORY: Carcinoma, lung. . Port Placement COMPARISON: [facility], CHEST SINGLE AP, 07/29/2017. . FINDINGS: [id number] in good position. Nipple shadows both bases. Lungs are clear. No pneumothorax. No infil trate. No failure. CONCLUSION: Negative for an acute process. Electronically signed by: Christopher Duval MD 08/19/2017 9:07 AM EDT
--- NOTE | 2017-08-19 09:39 | RADRPT ---
EXAM DATE: 08/19/2017 9:32 AM EDT AGE/SEX: 56 years / Female INDICATIONS: Right arm parenthesis. CLINICAL DATA: This is the patient's initial encounter. Patient reports that signs and symptoms have been present for 1 day and indicates a pain score of 0/10. MEDICAL/SURGICAL HISTORY: . Carcinoma, lung. Chronic obstructive pulmonary disease . Appendectomy. Tubal ligation. RADIATION DOSE: 57.26 CTDI (mGy) COMPARISON: No prior exams available for comparison. TECHNIQUE: CT of the head without contrast. Using automated exposure control and adjustment of the mA and/or kV according to patient size, radiation dose was kept as low as reasonably achievable to ob tain optimal diagnostic quality images. DICOM format image data is available electronically for revi ew and comparison. FINDINGS: Cerebrum: Mild diffuse cerebral atrophy. The ventricles are normal for degree of atrophy. No evidenc e of midline shift, mass lesion, hemorrhage or acute infarction. No extraaxial fluid collections are seen. Posterior Fossa: The cerebellum and brainstem are intact. The 4th ventricle is midline. The cerebe llopontine angle is unremarkable. Extracranial: The visualized portion of the orbits is intact. Skull: The calvaria is intact. No evidence of skull fracture. CONCLUSION: 1. No acute intracranial abnormality. Electronically signed by: Jovanni Garcia MD 08/19/2017 9:38 AM EDT
[2017-08-19] MEDS ORDERED: IOHEXOL 350 MG/ML 10 ML VIAL (for RAD DIAG) IVCONTRAST ONE (09:44)
--- NOTE | 2017-08-19 10:12 | RADRPT ---
EXAM DATE: 08/19/2017 9:42 AM EDT AGE/SEX: 56 years / Female INDICATIONS: Chest pain. CLINICAL DATA: This is the patient's initial encounter. Patient reports that signs and symptoms have been present for 1 day and indicates a pain score of 4/10. MEDICAL/SURGICAL HISTORY: . Carcinoma, lung. Chronic obstructive pulmonary disease. . Appendectomy . Tubal ligation. RADIATION DOSE: 4.56 CTDI (mGy) COMPARISON: [facility], CT PULMONARY ANGIOGRAM, 07/29/2017. . TECHNIQUE: Volumetric scanning was performed using a multi-row detector CT scanner during bolus infu analia of 50 ml Omnipaque 350 (iohexol) nonionic water-soluble contrast as a single exam dose. The shazia a was post processed with a variety of visualization algorithms including full volume maximum intensi ty projection and sliding thin slab reformation. Using automated exposure control and adjustment of the mA and/or kV according to patient size, radiation dose was kept as low as reasonably achievable t o obtain optimal diagnostic quality images. DICOM format image data is available electronically for review and comparison. FINDINGS: Pulmonary Arteries: No filling defects are seen in the pulmonary arteries through the segmental vess els. The main pulmonary artery is normal in diameter. Lung: Moderate severe centrilobular emphysema. Mild paraseptal upper lobe predominant emphysema. Red emonstration of a stable 4 mm nodule in the right lung base. Pleura: No effusion, significant pleural thickening or pneumothorax. Mediastinum: Redemonstration of partially calcified prominent anterior paratracheal node. Heart is n ormal in appearance without significant pericardial effusion. Osseous Structures: No abnormal focal lytic or blastic bony lesions. Other: Visulaized upper abdomen is unremarkable. CONCLUSION: 1. No CT evidence for pulmonary artery embolism. 2. Redemonstration of moderate to severe centrilobular and mild paraseptal emphysema. 3. Stable 4 mm right lung base nodule. Electronically signed by: Jovanni Garcia MD 08/19/2017 10:11 AM EDT
[2017-08-19] MEDS ORDERED: ONDANSETRON ODT 4 MG TAB PO ONE (10:45)
[2017-08-19] MEDS ORDERED: ACETAMINOPHEN 500 MG CPLT PO PRN (11:15)
[2017-08-19] MEDS ORDERED: SODIUM CHLORIDE 0.9% FLUSH 10 ML FLUSH IV FLUSH PRN (11:15)
[2017-08-19] MEDS ORDERED: REGADENOSON INJ 0.4 MG/5 ML SYR IV ONE (11:45)
[2017-08-19 11:46] LABS: TROPONIN I LESS THAN 0.02 NG/ML (0.02-0.05)
--- NOTE | 2017-08-19 13:51 | HHI.HP ---
[facility] Service [facility] Primary Care Physician Curt Arcineiga MD Admission Diagnosis Chest pain, rule out ACS Diagnoses: (1) Chest pain Diagnosis: Principal Chief Complaint: Chest pain Travel History International Travel<30 Days: No Contact w/Intl Traveler <30 Da: No Traveled to Known Affected Are: No History of Present Illness 56-year-old rather unfortunate female with known history of recently treated lung cancer. Patient has been undergoing chemotherapy and radiation therapy, last episode was approximately 6 weeks ago. Patient states that she was sitting watching TV last night and developed a pain in the center part of her chest radiating into the left side with associated right arm paresthesia and hand paresthesia. Patient states that she took a oxycodone and the pain went away and approximately 30 minutes. Patient was able to sleep through the night and when she woke up this morning she had the same pain. Because of that she came to emergency department for evaluation. Patient denies any radiation to the back, neck. She has not had any change in her shortness of breath or dyspnea. Denies any diaphoresis. She had some nausea without any vomiting. She did have lightheadedness. Patient came to emergency department for evaluation and had initial enzymes performed which were unremarkable. EKG did not show any changes from previous studies. Patient does have history of myocardial perfusion study done in November 2016 which was unremarkable. Currently the patient still has chest discomfort but is controlled with pain medication. It was recommended by the ER physician the patient be observed in chest pain center for further evaluation and management. Review of Systems Cardiovascular: COMPLAINS OF: Chest pain Except as stated in HPI: all other systems reviewed are Neg Past Family Social History Past Medical History Chronic objective pulmonary disease Lung cancer, status post chemotherapy and radiation therapy History of alcohol dependency History of tobacco abuse Past Surgical History 2 Tubal ligation Appendectomy Lung biopsy Reported Medications Reported Meds & Active Scripts Active Albuterol Neb (Albuterol Sulfate) 2.5 Mg/3 Ml Neb 2.5 Mg NEB Q4HR NEB PRN Reported Oxycodone (Oxycodone HCl) 10 Mg Tab 10 Mg PO Q4HR Venlafaxine ER 24 HR (Venlafaxine HCl) 37.5 Mg Cap 37.5 Mg PO DAILY Lorazepam 0.5 Mg Tab 0.5 Mg PO Q4H PRN Lactulose Liq (Lactulose) 10 Gm/15 Ml Soln 30 Ml PO Q6H PRN Omeprazole 20 Mg Cap 20 Mg PO DAILY Prochlorperazine Maleate 10 Mg Tab 10 Mg PO Q6H PRN Allergies: Coded Allergies: No Known Allergies (Verified Allergy, Unknown, 08/19/17) Family History Family history reviewed and father and mother both have history of chronic objective pulmonary disease. Brother with history of bladder cancer, sister with history of lung cancer Social History Patient continues smoke at least one quarter pack of cigarettes a day she used to smoke 1 pack of cigarettes a day since she was 18 years old. Patient states that she quit using alcohol. Patient denies any illicit drug use Physical Exam Vital Signs Vital Signs Date Time Temp Pulse Resp B/P (MAP) Pulse Ox O2 Delivery O2 Flow Rate FiO2 08/19/17 12:58 08/19/17 12:31 88 16 110/63 (79) 100 Room Air 08/19/17 11:12 88 16 90/67 (75) 95 Room Air 08/19/17 10:06 90 16 100/61 (74) 97 Room Air 08/19/17 09:04 102 18 98/51 (67) 98 Room Air 08/19/17 08:23 96 Room Air 08/19/17 08:22 16 96 Room Air 08/19/17 08:22 96 Room Air 08/19/17 08:20 93 99/61 (74) 85/67 (73) 08/19/17 08:19 104 16 99/61 (74) 96 Room Air 08/19/17 08:18 16 08/19/17 07:33 98.4 08/19/17 07:26 90 20 190/80 (116) 100 Physical Exam GENERAL: Well-developed, frail and cachectic, in no acute distress. alert and orientated HEENT: Head is normocephalic without any lesions or masses noted. Facial features are symmetric. Bitemporal wasting. Eyes: Pupils equal round reactive to light. Extraocular muscles are intact. Conjunctivae were clear. Oropharyngeal : Pharynx without any erythema edema. Tongue is midline without deviation. Buccal mucosa is moist without any masses or lesions NECK: Supple without any masses. Trachea midline no deviation. No JVD, no bruits are appreciated CARDIAC: Regular rhythm, regular rate. S1/S2 are heard. No murmurs gallops or rubs. LUNGS: Diminished breath sounds noted throughout. No wheeze, rhonchi or rales. No use of accessory muscles on inspiration or expiration. ABDOMEN: Soft, nontender. Nondistended. Bowel sounds heard in all 4 quadrants. No organomegaly or masses. Negative rebound, negative guarding EXTREMITIES: No edema, pulses are equal bilaterally. No cyanosis or clubbing NEUROLOGY: Mood and affect appear appropriate. Cranial nerves II through XII grossly intact. Muscle strength 5/5 in upper and lower extremities bilaterally. Deep tendon reflexes are 2+ in upper and lower extremities bilaterally. Laboratory Laboratory Tests Test 08/19/17 08:00 08/19/17 11:20 White Blood Count 6.9 Red Blood Count 2.90 Hemoglobin 11.4 Hematocrit 34.3 Mean Corpuscular Volume 118.3 Mean Corpuscular Hemoglobin 39.5 Mean Corpuscular Hemoglobin Concent 33.3 Red Cell Distribution Width 14.5 Platelet Count 113 Mean Platelet Volume 7.0 Neutrophils (%) (Auto) 75.7 Lymphocytes (%) (Auto) 12.6 Monocytes (%) (Auto) 8.3 Eosinophils (%) (Auto) 0.5 Basophils (%) (Auto) 2.9 Neutrophils # (Auto) 5.1 Lymphocytes # (Auto) 0.9 Monocytes # (Auto) 0.6 Eosinophils # (Auto) 0.0 Basophils # (Auto) 0.2 CBC Comment AUTO DIFF Differential Comment AUTO DIFF CONFIRMED Platelet Estimate LOW Platelet Morphology Comment NORMAL Prothrombin Time 9.8 Prothromb Time International Ratio 1.0 Activated Partial Thromboplast Time 28.4 D-Dimer Quantitative (PE/DVT) 1.26 Blood Urea Nitrogen 7 Creatinine 0.39 Random Glucose 98 Calcium Level 9.3 Magnesium Level 1.8 Sodium Level 136 Potassium Level 3.6 Chloride Level 101 Carbon Dioxide Level 28.1 Anion Gap 7 Estimat Glomerular Filtration Rate 171 Total Creatine Kinase 18 18 Troponin I LESS THAN 0.02 LESS THAN 0.02 Result Diagram: 08/19/17 0800 08/19/17 0800 Imaging Last Impressions Chest X-Ray 08/19/17 07 Signed Impressions: CONCLUSION: Negative for an acute process. Head CT 08/19/17 0000 Signed Impressions: CONCLUSION: 1. No acute intracranial abnormality. CT Angiography 08/19/17 0000 Signed Impressions: CONCLUSION: 1. No CT evidence for pulmonary artery embolism. 2. Redemonstration of moderate to severe centrilobular and mild paraseptal emp hysema. 3. Stable 4 mm right lung base nodule. Caprini VTE Risk Assessment Caprini VTE Risk Assessment: No/Low Risk (score <= 1) Caprini Risk Assessment Model Point Value = 1 Point Value = 2 Point Value = 3 Point Value = 5 Age 41-60 Minor surgery BMI > 25 kg/m2 Swollen legs Varicose veins or History of unexplained or recurrent spontaneous Oral contraceptives or hormone replacement Sepsis (< 1 month) Serious lung disease, including pneumonia (< 1 month) Abnormal pulmonary function Acute myocardial infarction Congestive heart failure (< 1 month) History of inflammatory bowel disease Medical patient at bed rest Age 61-74 Arthroscopic surgery Major open surgery (> 45 min) Laparoscopic surgery (> 45 min) Malignancy Confined to bed (> 72 hours) Immobilizing plaster cast Central venous access Age >= 75 History of VTE Family history of VTE Factor V Leiden Prothrombin [id number] Lupus anticoagulant Anticardiolipin antibodies Elevated serum homocysteine Heparin-induced thrombocytopenia Other congenital or acquired thrombophilia Stroke (< 1 month) Elective arthroplasty Hip, pelvis, or leg fracture Acute spinal cord injury (< 1 month) Prophylaxis Regimen Total Risk Factor Score Risk Level Prophylaxis Regimen 0-1 Low Early ambulation 2 Moderate Order ONE of the following: *Sequential Compression Device (SCD) *Heparin 5000 units SQ BID 3-4 Higher Order ONE of the following medications: *Heparin 5000 units SQ TID *Enoxaparin/Lovenox 40 mg SQ daily (WT < 150 kg, CrCl > 30 mL/min) *Enoxaparin/Lovenox 30 mg SQ daily (WT < 150 kg, CrCl > 10-29 mL/min) *Enoxaparin/Lovenox 30 mg SQ BID (WT < 150 kg, CrCl > 30 mL/min) AND/OR *Sequential Compression Device (SCD) 5 or more Highest Order ONE of the following medications: *Heparin 5000 units SQ TID (Preferred with Epidurals) *Enoxaparin/Lovenox 40 mg SQ daily (WT < 150 kg, CrCl > 30 mL/min) *Enoxaparin/Lovenox 30 mg SQ daily (WT < 150 kg, CrCl > 10-29 mL/min) *Enoxaparin/Lovenox 30 mg SQ BID (WT < 150 kg, CrCl > 30 mL/min) AND *Sequential Compression Device (SCD) Assessment and Plan Assessment and Plan Chest pain, atypical -Patient with increased risk factors to include age, tobacco use -Patient has been ruled out for acute coronary event with serial cardiac enzymes are negative -Serial EKGs show shows inverted T waves in anterior leads, however there is no significant change since EKG earlier this month -Patient has had a myocardial perfusion study performed on December 03, 2016 which was negative for any stress-induced ischemia -Given the patient has undergone chemotherapy and radiation therapy for lung cancer will perform myocardial perfusion study to rule out any changes. -Myocardial perfusion study was performed and indicated negative for any stress- induced ischemia, ejection fraction greater than 70%, low risk -Continue aspirin, oxycodone for pain -Continue oxygen supplementation -Monitor telemetry Lung cancer undergoing outpatient treatment -Continue follow-up with oncologist DVT prevention -Sequential compression devices Discharge disposition Discharge home in stable condition Activity: Ad rey. Diet: Healthy heart diet Medication per medication reconciliation Follow-up with primary medical doctor in 1 week Problem Qualifiers (1) Chest pain: Qualified Codes: R07.9 - Chest pain, unspecified Ulises Burnette Aug 19, 2017 13:51
[2017-08-19 14:49] LABS: TROPONIN I LESS THAN 0.02 NG/ML (0.02-0.05)
--- NOTE | 2017-08-19 15:11 | EKG ---
Date Performed: 08/19/2017 Time Performed: 14:05:02 PTAGE: 56 years EKG: Sinus rhythm POSSIBLE RIGHT ATRIAL ENLARGEMENT POSSIBLE LEFT ATRIAL ENLARGEMENT POSSIBLE RIGHT VENTRICULAR CONDUC TION DELAY ANTEROSEPTAL MYOCARDIAL INFARCTION ABNORMAL ECG No significant change from prior electroca rdiogram. PREVIOUS TRACING : 08/19/2017 11.22 DOCTOR: Timmy Morrow Interpretating Date/Time 08/19/2017 15:09:49
--- NOTE | 2017-08-19 16:14 | RADRPT ---
EXAM DATE: 08/19/2017 3:58 PM EDT AGE/SEX: 56 years / Female INDICATIONS:Angina. . Substernal chest pain radiating to the left side with dyspnea. CLINICAL DATA: This is the patient's initial encounter. Patient reports that signs and symptoms have been present for 1 day and indicates a pain score of 6/10. MEDICAL/SURGICAL HISTORY: Carcinoma, lung. Chronic obstructive pulmonary disease. Smoker. Anastasia endectomy. Tubal ligation. COMPARISON: No prior exams available for comparison. DOSE: 27.1 mCi Tc 99m Myoview at stress 8.8 mCi [id number] at rest 0.4 mg Lexiscan STRESS SYMPTOMS: Dizziness and head pressure. EJECTION FRACTION: > 70 % TECHNIQUE: The patient underwent pharmacologic stress with infusion of prescribed dose. Continuous ECG tracing was monitored during stress. Gated SPECT imaging was performed after stress and conventi onal SPECT imaging was performed at rest. The examination was performed on a SPECT/CT scanner, both attenuation and non-corrected datasets were reviewed. FINDINGS: Distribution: The maximum perfused segment at stress is in the anterior lateral wall wall. Perfusion Study: The pattern of perfusion at stress is within normal limits. Gated Study: There are intact wall motion and wall thickening without hypokinetic or dyskinetic segm ents. The ejection fraction is calculated at > 70%. RISK CATEGORY: Low (<1% Annual Motality Rate) CONCLUSION: 1. Negative for stress-induced ischemia Electronically signed by: Christopher Duval MD 08/19/2017 4:13 PM EDT
[2017-08-19] MEDS ORDERED: OXYC-395 PO (16:18)
--- NOTE | 2017-08-19 16:18 | HHI.DCPOC ---
Discharge Care Plan Diagnosis: (1) Chest pain Goals to Promote Your Health * To prevent worsening of your condition and complications * To maintain your health at the optimal level Directions to Meet Your Goals Take your medications as prescribed Follow your dietary instruction Follow activity as directed Keep your appointments as scheduled Take your immunizations and boosters as scheduled If your symptoms worsen call your PCP, if no PCP go to Urgent Care Center or Emergency Room Smoking is Dangerous to Your Health. Avoid second hand smoke Call the 24-hour hour crisis hotline for domestic abuse at Ulises Burnette Aug 19, 2017 16:18
[2017-08-19] MEDS ORDERED: SODIUM CHLORIDE 0.9% FLUSH 10 ML FLUSH IV FLUSH SCH (21:00)
--- NOTE | 2017-08-19 22:19 | EKG ---
Date Performed: 08/19/2017 Time Performed: 11:22:29 PTAGE: 56 years EKG: Sinus rhythm POSSIBLE RIGHT ATRIAL ENLARGEMENT POSSIBLE LEFT ATRIAL ENLARGEMENT POSSIBLE RIGHT VENTRICULAR CONDUC TION DELAY POSSIBLE ANTERIOR MYOCARDIAL INFARCTION ABNORMAL ECG PREVIOUS TRACING : 08/19/2017 07.27 Since the previous tracing, no significant change noted DOCTOR: Kavin Zabala Interpretating Date/Time 08/19/2017 22:17:42
--- NOTE | 2017-08-19 22:46 | EKG ---
Date Performed: 08/19/2017 Time Performed: 07:27:45 PTAGE: 56 years EKG: Sinus rhythm POSSIBLE RIGHT ATRIAL ENLARGEMENT POSSIBLE LEFT ATRIAL ENLARGEMENT ANTEROSEPTAL MYOCARDIAL INFARCTIO N ABNORMAL ECG PREVIOUS TRACING : 07/29/2017 10.42 Compared to previous tracing, rate has decreased DOCTOR: Kavin Zabala Interpretating Date/Time 08/19/2017 22:43:54
--- NOTE | 2017-08-20 16:46 | TR ---
Date Performed: 08/19/2017 Time Performed: 15:06:30 DOCTOR: Ender Owen DRUG LIST: CLINICAL HISTORY: REASON FOR TEST: Chest pain REASON FOR ENDING: OBSERVATION: CONCLUSION: COMMENTS: Lexiscan stress test was performed under standard four minute protocol. Radionuclide was injected one minute prior to ending the test. No electrocardiographic abormalities were present t o suggest ischemia. Nuclear imaging and interpretation are pending.
== END 2017-08-19 17:09 | disposition home or self-care (01) ==
LOC: PHED 07:19 → PHEDA 11:44 → PH3A 12:54
PROVIDERS: ADMIT Hospitalist; ATTEND Hospitalist
DX: R07.9 Chest pain, unspecified (principal); Z92.21 Personal history of antineoplastic chemotherapy; C34.90 Malignant neoplasm of unspecified part of unspecified bronchus or lung; R05 Cough; R20.2 Paresthesia of skin; R20.0 Anesthesia of skin; F17.210 Nicotine dependence, cigarettes, uncomplicated; R00.2 Palpitations; F41.9 Anxiety disorder, unspecified; J44.9 Chronic obstructive pulmonary disease, unspecified; Z79.899 Other long term (current) drug therapy; Z92.3 Personal history of irradiation; R11.0 Nausea; R42 Dizziness and giddiness; R94.31 Abnormal electrocardiogram [ECG] [EKG]
CPT/HCPCS: 70450; 71045; 71275; 78452; 80048; 82550; 83735; 84484; 85025; 85379; 85610; 85730; 93005; 93017; 96360; 99285; A9502; G0378; J2785; J7040; Q9967

== ENCOUNTER 2017-10-30 10:06 | Observation (INO) ==
--- NOTE | 2017-10-30 11:02 | XR ---
EXAM DATE: 10/30/2017 10:57 AM EDT AGE/SEX: 56 years / Female INDICATIONS: . Short of breath and productive cough. CLINICAL DATA: This is the patient's initial encounter. Patient reports that signs and symptoms have been present for 3 days and indicates a pain score of 0/10. MEDICAL/SURGICAL HISTORY: Carcinoma, lung. . Infusaport. COMPARISON: [facility], CHEST 1V SINGLE AP, 10/16/2017. . FINDINGS: AP and lateral views of the chest demonstrate the lungs to be symmetrically aerated without evidence of mass, infiltrate or effusion. The cardiomediastinal contours are unremarkable. Osseous structure s are intact. A power port overlies the right chest. CONCLUSION: No acute cardiopulmonary disease. Electronically signed by: Isaac Chairez MD 10/30/2017 11:00 AM EDT
[2017-10-30] MEDS ORDERED: Sod Chloride 0.9% Inj 800 ML IV.SIG SCH (11:15)
[2017-10-30] MEDS ORDERED: Sod Chloride 0.9% Inj 1,000 ML IV.SIG SCH (11:15)
--- NOTE | 2017-10-30 11:23 | ED ---
HPI General Chief Complaint: Respiratory Symptoms Stated Complaint: SOB Time Seen by Provider: 10/30/17 11:03 Source: patient, family, EMS and old records reviewed Mode of arrival: EMS Limitations: no limitations History of Present Illness The patient is a 56-year-old female with small cell carcinoma of the lung that has been seen in the emergency department several times for chest pain and shortness of breath as well as cough. Patient had another episode today and she felt like she had to come for evaluation. States that she has been coughing for months. She has had several CT angios to have been negative for PE as well as a negative stress test on July 2017 after she was admitted for possible ACS. Patient denies fever or chills. MD Complaint: shortness of breath and cough Onset (ago): month(s) (2) Context: recent illness and other (Still smokes) Severity: moderate Consistency/Duration: constant Relieving factors: nothing Associated symptoms: cough, sputum production, orthopnea and lightheadedness Treatment prior to arrival: none Related Data Home oxygen amount: none Home Medications Medication Instructions Recorded Confirmed lorazepam 0.5 mg PO Q4-6H PRN 10/30/17 10/30/17 megestrol [Megace ES] 10/30/17 meloxicam 7.5 mg PO DAILY 10/30/17 10/30/17 metoprolol tartrate 25 mg PO DAILY 10/30/17 10/30/17 venlafaxine 75 mg PO DAILY 10/30/17 10/30/17 zolpidem [Ambien] 5 mg PO HS 10/30/17 10/30/17 Previous Rx's Medication Instructions Recorded ondansetron [Zofran ODT] 4 mg PO BID PRN #10 tab 10/16/17 oxycodone-acetaminophen [Percocet] 1 tab PO Q6H PRN #10 tab 10/16/17 Allergies Allergy/AdvReac Type Severity Reaction Status Date / Time No Known Allergies Allergy Verified 10/16/17 18:52 Review of Systems ROS: all other systems reviewed are negative [facility] Medical History Medical History COPD (chronic obstructive pulmonary disease) (Acute) Lung cancer (Acute) Surgical History Surgical History Previous section (Acute) S/P appendectomy (Acute) Social History Social History Substance History: No History of Abuse Smoking Status: Current every day smoker Tobacco Type: Cigarettes How Often Do You Have a Drink Containing Alcohol: Monthly or less Recent Travel in [facility] within the Last 8 Weeks: No Recent Out of Country Travel within the Last 8 Weeks: No Immunization History Tetanus Immunization: Unsure Hx Influenza Vaccine This Season: No Exam Narrative Exam Narrative: GENERAL: Alert and oriented no distress cachectic appears older than age SKIN: Focused skin assessment warm/dry. Multiple ecchymosis on upper lower extremities in various stages of healing HEAD: Atraumatic. Normocephalic. EYES: Pupils equal and round. No scleral icterus. No injection or drainage. ENT: No nasal bleeding or discharge. Mucous membranes pink and moist. NECK: Trachea midline. No JVD. CARDIOVASCULAR: Sinus tachycardia. No murmur appreciated. RESPIRATORY: No accessory muscle use. Expiratory wheezes bilaterally. Breath sounds equal bilaterally. GASTROINTESTINAL: Abdomen soft, non-tender, nondistended. Hepatic and splenic margins not palpable. MUSCULOSKELETAL: No obvious deformities. No clubbing. No cyanosis. No edema. NEUROLOGICAL: Awake and alert. No obvious cranial nerve deficits. Motor grossly within normal limits. Normal speech. PSYCHIATRIC: Appropriate mood and affect; insight and judgment normal. Course Hospital Course: Septic workup was initiated due to possible upper respiratory infection tachycardia. Pancytopenia no bands. Lactic acidosis of 2.1. Normal troponin. No signs of urinary tract infection. Chest x-ray not suggestive of infectious process at this time. We do not repeat a CTA she had one on 822 that was unremarkable. Reevaluation(s) Reevaluation #2: Comfortably sleeping in no distress. Heart rate 102. Informed plan of admitting. Cefepime has been infused Time: 13:37 Initial Documented Vital Signs Temperature 97.6 F 10/30/17 10:08 Pulse Rate 130 H 10/30/17 10:08 Respiratory Rate 18 10/30/17 10:08 Blood Pressure 116/64 10/30/17 10:08 Pulse Oximetry 99 10/30/17 10:08 Last Documented Vital Signs Temperature 98.8 F 10/30/17 17:20 Pulse Rate 110 H 10/30/17 17:20 Respiratory Rate 17 10/30/17 17:20 Blood Pressure 112/58 L 10/30/17 17:20 Pulse Oximetry 100 10/30/17 17:20 Medical Decision Making MDM Narrative Medical decision making narrative: Patient with lactic acidosis and pancytopenia. Unknown source of infection with exception of her cough may be secondary to chronic bronchitis. She is afebrile she received cefepime for broad-spectrum coverage. Patient will be admitted for further evaluation morning. We did obtain a chest x-ray that was unremarkable. Medical Screen Exam Complete: Yes Emergency Medical Condition: Yes Medical Records Medical records reviewed: Yes I reviewed the patient's medical records. Lab Data Lab results reviewed: Yes I reviewed the patient's lab results. Result diagrams: 10/30/17 10:35 10/30/17 10:35 Lab Results 10/30/17 10/30/17 10/30/17 Range/Units 10:35 10:35 10:35 WBC 3.2 L (4.0-11.0) th/mm3 RBC 3.62 L (4.00-5.30) mil/mm3 Hgb 13.7 (11.6-15.3) gm/dL Hct 39.5 (35.0-46.0) % MCV 109.1 H (80.0-100.0) fL MCH 37.8 H (27.0-34.0) pg MCHC 34.6 (32.0-36.0) % RDW 13.8 (11.6-17.2) % Plt Count 142 L (150-450) th/mm3 MPV 7.7 (7.0-11.0) fL Neut % (Auto) 58.7 (16.0-70.0) % Lymph % (Auto) 25.9 (9.0-44.0) % [place] % (Auto) 12.5 H (0.0-8.0) % Eos % (Auto) 2.2 (0.0-4.0) % Baso % (Auto) 0.7 (0.0-2.0) % Neut # (Auto) 1.9 (1.8-7.7) th/mm3 Lymph # (Auto) 0.8 L (1.0-4.8) th/mm3 [place] # (Auto) 0.4 (0.0-0.9) th/mm3 Eos # (Auto) 0.1 (0.0-0.4) th/mm3 Baso # (Auto) 0.0 (0.0-0.2) th/mm3 WBC Differential . Differential Comment Auto diff final PT 10.2 (9.8-11.6) sec INR 1.0 Ratio APTT 22.5 L (24.3-30.1) sec Sodium 136 (136-145) meq/L Potassium 4.0 (3.5-5.1) meq/L Chloride 102 (98-107) meq/L Carbon Dioxide 22.6 (21.0-32.0) meq/L Anion Gap 11 (5-15) meq/L BUN 2 L (7-18) mg/dL Creatinine 0.44 L (0.50-1.00) mg/dL Estimated GFR Greater than 89 (>89) mL/min Random Glucose 90 (74-106) mg/dL Lactic Acid (0.4-2.0) mmol/L Calcium 8.3 L (8.5-10.1) mg/dL Magnesium 1.8 (1.5-2.5) mg/dL Total Bilirubin 0.2 (0.2-1.0) mg/dL AST 28 (15-37) U/L ALT 14 (10-53) U/L Alkaline Phosphatase 103 (45-117) U/L Total Creatine Kinase 40 (26-192) U/L Troponin I Less than 0.02 L (0.02-0.05) ng/mL Total Protein 7.3 (6.4-8.2) g/dL Albumin 3.2 L (3.4-5.0) g/dL Urine Color (Yellw/Straw) Urine Clarity (Clear) Urine pH (5.0-8.5) Ur Specific [place] (1.002-1.035) Urine Protein (Neg-Trace) mg/dL Urine Glucose (UA) (Negative) mg/dL Urine Ketones (Negative) mg/dL Urine Occult Blood (Negative) Urine Nitrate (Negative) Urine Bilirubin (Negative) Urine Urobilinogen (Less than 2) mg/dL Ur Leukocyte Esterase (Negative) Urine WBC (0-5) /hpf Micro UA Comment Ur Microscopic Review Urine Culture Comments 0910/30/17 10/30/17 Range/Units 10:48 12:40 16:10 WBC (4.0-11.0) th/mm3 RBC (4.00-5.30) mil/mm3 Hgb (11.6-15.3) gm/dL Hct (35.0-46.0) % MCV (80.0-100.0) fL MCH (27.0-34.0) pg MCHC (32.0-36.0) % RDW (11.6-17.2) % Plt Count (150-450) th/mm3 MPV (7.0-11.0) fL Neut % (Auto) (16.0-70.0) % Lymph % (Auto) (9.0-44.0) % [place] % (Auto) (0.0-8.0) % Eos % (Auto) (0.0-4.0) % Baso % (Auto) (0.0-2.0) % Neut # (Auto) (1.8-7.7) th/mm3 Lymph # (Auto) (1.0-4.8) th/mm3 [place] # (Auto) (0.0-0.9) th/mm3 Eos # (Auto) (0.0-0.4) th/mm3 Baso # (Auto) (0.0-0.2) th/mm3 WBC Differential Differential Comment PT (9.8-11.6) sec INR Ratio APTT (24.3-30.1) sec Sodium (136-145) meq/L Potassium (3.5-5.1) meq/L Chloride (98-107) meq/L Carbon Dioxide (21.0-32.0) meq/L Anion Gap (5-15) meq/L BUN (7-18) mg/dL Creatinine (0.50-1.00) mg/dL Estimated GFR (>89) mL/min Random Glucose (74-106) mg/dL Lactic Acid 2.5 H 2.1 H (0.4-2.0) mmol/L Calcium (8.5-10.1) mg/dL Magnesium (1.5-2.5) mg/dL Total Bilirubin (0.2-1.0) mg/dL AST (15-37) U/L ALT (10-53) U/L Alkaline Phosphatase (45-117) U/L Total Creatine Kinase (26-192) U/L Troponin I (0.02-0.05) ng/mL Total Protein (6.4-8.2) g/dL Albumin (3.4-5.0) g/dL Urine Color Colorless (Yellw/Straw) Urine Clarity Clear (Clear) Urine pH 5.0 (5.0-8.5) Ur Specific [place] 1.001 L (1.002-1.035) Urine Protein Negative (Neg-Trace) mg/dL Urine Glucose (UA) Negative (Negative) mg/dL Urine Ketones Negative (Negative) mg/dL Urine Occult Blood Negative (Negative) Urine Nitrate Negative (Negative) Urine Bilirubin Negative (Negative) Urine Urobilinogen Less than 2 (Less than 2) mg/dL Ur Leukocyte Esterase Negative (Negative) Urine WBC Less than 1 (0-5) /hpf Micro UA Comment Culture not ind Ur Microscopic Review Not Reportable Urine Culture Comments Culture not ind Imaging Data Radiologist's impression: Chest X-Ray 10/30/17 10:15 CONCLUSION: No acute cardiopulmonary disease. ECG Data Attestation: I personally reviewed and interpreted this ECG as follows: Discharge Plan Discharge Disposition Patient Disposition: 30 Still Patient Discharge Condition Condition: Stable Discharge Details Diagnosis: Bronchitis, Thrombocytopenia, Leukopenia, Acidosis, lactic Physicians Team ED Provider: Kade Tamez Primary Care Provider: Primary Care Carolina Valle Attending Provider: Ingrid Miller Other Providers: Florinda Lowe ; Livier Maier Discharge Interventions Interventions: ED Discharge Assessment Last Done: 10/30/17 17:38 Vital Signs Last Done: 10/30/17 12:52 Status ED Status: Left Department Discharge Information Discharge Date/Time: 10/30/17 17:39
[2017-10-30 11:50] LABS: Baso % (Auto) 0.7 % (0.0-2.0); Eos # (Auto) 0.1 th/mm3 (0.0-0.4); Eos % (Auto) 2.2 % (0.0-4.0); Hematocrit 39.5 % (35.0-46.0); Hemoglobin 13.7 gm/dL (11.6-15.3); Lymph # (Auto) 0.8 th/mm3 (1.0-4.8); Lymph % (Auto) 25.9 % (9.0-44.0); Mean Corpuscular HGB Conc 34.6 % (32.0-36.0); Mean Corpuscular Hemoglobin 37.8 pg (27.0-34.0); Mean Corpuscular Volume 109.1 fL (80.0-100.0); Mean Platelet Volume 7.7 fL (7.0-11.0); Mono # (Auto) 0.4 th/mm3 (0.0-0.9); Mono % (Auto) 12.5 % (0.0-8.0); Neut # (Auto) 1.9 th/mm3 (1.8-7.7); Neut % (Auto) 58.7 % (16.0-70.0); Platelet Count 142 th/mm3 (150-450); Red Blood Count 3.62 mil/mm3 (4.00-5.30); Red Cell Distribution Width 13.8 % (11.6-17.2); White Blood Count 3.2 th/mm3 (4.0-11.0)
[2017-10-30 12:02] LABS: Activated Partial Thrombo Time 22.5 sec (24.3-30.1); Prothrombin Time 10.2 sec (9.8-11.6)
[2017-10-30 12:25] LABS: Alanine Aminotransferase 14 U/L (10-53)
[2017-10-30 12:28] LABS: Albumin 3.2 g/dL (3.4-5.0); Alkaline Phosphatase 103 U/L (45-117); Anion Gap 11 meq/L (5-15); Aspartate Aminotransferase 28 U/L (15-37); Blood Urea Nitrogen 2 mg/dL (7-18); Calcium 8.3 mg/dL (8.5-10.1); Carbon Dioxide 22.6 meq/L (21.0-32.0); Chloride 102 meq/L (98-107); Glomerular Filtration Rate Greater Than 89 mL/min (>89); Glucose,Random 90 mg/dL (74-106); Magnesium 1.8 mg/dL (1.5-2.5); Sodium 136 meq/L (136-145); Total Protein 7.3 g/dL (6.4-8.2)
[2017-10-30 12:30] LABS: Creatine Kinase 40 U/L (26-192)
--- NOTE | 2017-10-30 13:06 | ECG ---
Date Performed: 10/30/2017 Time Performed: 10:48:13 PTAGE: 56 years EKG: SINUS TACHYCARDIA WITH SHORT IL INTERVAL ANTEROSEPTAL MYOCARDIAL INFARCTION ABNORMAL ECG PREVIOUS TRACING : 10/16/2017 18.53 DOCTOR: Micah San Interpretating Date/Time 10/30/2017 13:04:33
[2017-10-30 13:09] LABS: Bilirubin,Urine Negative (Negative); Clarity,Urine Clear (Clear); Color,Urine Colorless (Yellw/Straw); Glucose,Urine (UA) Negative (Negative); Leukocyte Esterase,Urine Negative (Negative); Nitrite,Urine Negative (Negative); Specific Gravity,Urine 1.001 (1.002-1.035)
[2017-10-30] MEDS ORDERED: Acetaminophen 325 MG Tablet PO PRN (13:55)
--- NOTE | 2017-10-30 14:53 | P.HPIM ---
History of Present Illness Primary Care Physician: No Primary Care Physician Chief Complaint: cough History of Present Illness: patient is a 56 y/o female with history of small cell lung cancer - currently receiving prophylactic whole brain radiation, who was sent to ER from radiation oncology clinic because of persistent cough, chills and generalized weakness. she says that she's had persistent cough for two months and it seems that it's getting worse. cough is productive of yellowish sputum.she denies any fever but she says that she feels cold.she had her second radiation session today but after she was seen by she was advised to come to the hospital. she has an appointment with tomorrow. she says that she still smokes 2-3 cigarettes a day.she's complaining of on and off nausea and poor appetite. Inpatient Certification: I certify that the inpatient services were ordered in accordance with Medicare regulations governing the order. This includes certification that hospital inpatient services are reasonable and necessary and in the case of services not specified as inpatient-only under 42 CFR 419.22(n), that they are appropriately provided as inpatient services in accordance to with the 2-midnight benchmark under 43 CFR 412.3(e) Review of Systems All other systems reviewed negative except as stated in HPI PMFSH - History History Provided By: Patient - Medical History Medical History: Medical History (Last Updated 10/30/17 @ 14:48 by Ingrid Miller MD) COPD (chronic obstructive pulmonary disease) Lung cancer - Surgical History Surgical History: Surgical History (Last Updated 10/30/17 @ 14:49 by Ingrid Miller MD) Previous section S/P appendectomy - Tobacco History Tobacco Use In Past 30 Days: Yes Smoking Status: Current every day smoker Tobacco Type: Cigarettes - Alcohol History How Often Do You Have a Drink Containing Alcohol: Monthly or less - Substance Use History Substance History: No History of Abuse - Travel History Recent Travel in the [place] Within the Last 8 Weeks: No Recent Travel Out of the Country Within the Last 8 Weeks: No - Immunization History Tetanus Immunization: Unsure Hx Influenza Vaccine This Season: No Medications and Allergies Active Medications: Active Medications Acetaminophen (Tylenol) 650 mg PO Q4H PRN PRN Reason: fever/pain 1-4 Albuterol (Duoneb Neb (Prn)) 1 ampul NEB Q4HR NEB PRN PRN Reason: sob Sodium Chloride (Ns Inj) 800 mls @ 0 mls/hr IV.SIG .Q0M BRITNEY Last Infusion: 10/30/17 13:42 Dose: Infused Sodium Chloride (Ns Inj) 1,000 mls @ 0 mls/hr IV.SIG .Q0M BRITNEY Last Infusion: 10/30/17 12:48 Dose: Infused Cefepime HCl 1,000 mg/ Sodium (Chloride) 100 mls @ 200 mls/hr IV.SIG Q12H BRITNEY Lorazepam (Ativan) 0.5 mg PO Q6H PRN PRN Reason: anxiety Metoprolol Tartrate (Lopressor) 25 mg PO DAILY BR[facility]NEY Ondansetron HCl (Zofran Inj) 4 mg IV.PUSH Q8H PRN PRN Reason: nausea Oxycodone/Acetaminophen (Percocet 5/325 Mg) 1 tab PO Q6H PRN PRN Reason: acute pain 5-10 Venlafaxine HCl (Effexor Xr) 75 mg PO DAILY [facility] Zolpidem Tartrate (Ambien) 5 mg PO [facility] Allergies Allergy/AdvReac Type Severity Reaction Status Date / Time No Known Allergies Allergy Verified 10/16/17 18:52 Home Medications Medication Instructions Recorded Confirmed Type lorazepam 0.5 mg PO Q4-6H PRN 10/30/17 10/30/17 History megestrol [Megace ES] 10/30/17 History meloxicam 7.5 mg PO DAILY 10/30/17 10/30/17 History metoprolol tartrate 25 mg PO DAILY 10/30/17 10/30/17 History venlafaxine 75 mg PO DAILY 10/30/17 10/30/17 History zolpidem [Ambien] 5 mg PO HS 10/30/17 10/30/17 History Exam Vital signs: Vital Signs 10/30/17 10:08 10/30/17 10:10 10/30/17 11:14 Temperature 97.6 F 98.4 F Pulse Rate 130 H 112 H 113 H Respiratory Rate 18 20 Blood Pressure 116/64 109/70 Pulse Oximetry 99 98 96 10/30/17 11:33 10/30/17 12:52 Temperature 98.4 F Pulse Rate 118 H 108 H Respiratory Rate 22 20 Blood Pressure 117/63 Pulse Oximetry 95 Intake & Output 10/29/17 10/30/17 10/30/17 18:59 06:59 18:59 Intake Total 1899 1900 Balance 190 1900 Weight 35.38 [place]: [place] [address] Maxipime Inj 1,000 MG In NS Inj 100 / 100 100 ML @ 200 mls/hr IV.SIG ONCE ONE Rx#:[id number] NS Inj 800 ML @ Wide Open IV. 1800 / 1800 SIG .Q0M BRITNEY Rx#:[id number] - Constitutional mild distress (looks older than stated age.) - Routine HEENT Exam Eye: Present: PERRL - Routine Neck Exam Present: full ROM - Routine Respiratory Exam Present: CTA bilaterally (diminished air entry in bases.) - Routine Cardiovascular Exam Present: RRR - Routine Abdominal Exam Present: soft - Routine Extremities Exam Comments: no pedal edema. - Routine Neurological Exam Present: alert, oriented X3 Results - Labs CBC & Chem 7: 10/30/17 10:35 10/30/17 10:35 Labs: Short CBC 10/30/17 Range/Units 10:35 WBC 3.2 L (4.0-11.0) th/mm3 Hgb 13.7 (11.6-15.3) gm/dL Hct 39.5 (35.0-46.0) % Plt Count 142 L (150-450) th/mm3 BMP 10/30/17 10:35 Sodium 136 Potassium 4.0 Chloride 102 Carbon Dioxide 22.6 BUN 2 L Creatinine 0.44 L Calcium 8.3 L Cardiac Enzymes 10/30/17 Range/Units 10:35 Total Creatine Kinase 40 (26-192) U/L Troponin I Less than 0.02 L (0.02-0.05) ng/mL Liver Function 10/30/17 Range/Units 10:35 Total Bilirubin 0.2 (0.2-1.0) mg/dL AST 28 (15-37) U/L ALT 14 (10-53) U/L Alkaline Phosphatase 103 (45-117) U/L Albumin 3.2 L (3.4-5.0) g/dL Urine 10/30/17 Range/Units 12:40 Urine Color Colorless (Yellw/Straw) Urine Clarity Clear (Clear) Urine pH 5.0 (5.0-8.5) Ur Specific [place] 1.001 L (1.002-1.035) Urine Protein Negative (Neg-Trace) mg/dL Urine Glucose (UA) Negative (Negative) mg/dL - Imaging Impressions Chest X-Ray 10/30/17 10:15 CONCLUSION: No acute cardiopulmonary disease. Caprini VTE Risk Assessment Caprini VTE Risk Assessment: Moderate/High Risk (score >= 2) Caprini Risk Assessment Model: Point Value = 1 Point Value = 2 Point Value = 3 Point Value = 5 Age 41-60 Minor surgery BMI > 25 kg/m2 Swollen legs Varicose veins or History of unexplained or recurrent spontaneous Oral contraceptives or hormone replacement Sepsis (< 1 month) Serious lung disease, including pneumonia (< 1 month) Abnormal pulmonary function Acute myocardial infarction Congestive heart failure (< 1 month) History of inflammatory bowel disease Medical patient at bed rest Age 61-74 Arthroscopic surgery Major open surgery (> 45 min) Laparoscopic surgery (> 45 min) Malignancy Confined to bed (> 72 hours) Immobilizing plaster cast Central venous access Age >= 75 History of VTE Family history of VTE Factor V Leiden Prothrombin [id number] Lupus anticoagulant Anticardiolipin antibodies Elevated serum homocysteine Heparin-induced thrombocytopenia Other congenital or acquired thrombophilia Stroke (< 1 month) Elective arthroplasty Hip, pelvis, or leg fracture Acute spinal cord injury (< 1 month) Prophylaxis Regimen: Total Risk Factor Score Risk Level Prophylaxis Regimen 0-1 Low Early ambulation 2 Moderate Order ONE of the following: *Sequential Compression Device (SCD) *Heparin 5000 units SQ BID 3-4 Higher Order ONE of the following medications: *Heparin 5000 units SQ TID *Enoxaparin/Lovenox 40 mg SQ daily (WT < 150 kg, CrCl > 30 mL/min) *Enoxaparin/Lovenox 30 mg SQ daily (WT < 150 kg, CrCl > 10-29 mL/min) *Enoxaparin/Lovenox 30 mg SQ BID (WT < 150 kg, CrCl > 30 mL/min) AND/OR *Sequential Compression Device (SCD) 5 or more Highest Order ONE of the following medications: *Heparin 5000 units SQ TID (Preferred with Epidurals) *Enoxaparin/Lovenox 40 mg SQ daily (WT < 150 kg, CrCl > 30 mL/min) *Enoxaparin/Lovenox 30 mg SQ daily (WT < 150 kg, CrCl > 10-29 mL/min) *Enoxaparin/Lovenox 30 mg SQ BID (WT < 150 kg, CrCl > 30 mL/min) AND *Sequential Compression Device (SCD) Assessment and Plan - Plan A/P - metastatic small cell lung cancer; came from radiation oncology today because of persistent cough/ generalized weakness had a CTA of chest just a few days ago; negative for PE/ right base lung nodule and emphysema/ CXR today negative. will empirically start on IV antibiotics- pending the cultures and clinical course- will start on neb treatment/ antitussives as needed. consult Oncology. counselled on smoking cessation. -COPD; oxygen as needed to keep O2 sat > 90%- continue neb treatment. -DVT prophylaxis with SCD's Discussed Condition With: ER physician, the patient and her daughter at the bedside.
[2017-10-30] MEDS: Sod Chloride 0.9% Inj 1,000 ML IV.CONT SCH (16:21)
[2017-10-30] MEDS: LORazepam 0.5 MG Tablet PO PRN (18:35)
--- NOTE | 2017-10-30 19:00 | MB ---
cc: Florinda Lowe MD,Gabo VILLARREAL DATE: 10/30/2017 REFERRING PHYSICIAN: Dr. Miller. CHIEF COMPLAINT: Dr. Miller requests a consultation for Ms. Sosa regarding non-small cell lung cancer, admitted for cough and increased lactic acid. HISTORY OF PRESENT ILLNESS: Ms. Sosa is a 56-year-old woman, well known patient, with history of locally-advanced small-cell lung cancer with a limited stage small-cell lung cancer. She presented in 11/2016 with a pretracheal mass measuring 5 cm and a right hilar mass. There are no other sites of metastatic disease. She was treated with concurrent chemotherapy and radiation. She completed her treatment altogether in 06/2017. Most recent CT PET scan followup on 10/09/2017 was negative. The results show excellent response to treatment with metabolic resolution of the right lung and mediastinal lesions. There is no evidence of recurrent or metastatic disease. Since she is in remission, she was referred to Dr. Merida for prophylactic cranial radiation. She was on her first dose of prophylactic cranial radiation when she felt bad and was referred to the emergency room by Dr. Merida. On further questioning, Ms. Sosa describes having headaches and nausea all the time. She has not been feeling well. She feels chest pains and shortness of breath. She has some improvement on respiratory treatments. She denies any bowel problems. She denies any sick contacts. She was accompanied by her daughter and her daughter's significant other. She describes a decrease in appetite and weight loss. She was asking for pain medication for her headaches. During the course of her treatment, she had complained of significant amount of pain and was placed on narcotic pain medication. She required big doses of narcotic pain medication, of which she was tapered off eventually. She is not taking any narcotics now. Her course is further complicated by pancytopenia post-chemotherapy. 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 A bone marrow biopsy shows cytopenias related to chemotherapy. Eventually, her cytopenias resolved. Unfortunately, she continues to smoke. She has not followed up with a manager strategic partnerships. She was seen by Dr. Christopher Napier and Dr. Maier in the past. PAST MEDICAL HISTORY: Chronic tobacco use, severe COPD, chemotherapy-induced anemia, gastritis, weight loss, chronic pain, recurrent headaches, limited stage small-cell lung cancer. PAST SURGICAL HISTORY: Bronchoscopy, C-sections x2, colonoscopy, a CT-guided lung biopsy, tubal ligation, appendectomy. ALLERGIES: NO KNOWN DRUG ALLERGIES. FAMILY HISTORY: No significant family history of cancer. Both parents are . SOCIAL HISTORY: She is . She smoked a pack and a half a day for 38 years. She consumes alcohol regularly. She denies any illicit drug use. PHYSICAL EXAMINATION: VITAL SIGNS: Temperature 98.4, heart rate 108, respiratory rate 20, blood pressure 117/63, saturation 95%. GENERAL: Ms. Sosa is a short-statured, petite, elderly woman, who looks older than stated age. HEENT: Pupils are round, reactive to light and accommodation. Oropharynx is dry. NECK: Supple. LUNGS: Diminished breath sounds throughout. CARDIOVASCULAR: Reveals tachycardia. ABDOMEN: Benign. Some tenderness in the right upper quadrant. EXTREMITIES: Lower extremities with no edema. NEUROLOGIC: Nonfocal. She has hyperpigmented changes of the back post-radiation. CURRENT MEDICATIONS: Include: 1. Tylenol. 2. DuoNeb. 3. Cefepime. 4. Guaifenesin. 5. Lorazepam. 6. Lopressor. 7. Zofran. 8. Percocet p.r.n. 9. Zolpidem p.r.n. 10. Effexor. LABORATORY DATA: WBC 3.2, hemoglobin 13.7, platelet count 142,000. Chemistry: Sodium is normal. BUN at 2, creatinine 0.44. Liver functions are normal. Albumin is decreased to 3.2. PT/PTT are normal. ASSESSMENT AND PLAN: Ms. Sosa is a 56-year-old woman with multiple medical problems. Her main problem is related to chronic tobacco use and severe chronic obstructive pulmonary disease. She has shortness of breath despite respiratory treatments. Her course was complicated by limited-stage small-cell lung cancer. She was treated definitively with concurrent chemotherapy and radiation. She was treated with carboplatin and TREE PLANTER-16. She developed significant cytopenias. Bone marrow biopsy was negative for underlying bone marrow pathology. Eventually, her cytopenias recovered. Her last CT PET scan staging from 10/09/2017 shows no evidence of recurrent disease. She is scheduled for prophylactic cranial radiation, and she had complaints of symptoms progressing over several weeks. She presented with her small-cell lung cancer with paraneoplastic hyponatremia. The hyponatremia is not present. Last CT PET scan just from 2-3 weeks ago was negative for recurrence. It appears unlikely that she has evidence of recurrent disease. She complains of headaches and, therefore, a CT scan or MRI of the brain will be coordinated to rule out [employer] REPRESENTATIVE metastatic disease. She is receiving prophylactic cranial radiation to prevent this. She has no localizing symptoms. She may benefit from consultation with pulmonary to optimize her treatment. She has bad COPD underlying and continues to smoke. Supportive treatment for her headache continues. She is advised not to use narcotic medications, as it gives rebound headaches. If MRI is negative and headaches persist, we may consider neurology consultation, which we can coordinate as an outpatient. She has a lot of symptoms that cannot be explained from recurrence of her cancer. She appears to be in remission. MD FELIX Gilliam/shirin , 05:10 PM , 05:25 PM
--- NOTE | 2017-10-30 20:44 | MB ---
cc: Livier Maier MD, R Steven MD DATE: 10/30/2017 REASON FOR CONSULTATION: COPD exacerbation. HISTORY OF PRESENT ILLNESS: The patient is a 56-year-old female with a known history of small cell lung cancer for which she is receiving chemotherapy. The patient is getting prophylactic head radiation as well. While in the adjacent therapy, noted to have a persistent cough and expectoration of yellowish-greenish mucoid sputum. Complains of fever and chills for which she was hospitalized. The patient seems somewhat better now. She is in no acute distress. PAST MEDICAL HISTORY: Small cell lung cancer, COPD. PAST SURGICAL HISTORY: and appendectomy. SOCIAL HISTORY: She has a [id number] smoking history, continues to smoke. FAMILY HISTORY: Noncontributory. Does not use drugs. Alcohol on rare occasion. REVIEW OF SYSTEMS: A 12-point review of systems as per HPI and past history, otherwise negative. MEDICATIONS: 1. Cefepime. 2. Albuterol-ipratropium nebulizer. 3. Metoprolol. 4. Effexor. 5. Ambien at bedtime p.r.n. ALLERGIES: NONE KNOWN TO MEDICATION. PHYSICAL EXAMINATION: VITAL SIGNS: Temperature 98, pulse 90, respirations 20, blood pressure 110/70. HEENT: Unremarkable. Eyes: No icterus. NECK: Without adenopathy, thyroid enlargement. Central trachea. CHEST: Few scattered rhonchi bilaterally. CARDIAC: PMI not appreciated. S1, S2 audible. No murmur. No rub. ABDOMEN: Lax, audible bowel sounds. EXTREMITIES: No clubbing, cyanosis or edema. LABORATORY DATA: White count 3.2, hemoglobin 13, hematocrit 39. Sodium 139, potassium 4.0, BUN 2, creatinine 0.4. Chest x-ray: No acute infiltrate. IMPRESSION: 1. Obstructive pulmonary disease exacerbation. 2. Small cell lung cancer. PLAN: The patient is admitted to the hospital. Oxygen therapy will be given as needed. Antibiotic therapy has been initiated and appropriately so. Bronchodilator therapy, pulmonary toilet undertaken. Depending on progress, proceed further. I do thank you for asking me to participate in the patient's care. Livier Maier MD WWW/michael/do , 06:17 PM , 06:24 PM
[2017-10-30] MEDS: Zolpidem Tartrate 5 MG Tablet PO SCH (21:42)
[2017-10-31] MEDS: Venlafaxine XR 75 MG Capsule PO SCH (08:33)
[2017-10-31] MEDS: LORazepam 0.5 MG Tablet PO PRN (08:54)
[2017-10-31] MEDS ORDERED: Metoprolol Tartrate 25 MG Tablet PO SCH (09:00)
--- NOTE | 2017-10-31 09:20 | P.PN ---
Subjective Interval history: ALERT LESS SOG COUGH GREEN SPUTUM Physical Exam Vital signs: Vital Signs 10/30/17 10:08 10/30/17 10:10 10/30/17 11:14 Temperature 97.6 F 98.4 F Pulse Rate 130 H 112 H 113 H Respiratory Rate 18 20 Blood Pressure 116/64 109/70 Pulse Oximetry 99 98 96 10/30/17 11:33 10/30/17 12:52 10/30/17 17:20 Temperature 98.4 F 98.8 F Pulse Rate 118 H 108 H 110 H Respiratory Rate 22 20 17 Blood Pressure 117/63 112/58 L Pulse Oximetry 95 100 10/30/17 20:00 10/31/17 00:00 10/31/17 00:56 Temperature 98.5 F 98.9 F Pulse Rate 109 H 107 H Respiratory Rate 18 16 18 Blood Pressure 110/59 L 125/62 Pulse Oximetry 96 96 10/31/17 02:49 10/31/17 04:00 10/31/17 08:00 Temperature 98.6 F 98.9 F Pulse Rate 105 H 106 H Respiratory Rate 18 18 14 Blood Pressure 139/67 130/74 Pulse Oximetry 95 96 Intake & Output 10/30/17 10/31/17 10/31/17 18:59 06:59 18:59 Intake Total 1900 / 1900 100 / 100 Balance 1900 / 1900 100 / 100 Weight 35.38 kg 38.8 kg Intake: IV 1900 / 1900 100 / 100 Maxipime Inj 1,000 MG In NS Inj 100 / 100 100 / 100 100 ML @ 200 mls/hr IV.SIG Q12H [facility] Rx#:[id number] NS Inj 800 ML @ Wide Open IV. 1800 / 1800 SIG .Q0M [facility] Rx#:[id number] Other: # Voids 2 Date of Last Bowel Movement 10/30/17 - Constitutional no acute distress - Routine HEENT Exam Head: Present: normocephalic ENT: Present: mucous membranes moist - Routine Neck Exam Present: supple - Routine Respiratory Exam Present: rhonchi - Routine Cardiovascular Exam Present: RRR, S1, S2 - Routine Abdominal Exam Present: soft, normoactive bowel sounds Results - Labs CBC & Chem 7: 10/30/17 10:35 10/30/17 10:35 Laboratory Results - last 24 hr 10/30/17 10/30/17 10/30/17 10:35 10:35 10:35 WBC 3.2 L RBC 3.62 L Hgb 13.7 Hct 39.5 MCV 109.1 H MCH 37.8 H MCHC 34.6 RDW 13.8 Plt Count 142 L MPV 7.7 Neut % (Auto) 58.7 Lymph % (Auto) 25.9 [place] % (Auto) 12.5 H Eos % (Auto) 2.2 Baso % (Auto) 0.7 Neut # (Auto) 1.9 Lymph # (Auto) 0.8 L [place] # (Auto) 0.4 Eos # (Auto) 0.1 Baso # (Auto) 0.0 WBC Differential . Differential Comment Auto diff final PT 10.2 INR 1.0 APTT 22.5 L Sodium 136 Potassium 4.0 Chloride 102 Carbon Dioxide 22.6 Anion Gap 11 BUN 2 L Creatinine 0.44 L Estimated GFR Greater than 89 Random Glucose 90 Lactic Acid Calcium 8.3 L Magnesium 1.8 Total Bilirubin 0.2 AST 28 ALT 14 Alkaline Phosphatase 103 Total Creatine Kinase 40 Troponin I Less than 0.02 L Total Protein 7.3 Albumin 3.2 L Urine Color Urine Clarity Urine pH Ur Specific [place] Urine Protein Urine Glucose (UA) Urine Ketones Urine Occult Blood Urine Nitrate Urine Bilirubin Urine Urobilinogen Ur Leukocyte Esterase Urine WBC Micro UA Comment Ur Microscopic Review Urine Culture Comments 10/30/17 10/30/17 10/30/17 10:48 12:40 16:10 WBC RBC Hgb Hct MCV MCH MCHC RDW Plt Count MPV Neut % (Auto) Lymph % (Auto) [place] % (Auto) Eos % (Auto) Baso % (Auto) Neut # (Auto) Lymph # (Auto) [place] # (Auto) Eos # (Auto) Baso # (Auto) WBC Differential Differential Comment PT INR APTT Sodium Potassium Chloride Carbon Dioxide Anion Gap BUN Creatinine Estimated GFR Random Glucose Lactic Acid 2.5 H 2.1 H Calcium Magnesium Total Bilirubin AST ALT Alkaline Phosphatase Total Creatine Kinase Troponin I Total Protein Albumin Urine Color Colorless Urine Clarity Clear Urine pH 5.0 Ur Specific [place] 1.001 L Urine Protein Negative Urine Glucose (UA) Negative Urine Ketones Negative Urine Occult Blood Negative Urine Nitrate Negative Urine Bilirubin Negative Urine Urobilinogen Less than 2 Ur Leukocyte Esterase Negative Urine WBC Less than 1 Micro UA Comment Culture not ind Ur Microscopic Review Not Reportable Urine Culture Comments Culture not ind 10/30/17 19:52 WBC RBC Hgb Hct MCV MCH MCHC RDW Plt Count MPV Neut % (Auto) Lymph % (Auto) [place] % (Auto) Eos % (Auto) Baso % (Auto) Neut # (Auto) Lymph # (Auto) [place] # (Auto) Eos # (Auto) Baso # (Auto) WBC Differential Differential Comment PT INR APTT Sodium Potassium Chloride Carbon Dioxide Anion Gap BUN Creatinine Estimated GFR Random Glucose Lactic Acid 2.6 H Calcium Magnesium Total Bilirubin AST ALT Alkaline Phosphatase Total Creatine Kinase Troponin I Total Protein Albumin Urine Color Urine Clarity Urine pH Ur Specific [place] Urine Protein Urine Glucose (UA) Urine Ketones Urine Occult Blood Urine Nitrate Urine Bilirubin Urine Urobilinogen Ur Leukocyte Esterase Urine WBC Micro UA Comment Ur Microscopic Review Urine Culture Comments Microbiology 10/30/17 12:40 Sputum - Expectorated Sputum Gram Stain - Final 10/30/17 12:40 Nasal Wash Influenza Types A,B Antigen - Final Negative for FLU A and B antigen Infection due to influenza A or B cannot be ruled out since the antigen present in the sample may be below the detection limit of the test. - Imaging Impressions Chest X-Ray 10/30/17 10:15 CONCLUSION: No acute cardiopulmonary disease. Assessment and Plan - Plan COPD EXACERBATION LUNG CA PLAN O2 NEEDED BRONCHODILATOR THERAPY ANTIBIOTICS INCREASE ACTIVITY
[2017-10-31] MEDS ORDERED: Gadobutrol PF 2 MMOL/2 ML Vial (for RAD) IV.SIG ONE (09:45)
[2017-10-31] MEDS: Sod Chloride 0.9% Inj 1,000 ML IV.CONT SCH ×2 (09:48→23:53)
--- NOTE | 2017-10-31 09:51 | P.PNONC ---
Subjective Interval history: Afebrile. Patient reports increase in cough and shortness of breath. She also reports a chronic substernal intermittent chest pain, which she states "I always have this, since I started chemotherapy at the beginning" She denies any changes in these symptoms. She reports no appetite. Objective Vital Signs/Intake & Output: Vital Signs 10/30/17 10:08 10/30/17 10:10 10/30/17 11:14 Temperature 97.6 F 98.4 F Pulse Rate 130 H 112 H 113 H Respiratory Rate 18 20 Blood Pressure 116/64 109/70 Pulse Oximetry 99 98 96 10/30/17 11:33 10/30/17 12:52 10/30/17 17:20 Temperature 98.4 F 98.8 F Pulse Rate 118 H 108 H 110 H Respiratory Rate 22 20 17 Blood Pressure 117/63 112/58 L Pulse Oximetry 95 100 10/30/17 20:00 10/31/17 00:00 10/31/17 00:56 Temperature 98.5 F 98.9 F Pulse Rate 109 H 107 H Respiratory Rate 18 16 18 Blood Pressure 110/59 L 125/62 Pulse Oximetry 96 96 10/31/17 02:49 10/31/17 04:00 10/31/17 08:00 Temperature 98.6 F 98.9 F Pulse Rate 105 H 106 H Respiratory Rate 18 18 14 Blood Pressure 139/67 130/74 Pulse Oximetry 95 96 Intake & Output 10/30/17 10/31/17 10/31/17 18:59 06:59 18:59 Intake Total 1900 / 1900 100 / 100 Balance 1900 / 1900 100 / 100 Weight 35.38 kg 38.8 kg Intake: IV 1900 / 1900 100 / 100 Maxipime Inj 1,000 MG In NS Inj 100 / 100 100 / 100 100 ML @ 200 mls/hr IV.SIG Q12H [facility] Rx#:[id number] NS Inj 800 ML @ Wide Open IV. 1800 / 1800 SIG .Q0M [facility] Rx#:[id number] Other: # Voids 2 Date of Last Bowel Movement 10/30/17 Result Diagrams: 10/30/17 10:35 10/30/17 10:35 Laboratory Results: Laboratory Results - last 24 hr 10/30/17 10/30/17 10/30/17 10:35 10:35 10:35 WBC 3.2 L RBC 3.62 L Hgb 13.7 Hct 39.5 MCV 109.1 H MCH 37.8 H MCHC 34.6 RDW 13.8 Plt Count 142 L MPV 7.7 Neut % (Auto) 58.7 Lymph % (Auto) 25.9 [place] % (Auto) 12.5 H Eos % (Auto) 2.2 Baso % (Auto) 0.7 Neut # (Auto) 1.9 Lymph # (Auto) 0.8 L [place] # (Auto) 0.4 Eos # (Auto) 0.1 Baso # (Auto) 0.0 WBC Differential . Differential Comment Auto diff final PT 10.2 INR 1.0 APTT 22.5 L Sodium 136 Potassium 4.0 Chloride 102 Carbon Dioxide 22.6 Anion Gap 11 BUN 2 L Creatinine 0.44 L Estimated GFR Greater than 89 Random Glucose 90 Lactic Acid Calcium 8.3 L Magnesium 1.8 Total Bilirubin 0.2 AST 28 ALT 14 Alkaline Phosphatase 103 Total Creatine Kinase 40 Troponin I Less than 0.02 L Total Protein 7.3 Albumin 3.2 L Urine Color Urine Clarity Urine pH Ur Specific [place] Urine Protein Urine Glucose (UA) Urine Ketones Urine Occult Blood Urine Nitrate Urine Bilirubin Urine Urobilinogen Ur Leukocyte Esterase Urine WBC Micro UA Comment Ur Microscopic Review Urine Culture Comments 10/30/17 10/30/17 10/30/17 10:48 12:40 16:10 WBC RBC Hgb Hct MCV MCH MCHC RDW Plt Count MPV Neut % (Auto) Lymph % (Auto) [place] % (Auto) Eos % (Auto) Baso % (Auto) Neut # (Auto) Lymph # (Auto) [place] # (Auto) Eos # (Auto) Baso # (Auto) WBC Differential Differential Comment PT INR APTT Sodium Potassium Chloride Carbon Dioxide Anion Gap BUN Creatinine Estimated GFR Random Glucose Lactic Acid 2.5 H 2.1 H Calcium Magnesium Total Bilirubin AST ALT Alkaline Phosphatase Total Creatine Kinase Troponin I Total Protein Albumin Urine Color Colorless Urine Clarity Clear Urine pH 5.0 Ur Specific [place] 1.001 L Urine Protein Negative Urine Glucose (UA) Negative Urine Ketones Negative Urine Occult Blood Negative Urine Nitrate Negative Urine Bilirubin Negative Urine Urobilinogen Less than 2 Ur Leukocyte Esterase Negative Urine WBC Less than 1 Micro UA Comment Culture not ind Ur Microscopic Review Not Reportable Urine Culture Comments Culture not ind 10/30/17 19:52 WBC RBC Hgb Hct MCV MCH MCHC RDW Plt Count MPV Neut % (Auto) Lymph % (Auto) [place] % (Auto) Eos % (Auto) Baso % (Auto) Neut # (Auto) Lymph # (Auto) [place] # (Auto) Eos # (Auto) Baso # (Auto) WBC Differential Differential Comment PT INR APTT Sodium Potassium Chloride Carbon Dioxide Anion Gap BUN Creatinine Estimated GFR Random Glucose Lactic Acid 2.6 H Calcium Magnesium Total Bilirubin AST ALT Alkaline Phosphatase Total Creatine Kinase Troponin I Total Protein Albumin Urine Color Urine Clarity Urine pH Ur Specific [place] Urine Protein Urine Glucose (UA) Urine Ketones Urine Occult Blood Urine Nitrate Urine Bilirubin Urine Urobilinogen Ur Leukocyte Esterase Urine WBC Micro UA Comment Ur Microscopic Review Urine Culture Comments Culture Results: Microbiology 10/30/17 12:40 Gram Stain - Final Sputum - Expectorated Sputum 10/30/17 12:40 Influenza Types A,B Antigen - Final Nasal Wash Negative for FLU A and B antigen Infection due to influenza A or B cannot be ruled out since the antigen present in the sample may be below the detection limit of the test. Imaging Studies: Impressions Chest X-Ray 10/30/17 10:15 CONCLUSION: No acute cardiopulmonary disease. Medications: Active Medications Generic Name Dose Route Start Last Admin Trade Name Freq PRN Reason Stop Dose Admin Acetaminophen 650 mg 10/30/17 13:55 10/30/17 17:29 Tylenol PO 650 mg Q4H PRN Administration fever/pain 1-4 Guaifenesin 200 mg 10/30/17 14:54 10/31/17 08:54 Robitussin Liq PO 200 mg Q6HR PRN Administration cough Sodium Chloride 800 mls @ 0 mls/hr 10/30/17 11:15 10/30/17 13:42 Ns Inj IV.SIG Infused .Q0M [facility] Infusion Wide Open Sodium Chloride 1,000 mls @ 0 mls/hr 10/30/17 11:15 10/30/17 12:48 Ns Inj IV.SIG Infused .Q0M [facility] Infusion Wide Open Cefepime HCl 1,000 mg/ Sodium 100 mls @ 200 mls/hr 10/31/17 00:00 10/31/17 00 :56 Chloride IV.SIG Infused Q12H [facility] Infusion Sodium Chloride 1,000 mls @ 60 mls/hr 10/30/17 15:00 10/30/17 16:21 Ns Inj IV.CONT 60 mls/hr .[id number] [facility] Administration Lorazepam 0.5 mg 10/30/17 13:54 10/31/17 08:54 Ativan PO 0.5 mg Q6H PRN Administration anxiety Metoprolol Tartrate 25 mg 10/31/17 09:00 10/31/17 08:33 Lopressor PO 25 mg DAILY [facility] Administration Oxycodone/Acetaminophen 1 tab 10/30/17 13:54 10/31/17 08:32 Percocet 5/325 Mg PO 1 tab Q6H PRN Administration acute pain 5-10 Venlafaxine HCl 75 mg 10/31/17 09:00 10/31/17 08:33 Effexor Xr PO 75 mg DAILY [facility] Administration Zolpidem Tartrate 5 mg 10/30/17 21:00 10/30/17 21:42 Ambien PO 5 mg HS [facility] Administration Objective Remarks: GENERAL: Chronically ill-appearing female patient, appears older than stated age , in no acute distress. SKIN: Warm and dry. HEAD: Normocephalic. EYES: No scleral icterus. No injection or drainage. NECK: Supple, trachea midline. CARDIOVASCULAR: Regular rate and rhythm without murmurs. RESPIRATORY: Posterior breath sounds diminished with inspiratory/expiratory wheezing throughout equal bilaterally. Non-labored at rest. On room air. GASTROINTESTINAL: Abdomen soft, non-tender, nondistended. EXTREMITIES: No cyanosis, or edema. MUSCULOSKELETAL: Adequate muscle tone. NEUROLOGICAL: No obvious focal deficit. Awake, alert, and oriented x3. PSYCHIATRIC: Appropriate mood and affect; insight and judgment normal. Assessment/Plan - Plan Ms. Sosa is a 56-year-old female patient with multiple medical problems. She has a history of severe chronic obstructive pulmonary disease. She continues to use tobacco and experiences shortness of breath. She has a history of limited stage small cell lung cancer, treated definitively with concurrent chemotherapy and radiation. She was treated with carboplatin and [employer]- 16. Her last CT PET scan staging from 10/09/2017 showed no evidence of recurrent disease. She was scheduled for prophylactic cranial radiation. Plan: 1. COPD, management per pulmonology. Tobacco cessation recommended. 2. History of small cell lung cancer, treated definitively with CT PET scan being negative for recurrence. 3. Headache, with some improvement today. She is awaiting MRI brain. 4. Continue supportive care. - Attending Statement The exam, history, and the medical decision-making described in the above note were completed with the assistance of the mid-level provider. I reviewed and agree with the findings presented. I attest that I had a [id number] encounter with the patient on the same day, and personally performed and documented my assessment and findings in the medical record. Still does not feel good. Discussed the CT/PET findings along with MRI of the brain which were both negative for recurrence. Reassured about the findings. Suspect her symptoms stem from underlying medical problem. Appreciate pulmonary consult to optimize treatment of COPD. Pending to see if require oxygen for home. Advised to follow up in clinic. We will follow peripherally.
--- NOTE | 2017-10-31 10:22 | MR ---
EXAM DATE: 10/31/2017 9:56 AM EDT AGE/SEX: 56 years / Female INDICATIONS: Cephalgia. Small cell lung cancer. CLINICAL DATA: This is the patient's subsequent encounter. Patient reports that signs and symptoms h ave been present for 2 days and indicates a pain score of 5/10. MEDICAL/SURGICAL HISTORY: Carcinoma, lung. Radiation Therapy Appendectomy. COMPARISON: No prior exams available for comparison. TECHNIQUE: Multiplanar, multisequence examination of the brain was performed without and with 4 ml Ga davist (gadobutrol) contrast as a single exam dose. FINDINGS: MRI of the brain is performed in sagittal, axial and coronal planes. The craniocervical junction and midline structures are unremarkable. Diffusion weighted images demonstrate no abnormality. No acute c ortical infarction, acute hemorrhage, mass effect or midline shift is seen.Following the administrati on of contrast no abnormal enhancement is identified. Posterior fossa structures are unremarkable. CONCLUSION: No evidence of acute intracranial pathology. No masses are identified. No evidence of metastatic dis ease. Electronically signed by: Ender Yun MD 10/31/2017 10:21 AM EDT
--- NOTE | 2017-10-31 10:32 | P.PNIM ---
Subjective Interval history: f/u; cough/ COPD with mild sob and still with cough. no fever. Physical Exam Vital signs: Vital Signs 10/30/17 11:14 10/30/17 11:33 10/30/17 12:52 Temperature 98.4 F Pulse Rate 113 H 118 H 108 H Respiratory Rate 22 20 Blood Pressure 117/63 Pulse Oximetry 96 95 10/30/17 17:20 10/30/17 20:00 10/31/17 00:00 Temperature 98.8 F 98.5 F 98.9 F Pulse Rate 110 H 109 H 107 H Respiratory Rate 17 18 16 Blood Pressure 112/58 L 110/59 L 125/62 Pulse Oximetry 100 96 96 10/31/17 00:56 10/31/17 02:49 10/31/17 04:00 Temperature 98.6 F Pulse Rate 105 H Respiratory Rate 18 18 18 Blood Pressure 139/67 Pulse Oximetry 95 10/31/17 08:00 Temperature 98.9 F Pulse Rate 106 H Respiratory Rate 14 Blood Pressure 130/74 Pulse Oximetry 96 Intake & Output 10/30/17 10/31/17 10/31/17 18:59 06:59 18:59 Intake Total 1900 / 1900 100 / 100 1000 / 1000 Balance 1900 / 1900 100 / 100 1000 / 1000 Weight 35.38 kg 38.8 kg Intake: IV 1900 / 1900 100 / 100 1000 / 1000 NS Inj 1,000 ML @ 60 mls/hr IV. 1000 / 1000 CONT .[id number] [facility] Rx#:[id number] Maxipime Inj 1,000 MG In NS Inj 100 / 100 100 / 100 100 ML @ 200 mls/hr IV.SIG Q12H [facility] Rx#:[id number] NS Inj 800 ML @ Wide Open IV. 1800 / 1800 SIG .Q0M [facility] Rx#:[id number] Other: # Voids 2 Date of Last Bowel Movement 10/30/17 - Constitutional mild distress - Routine Respiratory Exam Present: diminished air movement (mild wheezing bilaterally.) - Routine Cardiovascular Exam Present: RRR - Routine Abdominal Exam Present: soft - Routine Extremities Exam Comments: no pedal edema. - Routine Neurological Exam Present: alert, oriented X3 Results - Labs CBC & Chem 7: 10/30/17 10:35 10/30/17 10:35 Laboratory Results - last 24 hr 10/30/17 10/30/1718 10:35 10:35 10:35 WBC 3.2 L RBC 3.62 L Hgb 13.7 Hct 39.5 MCV 109.1 H MCH 37.8 H MCHC 34.6 RDW 13.8 Plt Count 142 L MPV 7.7 Neut % (Auto) 58.7 Lymph % (Auto) 25.9 [place] % (Auto) 12.5 H Eos % (Auto) 2.2 Baso % (Auto) 0.7 Neut # (Auto) 1.9 Lymph # (Auto) 0.8 L [place] # (Auto) 0.4 Eos # (Auto) 0.1 Baso # (Auto) 0.0 WBC Differential . Differential Comment Auto diff final PT 10.2 INR 1.0 APTT 22.5 L Sodium 136 Potassium 4.0 Chloride 102 Carbon Dioxide 22.6 Anion Gap 11 BUN 2 L Creatinine 0.44 L Estimated GFR Greater than 89 Random Glucose 90 Lactic Acid Calcium 8.3 L Magnesium 1.8 Total Bilirubin 0.2 AST 28 ALT 14 Alkaline Phosphatase 103 Total Creatine Kinase 40 Troponin I Less than 0.02 L Total Protein 7.3 Albumin 3.2 L Urine Color Urine Clarity Urine pH Ur Specific [place] Urine Protein Urine Glucose (UA) Urine Ketones Urine Occult Blood Urine Nitrate Urine Bilirubin Urine Urobilinogen Ur Leukocyte Esterase Urine WBC Micro UA Comment Ur Microscopic Review Urine Culture Comments 10/30/17 10/30/17 10/30/17 10:48 12:40 16:10 WBC RBC Hgb Hct MCV MCH MCHC RDW Plt Count MPV Neut % (Auto) Lymph % (Auto) [place] % (Auto) Eos % (Auto) Baso % (Auto) Neut # (Auto) Lymph # (Auto) [place] # (Auto) Eos # (Auto) Baso # (Auto) WBC Differential Differential Comment PT INR APTT Sodium Potassium Chloride Carbon Dioxide Anion Gap BUN Creatinine Estimated GFR Random Glucose Lactic Acid 2.5 H 2.1 H Calcium Magnesium Total Bilirubin AST ALT Alkaline Phosphatase Total Creatine Kinase Troponin I Total Protein Albumin Urine Color Colorless Urine Clarity Clear Urine pH 5.0 Ur Specific [place] 1.001 L Urine Protein Negative Urine Glucose (UA) Negative Urine Ketones Negative Urine Occult Blood Negative Urine Nitrate Negative Urine Bilirubin Negative Urine Urobilinogen Less than 2 Ur Leukocyte Esterase Negative Urine WBC Less than 1 Micro UA Comment Culture not ind Ur Microscopic Review Not Reportable Urine Culture Comments Culture not ind 10/30/17 19:52 WBC RBC Hgb Hct MCV MCH MCHC RDW Plt Count MPV Neut % (Auto) Lymph % (Auto) [place] % (Auto) Eos % (Auto) Baso % (Auto) Neut # (Auto) Lymph # (Auto) [place] # (Auto) Eos # (Auto) Baso # (Auto) WBC Differential Differential Comment PT INR APTT Sodium Potassium Chloride Carbon Dioxide Anion Gap BUN Creatinine Estimated GFR Random Glucose Lactic Acid 2.6 H Calcium Magnesium Total Bilirubin AST ALT Alkaline Phosphatase Total Creatine Kinase Troponin I Total Protein Albumin Urine Color Urine Clarity Urine pH Ur Specific [place] Urine Protein Urine Glucose (UA) Urine Ketones Urine Occult Blood Urine Nitrate Urine Bilirubin Urine Urobilinogen Ur Leukocyte Esterase Urine WBC Micro UA Comment Ur Microscopic Review Urine Culture Comments Microbiology 10/30/17 12:40 Sputum - Expectorated Sputum Gram Stain - Final 10/30/17 12:40 Nasal Wash Influenza Types A,B Antigen - Final Negative for FLU A and B antigen Infection due to influenza A or B cannot be ruled out since the antigen present in the sample may be below the detection limit of the test. - Imaging Impressions Chest X-Ray 10/30/17 10:15 CONCLUSION: No acute cardiopulmonary disease. Head MRI 10/31/17 00:00 CONCLUSION: No evidence of acute intracranial pathology. No masses are identified. No evidence of metastatic disease. Assessment and Plan - Plan A/P - metastatic small cell lung cancer; came from radiation oncology today because of persistent cough/ generalized weakness had a CTA of chest just a few days ago; negative for PE/ right base lung nodule and emphysema/ CXR today negative. empirically started on IV antibiotics- pending the cultures and clinical course- continue neb treatment/ antitussives as needed. consulted Oncology. MRI brain pending. counselled on smoking cessation. -COPD; oxygen as needed to keep O2 sat > 90%- continue neb treatment/ will add Symbicort- walk test today. pulmonary consult appreciated. -DVT prophylaxis with SCD's Discharge Planning: within the next 24-48 hrs- pending clinical course- needs walk test before discharge.
[2017-10-31] MEDS: Budesonide-Formoterol 160/4.5 MCG 6 GM Inhaler INH SCH ×2 (13:03→21:49)
[2017-10-31] MEDS: Zolpidem Tartrate 5 MG Tablet PO SCH (21:50)
[2017-11-01] MEDS: Budesonide-Formoterol 160/4.5 MCG 6 GM Inhaler INH SCH ×2 (08:41→22:40)
[2017-11-01] MEDS: Venlafaxine XR 75 MG Capsule PO SCH (08:41)
--- NOTE | 2017-11-01 09:49 | P.PNIM ---
Subjective Interval history: in no acute distress. still with some sob. but looks and feels better. no new complaints. Physical Exam Vital signs: Vital Signs 10/31/17 11:43 10/31/17 12:00 10/31/17 14:17 Temperature 98.2 F Pulse Rate 80 102 H Respiratory Rate 18 16 Blood Pressure 131/59 L Pulse Oximetry 95 96 Pulse Oximetry [Resting on Room Air] Pulse Oximetry [Resting with Oxygen] 10/31/17 14:30 10/31/17 15:55 10/31/17 16:52 Temperature 98.1 F Pulse Rate 90 Respiratory Rate 14 16 Blood Pressure 152/68 H Pulse Oximetry 98 Pulse Oximetry [Resting on Room Air] 87 L Pulse Oximetry [Resting with Oxygen] 98 10/31/17 20:00 10/31/17 20:13 11/01/17 00:00 Temperature 98.3 F Pulse Rate 89 100 H 105 H Respiratory Rate 16 12 20 Blood Pressure 129/62 123/65 Pulse Oximetry 100 99 98 Pulse Oximetry [Resting on Room Air] Pulse Oximetry [Resting with Oxygen] 11/01/17 04:00 11/01/17 04:59 11/01/17 08:15 Temperature 98.0 F Pulse Rate 99 H 106 H Respiratory Rate 18 18 16 Blood Pressure 135/69 Pulse Oximetry 99 95 Pulse Oximetry [Resting on Room Air] Pulse Oximetry [Resting with Oxygen] Intake & Output 10/31/17 11/01/17 11/01/17 18:59 06:59 18:59 Intake Total 1100 / 1100 1340 / 1340 Balance 1100 / 1100 1340 / 1340 Weight 38.8 kg Intake: IV 1100 / 1100 1100 / 1100 NS Inj 1,000 ML @ 60 mls/hr IV. 1000 / 1000 1000 / 1000 CONT .[id number] [facility] Rx#:[id number] Maxipime Inj 1,000 MG In NS Inj 100 / 100 100 / 100 100 ML @ 200 mls/hr IV.SIG Q12H [facility] Rx#:[id number] Oral 240 / 240 Other: # Voids 2 Date of Last Bowel Movement 10/29/17 10/31/17 - Constitutional mild distress - Routine Respiratory Exam Present: CTA bilaterally - Routine Cardiovascular Exam Present: RRR - Routine Abdominal Exam Present: soft - Routine Extremities Exam Comments: no pedal edema. - Routine Neurological Exam Present: alert, oriented X3 Results - Labs CBC & Chem 7: 10/30/17 10:35 10/30/17 10:35 Laboratory Results - last 24 hr 10/31/17 13:06 POC Glucose 107 Microbiology 10/30/17 12:40 Sputum - Expectorated Sputum Gram Stain - Final 10/30/17 12:40 Sputum - Expectorated Sputum Sputum Culture - Preliminary Immature growth - reincubate 10/30/17 16:10 Blood - Peripheral Aerobic Blood Culture - Preliminary No growth in 1 day 10/30/17 16:10 Blood - Peripheral Anaerobic Blood Culture - Preliminary No growth in 1 day 10/30/17 10:48 Blood - Peripheral Aerobic Blood Culture - Preliminary No growth in 1 day 10/30/17 10:48 Blood - Peripheral Anaerobic Blood Culture - Preliminary No growth in 1 day - Imaging Impressions Head MRI 10/31/17 00:00 CONCLUSION: No evidence of acute intracranial pathology. No masses are identified. No evidence of metastatic disease. Assessment and Plan - Plan A/P - metastatic small cell lung cancer; came from radiation oncology today because of persistent cough/ generalized weakness had a CTA of chest just a few days ago; negative for PE/ right base lung nodule and emphysema/ CXR today negative. empirically started on IV antibiotics- pending the cultures and clinical course- continue neb treatment/ antitussives as needed. consulted Oncology. MRI brain with no intracranial lesion. counselled on smoking cessation. -COPD; oxygen as needed to keep O2 sat > 90%- continue neb treatment/ will continue Symbicort- pulmonary consult appreciated. failed the walk test and needs home oxygen. -DVT prophylaxis with SCD's Discharge Planning: dc home today when home oxygen has been set up. f/u; pcp, pulmonary and oncology. d.w the patient, family and case management. E-Foarsce was reviewed.
--- NOTE | 2017-11-01 10:05 | P.DS ---
Date of admission: 10/30/17 13:37 Primary care physician: No Primary Care Physician Brief History from admission: patient is a 56 y/o female with history of small cell lung cancer - currently receiving prophylactic whole brain radiation, who was sent to ER from radiation oncology clinic because of persistent cough, chills and generalized weakness. she says that she's had persistent cough for two months and it seems that it's getting worse. cough is productive of yellowish sputum.she denies any fever but she says that she feels cold.she had her second radiation session today but after she was seen by she was advised to come to the hospital. she has an appointment with tomorrow. she says that she still smokes 2-3 cigarettes a day.she's complaining of on and off nausea and poor appetite. DS: Medications - Discharge Medications Prescriptions: albuterol sulfate [ProAir HFA] 2 puff INHALATION Q6H PRN #1 g PRN Reason: sob budesonide-formoterol [Symbicort] 2 puff INH BID #1 g ipratropium-albuterol 1 amp NEB Q6H PRN 30 Days ml PRN Reason: sob DS: Summary Hospital Course: - metastatic small cell lung cancer; came from radiation oncology today because of persistent cough/ generalized weakness had a CTA of chest just a few days ago; negative for PE/ right base lung nodule and emphysema/ CXR today negative. empirically started on IV antibiotics- pending the cultures and clinical course- continue neb treatment/ antitussives as needed. consulted Oncology. MRI brain with no intracranial lesion. counselled on smoking cessation. -COPD; oxygen as needed to keep O2 sat > 90%- continue neb treatment/ will continue Symbicort- pulmonary consult appreciated. failed the walk test and needs home oxygen. - Time Spent with Patient Total time spent providing and/or coordinating discharge services: Less than 30 minutes Exam Vital signs: Vital Signs 10/31/17 11:43 10/31/17 12:00 10/31/17 14:17 Temperature 98.2 F Pulse Rate 80 102 H Respiratory Rate 18 16 Blood Pressure 131/59 L Pulse Oximetry 95 96 Pulse Oximetry [Resting on Room Air] Pulse Oximetry [Resting with Oxygen] 10/31/17 14:30 10/31/17 15:55 10/31/17 16:52 Temperature 98.1 F Pulse Rate 90 Respiratory Rate 14 16 Blood Pressure 152/68 H Pulse Oximetry 98 Pulse Oximetry [Resting on Room Air] 87 L Pulse Oximetry [Resting with Oxygen] 98 10/31/17 20:00 10/31/17 20:13 11/01/17 00:00 Temperature 98.3 F Pulse Rate 89 100 H 105 H Respiratory Rate 16 12 20 Blood Pressure 129/62 123/65 Pulse Oximetry 100 99 98 Pulse Oximetry [Resting on Room Air] Pulse Oximetry [Resting with Oxygen] 11/01/17 04:00 11/01/17 04:59 11/01/17 08:15 Temperature 98.0 F Pulse Rate 99 H 106 H Respiratory Rate 18 18 16 Blood Pressure 135/69 Pulse Oximetry 99 95 Pulse Oximetry [Resting on Room Air] Pulse Oximetry [Resting with Oxygen] Intake & Output 10/31/17 11/01/17 11/01/17 18:59 06:59 18:59 Intake Total 1100 / 1100 1340 / 1340 Balance 1100 / 1100 1340 / 1340 Weight 38.8 kg Intake: IV 1100 / 1100 1100 / 1100 NS Inj 1,000 ML @ 60 mls/hr IV. 1000 / 1000 1000 / 1000 CONT .[id number] [facility] Rx#:[id number] Maxipime Inj 1,000 MG In NS Inj 100 / 100 100 / 100 100 ML @ 200 mls/hr IV.SIG Q12H [facility] Rx#:[id number] Oral 240 / 240 Other: # Voids 2 Date of Last Bowel Movement 10/29/17 10/31/17 - Constitutional mild distress - Routine Respiratory Exam Present: CTA bilaterally - Routine Cardiovascular Exam Present: RRR - Routine Abdominal Exam Present: soft - Routine Extremities Exam Comments: no pedal edema. - Routine Neurological Exam Present: alert, oriented X3 Results Procedures completed during hospitalization: none Labs on day of discharge: Labs from last 24 hours 10/31/17 13:06 POC Glucose 107 Preliminary micro results at discharge 10/30/17 12:40 Sputum Culture - Preliminary Sputum - Expectorated Sputum Immature growth - reincubate 10/30/17 16:10 Aerobic Blood Culture - Preliminary Blood - Peripheral No growth in 1 day Anaerobic Blood Culture - Preliminary No growth in 1 day 10/30/17 10:48 Aerobic Blood Culture - Preliminary Blood - Peripheral No growth in 1 day Anaerobic Blood Culture - Preliminary No growth in 1 day - Impressions ITS Impressions Chest X-Ray 10/30/17 10:15 CONCLUSION: No acute cardiopulmonary disease. Head MRI 10/31/17 00:00 CONCLUSION: No evidence of acute intracranial pathology. No masses are identified. No evidence of metastatic disease. Discharge Plan - Discharge Disposition Patient Disposition: 01 Discharge Home - Discharge Condition Condition: Fair - Physicians Team Primary Care Provider: Primary Care Carolina Valle Attending Provider: Ingrid Miller Other Providers: Florinda Lowe MD ; Livier Maier MD
[2017-11-01] MEDS: Sod Chloride 0.9% Inj 1,000 ML IV.CONT SCH (17:45)
[2017-11-01] MEDS: Zolpidem Tartrate 5 MG Tablet PO SCH (22:40)
[2017-11-02] MEDS: Venlafaxine XR 75 MG Capsule PO SCH (09:35)
[2017-11-02] MEDS: Sod Chloride 0.9% Inj 1,000 ML IV.CONT SCH (09:36)
[2017-11-02] MEDS: Budesonide-Formoterol 160/4.5 MCG 6 GM Inhaler INH SCH ×2 (09:36→20:45)
--- NOTE | 2017-11-02 10:18 | P.PNIM ---
Subjective Interval history: f/u; COPD in no distress. overall feeling fine. no new complaints. awaiting home oxygen. Physical Exam Vital signs: Vital Signs 11/01/17 10:28 11/01/17 11:34 11/01/17 13:05 Temperature 98 F Pulse Rate 91 H 105 H Respiratory Rate 14 14 16 Blood Pressure 130/79 Pulse Oximetry 11/01/17 17:45 11/01/17 20:00 11/01/17 20:13 Temperature 98.4 F Pulse Rate 105 H 98 H Respiratory Rate 16 18 18 Blood Pressure 116/58 L Pulse Oximetry 100 99 11/01/17 23:54 11/02/17 04:00 11/02/17 08:00 Temperature 97.9 F 98.2 F 97.9 F Pulse Rate 107 H 97 H 110 H Respiratory Rate 18 18 18 Blood Pressure 114/63 112/38 L 129/65 Pulse Oximetry 99 98 98 11/02/17 08:51 Temperature Pulse Rate 97 H Respiratory Rate 18 Blood Pressure Pulse Oximetry 98 Intake & Output 11/01/17 11/02/17 11/02/17 18:59 06:59 18:59 Intake Total 940 / 940 1100 / 1100 Balance 940 / 940 1100 / 1100 Weight 38.2 kg Intake: IV 100 / 100 1100 / 1100 NS Inj 1,000 ML @ 60 mls/hr IV. 1000 / 1000 CONT .[id number] [facility] Rx#:[id number] Maxipime Inj 1,000 MG In NS Inj 100 / 100 100 / 100 100 ML @ 200 mls/hr IV.SIG Q12H [facility] Rx#:[id number] Oral 840 / 840 Other: # Voids 4 2 Date of Last Bowel Movement 11/01/17 11/01/17 11/01/17 # Bowel Movements 1 - Constitutional mild distress - Routine Respiratory Exam Present: CTA bilaterally - Routine Cardiovascular Exam Present: RRR - Routine Abdominal Exam Present: soft - Routine Extremities Exam Comments: no pedal edema. - Routine Neurological Exam Present: alert, oriented X3 Results - Labs CBC & Chem 7: 10/30/17 10:35 10/30/17 10:35 Microbiology 10/30/17 12:40 Sputum - Expectorated Sputum Gram Stain - Final 10/30/17 12:40 Sputum - Expectorated Sputum Sputum Culture - Final Heavy growth normal respiratory aydin 10/30/17 16:10 Blood - Peripheral Aerobic Blood Culture - Preliminary No growth in 2 days 10/30/17 16:10 Blood - Peripheral Anaerobic Blood Culture - Preliminary No growth in 2 days 10/30/17 10:48 Blood - Peripheral Aerobic Blood Culture - Preliminary No growth in 2 days 10/30/17 10:48 Blood - Peripheral Anaerobic Blood Culture - Preliminary No growth in 2 days - Procedures none Assessment and Plan - Plan A/P - metastatic small cell lung cancer; came from radiation oncology today because of persistent cough/ generalized weakness had a CTA of chest just a few days ago; negative for PE/ right base lung nodule and emphysema/ CXR negative. empirically started on IV antibiotics- cultures negative; will dc antibiotics - continue neb treatment/ antitussives as needed. consulted Oncology. MRI brain with no intracranial lesion. counselled on smoking cessation. -COPD; oxygen as needed to keep O2 sat > 90%- continue neb treatment/ will continue Symbicort- pulmonary consult appreciated. failed the walk test and needs home oxygen. -DVT prophylaxis with SCD's Discharge Planning: dc home when home oxygen has been set up. f/u; pcp, pulmonary and oncology. d.w the patient, family and case management. previously d/w . Maria R was reviewed.
[2017-11-02] MEDS: Zolpidem Tartrate 5 MG Tablet PO SCH (20:43)
[2017-11-02] MEDS: LORazepam 0.5 MG Tablet PO PRN (20:45)
[2017-11-03] MEDS: Sod Chloride 0.9% Inj 1,000 ML IV.CONT SCH (03:10)
[2017-11-03] MEDS: Venlafaxine XR 75 MG Capsule PO SCH (08:22)
[2017-11-03] MEDS: Budesonide-Formoterol 160/4.5 MCG 6 GM Inhaler INH SCH ×2 (08:24→22:27)
--- NOTE | 2017-11-03 11:21 | P.PNIM ---
Subjective Interval history: in no distress. has occasional cough . awaiting home oxygen. Physical Exam Vital signs: Vital Signs 11/02/17 12:00 11/02/17 16:00 11/02/17 21:04 Temperature 98.8 F 98.5 F Pulse Rate 113 H 100 H 90 Respiratory Rate 18 18 16 Blood Pressure 112/64 117/59 L Pulse Oximetry 95 98 94 L 11/02/17 21:44 11/03/17 00:40 11/03/17 05:00 Temperature 97.8 F 97.7 F 98 F Pulse Rate 88 80 76 Respiratory Rate 18 17 18 Blood Pressure 107/53 L 110/62 115/60 Pulse Oximetry 99 99 97 11/03/17 08:00 11/03/17 08:49 Temperature 98.2 F Pulse Rate 98 H 100 H Respiratory Rate 16 14 Blood Pressure 115/58 L Pulse Oximetry 96 94 L Intake & Output 11/02/17 11/03/17 11/03/17 18:59 06:59 18:59 Intake Total 480 / 480 950 / 950 Balance 480 / 480 950 / 950 Weight 38.5 kg Intake: Oral 480 / 480 950 / 950 Other: # Voids 5 1 Date of Last Bowel Movement 11/01/17 11/02/17 11/02/17 # Bowel Movements 1 4 - Constitutional mild distress - Routine Respiratory Exam Present: CTA bilaterally - Routine Cardiovascular Exam Present: RRR - Routine Abdominal Exam Present: soft - Routine Extremities Exam Comments: no pedal edema. - Routine Neurological Exam Present: alert, oriented X3 Results - Labs CBC & Chem 7: 10/30/17 10:35 10/30/17 10:35 Microbiology 10/30/17 16:10 Blood - Peripheral Aerobic Blood Culture - Preliminary No growth in 4 days 10/30/17 16:10 Blood - Peripheral Anaerobic Blood Culture - Preliminary No growth in 4 days 10/30/17 10:48 Blood - Peripheral Aerobic Blood Culture - Preliminary No growth in 4 days 10/30/17 10:48 Blood - Peripheral Anaerobic Blood Culture - Preliminary No growth in 4 days - Procedures none Assessment and Plan - Plan A/P - metastatic small cell lung cancer; came from radiation oncology today because of persistent cough/ generalized weakness had a CTA of chest just a few days ago; negative for PE/ right base lung nodule and emphysema/ CXR negative. empirically started on IV antibiotics- cultures negative; will dc antibiotics - continue neb treatment/ antitussives as needed. consulted Oncology. MRI brain with no intracranial lesion. counselled on smoking cessation. -COPD; oxygen as needed to keep O2 sat > 90%- continue neb treatment/ will continue Symbicort- pulmonary consult appreciated. failed the walk test and needs home oxygen. -DVT prophylaxis with SCD's Discharge Planning: dc home when home oxygen has been set up. f/u; pcp, pulmonary and oncology. d.w the patient, family and case management. previously d/w . Maria R was reviewed.
[2017-11-03] MEDS: LORazepam 0.5 MG Tablet PO PRN ×2 (14:56→22:27)
[2017-11-03] MEDS: Zolpidem Tartrate 5 MG Tablet PO SCH (22:26)
[2017-11-04] MEDS: Budesonide-Formoterol 160/4.5 MCG 6 GM Inhaler INH SCH ×2 (09:16→22:01)
[2017-11-04] MEDS: Venlafaxine XR 75 MG Capsule PO SCH (09:16)
--- NOTE | 2017-11-04 11:38 | P.PNIM ---
Subjective Interval history: in no distress. no new complaints. awaiting home oxygen. Physical Exam Vital signs: Vital Signs 11/03/17 12:00 11/03/17 14:25 11/03/17 16:00 Temperature 98.9 F 99.1 F Pulse Rate 105 H 101 H 104 H Respiratory Rate 16 12 16 Blood Pressure 109/57 L 102/58 L Pulse Oximetry 99 99 99 11/03/17 20:00 11/03/17 21:41 11/04/17 00:00 Temperature 98.6 F 98 F Pulse Rate 100 H 103 H 80 Respiratory Rate 17 15 18 Blood Pressure 108/58 L 105/62 Pulse Oximetry 98 98 98 11/04/17 04:00 11/04/17 08:00 11/04/17 09:39 Temperature 98.7 F 98.5 F Pulse Rate 100 H 103 H 103 H Respiratory Rate 17 18 16 Blood Pressure 117/60 113/62 Pulse Oximetry 95 95 94 L Intake & Output 11/03/17 11/04/17 11/04/17 18:59 06:59 18:59 Intake Total 980 / 980 1175 / 1175 Balance 980 / 980 1175 / 1175 Weight 38.734 kg Intake: Oral 980 / 980 1175 / 1175 Other: # Voids 3 1 Date of Last Bowel Movement 11/02/17 11/02/17 # Bowel Movements 1 - Constitutional mild distress - Routine Respiratory Exam Present: diminished air movement (in bases.) - Routine Cardiovascular Exam Present: RRR - Routine Abdominal Exam Present: soft - Routine Extremities Exam Comments: no pedal edema. - Routine Neurological Exam Present: alert, oriented X3 Results - Labs CBC & Chem 7: 10/30/17 10:35 10/30/17 10:35 Microbiology 10/30/17 16:10 Blood - Peripheral Aerobic Blood Culture - Final No growth in 5 days 10/30/17 16:10 Blood - Peripheral Anaerobic Blood Culture - Final No growth in 5 days 10/30/17 10:48 Blood - Peripheral Aerobic Blood Culture - Final No growth in 5 days 10/30/17 10:48 Blood - Peripheral Anaerobic Blood Culture - Final No growth in 5 days - Procedures none Assessment and Plan - Plan A/P - metastatic small cell lung cancer; came from radiation oncology because of persistent cough/ generalized weakness had a CTA of chest just a few days ago; negative for PE/ right base lung nodule and emphysema/ CXR negative. initially empirically started on IV antibiotics which were later discontinued ; cultures negative- continue neb treatment/ antitussives as needed. consulted Oncology. MRI brain with no intracranial lesion; f/u as outpatient. counselled on smoking cessation. -COPD; oxygen as needed to keep O2 sat > 90%- continue neb treatment/ will continue Symbicort- pulmonary consult appreciated. failed the walk test and needs home oxygen. -DVT prophylaxis with SCD's Discharge Planning: dc home when home oxygen has been set up. f/u; pcp, pulmonary and oncology. d.w the patient, family and case management. previously d/w . Maria R was reviewed.
[2017-11-04] MEDS: LORazepam 0.5 MG Tablet PO PRN ×2 (15:38→22:01)
[2017-11-04] MEDS: Zolpidem Tartrate 5 MG Tablet PO SCH (22:01)
[2017-11-05] MEDS: Venlafaxine XR 75 MG Capsule PO SCH (08:15)
[2017-11-05] MEDS: Budesonide-Formoterol 160/4.5 MCG 6 GM Inhaler INH SCH (08:16)
[2017-11-05] MEDS: LORazepam 0.5 MG Tablet PO PRN (08:20)
[2017-11-05 08:48] VITALS: RESP 16
[2017-11-05 13:06] VITALS: BP 119/56; PULSE 109; TEMP 98.2; O2SAT 96
--- NOTE | 2017-11-05 17:41 | P.PN ---
Subjective Interval history: Patient seen and examined. She denies any new complaints. States her breathing has returned to baseline. She denies any chest pain. Denies any nausea or vomiting or abdominal pain. Physical Exam Vital signs: Vital Signs 11/04/17 20:00 11/04/17 21:15 11/05/17 00:00 Temperature 98.2 F 97.9 F Pulse Rate 100 H 100 H 105 H Respiratory Rate 18 20 18 Blood Pressure 105/55 L 114/56 L Pulse Oximetry 98 97 11/05/17 04:00 11/05/17 08:00 11/05/17 11:11 Temperature 97.6 F 98.5 F Pulse Rate 100 H 115 H Respiratory Rate 18 16 Blood Pressure 116/57 L 122/60 Pulse Oximetry 99 94 L 94 L 11/05/17 12:00 Temperature 98.2 F Pulse Rate 109 H Respiratory Rate 16 Blood Pressure 119/56 L Pulse Oximetry 96 Intake & Output 11/04/17 11/05/17 11/05/17 18:59 06:59 18:59 Intake Total 600 / 600 Balance 600 / 600 Weight 38.7 kg Intake: Oral 600 / 600 Other: # Voids 3 2 Date of Last Bowel Movement 11/04/17 11/04/17 # Bowel Movements 1 Narrative: GENERAL: Thin chronically ill-appearing female patient, not in any acute distress. Awake alert. SKIN: Warm and dry. HEAD: Atraumatic. Normocephalic. EYES: Pupils equal and round. No scleral icterus. No injection or drainage. ENT: No nasal bleeding or discharge. Mucous membranes pink and moist. NECK: Trachea midline. CARDIOVASCULAR: Regular rate and rhythm. RESPIRATORY: No accessory muscle use. Diminished. Clear to auscultation. Breath sounds equal bilaterally. No wheezing or rhonchi. GASTROINTESTINAL: Abdomen soft, non-tender, nondistended. Hepatic and splenic margins not palpable. MUSCULOSKELETAL: Extremities without clubbing, cyanosis, or edema. No obvious deformities. NEUROLOGICAL: Awake and alert. No obvious cranial nerve deficits. Motor grossly within normal limits. Normal speech. PSYCHIATRIC: Appropriate mood and affect; insight and judgment normal. Results - Labs CBC & Chem 7: 10/30/17 10:35 10/30/17 10:35 - Procedures none Assessment and Plan - Plan A/P Discharged 11/01. Clinically stable. No changed. Cleared for discharge/ awaiting home oxygen - metastatic small cell lung cancer; came from radiation oncology because of persistent cough/ generalized weakness had a CTA of chest just a few days ago; negative for PE/ right base lung nodule and emphysema/ CXR negative. initially empirically started on IV antibiotics which were later discontinued ; cultures negative- continue neb treatment/ antitussives as needed. consulted Oncology. MRI brain with no intracranial lesion; f/u as outpatient. counselled on smoking cessation. -COPD; oxygen as needed to keep O2 sat > 90%- continue neb treatment/ will continue Symbicort- pulmonary consult appreciated. failed the walk test and needs home oxygen. Awaiting oxygen to be delivered to hospital today then will be discharged. -DVT prophylaxis with SCD's Discussed Condition With: patient, nursing staff, Dr. Rodriguez
== END 2017-11-05 15:02 | disposition home or self-care (01) ==
LOC: NEPC 10:06 → INTOOBSV 13:37 → NEDA 13:37 → N05 17:18
PROVIDERS: ADMIT Family Medicine; ATTEND Family Medicine
DX: D61.818 Other pancytopenia; J44.1 Chronic obstructive pulmonary disease with (acute) exacerbation; T45.1X5A Adverse effect of antineoplastic and immunosuppressive drugs, initial encounter; E87.1 Hypo-osmolality and hyponatremia; C34.81 Malignant neoplasm of overlapping sites of right bronchus and lung; R51 Headache; Z90.49 Acquired absence of other specified parts of digestive tract; F17.210 Nicotine dependence, cigarettes, uncomplicated; Z98.891 History of uterine scar from previous surgery; E87.2 Acidosis

== ENCOUNTER 2017-11-28 15:52 | Inpatient (IN) ==
[2017-11-28] MEDS ORDERED: Morphine Inj 4 MG/ML Vial IV.PUSH ONE ×2 (17:04→20:33)
--- NOTE | 2017-11-28 17:09 | ED ---
HPI General Chief complaint: Back Pain/Injury Stated complaint: Back Pain Time Seen by Provider: 11/28/17 16:45 History of Present Illness HPI narrative: 56-year-old female with history of metastatic lung cancer, completed radiation therapy 10 days ago, COPD, presents via EMS for evaluation. She reports that 2 weeks ago she fell. She has had lower back pain since then. She was seen here at that time and had CT and MRI of the lower back. She was discharged home with pain medication which she has completed. The pain is persisted. She reports over the past week she has been essentially bedbound whereas she is in the past able to ambulate without assistance. She reports for the past 3 days she has been having some episodes of urinary incontinence as well as dysuria. She reports some new perianal paresthesias. She reports that the lower back pain radiates down both legs. She also reports chills and myalgias for the past 3-4 days. She reports a chronic cough secondary to COPD but denies any new cough. Symptoms are moderate. No other complaints at this time. She does not have a primary care physician. Her oncologist is Dr. Lowe. Related Data Home Medications Medication Instructions Recorded Confirmed venlafaxine 75 mg PO DAILY 10/30/17 11/28/17 zolpidem [Ambien] 5 mg PO HS 10/30/17 11/28/17 Previous Rx's Medication Instructions Recorded albuterol sulfate [ProAir HFA] 2 puff INHALATION Q6H PRN #1 g 11/01/17 budesonide-formoterol [Symbicort] 2 puff INH BID #1 g 11/01/17 hydrocodone-acetaminophen [[place]] 1 tab PO Q6-8H PRN #10 tab 11/18/17 methocarbamol [Robaxin] 500 mg PO Q6H PRN #10 tab 11/18/17 Allergies Allergy/AdvReac Type Severity Reaction Status Date / Time No Known Allergies Allergy Verified 10/16/17 18:52 Review of Systems ROS: all other systems reviewed are negative FOR[facility]LY [facility], [facility] Medical History Medical History Port-A-Cath in place (Acute) COPD (chronic obstructive pulmonary disease) (Acute) Lung cancer (Acute) Surgical History Surgical History Previous section (Acute) S/P appendectomy (Acute) Social History Social History Substance History: No History of Abuse Second Hand Smoke Exposure: Yes Smoking Status: Current every day smoker Tobacco Type: Cigarettes How Often Do You Have a Drink Containing Alcohol: Never Recent Travel in [facility] within the Last 8 Weeks: No Recent Out of Country Travel within the Last 8 Weeks: No Immunization History Tetanus Immunization: <5 Years Exam Narrative Exam Narrative: Examined in the presence of a female nurse. GENERAL: Chronically ill-appearing female who is in no acute distress. Temperature is 99.8. SKIN: Warm and dry. HEAD: Atraumatic. Normocephalic. EYES: Pupils equal and round. No scleral icterus. No injection or drainage. ENT: No nasal bleeding or discharge. Mucous membranes pink and moist. NECK: Trachea midline. No JVD. CARDIOVASCULAR: Regular rate and rhythm. No murmur appreciated. RESPIRATORY: No accessory muscle use. Clear to auscultation. Breath sounds equal bilaterally. GASTROINTESTINAL: Abdomen soft, non-tender, nondistended. Hepatic and splenic margins not palpable. MUSCULOSKELETAL: No obvious deformities. There is tenderness to palpation to the lower back and paravertebral musculature. 4 out of 5 muscle strength in the lower extremities bilaterally. NEUROLOGICAL: Awake and alert. No obvious cranial nerve deficits. Motor grossly within normal limits. Normal speech. Subjective decreased sensation to the perianal region. Normal rectal tone. Course Initial Documented Vital Signs Temperature 99.8 F H 11/28/17 16:44 Pulse Rate 89 11/28/17 16:44 Respiratory Rate 17 11/28/17 16:44 Blood Pressure 108/73 11/28/17 16:44 Pulse Oximetry 100 11/28/17 16:44 Last Documented Vital Signs Temperature 99.8 F H 11/28/17 16:44 Pulse Rate 80 11/28/17 20:53 Respiratory Rate 16 11/28/17 20:53 Blood Pressure 129/66 11/28/17 20:53 Pulse Oximetry 100 11/28/17 20:53 Medical Decision Making [place] Attestation [place] supervised visit: Yes Attestation: I, Dr. Diana, have reviewed the advance practice practitioner's documentation and am in agreement, met with the patient face to face, made the diagnosis, and the medical decision making was done by me. *My assessment and Findings: Patient is a 56-year-old female with history of metastatic cancer, last chemotherapy was 3 months ago with last radiation approximately 1 week ago, who presents with complaint of persistent low back pain after a fall 1-2 weeks ago. She was seen here at that time where she had a CT and MRI which were acutely unremarkable. She comes in today with persistent pain stating she cannot walk secondary to the pain despite the narcotics she was previously given and is additionally having a productive cough with urinary incontinence and paresthesias. On exam she denies numbness of the lower extremities or weakness. Per the PA she had normal rectal tone. MRIs were repeated which at this time showed a T6 fracture and sacral fractures. X-ray does show an effusion in the left lower lobe which is new and is thus concerning for development of pneumonia. She has been given antibiotics for presumed pneumonia. She has been admitted to Dr. Rubin, hospitalist on-call, for intractable pain and possible early pneumonia. [facility] Narrative Medical decision making narrative: Patient was placed on ECG monitoring pulse oximetry. Lab work, pelvis x-ray, chest x-ray, catheterized urine specimen obtained. Given her persistent lower back pain as well as her new symptoms of urinary incontinence and perirectal paresthesias, MRI of the thoracic and lumbar spine were ordered. Reassuringly she had a negative MRI of the lumbar spine recently. The patient was given morphine. Lab work is been reviewed. Urinalysis reveals no evidence of infectious process. Chest x-ray is concerning for left lower lobe pneumonia. The patient was given cefepime and azithromycin. At the end of my shift the patient was signed out pending MRI imaging, likely will require admission. Medical Screen Exam Complete: Yes Emergency Medical Condition: Yes Differential Diagnosis Differential Diagnosis: UTI, failure to thrive, sepsis, cauda equina, herniated nucleus pulposis, conus medullaris Lab Data Result diagrams: 11/28/17 17:45 11/28/17 17:45 Lab Results 11/28/17 11/28/17 11/28/17 Range/Units 17:45 17:45 17:45 WBC 9.2 (4.0-11.0) th/mm3 RBC 3.05 L (4.00-5.30) mil/mm3 Hgb 11.1 L (11.6-15.3) gm/dL Hct 32.7 L (35.0-46.0) % MCV 107.4 H (80.0-100.0) fL MCH 36.3 H (27.0-34.0) pg MCHC 33.8 (32.0-36.0) % RDW 13.8 (11.6-17.2) % Plt Count 147 L D (150-450) th/mm3 MPV 8.3 (7.0-11.0) fL Neut % (Auto) 97.2 H (16.0-70.0) % Lymph % (Auto) 1.0 L (9.0-44.0) % [place] % (Auto) 1.5 (0.0-8.0) % Eos % (Auto) 0.0 (0.0-4.0) % Baso % (Auto) 0.3 (0.0-2.0) % Neut # (Auto) 8.9 H (1.8-7.7) th/mm3 Lymph # (Auto) 0.1 L (1.0-4.8) th/mm3 [place] # (Auto) 0.1 (0.0-0.9) th/mm3 Eos # (Auto) 0.0 (0.0-0.4) th/mm3 Baso # (Auto) 0.0 (0.0-0.2) th/mm3 WBC Differential . Differential Comment Auto diff final Sodium 134 L (136-145) meq/L Potassium 3.9 (3.5-5.1) meq/L Chloride 98 (98-107) meq/L Carbon Dioxide 29.0 (21.0-32.0) meq/L Anion Gap 7 (5-15) meq/L BUN 15 (7-18) mg/dL Creatinine 0.43 L (0.50-1.00) mg/dL Estimated GFR Greater than 89 (>89) mL/min Random Glucose 127 H (74-106) mg/dL Lactic Acid (0.4-2.0) mmol/L Calcium 9.0 (8.5-10.1) mg/dL Total Bilirubin 0.5 (0.2-1.0) mg/dL AST 24 (15-37) U/L ALT 41 (10-53) U/L Alkaline Phosphatase 135 H (45-117) U/L Total Protein 6.3 L (6.4-8.2) g/dL Albumin 3.0 L (3.4-5.0) g/dL Urine Color Yellow (Yellw/Straw) Urine Clarity Hazy H (Clear) Urine pH 6.0 (5.0-8.5) Ur Specific [place] 1.017 (1.002-1.035) Urine Protein Negative (Neg-Trace) mg/dL Urine Glucose (UA) 50 (Negative) mg/dL Urine Ketones Negative (Negative) mg/dL Urine Occult Blood Negative (Negative) Urine Nitrate Negative (Negative) Urine Bilirubin Negative (Negative) Urine Urobilinogen Less than 2 (Less than 2) mg/dL Ur Leukocyte Esterase Trace H (Negative) Urine RBC Less than 1 (0-3) /hpf Urine WBC 3 (0-5) /hpf Ur Squamous Epith Cells 1 (0-5) /hpf Urine Mucus Few H (Occasional) /lpf Micro UA Comment Cath-culture not ind Ur Microscopic Review Not Reportable Urine Culture Comments Cath-cult not ind 11/28/17 Range/Units 17:46 WBC (4.0-11.0) th/mm3 RBC (4.00-5.30) mil/mm3 Hgb (11.6-15.3) gm/dL Hct (35.0-46.0) % MCV (80.0-100.0) fL MCH (27.0-34.0) pg MCHC (32.0-36.0) % RDW (11.6-17.2) % Plt Count (150-450) th/mm3 MPV (7.0-11.0) fL Neut % (Auto) (16.0-70.0) % Lymph % (Auto) (9.0-44.0) % [place] % (Auto) (0.0-8.0) % Eos % (Auto) (0.0-4.0) % Baso % (Auto) (0.0-2.0) % Neut # (Auto) (1.8-7.7) th/mm3 Lymph # (Auto) (1.0-4.8) th/mm3 [place] # (Auto) (0.0-0.9) th/mm3 Eos # (Auto) (0.0-0.4) th/mm3 Baso # (Auto) (0.0-0.2) th/mm3 WBC Differential Differential Comment Sodium (136-145) meq/L Potassium (3.5-5.1) meq/L Chloride (98-107) meq/L Carbon Dioxide (21.0-32.0) meq/L Anion Gap (5-15) meq/L BUN (7-18) mg/dL Creatinine (0.50-1.00) mg/dL Estimated GFR (>89) mL/min Random Glucose (74-106) mg/dL Lactic Acid 1.5 (0.4-2.0) mmol/L Calcium (8.5-10.1) mg/dL Total Bilirubin (0.2-1.0) mg/dL AST (15-37) U/L ALT (10-53) U/L Alkaline Phosphatase (45-117) U/L Total Protein (6.4-8.2) g/dL Albumin (3.4-5.0) g/dL Urine Color (Yellw/Straw) Urine Clarity (Clear) Urine pH (5.0-8.5) Ur Specific [place] (1.002-1.035) Urine Protein (Neg-Trace) mg/dL Urine Glucose (UA) (Negative) mg/dL Urine Ketones (Negative) mg/dL Urine Occult Blood (Negative) Urine Nitrate (Negative) Urine Bilirubin (Negative) Urine Urobilinogen (Less than 2) mg/dL Ur Leukocyte Esterase (Negative) Urine RBC (0-3) /hpf Urine WBC (0-5) /hpf Ur Squamous Epith Cells (0-5) /hpf Urine Mucus (Occasional) /lpf Micro UA Comment Ur Microscopic Review Urine Culture Comments Imaging Data Radiologist's impression: Lumbar Spine MRI 11/28/17 17:00 CONCLUSION: 1. Small central to right paracentral disc protrusion with an annular fissure at L5/S1 focally contacting the transiting right S1 nerve root is unchanged. 2. Other levels are within normal limits. 3. Mild lumbar scoliosis again noted. 4. An acute or subacute fracture is suspected of the sacrum near S2/S3 and extending into the ala, especially on the right. On the comparison PET study, no definite fracture at that time and also no evidence of a hypermetabolic lesion at that time. Thoracic Spine MRI 11/28/17 17:00 CONCLUSION: 1. There is an acute to subacute, mild compression fracture of T6 as described. This may be osteoporotic or posttraumatic. No evidence of an underlying bone lesion. No fracture-associated foraminal or spinal stenosis. 2. The rest of the thoracic spine is within normal limits. 3. Miniscule right and small left pleural effusions, new. There appears to be some patchy consolidation of both lung bases as well. Chest X-Ray 11/28/17 17:02 CONCLUSION: 1. New mild blunting of the left lateral costophrenic angle most consistent with a small effusion. 2. Minimal streaky opacity at the left lung base most characteristic of atelectasis. There is no definite consolidation. Pelvis X-Ray 11/28/17 17:02 CONCLUSION: Negative trauma study. Discharge Plan Discharge Disposition Patient Disposition: 30 Still Patient Discharge Condition Condition: Stable Discharge Details Diagnosis: Intractable back pain, Spinal fracture Physicians Team ED Provider: Laury Diana ED Midlevel Provider: Kyle Hays Primary Care Provider: Primary Care Carolina Valle Attending Provider: Jacque Rubin Rxs /Orders / Referrals /Forms Prescriptions: No Action methocarbamol [Robaxin] 500 mg tablet 500 mg PO Q6H PRN (Reason: muscle spasm) Qty: 10 RF: 0 hydrocodone-acetaminophen [[place]] 5-325 mg tablet 1 tab PO Q6-8H PRN (Reason: Acute pain) Qty: 10 RF: 0 zolpidem [Ambien] 5 mg Tablet 5 mg PO HS RF: 0 venlafaxine 75 mg Capsule,Extended Release 24hr 75 mg PO DAILY RF: 0 budesonide-formoterol [Symbicort] 160-4.5 mcg/actuation Hfa Aerosol Inhaler 2 puff INH BID Qty: 1 RF: 0 albuterol sulfate [ProAir HFA] 90 mcg/actuation Hfa Aerosol Inhaler 2 puff INHALATION Q6H PRN (Reason: sob) Qty: 1 RF: 0 Discharge Interventions Interventions: Vital Signs Last Done: 11/28/17 20:53 Status ED Status: Admitted Observation Patient
--- NOTE | 2017-11-28 17:27 | XR ---
EXAM DATE: 11/28/2017 5:02 PM EDT AGE/SEX: 56 years / Female INDICATIONS: Trauma due to fall. CLINICAL DATA: This is the patient's initial encounter. Patient reports that signs and symptoms have been present for 2 weeks and indicates a pain score of 10/10. MEDICAL/SURGICAL HISTORY: . Carcinoma, lung. Chronic obstructive pulmonary disease. . Appen dectomy. Tubal ligation. section. Infusaport. COMPARISON: No prior exams available for comparison. FINDINGS: Examination of the pelvis demonstrates no evidence of fracture or dislocation. Bony mineralization i s normal. There is no widening of the sacroiliac joints. No foreign body is identified. CONCLUSION: Negative trauma study. Electronically signed by: Bulmaro Samaniego MD 11/28/2017 5:26 PM EDT
--- NOTE | 2017-11-28 17:27 | XR ---
EXAM DATE: 11/28/2017 5:02 PM EDT AGE/SEX: 56 years / Female INDICATIONS: Fever. CLINICAL DATA: This is the patient's initial encounter. Patient reports that signs and symptoms have been present for 2 weeks and indicates a pain score of 10/10. MEDICAL/SURGICAL HISTORY: . Carcinoma, lung. Chronic obstructive pulmonary disease. . Append ectomy. Tubal ligation. section. Infusaport. COMPARISON: [facility] [place], CHEST 2V AP&LAT, 10/30/2017. . FINDINGS: A single AP view of the chest demonstrates the lungs to be symmetrically aerated without evidence of mass or infiltrate. There is new mild blunting of left costophrenic angle. There is minimal streaky o pacity at the left lung base. The cardiomediastinal contours are unremarkable. Osseous structures ar e intact. The right-sided implantable port catheter remains in place. CONCLUSION: 1. New mild blunting of the left lateral costophrenic angle most consistent with a small effusion. 2. Minimal streaky opacity at the left lung base most characteristic of atelectasis. There is no def inite consolidation. Electronically signed by: Bulmaro Samaniego MD 11/28/2017 5:25 PM EDT
[2017-11-28] MEDS ORDERED: Sodium Chlor 0.9% Inj 500 ML IV.SIG SCH (18:00)
[2017-11-28 18:27] LABS: Baso % (Auto) 0.3 % (0.0-2.0); Hematocrit 32.7 % (35.0-46.0); Hemoglobin 11.1 gm/dL (11.6-15.3); Lymph # (Auto) 0.1 th/mm3 (1.0-4.8); Mean Corpuscular HGB Conc 33.8 % (32.0-36.0); Mean Corpuscular Hemoglobin 36.3 pg (27.0-34.0); Mean Corpuscular Volume 107.4 fL (80.0-100.0); Mean Platelet Volume 8.3 fL (7.0-11.0); Mono # (Auto) 0.1 th/mm3 (0.0-0.9); Mono % (Auto) 1.5 % (0.0-8.0); Neut # (Auto) 8.9 th/mm3 (1.8-7.7); Neut % (Auto) 97.2 % (16.0-70.0); Platelet Count 147 th/mm3 (150-450); Red Blood Count 3.05 mil/mm3 (4.00-5.30); Red Cell Distribution Width 13.8 % (11.6-17.2); White Blood Count 9.2 th/mm3 (4.0-11.0)
[2017-11-28 18:30] LABS: Bilirubin,Urine Negative (Negative); Clarity,Urine Hazy (Clear); Color,Urine Yellow (Yellw/Straw); Glucose,Urine (UA) 50 mg/dL (Negative); Leukocyte Esterase,Urine Trace (Negative); Mucus,Urine Few /lpf (Occasional); Nitrite,Urine Negative (Negative); Specific Gravity,Urine 1.017 (1.002-1.035); Squamous Epithelial Cell,Urine 1 /hpf (0-5)
[2017-11-28 18:39] LABS: Anion Gap 7 meq/L (5-15); Aspartate Aminotransferase 24 U/L (15-37); Blood Urea Nitrogen 15 mg/dL (7-18); Chloride 98 meq/L (98-107); Glomerular Filtration Rate Greater Than 89 mL/min (>89); Glucose,Random 127 mg/dL (74-106); Potassium 3.9 meq/L (3.5-5.1); Sodium 134 meq/L (136-145)
[2017-11-28 18:42] LABS: Alanine Aminotransferase 41 U/L (10-53); Alkaline Phosphatase 135 U/L (45-117); Total Protein 6.3 g/dL (6.4-8.2)
[2017-11-28] MEDS ORDERED: Azithromycin Inj 500 MG in Sodium Chlor 0.9% Inj 250 ML IV.SIG STA (18:59)
[2017-11-28] MEDS ORDERED: Gadobutrol PF 2 MMOL/2 ML Vial (for RAD) IV.SIG ONE (19:25)
--- NOTE | 2017-11-28 20:17 | MR ---
EXAM DATE: 11/28/2017 5:00 PM EDT AGE/SEX: 56 years / Female INDICATIONS: Pain. Lower back pain for two weeks. CLINICAL DATA: This is the patient's subsequent encounter. Patient reports that signs and symptoms h ave been present for 1 day and indicates a pain score of 7/10. MEDICAL/SURGICAL HISTORY: Carcinoma, lung. Chronic obstructive pulmonary disease. Appendectomy . Tubal ligation. section. COMPARISON: [facility], PET/CT TUMOR, 10/09/2017. C, MR LUMBAR SPINE W & W/O CONTRAST, 11/18/2017. . TECHNIQUE: Multiplanar, multisequence MRI examination of the lumbar spine was performed without and with 3.9 ml Gadavist (gadobutrol) contrast as a cumulative dose for multiple exams. FINDINGS: The most caudal-appearing lumbar vertebra is numbered as L5. Vertebra: Homogeneous signal. No fracture or subluxation. Mild dextroconvex curvature of the lumbar spine again noted. Conus: Normal level and configuration. T12-L1: The thecal sac has a normal diameter. No evidence of disc bulge or protrusion. The neural foramina are patent bilaterally. L1-L2: The thecal sac has a normal diameter. No evidence of disc bulge or protrusion. The neural foramina are patent bilaterally. L2-L3: The thecal sac has a normal diameter. No evidence of disc bulge or protrusion. The neural foramina are patent bilaterally. L3-L4: The thecal sac has a normal diameter. No evidence of disc bulge or protrusion. The neural foramina are patent bilaterally. L4-L5: The thecal sac has a normal diameter. No evidence of disc bulge or protrusion. The neural foramina are patent bilaterally. L5-S1: The disc is desiccated and has mild loss of height. A small central to right paracentral dis c protrusion with an annular fissure is again noted and not significantly changed. The right S1 nerve root is focally contacted within the subarticular recess but not compressed appearing. Conjoined but otherwise acutely normal left S1 nerve root. There is mild, reactive appearing enhancement of the ar ea of annular fissuring, similar to before. Only partly seen on this study is an apparent fracture of the sacrum near the S2/S3 level and extendi ng into the left, right more so the left. CONCLUSION: 1. Small central to right paracentral disc protrusion with an annular fissure at L5/S1 focally conta cting the transiting right S1 nerve root is unchanged. 2. Other levels are within normal limits. 3. Mild lumbar scoliosis again noted. 4. An acute or subacute fracture is suspected of the sacrum near S2/S3 and extending into the ala, e specially on the right. On the comparison PET study, no definite fracture at that time and also no ev idence of a hypermetabolic lesion at that time. Electronically signed by: Spenser Herring MD 11/28/2017 8:16 PM EDT
--- NOTE | 2017-11-28 20:31 | MR ---
EXAM DATE: 11/28/2017 5:00 PM EDT AGE/SEX: 56 years / Female INDICATIONS: Pain. Lower back pain for two weeks. CLINICAL DATA: This is the patient's initial encounter. Patient reports that signs and symptoms have been present for 1 day and indicates a pain score of 8/10. MEDICAL/SURGICAL HISTORY: Carcinoma, lung. Chronic obstructive pulmonary disease. Appendectomy . Tubal ligation. section. COMPARISON: [facility], [facility] PULMONARY W CONTRAST W 3D, 10/16/2017. [facility], PET/CT TUMOR, 10/09/2017. . TECHNIQUE: Multiplanar, multisequence MRI of the thoracic spine was performed without and with 3.9 m l Gadavist (gadobutrol) contrast as a cumulative dose for multiple exams. FINDINGS: Mild superior endplate compression fracture seen of T6, new from the prior relevant studies listed ab ove. No significant retropulsion demonstrated. There is no fracture-associated foraminal or spinal st enosis. No epidural or other hematoma. No perceptible underlying bone lesion. There is no metabolic a bnormality demonstrated on the prior PET in this region. Other thoracic vertebra are intact. There are no subluxations. Thoracic cord is within normal limits. The T6 fracture has mild reactive/nonmass-like enhancement. A small left and miniscule right pleural effusion is evident and this appears new. CONCLUSION: 1. There is an acute to subacute, mild compression fracture of T6 as described. This may be osteopor otic or posttraumatic. No evidence of an underlying bone lesion. No fracture-associated foraminal or spinal stenosis. 2. The rest of the thoracic spine is within normal limits. 3. Miniscule right and small left pleural effusions, new. There appears to be some patchy consolidat ion of both lung bases as well. Electronically signed by: Spenser Herring MD 11/28/2017 8:30 PM EDT
[2017-11-28] MEDS ORDERED: Methocarbamol 500 MG Tablet PO PRN (21:47)
[2017-11-28] MEDS ORDERED: Bisacodyl 10 MG Supp RECTAL PRN (21:48)
[2017-11-28] MEDS ORDERED: Acetaminophen 325 MG Tablet PO PRN (21:48)
--- NOTE | 2017-11-28 21:58 | P.HP ---
History of Present Illness Service: [facility] Primary Care Physician: No Primary Care Physician History of Present Illness: 56-year-old female with a past medical history significant for lung cancer and COPD presents to the emergency department for evaluation of persistent, debilitating lower back and sacral pain. The patient reports that 2 weeks ago she fell onto her buttock while she was walking down the stairs. She reports she lost her footing. Denies syncope. No head trauma or loss of consciousness. Since she was seen in the emergency department where imaging showed no acute fractures. She was released to home with p.o. pain medications. Since that time, the patient reports that her pain has been so severe that she is unable to ambulate. She is able to move her bilateral lower extremities. She denies any urinary or fecal incontinence. The patient also complains of a cough which is persistent yet worsening. She reports a low- grade fever to 99 over the past few days. Last chemotherapy was approximately 3 months ago. She completed radiation therapy 1 week ago Saturday. The patient denies any chest pain. No abdominal pain. No nausea/vomiting/diarrhea. No lateralizing signs/symptoms. Review of Systems All other systems reviewed negative except as stated in HPI PMFSH - History History Provided By: Patient, Family Member, Foot Doctor / EMT - Medical History Medical History: Medical History (Last Reviewed 11/28/17 @ 21:52 by Jacque Rubin MD) Port-A-Cath in place COPD (chronic obstructive pulmonary disease) Lung cancer - Surgical History Surgical History: Surgical History (Last Updated 11/28/17 @ 21:52 by Jacque Rubin MD) History of bilateral tubal ligation Previous section S/P appendectomy - Family History Family History: Family History (Last Updated 11/28/17 @ 21:53 by Jacque Rubin MD) Other Diabetes mellitus - Tobacco History Second Hand Smoke Exposure: Yes Tobacco Use In Past 30 Days: Yes Smoking Status: Current every day smoker Tobacco Type: Cigarettes - Alcohol History How Often Do You Have a Drink Containing Alcohol: Never - Substance Use History Substance History: No History of Abuse - Travel History Recent Travel in the [place] Within the Last 8 Weeks: No Recent Travel Out of the Country Within the Last 8 Weeks: No - Immunization History Tetanus Immunization: <5 Years Medications and Allergies Active Medications: Active Medications Sodium Chloride (Ns Inj) 500 mls @ 0 mls/hr IV.SIG BOLUS BRITNEY Last Infusion: 11/28/17 19:21 Dose: Infused Allergies Allergy/AdvReac Type Severity Reaction Status Date / Time No Known Allergies Allergy Verified 10/16/17 18:52 Home Medications Medication Instructions Recorded Confirmed Type venlafaxine 75 mg PO DAILY 10/30/17 11/28/17 History zolpidem [Ambien] 5 mg PO HS 10/30/17 11/28/17 History Exam Vital signs: Vital Signs 11/28/17 16:44 11/28/17 18:03 11/28/17 20:53 Temperature 99.8 F H Pulse Rate 89 80 Respiratory Rate 17 16 Blood Pressure 108/73 129/66 Pulse Oximetry 100 100 100 Intake & Output 11/28/17 11/28/17 11/29/17 06:59 18:59 06:59 Intake Total 600 / 600 Balance 600 / 600 Weight 39.009 kg Intake: IV 600 / 600 Maxipime Inj 2,000 MG In NS Inj 100 / 100 100 ML @ 200 mls/hr IV.SIG STAT STA Rx#:[id number] NS Inj 500 ML @ Wide Open IV. 500 / 500 SIG BOLUS BRITNEY Rx#:[id number] Narrative: Gen.: No acute distress Head: Normocephalic. Atraumatic. EENT: Pupils equal round and reactive to light. Nose without drainage. Airway intact. Throat without injection. Cardiovascular: Regular rate and rhythm. No murmurs, rubs or gallops. Respiratory: Lungs clear to auscultation bilaterally. No wheezes or rhonchi. Abdomen: Soft, nontender, nondistended. No peritoneal signs. Musculoskeletal: No gross deformities. No edema. Skin: No obvious rashes or erythema. Neuro: Sensory and motor grossly intact. Cranial nerves II through XII grossly intact. Moves bilateral lower extremities spontaneously Results - Labs CBC & Chem 7: 11/28/17 17:45 11/28/17 17:45 Labs: Laboratory Results - last 24 hr 11/28/17 11/28/17 11/28/17 17:45 17:45 17:45 WBC 9.2 RBC 3.05 L Hgb 11.1 L Hct 32.7 L MCV 107.4 H MCH 36.3 H MCHC 33.8 RDW 13.8 Plt Count 147 L D MPV 8.3 Neut % (Auto) 97.2 H Lymph % (Auto) 1.0 L [place] % (Auto) 1.5 Eos % (Auto) 0.0 Baso % (Auto) 0.3 Neut # (Auto) 8.9 H Lymph # (Auto) 0.1 L [place]on # (Auto) 0.1 Eos # (Auto) 0.0 Baso # (Auto) 0.0 WBC Differential . Differential Comment Auto diff final Sodium 134 L Potassium 3.9 Chloride 98 Carbon Dioxide 29.0 Anion Gap 7 BUN 15 Creatinine 0.43 L Estimated GFR Greater than 89 Random Glucose 127 H Lactic Acid Calcium 9.0 Total Bilirubin 0.5 AST 24 ALT 41 Alkaline Phosphatase 135 H Total Protein 6.3 L Albumin 3.0 L Urine Color Yellow Urine Clarity Hazy H Urine pH 6.0 Ur Specific [place] 1.017 Urine Protein Negative Urine Glucose (UA) 50 Urine Ketones Negative Urine Occult Blood Negative Urine Nitrate Negative Urine Bilirubin Negative Urine Urobilinogen Less than 2 Ur Leukocyte Esterase Trace H Urine RBC Less than 1 Urine WBC 3 Ur Squamous Epith Cells 1 Urine Mucus Few H Micro UA Comment Cath-culture not ind Ur Microscopic Review Not Reportable Urine Culture Comments Cath-cult not ind 11/28/17 17:46 WBC RBC Hgb Hct MCV MCH MCHC RDW Plt Count MPV Neut % (Auto) Lymph % (Auto) [place] % (Auto) Eos % (Auto) Baso % (Auto) Neut # (Auto) Lymph # (Auto) [place] # (Auto) Eos # (Auto) Baso # (Auto) WBC Differential Differential Comment Sodium Potassium Chloride Carbon Dioxide Anion Gap BUN Creatinine Estimated GFR Random Glucose Lactic Acid 1.5 Calcium Total Bilirubin AST ALT Alkaline Phosphatase Total Protein Albumin Urine Color Urine Clarity Urine pH Ur Specific [place] Urine Protein Urine Glucose (UA) Urine Ketones Urine Occult Blood Urine Nitrate Urine Bilirubin Urine Urobilinogen Ur Leukocyte Esterase Urine RBC Urine WBC Ur Squamous Epith Cells Urine Mucus Micro UA Comment Ur Microscopic Review Urine Culture Comments - Imaging Impressions Lumbar Spine MRI 11/28/17 17:00 CONCLUSION: 1. Small central to right paracentral disc protrusion with an annular fissure at L5/S1 focally contacting the transiting right S1 nerve root is unchanged. 2. Other levels are within normal limits. 3. Mild lumbar scoliosis again noted. 4. An acute or subacute fracture is suspected of the sacrum near S2/S3 and extending into the ala, especially on the right. On the comparison PET study, no definite fracture at that time and also no evidence of a hypermetabolic lesion at that time. Thoracic Spine MRI 11/28/17 17:00 CONCLUSION: 1. There is an acute to subacute, mild compression fracture of T6 as described. This may be osteoporotic or posttraumatic. No evidence of an underlying bone lesion. No fracture-associated foraminal or spinal stenosis. 2. The rest of the thoracic spine is within normal limits. 3. Miniscule right and small left pleural effusions, new. There appears to be some patchy consolidation of both lung bases as well. Chest X-Ray 11/28/17 17:02 CONCLUSION: 1. New mild blunting of the left lateral costophrenic angle most consistent with a small effusion. 2. Minimal streaky opacity at the left lung base most characteristic of atelectasis. There is no definite consolidation. Pelvis X-Ray 11/28/17 17:02 CONCLUSION: Negative trauma study. Caprini VTE Risk Assessment Caprini VTE Risk Assessment: Moderate/High Risk (score >= 2) Caprini Risk Assessment Model: Point Value = 1 Point Value = 2 Point Value = 3 Point Value = 5 Age 41-60 Minor surgery BMI > 25 kg/m2 Swollen legs Varicose veins or History of unexplained or recurrent spontaneous Oral contraceptives or hormone replacement Sepsis (< 1 month) Serious lung disease, including pneumonia (< 1 month) Abnormal pulmonary function Acute myocardial infarction Congestive heart failure (< 1 month) History of inflammatory bowel disease Medical patient at bed rest Age 61-74 Arthroscopic surgery Major open surgery (> 45 min) Laparoscopic surgery (> 45 min) Malignancy Confined to bed (> 72 hours) Immobilizing plaster cast Central venous access Age >= 75 History of VTE Family history of VTE Factor V Leiden Prothrombin [id number] Lupus anticoagulant Anticardiolipin antibodies Elevated serum homocysteine Heparin-induced thrombocytopenia Other congenital or acquired thrombophilia Stroke (< 1 month) Elective arthroplasty Hip, pelvis, or leg fracture Acute spinal cord injury (< 1 month) Prophylaxis Regimen: Total Risk Factor Score Risk Level Prophylaxis Regimen 0-1 Low Early ambulation 2 Moderate Order ONE of the following: *Sequential Compression Device (SCD) *Heparin 5000 units SQ BID 3-4 Higher Order ONE of the following medications: *Heparin 5000 units SQ TID *Enoxaparin/Lovenox 40 mg SQ daily (WT < 150 kg, CrCl > 30 mL/min) *Enoxaparin/Lovenox 30 mg SQ daily (WT < 150 kg, CrCl > 10-29 mL/min) *Enoxaparin/Lovenox 30 mg SQ BID (WT < 150 kg, CrCl > 30 mL/min) AND/OR *Sequential Compression Device (SCD) 5 or more Highest Order ONE of the following medications: *Heparin 5000 units SQ TID (Preferred with Epidurals) *Enoxaparin/Lovenox 40 mg SQ daily (WT < 150 kg, CrCl > 30 mL/min) *Enoxaparin/Lovenox 30 mg SQ daily (WT < 150 kg, CrCl > 10-29 mL/min) *Enoxaparin/Lovenox 30 mg SQ BID (WT < 150 kg, CrCl > 30 mL/min) AND *Sequential Compression Device (SCD) Assessment and Plan - Plan Assessment/plan: 1. Lower back/buttock pain/sacral fracture/thoracic vertebral fracture MRI of the lumbar spine shows an acute versus subacute fracture of the sacrum near S2/S3 MRI of the thoracic spine shows an acute to subacute mild compression fracture of T6 Neurosurgery consulted, appreciate assistance Morphine for pain 2. ? Pneumonia Patient with worsening productive cough and low-grade fever Azithromycin and Rocephin for possible pneumonia 3. Lung cancer Patient's oncologist is Dr. Lowe Completed chemotherapy approximately 3 months ago and radiation therapy approximately 1 week ago Continue outpatient follow-up 4. COPD Continue Pulmicort Nebs Supplemental oxygen FEN N.p.o. Electrolytes: Monitor and replete as needed NS at 60 cc/hour Holding pharmacologic anticoagulation until evaluation by neurosurgery completed
[2017-11-28] MEDS: Sod Chloride 0.9% Inj 1,000 ML IV.CONT SCH (23:47)
[2017-11-28] MEDS: Morphine Inj 4 MG/ML Vial IV.PUSH PRN (23:47)
[2017-11-29] MEDS: Morphine Inj 4 MG/ML Vial IV.PUSH PRN ×2 (04:22→08:41)
[2017-11-29 05:29] LABS: Baso % (Auto) 0.3 % (0.0-2.0); Hematocrit 30.7 % (35.0-46.0); Hemoglobin 10.5 gm/dL (11.6-15.3); Lymph # (Auto) 0.3 th/mm3 (1.0-4.8); Lymph % (Auto) 4.1 % (9.0-44.0); Mean Corpuscular HGB Conc 34.2 % (32.0-36.0); Mean Corpuscular Hemoglobin 36.9 pg (27.0-34.0); Mean Corpuscular Volume 107.9 fL (80.0-100.0); Mean Platelet Volume 8.1 fL (7.0-11.0); Mono # (Auto) 0.4 th/mm3 (0.0-0.9); Mono % (Auto) 5.6 % (0.0-8.0); Neut # (Auto) 5.8 th/mm3 (1.8-7.7); Platelet Count 131 th/mm3 (150-450); Red Blood Count 2.85 mil/mm3 (4.00-5.30); Red Cell Distribution Width 13.7 % (11.6-17.2); White Blood Count 6.5 th/mm3 (4.0-11.0)
[2017-11-29 05:52] LABS: Anion Gap 7 meq/L (5-15); Blood Urea Nitrogen 14 mg/dL (7-18); Calcium 8.4 mg/dL (8.5-10.1); Carbon Dioxide 30.3 meq/L (21.0-32.0); Chloride 105 meq/L (98-107); Glomerular Filtration Rate Greater Than 89 mL/min (>89); Glucose,Random 88 mg/dL (74-106); Potassium 4.2 meq/L (3.5-5.1); Sodium 142 meq/L (136-145)
[2017-11-29] MEDS: Venlafaxine XR 75 MG Capsule PO SCH (08:41)
[2017-11-29] MEDS: Senna/Docusate Sodium 8.6/50 MG Tablet PO SCH ×2 (08:41→20:21)
[2017-11-29] MEDS ORDERED: Influenza (Quadrivalent) Vaccine 0.5 ML Syringe IM ONE (09:00)
--- NOTE | 2017-11-29 10:48 | P.CONNS ---
History of Present Illness Primary Care Provider: No Primary Care Physician Chief Complaint: Thoracic compression fracture, sacral fracture History of Present Illness: Ms. Sosa is a 56 y/o female with a history of lung cancer s/p chemotherapy and radiation who presented to [facility] for evaluation of two weeks of mid-thoracic and low back pain. About two weeks ago she fell down two steps and landed on her sacrum. Since then, she has had such pain that she has been unable to tolerate standing upright. She denies neurologic deficit (numbness, weakness, bowel/bladder incontinence). Thoracic MRI demonstrates a mild T6 compression fracture (~20% loss of height) and a mid-sacral fracture (S2/3). Radiology notes that on recent comparison PET imaging, there was no evidence of hypermetabolism in these regions (i.e. the likelihood that these are pathologic fractures rather than traumatic fractures is relatively low). Review of Systems All other systems reviewed negative except as stated in HPI PMFSH - History History Provided By: Patient - Medical History Medical History: Medical History (Last Reviewed 11/29/17 @ 08:27 by Kelly Leslie) Anxiety Back pain Depression On home oxygen therapy Port-A-Cath in place COPD (chronic obstructive pulmonary disease) Lung cancer - Surgical History Surgical History: Surgical History (Last Reviewed 11/29/17 @ 08:27 by Kelly Leslie) History of bilateral tubal ligation Status post chemotherapy Status post radiation therapy Previous section S/P appendectomy - Family History Family History: Family History (Last Updated 11/28/17 @ 21:53 by Jacque Rubin MD) Other Diabetes mellitus - Tobacco History Second Hand Smoke Exposure: Yes Tobacco Use In Past 30 Days: Yes Smoking Status: Current every day smoker Tobacco Type: Cigarettes - Alcohol History How Often Do You Have a Drink Containing Alcohol: Never - Substance Use History Substance History: No History of Abuse - Travel History Recent Travel in the [place] Within the Last 8 Weeks: No Recent Travel Out of the Country Within the Last 8 Weeks: No - Immunization History Tetanus Immunization: <5 Years Hx Influenza Vaccine This Season: No Medications and Allergies Active Medications: Active Medications Acetaminophen (Tylenol) 650 mg PO Q4H PRN PRN Reason: Temp > 100.4 Hydrocodone Bitart/Acetaminophen ([place] 5/325) 1 tab PO Q4H PRN PRN Reason: PAIN SCALE 3 TO 5 Al Hydroxide/Mg Hydroxide (Milk Of Magnesia Liq) 30 ml PO Q12H PRN PRN Reason: Mild Constipation Albuterol (Duoneb Neb (Prn)) 1 ampul NEB Q4HR NEB PRN PRN Reason: SOB/wheezing Bisacodyl (Dulcolax Supp) 10 mg RECTAL DAILY PRN PRN Reason: SEVERE CONSITIPATION Budesonide/Formoterol Fumarate (Symbicort 160/4.5 Mcg Inh) 2 puff INH BID BRITNEY Cyclobenzaprine HCl (Flexeril) 10 mg PO TID PRN PRN Reason: MUSCLE SPASM Last Admin: 11/29/17 08:45 Dose: 10 mg Hydromorphone HCl (Dilaudid Pf Inj) 0.5 mg IV.PUSH Q4H PRN PRN Reason: PAIN SCALE 6 TO 10 Sodium Chloride (Ns Inj) 500 mls @ 0 mls/hr IV.SIG BOLUS [facility] Last Infusion: 11/28/17 19:21 Dose: Infused Azithromycin 500 mg/ Sodium (Chloride) 250 mls @ 250 mls/hr IV.SIG Q24H BRITNEY Ceftriaxone Sodium 1,000 mg/ (Sodium Chloride) 100 mls @ 200 mls/hr IV.SIG Q24H BRITNEY Sodium Chloride (Ns Inj) 1,000 mls @ 60 mls/hr IV.CONT .[id number] [facility] Last Admin: 11/28/17 23:47 Dose: 60 mls/hr Lactulose (Lactulose Liq) 30 ml PO DAILY PRN PRN Reason: SEVERE CONSITIPATION Ondansetron HCl (Zofran Inj) 4 mg IV.PUSH Q6H PRN PRN Reason: NAUSEA OR VOMITING Senna/Docusate Sodium (Britt-Colace) 1 tab PO BID [facility] Last Admin: 11/29/17 08:41 Dose: 1 tab Sennosides (Senokot) 17.2 mg PO Q12H PRN PRN Reason: Moderate Constipation Venlafaxine HCl (Effexor Xr) 75 mg PO DAILY [facility] Last Admin: 11/29/17 08:41 Dose: 75 mg Zolpidem Tartrate (Ambien) 5 mg PO [facility] Allergies Allergy/AdvReac Type Severity Reaction Status Date / Time No Known Allergies Allergy Verified 10/16/17 18:52 Home Medications Medication Instructions Recorded Confirmed Type venlafaxine 75 mg PO DAILY 10/30/17 11/28/17 History zolpidem [Ambien] 5 mg PO HS 10/30/17 11/28/17 History Exam Vital signs: Vital Signs 11/28/17 16:44 11/28/17 18:03 11/28/17 20:53 Temperature 99.8 F H Pulse Rate 89 80 Respiratory Rate 17 16 Blood Pressure 108/73 129/66 Pulse Oximetry 100 100 100 11/29/17 00:00 11/29/17 04:00 11/29/17 08:00 Temperature 98.1 F 97.6 F 97.9 F Pulse Rate 70 80 87 Respiratory Rate 20 16 16 Blood Pressure 112/53 L 123/71 104/58 L Pulse Oximetry 100 100 100 11/29/17 08:45 Temperature Pulse Rate Respiratory Rate 16 Blood Pressure Pulse Oximetry Intake & Output 11/28/17 11/29/17 11/29/17 18:59 06:59 18:59 Intake Total 850 / 850 Balance 850 / 850 Weight 39.009 kg 39.2 kg Intake: IV 850 / 850 Azithromycin Inj 500 MG In NS 250 / 250 Inj 250 ML @ 250 mls/hr IV.SIG STAT STA Rx#:[id number] Maxipime Inj 2,000 MG In NS Inj 100 / 100 100 ML @ 200 mls/hr IV.SIG STAT STA Rx#:[id number] NS Inj 500 ML @ Wide Open IV. 500 / 500 SIG BOLUS BRITNEY Rx#:[id number] Oral 0 / 0 Other: # Voids 0 Date of Last Bowel Movement 11/17/17 11/17/17 Weight On Admission 39 kg Narrative: Opens eyes spontaneously PERRL Alert and oriented x3 Cachetic Follows commands x4 Generalized weakness and deconditioning Severe pain limited lower extremity weakness ~4/5 strength bilateral upper extremities Results - Laboratory Findings CBC and BMP: 11/29/17 04:44 11/29/17 04:44 Abnormal lab findings: Abnormal Labs 11/28/17 11/28/17 11/28/17 17:45 17:45 17:45 RBC 3.05 L Hgb 11.1 L Hct 32.7 L MCV 107.4 H MCH 36.3 H Plt Count 147 L D Neut % (Auto) 97.2 H Lymph % (Auto) 1.0 L Neut # (Auto) 8.9 H Lymph # (Auto) 0.1 L Sodium 134 L Creatinine 0.43 L Random Glucose 127 H Calcium Alkaline Phosphatase 135 H Total Protein 6.3 L Albumin 3.0 L Urine Clarity Hazy H Ur Leukocyte Esterase Trace H Urine Mucus Few H 11/29/17 11/29/17 04:44 04:44 RBC 2.85 L Hgb 10.5 L Hct 30.7 L MCV 107.9 H MCH 36.9 H Plt Count 131 L Neut % (Auto) 90.0 H Lymph % (Auto) 4.1 L Neut # (Auto) Lymph # (Auto) 0.3 L Sodium Creatinine 0.34 L Random Glucose Calcium 8.4 L Alkaline Phosphatase Total Protein Albumin Urine Clarity Ur Leukocyte Esterase Urine Mucus - Diagnostic Findings Additional findings: Thoracic MRI demonstrates a mild T6 compression fracture (~20% loss of height) and a mid-sacral fracture (S2/3). Radiology notes that on recent comparison PET imaging, there was no evidence of hypermetabolism in these regions (i.e. the likelihood that these are pathologic fractures rather than traumatic fractures is relatively low). Assessment and Plan - Plan Ms. Sosa is a 56 y/o female with T6 compression fracture and S2/3 fracture following a fall two weeks ago. Her history is most consistent with a traumatic etiology in the setting of osteoporosis. She does have an active oncologic process (lung cancer) s/p chemotherapy and radiation. Plan: No neurosurgical intervention indicated. Recommend TLSO brace (placed consult with orthotech) for comfort. She does not need to wear the brace, but if it help alleviate her pain while upright and out of bed, then she may elect to wear it. Ok for diet (ordered).
[2017-11-29] MEDS: HYDROmorphone PF Inj 2 MG/ML Vial IV.PUSH PRN ×3 (11:15→18:48)
--- NOTE | 2017-11-29 13:02 | P.PN ---
Subjective Interval history: Follow-up for low back pain; patient grimacing in pain, indicates that morphine is not effective. Complains of sharp shooting pain from mid buttocks down to knee, pain is worse with standing. Indicates that at times she cannot avoid because of the pain. Fell 2 weeks ago. Completed radiation 2 weeks ago and chemo 3 months ago. Indicates appetite has been poor, no nausea, no vomiting. Has not had a BM in approximately 1 week. Has a nonproductive cough , no sputum, is on oxygen at home. No chest pain. [place] feverish at home, Temp max 99.4. Daughter at [facility] Physical Exam Vital signs: Vital Signs 11/28/17 16:44 11/28/17 18:03 11/28/17 20:53 Temperature 99.8 F H Pulse Rate 89 80 Respiratory Rate 17 16 Blood Pressure 108/73 129/66 Pulse Oximetry 100 100 100 11/29/17 00:00 11/29/17 04:00 11/29/17 08:00 Temperature 98.1 F 97.6 F 97.9 F Pulse Rate 70 80 87 Respiratory Rate 20 16 16 Blood Pressure 112/53 L 123/71 104/58 L Pulse Oximetry 100 100 100 11/29/17 08:45 11/29/17 12:00 Temperature 98.0 F Pulse Rate 61 Respiratory Rate 16 16 Blood Pressure 112/55 L Pulse Oximetry 100 Intake & Output 11/28/17 11/29/17 11/29/17 18:59 06:59 18:59 Intake Total 850 / 850 Balance 850 / 850 Weight 39.009 kg 39.2 kg Intake: IV 850 / 850 Azithromycin Inj 500 MG In NS 250 / 250 Inj 250 ML @ 250 mls/hr IV.SIG STAT STA Rx#:[id number] Maxipime Inj 2,000 MG In NS Inj 100 / 100 100 ML @ 200 mls/hr IV.SIG STAT STA Rx#:[id number] NS Inj 500 ML @ Wide Open IV. 500 / 500 SIG BOLUS BRITNEY Rx#:[id number] Oral 0 / 0 Other: # Voids 0 Date of Last Bowel Movement 11/17/17 11/17/17 Weight On Admission 39 kg Narrative: Gen.: No acute distress Head: Normocephalic. Atraumatic. EENT: Pupils equal round and reactive to light. Nose without drainage. Airway intact. Throat without injection. Cardiovascular: Regular rate and rhythm. No murmurs, rubs or gallops. Respiratory: Lungs clear to auscultation bilaterally. No wheezes or rhonchi. Abdomen: Soft, nontender, nondistended. No peritoneal signs. Musculoskeletal: No gross deformities. No edema. Skin: No obvious rashes or erythema. Neuro: Sensory and motor grossly intact. Cranial nerves II through XII grossly intact. Moves bilateral lower extremities spontaneously Results - Labs CBC & Chem 7: 11/29/17 04:44 11/29/17 04:44 Laboratory Results - last 24 hr 11/28/17 11/28/17 11/28/17 17:45 17:45 17:45 WBC 9.2 RBC 3.05 L Hgb 11.1 L Hct 32.7 L MCV 107.4 H MCH 36.3 H MCHC 33.8 RDW 13.8 Plt Count 147 L D MPV 8.3 Neut % (Auto) 97.2 H Lymph % (Auto) 1.0 L [place] % (Auto) 1.5 Eos % (Auto) 0.0 Baso % (Auto) 0.3 Neut # (Auto) 8.9 H Lymph # (Auto) 0.1 L [place] # (Auto) 0.1 Eos # (Auto) 0.0 Baso # (Auto) 0.0 WBC Differential . Differential Comment Auto diff final Sodium 134 L Potassium 3.9 Chloride 98 Carbon Dioxide 29.0 Anion Gap 7 BUN 15 Creatinine 0.43 L Estimated GFR Greater than 89 Random Glucose 127 H Lactic Acid Calcium 9.0 Total Bilirubin 0.5 AST 24 ALT 41 Alkaline Phosphatase 135 H Total Protein 6.3 L Albumin 3.0 L Urine Color Yellow Urine Clarity Hazy H Urine pH 6.0 Ur Specific [place] 1.017 Urine Protein Negative Urine Glucose (UA) 50 Urine Ketones Negative Urine Occult Blood Negative Urine Nitrate Negative Urine Bilirubin Negative Urine Urobilinogen Less than 2 Ur Leukocyte Esterase Trace H Urine RBC Less than 1 Urine WBC 3 Ur Squamous Epith Cells 1 Urine Mucus Few H Micro UA Comment Cath-culture not ind Ur Microscopic Review Not Reportable Urine Culture Comments Cath-cult not ind 11/28/17 11/29/17 11/29/17 17:46 04:44 04:44 WBC 6.5 RBC 2.85 L Hgb 10.5 L Hct 30.7 L MCV 107.9 H MCH 36.9 H MCHC 34.2 RDW 13.7 Plt Count 131 L MPV 8.1 Neut % (Auto) 90.0 H Lymph % (Auto) 4.1 L [place] % (Auto) 5.6 Eos % (Auto) 0.0 Baso % (Auto) 0.3 Neut # (Auto) 5.8 Lymph # (Auto) 0.3 L [place] # (Auto) 0.4 Eos # (Auto) 0.0 Baso # (Auto) 0.0 WBC Differential . Differential Comment Auto diff final Sodium 142 Potassium 4.2 Chloride 105 Carbon Dioxide 30.3 Anion Gap 7 BUN 14 Creatinine 0.34 L Estimated GFR Greater than 89 Random Glucose 88 Lactic Acid 1.5 Calcium 8.4 L Total Bilirubin AST ALT Alkaline Phosphatase Total Protein Albumin Urine Color Urine Clarity Urine pH Ur Specific [place] Urine Protein Urine Glucose (UA) Urine Ketones Urine Occult Blood Urine Nitrate Urine Bilirubin Urine Urobilinogen Ur Leukocyte Esterase Urine RBC Urine WBC Ur Squamous Epith Cells Urine Mucus Micro UA Comment Ur Microscopic Review Urine Culture Comments Microbiology 11/28/17 17:45 Blood - Peripheral Aerobic Blood Culture - Preliminary No growth in 1 day 11/28/17 17:45 Blood - Peripheral Anaerobic Blood Culture - Preliminary No growth in 1 day 11/28/17 17:50 Blood - Peripheral Aerobic Blood Culture - Preliminary No growth in 1 day 11/28/17 17:50 Blood - Peripheral Anaerobic Blood Culture - Preliminary No growth in 1 day 11/28/17 17:50 Nasal Wash Influenza Types A,B Antigen - Final Negative for FLU A and B antigen Infection due to influenza A or B cannot be ruled out since the antigen present in the sample may be below the detection limit of the test. - Imaging Impressions Lumbar Spine MRI 11/28/17 17:00 CONCLUSION: 1. Small central to right paracentral disc protrusion with an annular fissure at L5/S1 focally contacting the transiting right S1 nerve root is unchanged. 2. Other levels are within normal limits. 3. Mild lumbar scoliosis again noted. 4. An acute or subacute fracture is suspected of the sacrum near S2/S3 and extending into the ala, especially on the right. On the comparison PET study, no definite fracture at that time and also no evidence of a hypermetabolic lesion at that time. Thoracic Spine MRI 11/28/17 17:00 CONCLUSION: 1. There is an acute to subacute, mild compression fracture of T6 as described. This may be osteoporotic or posttraumatic. No evidence of an underlying bone lesion. No fracture-associated foraminal or spinal stenosis. 2. The rest of the thoracic spine is within normal limits. 3. Miniscule right and small left pleural effusions, new. There appears to be some patchy consolidation of both lung bases as well. Chest X-Ray 11/28/17 17:02 CONCLUSION: 1. New mild blunting of the left lateral costophrenic angle most consistent with a small effusion. 2. Minimal streaky opacity at the left lung base most characteristic of atelectasis. There is no definite consolidation. Pelvis X-Ray 11/28/17 17:02 CONCLUSION: Negative trauma study. Assessment and Plan - Assessment (1) Intractable back pain Code(s): M54.9 - Dorsalgia, unspecified Status: Acute (2) Spinal fracture Status: Acute (3) Malnutrition Code(s): E46 - Unspecified protein-calorie malnutrition Status: Acute (4) Lung cancer Code(s): C34.90 - Malignant neoplasm of unspecified part of unspecified bronchus or lung Status: Chronic (5) Thrombocytopenia Code(s): D69.6 - Thrombocytopenia, unspecified Status: Acute (6) COPD (chronic obstructive pulmonary disease) Code(s): J44.9 - Chronic obstructive pulmonary disease, unspecified Status: Chronic - Plan Assessment/plan: 56-year-old female with a past medical history significant for small cell lung cancer and COPD presents to the emergency department for evaluation of persistent, debilitating lower back and sacral pain. The patient reports that 2 weeks ago she fell onto her buttock while she was walking down the stairs. She reports she lost her footing. Denied syncope. No head trauma or loss of consciousness. She came to the emergency room, had imaging that was negative. Indicates that the pain has become more severe, has difficulty ambulating and has sharp shooting pain radiating from buttocks down 20s. No loss of bowel or bladder function. Reports cough, low grade temp 99 at home. S/P fall now with Lower back/buttock pain/sacral fracture/thoracic vertebral fracture MRI of the lumbar spine shows an acute versus subacute fracture of the sacrum near S2/S3 MRI of the thoracic spine shows an acute to subacute mild compression fracture of T6 -Neurosurgery consulted, appreciate assistance -We will change pain management to Dilaudid 0.5 mg IV push every 4 as needed and add [place] 7.5/325 p.o. every 4 as needed -Flexeril 10 mg p.o. 3 times daily as needed Physical therapy consultation after she seen by neurosurgery Possible pneumonia Patient with worsening productive cough and low-grade fever -Continue with azithromycin and Rocephin Follow cultures Small cell lung cancer Patient's oncologist is Dr. Lowe Completed chemotherapy approximately 3 months ago and prophylactic brain radiation therapy approximately 2 weeks ago -Continue outpatient follow-up, has appointment January. Had recent imaging studies that were negative for recurrence. COPD -Continue Pulmicort -Nebs -Continue oxygen at 2 L to keep sats greater than 90 Thrombocytopenia Follow CBC Protein calorie malnutrition We will order Ensure, encourage p.o. intake Reports no BM times x 1 week. Has not been eating much. Encourage p.o. fluid intake Bowel regimen in place Add heparin 5000 units subcu twice daily for DVT prophylaxis Follow CBC in the morning Case management consultation, patient may need rehab placement. Will wait for physical therapy evaluation and neurosurgery input Code Status: Full code Discussed Condition With: RN, pt and daughter Discharge Planning: Poss SNF placement vs home with HHC and PT in 2 days (2) Spinal fracture Qualifiers: Encounter type: initial encounter Fracture of vertebra location: sacrum Zone of sacrum fracture: unspecified portion of sacrum Fracture type: closed Qualified Code(s): S32.10XA - Unspecified fracture of sacrum, initial encounter for closed fracture (3) Malnutrition Qualifiers: Malnutrition type: protein-calorie malnutrition Protein-calorie malnutrition severity: severe Qualified Code(s): E43 - Unspecified severe protein-calorie malnutrition (4) Lung cancer Qualifiers: Laterality: unspecified laterality Lung location: unspecified part of lung Qualified Code(s): C34.90 - Malignant neoplasm of unspecified part of unspecified bronchus or lung (6) COPD (chronic obstructive pulmonary disease) Qualifiers: COPD type: unspecified COPD Qualified Code(s): J44.9 - Chronic obstructive pulmonary disease, unspecified
[2017-11-29] MEDS: Sod Chloride 0.9% Inj 1,000 ML IV.CONT SCH (15:15)
[2017-11-29] MEDS: Budesonide-Formoterol 160/4.5 MCG 6 GM Inhaler INH SCH ×2 (15:20→22:18)
[2017-11-29] MEDS: Azithromycin Inj 500 MG in Sodium Chlor 0.9% Inj 250 ML IV.SIG SCH (20:19)
[2017-11-29] MEDS: Heparin - SQ 10,000 UNITS/ML Vial SQ SCH (20:20)
[2017-11-29] MEDS: Zolpidem Tartrate 5 MG Tablet PO SCH (22:19)
[2017-11-30] MEDS: HYDROmorphone PF Inj 2 MG/ML Vial IV.PUSH PRN ×3 (02:24→10:58)
[2017-11-30] MEDS: Sod Chloride 0.9% Inj 1,000 ML IV.CONT SCH (06:34)
[2017-11-30 07:02] LABS: Hematocrit 28.7 % (35.0-46.0); Hemoglobin 9.8 gm/dL (11.6-15.3); Mean Corpuscular HGB Conc 34.1 % (32.0-36.0); Mean Corpuscular Hemoglobin 36.9 pg (27.0-34.0); Mean Corpuscular Volume 108.2 fL (80.0-100.0); Mean Platelet Volume 8.2 fL (7.0-11.0); Platelet Count 128 th/mm3 (150-450); Red Blood Count 2.65 mil/mm3 (4.00-5.30); Red Cell Distribution Width 13.9 % (11.6-17.2); White Blood Count 8.8 th/mm3 (4.0-11.0)
[2017-11-30 07:31] LABS: Anion Gap 8 meq/L (5-15); Blood Urea Nitrogen 12 mg/dL (7-18); Calcium 8.2 mg/dL (8.5-10.1); Chloride 104 meq/L (98-107); Glomerular Filtration Rate Greater Than 89 mL/min (>89); Glucose,Random 65 mg/dL (74-106); Potassium 3.6 meq/L (3.5-5.1); Sodium 141 meq/L (136-145)
[2017-11-30] MEDS: Venlafaxine XR 75 MG Capsule PO SCH (09:21)
[2017-11-30] MEDS: Senna/Docusate Sodium 8.6/50 MG Tablet PO SCH ×2 (09:21→21:12)
[2017-11-30] MEDS: Budesonide-Formoterol 160/4.5 MCG 6 GM Inhaler INH SCH ×2 (09:22→21:13)
[2017-11-30] MEDS: Heparin - SQ 10,000 UNITS/ML Vial SQ SCH ×2 (09:22→21:12)
--- NOTE | 2017-11-30 10:08 | P.PN ---
Subjective Interval history: Follow-up for low back pain;pain still present but slightly improved, wearing TLSO brace. No bm yet. No fever. + cough, no cp, no sob. Voiding okay. No other changes overnight Physical Exam Vital signs: Vital Signs 11/29/17 12:00 11/29/17 12:39 11/29/17 16:00 Temperature 98.0 F 98.2 F Pulse Rate 61 95 H Respiratory Rate 16 16 16 Blood Pressure 112/55 L 112/56 L Pulse Oximetry 100 99 11/29/17 16:27 11/29/17 20:00 11/30/17 00:00 Temperature 97.5 F L 98.0 F Pulse Rate 111 H 93 H Respiratory Rate 16 16 16 Blood Pressure 115/74 105/59 L Pulse Oximetry 97 99 11/30/17 04:00 11/30/17 08:00 Temperature 97.9 F 97.8 F Pulse Rate 89 94 H Respiratory Rate 16 18 Blood Pressure 108/54 L 96/68 L Pulse Oximetry 99 97 Intake & Output 11/29/17 11/30/17 11/30/17 18:59 06:59 18:59 Intake Total 1480 / 1480 1470 / 1470 Output Total 625 / 625 325 / 325 Balance 855 / 855 1145 / 1145 Weight 39.4 kg Intake: IV 1000 / 1000 1350 / 1350 NS Inj 1,000 ML @ 60 mls/hr IV. 1000 / 1000 1000 / 1000 CONT .[id number] BRITNEY Rx#:[id number] Azithromycin Inj 500 MG In NS 250 / 250 Inj 250 ML @ 250 mls/hr IV.SIG Q24H BRITNEY Rx#:[id number] Rocephin Inj 1,000 MG In NS Inj 100 / 100 100 ML @ 200 mls/hr IV.SIG Q24H BRITNEY Rx#:[id number] Oral 480 / 480 120 / 120 Output: Urine 625 / 625 325 / 325 Other: Date of Last Bowel Movement 11/17/17 11/17/17 11/17/17 Narrative: Gen.: No acute distress Head: Normocephalic. Atraumatic. EENT: Pupils equal round and reactive to light. Nose without drainage. Airway intact. Throat without injection. Cardiovascular: Regular rate and rhythm. No murmurs, rubs or gallops. Respiratory: Lungs clear to auscultation bilaterally. No wheezes or rhonchi. Abdomen: Soft, nontender, nondistended. No peritoneal signs. Musculoskeletal: No gross deformities. No edema. Tender to mid buttocks bilat. + PLR bilat Skin: No obvious rashes or erythema. Neuro: Sensory and motor grossly intact. Cranial nerves II through XII grossly intact. Moves bilateral lower extremities spontaneously Results - Labs CBC & Chem 7: 11/30/17 05:20 11/30/17 05:20 Laboratory Results - last 24 hr 11/30/17 11/30/17 05:20 05:20 WBC 8.8 RBC 2.65 L Hgb 9.8 L Hct 28.7 L MCV 108.2 H MCH 36.9 H MCHC 34.1 RDW 13.9 Plt Count 128 L MPV 8.2 Sodium 141 Potassium 3.6 Chloride 104 Carbon Dioxide 29.0 Anion Gap 8 BUN 12 Creatinine 0.30 L Estimated GFR Greater than 89 Random Glucose 65 L Calcium 8.2 L Microbiology 11/28/17 17:45 Blood - Peripheral Aerobic Blood Culture - Preliminary No growth in 1 day 11/28/17 17:45 Blood - Peripheral Anaerobic Blood Culture - Preliminary No growth in 1 day 11/28/17 17:50 Blood - Peripheral Aerobic Blood Culture - Preliminary No growth in 1 day 11/28/17 17:50 Blood - Peripheral Anaerobic Blood Culture - Preliminary No growth in 1 day Assessment and Plan - Assessment (1) Intractable back pain Code(s): M54.9 - Dorsalgia, unspecified Status: Acute (2) Spinal fracture Status: Acute (3) Malnutrition Code(s): E46 - Unspecified protein-calorie malnutrition Status: Acute (4) Lung cancer Code(s): C34.90 - Malignant neoplasm of unspecified part of unspecified bronchus or lung Status: Chronic (5) Thrombocytopenia Code(s): D69.6 - Thrombocytopenia, unspecified Status: Acute (6) COPD (chronic obstructive pulmonary disease) Code(s): J44.9 - Chronic obstructive pulmonary disease, unspecified Status: Chronic - Plan Assessment/plan: 56-year-old female with a past medical history significant for small cell lung cancer and COPD presents to the emergency department for evaluation of persistent, debilitating lower back and sacral pain. The patient reports that 2 weeks ago she fell onto her buttock while she was walking down the stairs. She reports she lost her footing. Denied syncope. No head trauma or loss of consciousness. She came to the emergency room, had imaging that was negative. Indicates that the pain has become more severe, has difficulty ambulating and has sharp shooting pain radiating from buttocks down 20s. No loss of bowel or bladder function. Reports cough, low grade temp 99 at home. S/P fall now with Lower back/buttock pain/sacral fracture/thoracic vertebral fracture MRI of the lumbar spine shows an acute versus subacute fracture of the sacrum near S2/S3 MRI of the thoracic spine shows an acute to subacute mild compression fracture of T6 -Neurosurgery consulted, appreciate assistance. Recommends non surgical approach , TLSO and PT. -Continue with pain management Dilaudid 0.5 mg IV push every 4. Will change to Percocet 7.5/325 q 4 prn. -Flexeril 10 mg p.o. 3 times daily as needed PT recommends SNF Possible pneumonia Patient with worsening productive cough and low-grade fever -Continue with azithromycin and Rocephin Follow cultures, negative so far Small cell lung cancer Patient's oncologist is Dr. Lowe Completed chemotherapy approximately 3 months ago and prophylactic brain radiation therapy approximately 2 weeks ago -Continue outpatient follow-up, has appointment January. Had recent imaging studies that were negative for recurrence. COPD -Continue Pulmicort -Nebs -Continue oxygen at 2 L to keep sats greater than 90 Thrombocytopenia plat. 128, continue to monitor Anemia, HH trending down, 9.8. Poss dilutional -follow CBC Protein calorie malnutrition Ensure, encourage p.o. intake Reports no BM times x 1 week. Has not been eating much. Encourage p.o. fluid intake Bowel regimen in place Heparin 5000 units subcu twice daily for DVT prophylaxis, if plat continue to drop, will change to SCD Follow CBC in the morning Code Status: full code Discussed Condition With: pt, RN, CM Discharge Planning: waiting for SNF, has been declined due to insurance. Waiting for [facility] (2) Spinal fracture Qualifiers: Encounter type: initial encounter Fracture of vertebra location: sacrum Zone of sacrum fracture: unspecified portion of sacrum Fracture type: closed Qualified Code(s): S32.10XA - Unspecified fracture of sacrum, initial encounter for closed fracture (3) Malnutrition Qualifiers: Malnutrition type: protein-calorie malnutrition Protein-calorie malnutrition severity: severe Qualified Code(s): E43 - Unspecified severe protein-calorie malnutrition (4) Lung cancer Qualifiers: Laterality: unspecified laterality Lung location: unspecified part of lung Qualified Code(s): C34.90 - Malignant neoplasm of unspecified part of unspecified bronchus or lung (6) COPD (chronic obstructive pulmonary disease) Qualifiers: COPD type: unspecified COPD Qualified Code(s): J44.9 - Chronic obstructive pulmonary disease, unspecified
[2017-11-30] MEDS: Azithromycin Inj 500 MG in Sodium Chlor 0.9% Inj 250 ML IV.SIG SCH (21:11)
[2017-11-30] MEDS: Zolpidem Tartrate 5 MG Tablet PO SCH (21:12)
[2017-12-01 08:31] LABS: Hematocrit 28.8 % (35.0-46.0); Hemoglobin 9.7 gm/dL (11.6-15.3); Mean Corpuscular HGB Conc 33.6 % (32.0-36.0); Mean Corpuscular Hemoglobin 36.2 pg (27.0-34.0); Mean Corpuscular Volume 107.7 fL (80.0-100.0); Mean Platelet Volume 8.4 fL (7.0-11.0); Platelet Count 130 th/mm3 (150-450); Red Blood Count 2.67 mil/mm3 (4.00-5.30); Red Cell Distribution Width 13.7 % (11.6-17.2); White Blood Count 6.7 th/mm3 (4.0-11.0)
[2017-12-01] MEDS: Heparin - SQ 10,000 UNITS/ML Vial SQ SCH ×2 (09:07→21:48)
[2017-12-01] MEDS: Venlafaxine XR 75 MG Capsule PO SCH (09:07)
[2017-12-01] MEDS: Budesonide-Formoterol 160/4.5 MCG 6 GM Inhaler INH SCH ×2 (09:07→21:49)
[2017-12-01] MEDS: Senna/Docusate Sodium 8.6/50 MG Tablet PO SCH ×2 (09:07→21:48)
[2017-12-01] MEDS: HYDROmorphone PF Inj 2 MG/ML Vial IV.PUSH PRN (11:33)
--- NOTE | 2017-12-01 12:08 | P.PN ---
Subjective Interval history: Follow-up for low back pain: Patient states pain is better control, was able to get out of bed to the bathroom and ambulated with assistance. No chest pain, shortness of breath. Chronic cough, minimal sputum. No fever. Has not had a bowel movement, refusing stool softeners and laxative as she is afraid that she may not make it to the bathroom quickly. Eating better. Physical Exam Vital signs: Vital Signs 11/30/17 13:41 11/30/17 16:00 11/30/17 17:13 Temperature 97.4 F L Pulse Rate 97 H Respiratory Rate 18 18 Blood Pressure 129/62 Pulse Oximetry 106 H 11/30/17 20:00 12/01/17 00:00 12/01/17 04:00 Temperature 97.8 F 98.1 F 97.7 F Pulse Rate 101 H 120 H 97 H Respiratory Rate 18 18 17 Blood Pressure 103/62 112/70 112/60 Pulse Oximetry 99 98 99 12/01/17 08:00 12/01/17 09:36 Temperature 98.0 F Pulse Rate 98 H Respiratory Rate 18 Blood Pressure 119/67 Pulse Oximetry 100 Intake & Output 11/30/17 12/01/17 12/01/17 18:59 06:59 18:59 Intake Total 1360 / 1360 350 / 350 Output Total 300 / 300 Balance 1360 / 1360 50 / 50 Weight 41.1 kg Intake: IV 1000 / 1000 350 / 350 NS Inj 1,000 ML @ 60 mls/hr IV. 1000 / 1000 CONT .[id number] BRITNEY Rx#:[id number] Azithromycin Inj 500 MG In NS 250 / 250 Inj 250 ML @ 250 mls/hr IV.SIG Q24H BRITNEY Rx#:[id number] Rocephin Inj 1,000 MG In NS Inj 100 / 100 100 ML @ 200 mls/hr IV.SIG Q24H BRITNEY Rx#:[id number] Oral 360 / 360 Output: Urine 300 / 300 Other: # Incontinent Voids 1 Date of Last Bowel Movement 11/17/17 11/17/17 11/17/17 Narrative: Gen.: 56-year-old, chronically ill-appearing and malnourished female. Head: Normocephalic. Atraumatic. EENT: Pupils equal round and reactive to light. Nose without drainage. Airway intact. Throat without injection. Cardiovascular: Regular rate and rhythm. No murmurs, rubs or gallops. Respiratory: Lungs clear to auscultation bilaterally. No wheezes or rhonchi. No productive cough. Abdomen: Soft, nontender, nondistended. No peritoneal signs. Musculoskeletal: No gross deformities. No edema. Tender to mid buttocks bilat. + PLR bilat Skin: No obvious rashes or erythema. Neuro: Awake, alert oriented x3. No focal deficits. Bilateral lower extremity weak 3-4 out of 5 Results - Labs CBC & Chem 7: 12/01/17 07:54 11/30/17 05:20 Laboratory Results - last 24 hr 12/01/17 07:54 WBC 6.7 RBC 2.67 L Hgb 9.7 L Hct 28.8 L MCV 107.7 H MCH 36.2 H MCHC 33.6 RDW 13.7 Plt Count 130 L MPV 8.4 Microbiology 11/28/17 17:45 Blood - Peripheral Aerobic Blood Culture - Preliminary No growth in 3 days 11/28/17 17:45 Blood - Peripheral Anaerobic Blood Culture - Preliminary No growth in 3 days 11/28/17 17:50 Blood - Peripheral Aerobic Blood Culture - Preliminary No growth in 3 days 11/28/17 17:50 Blood - Peripheral Anaerobic Blood Culture - Preliminary No growth in 3 days Assessment and Plan - Assessment (1) Intractable back pain Code(s): M54.9 - Dorsalgia, unspecified Status: Acute (2) Spinal fracture Status: Acute (3) Malnutrition Code(s): E46 - Unspecified protein-calorie malnutrition Status: Acute (4) Lung cancer Code(s): C34.90 - Malignant neoplasm of unspecified part of unspecified bronchus or lung Status: Chronic (5) Thrombocytopenia Code(s): D69.6 - Thrombocytopenia, unspecified Status: Acute (6) COPD (chronic obstructive pulmonary disease) Code(s): J44.9 - Chronic obstructive pulmonary disease, unspecified Status: Chronic - Plan Assessment/plan: 56-year-old female with a past medical history significant for small cell lung cancer and COPD presents to the emergency department for evaluation of persistent, debilitating lower back and sacral pain. The patient reports that 2 weeks ago she fell onto her buttock while she was walking down the stairs. She reports she lost her footing. Denied syncope. No head trauma or loss of consciousness. She came to the emergency room, had imaging that was negative. Indicates that the pain has become more severe, has difficulty ambulating and has sharp shooting pain radiating from buttocks down 20s. No loss of bowel or bladder function. Reports cough, low grade temp 99 at home. S/P fall now with Lower back/buttock pain/sacral fracture/thoracic vertebral fracture MRI of the lumbar spine shows an acute versus subacute fracture of the sacrum near S2/S3 MRI of the thoracic spine shows an acute to subacute mild compression fracture of T6 -Neurosurgery consulted, appreciate assistance. Recommends non surgical approach , TLSO and PT. -Continue with pain management Dilaudid 0.5 mg IV push every 4 and Percocet 7.5/325 q 4 prn. -Flexeril 10 mg p.o. 3 times daily as needed PT recommends SNF -pain better controlled Possible pneumonia Patient with worsening productive cough and low-grade fever -DC IV antibiotics, changed to Augmentin 1 tab p.o. twice daily. Follow cultures, negative so far Small cell lung cancer Patient's oncologist is Dr. Lowe Completed chemotherapy approximately 3 months ago and prophylactic brain radiation therapy approximately 2 weeks ago -Continue outpatient follow-up, has appointment January. Had recent imaging studies that were negative for recurrence. COPD -Continue Pulmicort -Nebs -Continue oxygen at 2 L to keep sats greater than 90 Thrombocytopenia -plat improving 128>> 130 Anemia, HH trending down, 9.8. Poss dilutional -follow CBC Protein calorie malnutrition Ensure, encourage p.o. intake Reports no BM times x 1 week. Has not been eating much. Encourage p.o. fluid intake Bowel regimen in place, agrees to take laxative today Heparin 5000 units subcu twice daily for DVT prophylaxis, monitor plat continue with PT Code Status: Full code Discussed Condition With: RN, patient Discharge Planning: waiting for SNF, has been declined due to insurance. Patient lives in a trailer , has dogs, no help at home. Both of her children work. aRúl will evaluate on Saturday. (2) Spinal fracture Qualifiers: Encounter type: initial encounter Fracture of vertebra location: sacrum Zone of sacrum fracture: unspecified portion of sacrum Fracture type: closed Qualified Code(s): S32.10XA - Unspecified fracture of sacrum, initial encounter for closed fracture (3) Malnutrition Qualifiers: Malnutrition type: protein-calorie malnutrition Protein-calorie malnutrition severity: severe Qualified Code(s): E43 - Unspecified severe protein-calorie malnutrition (4) Lung cancer Qualifiers: Laterality: unspecified laterality Lung location: unspecified part of lung Qualified Code(s): C34.90 - Malignant neoplasm of unspecified part of unspecified bronchus or lung (6) COPD (chronic obstructive pulmonary disease) Qualifiers: COPD type: unspecified COPD Qualified Code(s): J44.9 - Chronic obstructive pulmonary disease, unspecified
[2017-12-01] MEDS: Amoxicillin/Clavulanate 875/125 MG Tablet PO SCH (21:48)
[2017-12-01] MEDS: Zolpidem Tartrate 5 MG Tablet PO SCH (21:49)
[2017-12-02] MEDS: Amoxicillin/Clavulanate 875/125 MG Tablet PO SCH ×2 (08:26→20:18)
[2017-12-02] MEDS: Senna/Docusate Sodium 8.6/50 MG Tablet PO SCH ×2 (08:26→20:19)
[2017-12-02] MEDS: Venlafaxine XR 75 MG Capsule PO SCH (08:26)
[2017-12-02] MEDS: Heparin - SQ 10,000 UNITS/ML Vial SQ SCH ×2 (08:27→20:19)
[2017-12-02] MEDS: Budesonide-Formoterol 160/4.5 MCG 6 GM Inhaler INH SCH ×2 (08:28→20:19)
--- NOTE | 2017-12-02 12:53 | P.PNIM ---
Subjective Interval history: Still complains of low back pain worse with movement. No active shortness of breath. Is on 3 L at home. Has no one to assist at home Physical Exam Vital signs: Vital Signs 12/01/17 13:57 12/01/17 16:00 12/01/17 17:28 Temperature 98.5 F Pulse Rate 104 H Respiratory Rate 18 18 18 Blood Pressure 98/68 L Pulse Oximetry 100 12/01/17 20:41 12/01/17 21:48 12/01/17 23:42 Temperature 98.3 F 97.9 F Pulse Rate 97 H 98 H Respiratory Rate 17 18 18 Blood Pressure 100/63 104/56 L Pulse Oximetry 96 98 12/02/17 03:20 12/02/17 08:00 12/02/17 12:00 Temperature 97.6 F 97.7 F 97.9 F Pulse Rate 86 93 H 101 H Respiratory Rate 17 16 18 Blood Pressure 125/58 L 96/55 L 99/54 L Pulse Oximetry 97 99 100 Intake & Output 12/01/17 12/02/17 12/02/17 18:59 06:59 18:59 Intake Total 960 / 960 240 / 240 Balance 960 / 960 240 / 240 Weight 41.1 kg Intake: Oral 960 / 960 240 / 240 Other: # Voids 3 1 Date of Last Bowel Movement 11/17/17 11/17/17 12/02/17 # Bowel Movements 0 0 Narrative: General: chronically ill-appearing and malnourished female. Cardiovascular: Regular rate and rhythm. No murmurs, rubs or gallops. Respiratory: Lungs clear to auscultation bilaterally. No wheezes or rhonchi. No productive cough. Abdomen: Soft, nontender, nondistended. No peritoneal signs. Musculoskeletal: No gross deformities. No edema. Skin: No obvious rashes or erythema. Neuro: Awake, alert oriented x3. No focal deficits. Bilateral lower extremity weak 4 out of 5 Results - Labs CBC & Chem 7: 12/01/17 07:54 11/30/17 05:20 Microbiology 11/28/17 17:45 Blood - Peripheral Aerobic Blood Culture - Preliminary No growth in 4 days 11/28/17 17:45 Blood - Peripheral Anaerobic Blood Culture - Preliminary No growth in 4 days 11/28/17 17:50 Blood - Peripheral Aerobic Blood Culture - Preliminary No growth in 4 days 11/28/17 17:50 Blood - Peripheral Anaerobic Blood Culture - Preliminary No growth in 4 days Assessment and Plan - Assessment (1) Intractable back pain Code(s): M54.9 - Dorsalgia, unspecified Status: Acute (2) Spinal fracture Status: Acute (3) Malnutrition Code(s): E46 - Unspecified protein-calorie malnutrition Status: Acute (4) Lung cancer Code(s): C34.90 - Malignant neoplasm of unspecified part of unspecified bronchus or lung Status: Chronic (5) Thrombocytopenia Code(s): D69.6 - Thrombocytopenia, unspecified Status: Acute (6) COPD (chronic obstructive pulmonary disease) Code(s): J44.9 - Chronic obstructive pulmonary disease, unspecified Status: Chronic - Plan 56-year-old female with a past medical history significant for small cell lung cancer and COPD presents to the emergency department for evaluation of persistent, debilitating lower back and sacral pain. The patient reports that 2 weeks ago she fell onto her buttock while she was walking down the stairs. 1. S/P fall now with Lower back/buttock pain/sacral fracture/thoracic vertebral fracture MRI of the lumbar spine shows an acute versus subacute fracture of the sacrum near S2/S3 MRI of the thoracic spine shows an acute to subacute mild compression fracture of T6 -Neurosurgery consulted, appreciate assistance. Recommends non surgical approach , TLSO and PT. -Continue with pain management Dilaudid 0.5 mg IV push every 4 and Percocet 7.5/325 q 4 prn. Increase Percocet dose to 10 due to persistent pain -Flexeril 10 mg p.o. 3 times daily as needed PT recommends SNF and awaiting [facility] evaluation 2. Small cell lung cancer Patient's oncologist is Dr. Lowe Completed chemotherapy approximately 3 months ago and prophylactic brain radiation therapy approximately 2 weeks ago -Continue outpatient follow-up, has appointment January. Had recent imaging studies that were negative for recurrence. 3. COPD, chronic and O2 dependent at 3 L -Continue Pulmicort -Nebs -Continue oxygen at 2 L to keep sats greater than 90 4. Thrombocytopenia -plat improving 128>> 130 5. Anemia, HH trending down, 9.8. Poss dilutional Hemoglobin is stable 6. Protein calorie malnutrition Ensure supplements, encourage p.o. intake Heparin 5000 units subcu twice daily for DVT prophylaxis, monitor plat continue with PT Discharge Planning: [facility] (2) Spinal fracture Qualifiers: Encounter type: initial encounter Fracture of vertebra location: sacrum Zone of sacrum fracture: unspecified portion of sacrum Fracture type: closed Qualified Code(s): S32.10XA - Unspecified fracture of sacrum, initial encounter for closed fracture (3) Malnutrition Qualifiers: Malnutrition type: protein-calorie malnutrition Protein-calorie malnutrition severity: severe Qualified Code(s): E43 - Unspecified severe protein-calorie malnutrition (4) Lung cancer Qualifiers: Laterality: unspecified laterality Lung location: unspecified part of lung Qualified Code(s): C34.90 - Malignant neoplasm of unspecified part of unspecified bronchus or lung (6) COPD (chronic obstructive pulmonary disease) Qualifiers: COPD type: unspecified COPD Qualified Code(s): J44.9 - Chronic obstructive pulmonary disease, unspecified
[2017-12-02] MEDS: oxyCODONE/Acetaminophen 10/325 Tablet PO PRN ×2 (16:22→20:18)
[2017-12-02] MEDS: Zolpidem Tartrate 5 MG Tablet PO SCH (20:19)
--- NOTE | 2017-12-02 23:53 | P.DIET ---
Nutritional Evaluation Type of nutrition evaluation: initial Nutrition consult regarding: Diet Evaluation Nutrition screening: [facility] [place] - Diagnosis pain s/p fall - Objective [place] body weight: 50 kg % IBW: 78 Body Weight Used for Calculations: Actual Energy Needs - Lower Range (kCal/kg): 35 Energy Needs - Upper Range (kCal/kg): 40 Lower Limit kCal/kg (kCals): 1,365 Upper Limit kCal/kg (kCals): 1,560 Lower Limit Protein Factor (Grams per Kg): 1 Upper Limit Protein Factor (Grams per Kg): 1.5 Lower Protein Needs (Protein): 39 Upper Protein Needs (Protein): 59 Dietitian Reviewed in Medical Record: Current diet, Curent medications, Labs, Medical history Diet Order: Reg Objective Comments: Last chemo tx was 3 months ago BGlu: 65 Assessment Assessment: Pt. is at nutritional risk due to dx. Pt. with a past medical history significant for lung cancer and COPD presents to the emergency department for evaluation of persistent, debilitating lower back and sacral pain. The patient reports that 2 weeks ago she fell onto her buttock while she was walking down the stairs. Pt. with +BM and +UOP. According to MD note, pt. still experiencing lower back pain. Will send ensure enlive TID with meals. Record % PO intake in EMR. Monitor PO intake, labs and wt. Recommendations: 1. Will send ensure enlive TID with meals. 2. Record % PO intake in EMR. Monitor PO intake, labs and wt. Dietitian to Monitor: Lab values, Supplement acceptance, Weight change, PO Intake, Wound/skin status, Medical course
[2017-12-03] MEDS: oxyCODONE/Acetaminophen 10/325 Tablet PO PRN ×4 (00:29→22:49)
[2017-12-03] MEDS: Heparin - SQ 10,000 UNITS/ML Vial SQ SCH ×2 (08:14→21:17)
[2017-12-03] MEDS: Amoxicillin/Clavulanate 875/125 MG Tablet PO SCH ×2 (08:14→21:17)
[2017-12-03] MEDS: HYDROmorphone PF Inj 2 MG/ML Vial IV.PUSH PRN (08:14)
[2017-12-03] MEDS: Venlafaxine XR 75 MG Capsule PO SCH (08:14)
[2017-12-03] MEDS: Senna/Docusate Sodium 8.6/50 MG Tablet PO SCH ×2 (08:15→21:17)
[2017-12-03] MEDS: Budesonide-Formoterol 160/4.5 MCG 6 GM Inhaler INH SCH ×2 (08:15→21:18)
[2017-12-03] MEDS ORDERED: Sodium Chlor 0.9% Inj 500 ML IV.SIG SCH (12:23)
[2017-12-03] MEDS ORDERED: HYDROmorphone PF Inj 1 MG/ML Ampul IV.PUSH PRN (12:24)
[2017-12-03] MEDS ORDERED: Naloxone Inj 0.4 MG/ML Vial IV.PUSH PRN (12:24)
--- NOTE | 2017-12-03 12:31 | P.PNIM ---
Subjective Interval history: Still complained of pain. Reports no shortness of breath and started to feel better. Hopeful for [facility] authorization. Physical Exam Vital signs: Vital Signs 12/02/17 16:00 12/02/17 20:00 12/02/17 20:17 Temperature 97.6 F 99.5 F Pulse Rate 106 H 102 H Respiratory Rate 18 16 Blood Pressure 117/56 L 108/55 L Pulse Oximetry 99 97 97 12/03/17 00:00 12/03/17 08:00 Temperature 97.5 F L 98.4 F Pulse Rate 97 H 104 H Respiratory Rate 16 15 Blood Pressure 105/61 103/56 L Pulse Oximetry 98 98 Intake & Output 12/02/17 12/03/17 12/03/17 18:59 06:59 18:59 Intake Total 920 / 920 240 / 240 Balance 920 / 920 240 / 240 Weight 41.2 kg Intake: Oral 920 / 920 240 / 240 Other: # Voids 1 Date of Last Bowel Movement 12/02/17 12/02/17 # Bowel Movements 1 Narrative: General: chronically ill-appearing and malnourished female. Cardiovascular: Mildly tachycardic rate and rhythm. No murmurs, rubs or gallops. Respiratory: Lungs clear to auscultation bilaterally. No wheezes or rhonchi. No productive cough. Abdomen: Soft, nontender, nondistended. No peritoneal signs. Musculoskeletal: No gross deformities. No edema. Skin: No obvious rashes or erythema. Neuro: Awake, alert oriented x3. No focal deficits. Bilateral lower extremity weak 4 out of 5 Results - Labs CBC & Chem 7: 12/01/17 07:54 11/30/17 05:20 Microbiology 11/28/17 17:45 Blood - Peripheral Aerobic Blood Culture - Final No growth in 5 days 11/28/17 17:45 Blood - Peripheral Anaerobic Blood Culture - Final No growth in 5 days 11/28/17 17:50 Blood - Peripheral Aerobic Blood Culture - Final No growth in 5 days 11/28/17 17:50 Blood - Peripheral Anaerobic Blood Culture - Final No growth in 5 days Assessment and Plan - Assessment (1) Intractable back pain Code(s): M54.9 - Dorsalgia, unspecified Status: Acute (2) Spinal fracture Status: Acute (3) Malnutrition Code(s): E46 - Unspecified protein-calorie malnutrition Status: Acute (4) Lung cancer Code(s): C34.90 - Malignant neoplasm of unspecified part of unspecified bronchus or lung Status: Chronic (5) Thrombocytopenia Code(s): D69.6 - Thrombocytopenia, unspecified Status: Acute (6) COPD (chronic obstructive pulmonary disease) Code(s): J44.9 - Chronic obstructive pulmonary disease, unspecified Status: Chronic - Plan 56-year-old female with a past medical history significant for small cell lung cancer and COPD presents to the emergency department for evaluation of persistent, debilitating lower back and sacral pain. The patient reports that 2 weeks ago she fell onto her buttock while she was walking down the stairs. 1. S/P fall now with Lower back/buttock pain/sacral fracture/thoracic vertebral fracture MRI of the lumbar spine shows an acute versus subacute fracture of the sacrum near S2/S3 MRI of the thoracic spine shows an acute to subacute mild compression fracture of T6 -Neurosurgery consulted, appreciate assistance. Recommends non surgical approach , TLSO and PT. -Continue with pain management adjust dosing and attempt to wean off IV pain medication. Percocet 5 for pain 1-5 and Percocet 10 for pain 6-10. -Flexeril 10 mg p.o. 3 times daily as needed PT recommends SNF and awaiting [facility] evaluation 2. Small cell lung cancer Patient's oncologist is Dr. Lowe Completed chemotherapy approximately 3 months ago and prophylactic brain radiation therapy approximately 2 weeks ago -Continue outpatient follow-up, has appointment January. Had recent imaging studies that were negative for recurrence. 3. COPD, chronic and O2 dependent at 3 L -Continue Pulmicort -Nebs -Continue oxygen at 2 L to keep sats greater than 90 4. Thrombocytopenia -plat improving 128>> 130 5. Anemia, HH trending down, 9.8. Poss dilutional Hemoglobin is stable 6. Protein calorie malnutrition Ensure life supplements, encourage p.o. intake, appreciate dietary consultation. Heparin 5000 units subcu twice daily for DVT prophylaxis, monitor platelets continue with PT Discharge Planning: [facility] (2) Spinal fracture Qualifiers: Encounter type: initial encounter Fracture of vertebra location: sacrum Zone of sacrum fracture: unspecified portion of sacrum Fracture type: closed Qualified Code(s): S32.10XA - Unspecified fracture of sacrum, initial encounter for closed fracture (3) Malnutrition Qualifiers: Malnutrition type: protein-calorie malnutrition Protein-calorie malnutrition severity: severe Qualified Code(s): E43 - Unspecified severe protein-calorie malnutrition (4) Lung cancer Qualifiers: Laterality: unspecified laterality Lung location: unspecified part of lung Qualified Code(s): C34.90 - Malignant neoplasm of unspecified part of unspecified bronchus or lung (6) COPD (chronic obstructive pulmonary disease) Qualifiers: COPD type: unspecified COPD Qualified Code(s): J44.9 - Chronic obstructive pulmonary disease, unspecified
[2017-12-03] MEDS: Zolpidem Tartrate 5 MG Tablet PO SCH (21:17)
[2017-12-04] MEDS: oxyCODONE/Acetaminophen 10/325 Tablet PO PRN ×4 (07:27→20:51)
--- NOTE | 2017-12-04 10:01 | P.PNIM ---
Subjective Interval history: Patient states still having back pain but improved and trying to stay on oral medications. No active shortness of breath. Physical Exam Vital signs: Vital Signs 12/03/17 12:00 12/03/17 14:00 12/03/17 16:00 Temperature 98.0 F 98.5 F Pulse Rate 108 H 105 H 105 H Respiratory Rate 17 16 Blood Pressure 84/51 L 118/63 96/53 L Pulse Oximetry 98 98 12/03/17 20:00 12/03/17 22:47 12/04/17 00:00 Temperature 98.2 F 98 F Pulse Rate 104 H 93 H Respiratory Rate 17 18 Blood Pressure 94/52 L 105/60 121/70 Pulse Oximetry 99 99 12/04/17 04:00 12/04/17 08:00 Temperature 98 F 97.9 F Pulse Rate 94 H 94 H Respiratory Rate 17 17 Blood Pressure 103/61 110/55 L Pulse Oximetry 96 99 Intake & Output 12/03/17 12/04/17 12/04/17 18:59 06:59 18:59 Intake Total 500 / 500 120 / 120 Balance 500 / 500 120 / 120 Weight 42.8 kg Intake: IV 500 / 500 NS Inj 500 ML @ Wide Open IV. 500 / 500 SIG BOLUS BRITNEY Rx#:[id number] Oral 120 / 120 Other: # Voids 2 1 Date of Last Bowel Movement 12/03/17 12/03/17 # Bowel Movements 1 Narrative: General: Thin white female in no acute distress. Cardiovascular: Mildly tachycardic rate and rhythm. No murmurs, rubs or gallops. Respiratory: Relatively clear to auscultation bilaterally Abdomen: Soft, nontender, nondistended. No peritoneal signs. Musculoskeletal: No gross deformities. No edema. Neuro: Awake, alert oriented x3. No focal deficits. Bilateral lower extremity weak 4.5 out of 5 Results - Labs CBC & Chem 7: 12/01/17 07:54 11/30/17 05:20 Laboratory Results - last 24 hr 12/03/17 16:28 POC Glucose 175 H Microbiology 11/28/17 17:45 Blood - Peripheral Aerobic Blood Culture - Final No growth in 5 days 11/28/17 17:45 Blood - Peripheral Anaerobic Blood Culture - Final No growth in 5 days 11/28/17 17:50 Blood - Peripheral Aerobic Blood Culture - Final No growth in 5 days 11/28/17 17:50 Blood - Peripheral Anaerobic Blood Culture - Final No growth in 5 days Assessment and Plan - Assessment (1) Intractable back pain Code(s): M54.9 - Dorsalgia, unspecified Status: Acute (2) Spinal fracture Status: Acute (3) Malnutrition Code(s): E46 - Unspecified protein-calorie malnutrition Status: Acute (4) Lung cancer Code(s): C34.90 - Malignant neoplasm of unspecified part of unspecified bronchus or lung Status: Chronic (5) Thrombocytopenia Code(s): D69.6 - Thrombocytopenia, unspecified Status: Acute (6) COPD (chronic obstructive pulmonary disease) Code(s): J44.9 - Chronic obstructive pulmonary disease, unspecified Status: Chronic - Plan 56-year-old female with a past medical history significant for small cell lung cancer and COPD presents to the emergency department for evaluation of persistent, debilitating lower back and sacral pain. The patient reports that 2 weeks ago she fell onto her buttock while she was walking down the stairs. 1. S/P fall now with Lower back/buttock pain/sacral fracture/thoracic vertebral fracture MRI of the lumbar spine shows an acute versus subacute fracture of the sacrum near S2/S3 MRI of the thoracic spine shows an acute to subacute mild compression fracture of T6 -Neurosurgery consulted, appreciate assistance. Recommends non surgical approach , TLSO and PT. -Continue with pain management adjust dosing and attempt to wean off IV pain medication. Percocet 5 for pain 1-5 and Percocet 10 for pain 6-10. Dilaudid for as needed breakthrough pain and attempting to wean off. -Flexeril 10 mg p.o. 3 times daily as needed PT recommends SNF and awaiting [facility] evaluation 2. Small cell lung cancer Patient's oncologist is Dr. Lowe Completed chemotherapy approximately 3 months ago and prophylactic brain radiation therapy approximately 2 weeks ago -Continue outpatient follow-up, has appointment January. Had recent imaging studies that were negative for recurrence. 3. COPD, chronic and O2 dependent at 3 L -Continue Pulmicort -Nebs -Continue oxygen at 3 L to keep sats greater than 90 4. Thrombocytopenia -Stable and improving. 5. Anemia, HH trending down, last hemoglobin 9.8. Poss dilutional Hemoglobin is stable 6. Protein calorie malnutrition Ensure life supplements, encourage p.o. intake, appreciate dietary consultation. Heparin 5000 units subcu twice daily for DVT prophylaxis, monitor platelets continue with PT Discharge Planning: Await insurance authorization for [facility] (2) Spinal fracture Qualifiers: Encounter type: initial encounter Fracture of vertebra location: sacrum Zone of sacrum fracture: unspecified portion of sacrum Fracture type: closed Qualified Code(s): S32.10XA - Unspecified fracture of sacrum, initial encounter for closed fracture (3) Malnutrition Qualifiers: Malnutrition type: protein-calorie malnutrition Protein-calorie malnutrition severity: severe Qualified Code(s): E43 - Unspecified severe protein-calorie malnutrition (4) Lung cancer Qualifiers: Laterality: unspecified laterality Lung location: unspecified part of lung Qualified Code(s): C34.90 - Malignant neoplasm of unspecified part of unspecified bronchus or lung (6) COPD (chronic obstructive pulmonary disease) Qualifiers: COPD type: unspecified COPD Qualified Code(s): J44.9 - Chronic obstructive pulmonary disease, unspecified
[2017-12-04] MEDS: Venlafaxine XR 75 MG Capsule PO SCH (10:10)
[2017-12-04] MEDS: Senna/Docusate Sodium 8.6/50 MG Tablet PO SCH ×2 (10:10→20:23)
[2017-12-04] MEDS: Amoxicillin/Clavulanate 875/125 MG Tablet PO SCH ×2 (10:10→20:23)
[2017-12-04] MEDS: Heparin - SQ 10,000 UNITS/ML Vial SQ SCH ×2 (10:10→20:23)
[2017-12-04] MEDS: Budesonide-Formoterol 160/4.5 MCG 6 GM Inhaler INH SCH ×2 (10:12→20:24)
[2017-12-04] MEDS: Zolpidem Tartrate 5 MG Tablet PO SCH (20:23)
[2017-12-05] MEDS: oxyCODONE/Acetaminophen 10/325 Tablet PO PRN ×2 (04:21→09:32)
[2017-12-05 07:10] LABS: Hematocrit 30.6 % (35.0-46.0); Hemoglobin 10.3 gm/dL (11.6-15.3); Mean Corpuscular HGB Conc 33.6 % (32.0-36.0); Mean Corpuscular Hemoglobin 36.9 pg (27.0-34.0); Mean Corpuscular Volume 109.7 fL (80.0-100.0); Mean Platelet Volume 8.7 fL (7.0-11.0); Platelet Count 117 th/mm3 (150-450); Red Blood Count 2.79 mil/mm3 (4.00-5.30); Red Cell Distribution Width 14.4 % (11.6-17.2); White Blood Count 4.2 th/mm3 (4.0-11.0)
[2017-12-05] MEDS: Senna/Docusate Sodium 8.6/50 MG Tablet PO SCH (08:00)
[2017-12-05] MEDS: Heparin - SQ 10,000 UNITS/ML Vial SQ SCH (08:00)
[2017-12-05] MEDS: Amoxicillin/Clavulanate 875/125 MG Tablet PO SCH (08:01)
[2017-12-05] MEDS: Venlafaxine XR 75 MG Capsule PO SCH (08:01)
[2017-12-05] MEDS: Budesonide-Formoterol 160/4.5 MCG 6 GM Inhaler INH SCH (08:02)
--- NOTE | 2017-12-05 09:15 | P.PN ---
Subjective Interval history: Patient doing well overnight. Patient reports that she is tolerating p.o., voiding/stooling well. No overnight events per RN. Physical Exam Vital signs: Vital Signs 12/04/17 12:00 12/04/17 16:00 12/04/17 18:56 Temperature 97.7 F 98.0 F 97.4 F L Pulse Rate 125 H 105 H 108 H Respiratory Rate 17 17 17 Blood Pressure 107/60 117/56 L 107/54 L Pulse Oximetry 98 100 98 12/04/17 23:08 12/05/17 00:00 12/05/17 01:29 Temperature 98.3 F Pulse Rate 100 H Respiratory Rate 16 16 18 Blood Pressure 103/61 Pulse Oximetry 99 12/05/17 04:00 12/05/17 05:17 Temperature 97.3 F L Pulse Rate 100 H Respiratory Rate 16 18 Blood Pressure 94/51 L Pulse Oximetry 98 Intake & Output 12/04/17 12/05/17 12/05/17 18:59 06:59 18:59 Intake Total 500 / 500 Balance 500 / 500 Intake: Oral 500 / 500 Other: # Voids 4 5 Date of Last Bowel Movement 12/04/17 12/04/17 # Bowel Movements 4 Narrative: GENERAL: Thin female, in NAD, resting comfortable in bed, nasal cannula in place SKIN: Warm and dry. HEENT: Normocephalic. No scleral icterus. No injection or drainage. PERRLA. MOM. NECK: Supple, trachea midline. No JVD or lymphadenopathy. CARDIOVASCULAR: Regular rate and rhythm without murmurs, gallops, or rubs. RESPIRATORY: Breath sounds equal bilaterally. No accessory muscle use. GASTROINTESTINAL: Abdomen soft, non-tender, nondistended. MUSCULOSKELETAL: No cyanosis, or edema. BACK: Nontender without obvious deformity. No CVA tenderness. NEURO: AAO x3, motor strength 4 out of 5 in lower extremities, 5 out of 5 upper extremities, sensation intact to light touch. Results - Labs CBC & Chem 7: 12/05/17 05:27 11/30/17 05:20 Laboratory Results - last 24 hr 12/05/17 05:27 WBC 4.2 RBC 2.79 L Hgb 10.3 L Hct 30.6 L MCV 109.7 H MCH 36.9 H MCHC 33.6 RDW 14.4 Plt Count 117 L MPV 8.7 Assessment and Plan - Assessment (1) Intractable back pain Code(s): M54.9 - Dorsalgia, unspecified Status: Acute (2) Spinal fracture Status: Acute (3) Malnutrition Code(s): E46 - Unspecified protein-calorie malnutrition Status: Acute (4) Lung cancer Code(s): C34.90 - Malignant neoplasm of unspecified part of unspecified bronchus or lung Status: Chronic (5) Thrombocytopenia Code(s): D69.6 - Thrombocytopenia, unspecified Status: Acute (6) COPD (chronic obstructive pulmonary disease) Code(s): J44.9 - Chronic obstructive pulmonary disease, unspecified Status: Chronic - Plan 56-year-old CF with a PMHx of Small cell lung cancer and COPD admitted for evaluation of persistent, debilitating lower back and sacral pain s/p fall. Per MRI found to have sacral, thoracic, and vertebral fractures managed nonsurgically, HD#8 1. S/P fall now with Lower back/buttock pain/sacral fracture/thoracic vertebral fracture MRI of the lumbar spine shows an acute versus subacute fracture of the sacrum near S2/S3 MRI of the thoracic spine shows an acute to subacute mild compression fracture of T6 -Neurosurgery consulted, appreciate assistance. Recommends non surgical approach , TLSO and PT. -Continue with pain management with p.o. meds, now weaned off of IV pain meds -Cont. Flexeril PRN and Augmentin PT recommends SNF, accepted to [place] today pending discharge 2. Small cell lung cancer, sees Dr. Lowe as OP -Completed chemotherapy approximately 3 months ago and prophylactic brain radiation therapy approximately 2 weeks ago -Continue outpatient follow-up, has appointment January. Had recent imaging studies that were negative for recurrence. 3. COPD, chronic and O2 dependent at 3 L -Continue Symbicort -Nebs PRN 4. Thrombocytopenia, 131 on admission -Stable -Platelets 117 today from 130 yesterday 5. Anemia -Stable hemoglobin 10.3 today from 9.7 -Continue ferrous sulfate 6. Protein calorie malnutrition Ensure life supplements, encourage p.o. intake, appreciate dietary consultation 7. Depression/Anxiety/Insomnia -Cont. home Effexor and Ambien -Denies suicidal/homicidal ideation 8. Tachycardia, improved -not on meds -asymptomatic -if persistently >100 consider starting BB 9. DVT PPX: Heparin, monitor plt 10. Disposition: Discharge today to [place] for rehab pending orders Discussed Condition With: Patient, RN (2) Spinal fracture Qualifiers: Encounter type: initial encounter Fracture of vertebra location: sacrum Zone of sacrum fracture: unspecified portion of sacrum Fracture type: closed Qualified Code(s): S32.10XA - Unspecified fracture of sacrum, initial encounter for closed fracture (3) Malnutrition Qualifiers: Malnutrition type: protein-calorie malnutrition Protein-calorie malnutrition severity: severe Qualified Code(s): E43 - Unspecified severe protein-calorie malnutrition (4) Lung cancer Qualifiers: Laterality: unspecified laterality Lung location: unspecified part of lung Qualified Code(s): C34.90 - Malignant neoplasm of unspecified part of unspecified bronchus or lung (6) COPD (chronic obstructive pulmonary disease) Qualifiers: COPD type: unspecified COPD Qualified Code(s): J44.9 - Chronic obstructive pulmonary disease, unspecified
[2017-12-05 09:29] VITALS: O2SAT 97
[2017-12-05] MEDS ORDERED: Ferrous Sulfate 325 MG Tablet PO SCH (11:00)
[2017-12-05] MEDS ORDERED: Heparin Central Flush 100 UNIT/ML 5 ML Vial IV.FLUSH PRN (12:14)
[2017-12-05 12:19] VITALS: BP 97/54; PULSE 100; RESP 21; TEMP 97.8
--- NOTE | 2017-12-05 15:01 | P.DS ---
Date of admission: 11/28/17 21:48 Primary care physician: No Primary Care Physician Brief History from admission: This is a 56-year-old CF with a PMHx significant for Lung cancer and COPD who presents to the emergency department for evaluation of persistent, debilitating lower back and sacral pain. The patient reported that 2 weeks ago she fell onto her buttocks while she was walking down the stairs. She reports she lost her footing. Imaging showed no acute fractures at that time and she was released to home with p.o. pain medications. Since that time, the patient reports that her pain has been so severe that she is unable to ambulate. DS: Diagnosis - Discharge Diagnosis (1) Intractable back pain Status: Acute (2) Spinal fracture Status: Acute (3) Malnutrition Status: Acute (4) Lung cancer Status: Chronic (5) Thrombocytopenia Status: Acute (6) COPD (chronic obstructive pulmonary disease) Status: Chronic DS: Summary Hospital Course: This is a 56-year-old CF with a PMHx of Small cell lung cancer, Osteoporosis, and COPD admitted for evaluation of persistent, debilitating lower back and sacral pain s/p fall. Per MRI found to have sacral, thoracic, and vertebral fractures managed nonsurgically. Patient was s/p fall. MRI of the lumbar spine shows an acute versus subacute fracture of the sacrum near S2/S3. MRI of the thoracic spine shows an acute to subacute mild compression fracture of T6. Neurosurgery was consulted and they recommended non-surgical approach, TLSO and PT. Patient was managed with PO pain meds and Flexeril PRN. PT recommended SNF and patient was accepted to [facility] upon discharge. Patient has a Hx of Small cell lung cancer, sees Dr. Lowe as OP. Patient completed chemotherapy approximately 3 months ago and prophylactic brain radiation therapy approximately 2 weeks ago. Patient had thrombocytopenia and anemia remained stable during hospitalization, hemoglobin was 10.3 on the day of discharge and patient was continued on ferrous sulfate. Patient during hospitalization had intermittent tachycardia at the highest up to 125 however typically in the 90-100's. This improved on the day of D/C, patient was not on meds, asymptomatic, if persistently >100 while in rehab consider starting Propranolol. For her Osteoporosis, patient was advised to take vitamin D and calcium supplementation OTC. Advised the importance of safety due to her increased risk of fracture with falls. NC was continued at her BL of 3L via NC during the hospitalization. Disposition: Stable for discharge today to [place] for rehab - Time Spent with Patient Total time spent providing and/or coordinating discharge services: Greater than 30 minutes - Quality: VTE Deep Vein Thrombosis/Pulmonary Embolism Present on Admission: No Exam Vital signs: Vital Signs 12/04/17 16:00 12/04/17 18:56 12/04/17 23:08 Temperature 98.0 F 97.4 F L 98.3 F Pulse Rate 105 H 108 H 100 H Respiratory Rate 17 17 16 Blood Pressure 117/56 L 107/54 L 103/61 Pulse Oximetry 100 98 99 12/05/17 00:00 12/05/17 01:29 12/05/17 04:00 Temperature 97.3 F L Pulse Rate 100 H Respiratory Rate 16 18 16 Blood Pressure 94/51 L Pulse Oximetry 98 12/05/17 05:17 12/05/17 08:00 12/05/17 10:02 Temperature 98.2 F Pulse Rate 125 H Respiratory Rate 18 20 18 Blood Pressure 97/67 L Pulse Oximetry 97 12/05/17 12:00 Temperature 97.8 F Pulse Rate 100 H Respiratory Rate 21 Blood Pressure 97/54 L Pulse Oximetry 97 Intake & Output 12/04/17 12/05/17 12/05/17 18:59 06:59 18:59 Intake Total 500 / 500 Balance 500 / 500 Intake: Oral 500 / 500 Other: # Voids 4 5 Date of Last Bowel Movement 12/04/17 12/04/17 12/04/17 # Bowel Movements 4 Narrative: GENERAL: Thin female, in NAD, resting comfortable in bed, nasal cannula in place SKIN: Warm and dry. HEENT: Normocephalic. No scleral icterus. No injection or drainage. PERRLA. MOM. NECK: Supple, trachea midline. No JVD or lymphadenopathy. CARDIOVASCULAR: Regular rate and rhythm without murmurs, gallops, or rubs. RESPIRATORY: Breath sounds equal bilaterally. No accessory muscle use. GASTROINTESTINAL: Abdomen soft, non-tender, nondistended. MUSCULOSKELETAL: No cyanosis, or edema. BACK: Nontender without obvious deformity. No CVA tenderness. NEURO: AAO x3, motor strength 4 out of 5 in lower extremities, 5 out of 5 upper extremities, sensation intact to light touch. Results Procedures completed during hospitalization: none Labs on day of discharge: Labs from last 24 hours 12/05/17 05:27 WBC 4.2 RBC 2.79 L Hgb 10.3 L Hct 30.6 L MCV 109.7 H MCH 36.9 H MCHC 33.6 RDW 14.4 Plt Count 117 L MPV 8.7 - Impressions ITS Impressions Lumbar Spine MRI 11/28/17 17:00 CONCLUSION: 1. Small central to right paracentral disc protrusion with an annular fissure at L5/S1 focally contacting the transiting right S1 nerve root is unchanged. 2. Other levels are within normal limits. 3. Mild lumbar scoliosis again noted. 4. An acute or subacute fracture is suspected of the sacrum near S2/S3 and extending into the ala, especially on the right. On the comparison PET study, no definite fracture at that time and also no evidence of a hypermetabolic lesion at that time. Thoracic Spine MRI 11/28/17 17:00 CONCLUSION: 1. There is an acute to subacute, mild compression fracture of T6 as described. This may be osteoporotic or posttraumatic. No evidence of an underlying bone lesion. No fracture-associated foraminal or spinal stenosis. 2. The rest of the thoracic spine is within normal limits. 3. Miniscule right and small left pleural effusions, new. There appears to be some patchy consolidation of both lung bases as well. Chest X-Ray 11/28/17 17:02 CONCLUSION: 1. New mild blunting of the left lateral costophrenic angle most consistent with a small effusion. 2. Minimal streaky opacity at the left lung base most characteristic of atelectasis. There is no definite consolidation. Pelvis X-Ray 11/28/17 17:02 CONCLUSION: Negative trauma study. Discharge Plan - Discharge Disposition Patient Disposition: 62 Rehab Inpatient - Discharge Condition Condition: Stable - Discharge Order Discharge Orders: Discharge Order (Routine); Ordered 12/05/17 Ordered By: Priscila Hicks - Physicians Team Primary Care Provider: Primary Care Physici,No Attending Provider: Priscila Hicks Other Providers: Rehab,[place] ; Rehab,[facility] ; Luis Angel Hankins MD
== END 2017-12-05 13:33 ==
LOC: NEDA 15:52 → NEPD 15:52 → N06 22:46
PROVIDERS: ADMIT Family Medicine; ATTEND Family Medicine

== ENCOUNTER 2018-02-13 12:39 | Inpatient (IN) ==
[2018-02-13] MEDS ORDERED: MethylPREDNISolone Sod Succinate Inj 125 MG/2 ML Vial IV.PUSH ONE (12:54)
[2018-02-13] MEDS ORDERED: Sod Chloride 0.9% Inj 1,000 ML IV.SIG SCH ×4 (13:00→18:05)
--- NOTE | 2018-02-13 13:01 | ED ---
HPI General Chief complaint: Headache Stated complaint: sob/headache/phelgm Time Seen by Provider: 02/13/18 12:49 History of Present Illness HPI narrative: Patient is a 57-year-old female with history of COPD, smoker, lung CA, last chemotherapy and radiation in November. Presented today to emergency room for severe dyspnea. Palpitations. Chest pain discomfort. Heart rate is 125, oxygen saturation is 100% on 2 L of oxygen. Patient stated that she was told that lung cancer resolved. She denies fever. Related Data Previous Rx's Medication Instructions Recorded albuterol sulfate [ProAir HFA] 2 puff INHALATION Q6H PRN #1 g 12/12/17 Allergies Allergy/AdvReac Type Severity Reaction Status Date / Time No Known Allergies Allergy Verified 12/06/17 05:36 Review of Systems ROS: all other systems reviewed are negative Cardiovascular Reports palpitations Respiratory Reports cough and Reports dyspnea PMFSH Medical History Medical History Anxiety (Acute) Back pain (Acute) COPD (chronic obstructive pulmonary disease) (Acute) Depression (Acute) Lung cancer (Acute) On home oxygen therapy (Acute) Port-A-Cath in place (Acute) Surgical History Surgical History History of bilateral tubal ligation (Acute) Previous section (Acute) S/P appendectomy (Acute) Status post chemotherapy (Acute) Status post radiation therapy (Acute) Family History Family History Father Diabetes mellitus COPD (chronic obstructive pulmonary disease) Dementia Alzheimer disease HTN (hypertension) Mother COPD (chronic obstructive pulmonary disease) Alzheimer disease Father No problems noted. Father No problems noted. Mother Dementia Father No problems noted. Social History Social History Substance History: No History of Abuse Second Hand Smoke Exposure: No Smoking Status: Current every day smoker Tobacco Type: Cigarettes How Often Do You Have a Drink Containing Alcohol: Never Recent Travel in [place] within the Last 8 Weeks: No Recent Out of Country Travel within the Last 8 Weeks: No Immunization History Tetanus Immunization: <5 Years Exam Narrative Exam Narrative: GENERAL: 57-year-old female in respiratory distress. Cachectic SKIN: Focused skin assessment warm/dry. HEAD: Atraumatic. Normocephalic. EYES: Pupils equal and round. No scleral icterus. No injection or drainage. ENT: No nasal bleeding or discharge. Mucous membranes pink and moist. NECK: Trachea midline. No JVD. CARDIOVASCULAR: Regular rate and rhythm. No murmur appreciated. RESPIRATORY: No accessory muscle use. Bilateral wheezing, rhonchi. GASTROINTESTINAL: Abdomen soft, non-tender, nondistended. Hepatic and splenic margins not palpable. MUSCULOSKELETAL: No obvious deformities. No clubbing. No cyanosis. No edema. NEUROLOGICAL: Awake and alert. No obvious cranial nerve deficits. Motor grossly within normal limits. Normal speech. PSYCHIATRIC: Appropriate mood and affect; insight and judgment normal. Course Initial Documented Vital Signs Temperature 98.3 F 02/13/18 12:47 Pulse Rate 135 H 02/13/18 12:47 Respiratory Rate 22 02/13/18 12:47 Blood Pressure 104/77 02/13/18 12:47 Pulse Oximetry 100 02/13/18 12:47 Last Documented Vital Signs Temperature 98.7 F 02/14/18 04:00 Pulse Rate 84 02/14/18 06:00 Respiratory Rate 15 02/14/18 05:00 Blood Pressure 125/62 02/14/18 06:00 Pulse Oximetry 98 02/14/18 06:00 Medical Decision Making [facility] Narrative Medical decision making narrative: 57-year-old female in respiratory distress, tachycardic, low blood pressure. Cardiac workup, pulmonary embolism workup, septic workup ordered. Reevaluation is pending. 1540: Labs noted, patient has lactic acid 5.0, elevated white count 11, most likely due to interstitial changes in the lungs. She was treated with vancomycin and Zosyn for pneumonia rule out sepsis. Blood pressure still on the low side systolic blood pressure is 105, heart rate is stably elevated at 130-140, digoxin given. PE study was negative, first set of troponin was negative as well. Case was discussed with [facility]. Accepted for admission. Medical Screen Exam Complete: Yes Emergency Medical Condition: Yes Lab Data Result diagrams: 02/14/18 04:35 02/14/18 04:35 Lab Results 02/13/18 02/13/18 02/13/18 Range/Units 12:50 12:50 12:50 CBC w Diff Auto diff final WBC 11.3 H (4.0-11.0) th/mm3 RBC 3.76 L (4.00-5.30) mil/mm3 Hgb 12.3 (11.6-15.3) gm/dL POC Hgb (Calc) Not Reportable Hct 36.5 (35.0-46.0) % POC Hct Not Reportable MCV 97.1 (80.0-100.0) fL MCH 32.8 (27.0-34.0) pg MCHC 33.8 (32.0-36.0) % RDW 13.8 (11.6-17.2) % Plt Count 232 (150-450) th/mm3 MPV 7.9 (7.0-11.0) fL Neut % (Auto) 86.0 H (16.0-70.0) % Lymph % (Auto) 6.2 L (9.0-44.0) % Brule % (Auto) 4.6 (0.0-8.0) % Eos % (Auto) 0.5 (0.0-4.0) % Baso % (Auto) 2.7 H (0.0-2.0) % Neut # (Auto) 9.7 H (1.8-7.7) th/mm3 Lymph # (Auto) 0.7 L (1.0-4.8) th/mm3 Brule # (Auto) 0.5 (0.0-0.9) th/mm3 Eos # (Auto) 0.1 (0.0-0.4) th/mm3 Baso # (Auto) 0.3 H (0.0-0.2) th/mm3 WBC Differential . Differential Comment . PT 9.4 L (9.8-11.6) sec INR 0.9 Ratio APTT 30.6 (23.4-31.7) sec Puncture Site Patient Temperature O2 Saturation (90-100) % ABG pH (7.380-7.420) ABG pCO2 (38-42) mmHg ABG pO2 (61-120) mmHg ABG HCO3 (22-26) mmol/L ABG O2 Content (12.0-20.0) Vol % ABG Base Excess (-2-2) mmol/L ABG Methemoglobin (0-2) % Guilherme Test Hemoglobin (12.0-16.0) G/DL Carboxyhemoglobin (0-4) % O2 Delivery Device Liter Flow L/M Critical Value POC Sodium 137 (137-144) mmol/L Sodium 137 (136-145) meq/L POC Potassium 4.5 (3.6-5.0) mmol/L Potassium 4.6 (3.5-5.1) meq/L POC Chloride 97 L (102-111) mmol/L Chloride 99 (98-107) meq/L Carbon Dioxide 27.2 (21.0-32.0) meq/L Anion Gap 11 (5-15) meq/L POC BUN 4 L (5-21) mg/dL BUN 5 L (7-18) mg/dL Creatinine 0.70 (0.50-1.00) mg/dL POC Creatinine 0.5 L (0.6-1.3) mg/dL Estimated GFR 87 L (>89) mL/min POC Glucose 113 H (68-110) mg/dL Random Glucose 109 H (74-106) mg/dL Lactic Acid (0.4-2.0) mmol/L Calcium 9.1 (8.5-10.1) mg/dL Calcium Adj for Albumin (8.5-10.1) mg/dL Total Bilirubin 0.3 (0.2-1.0) mg/dL AST 20 (15-37) U/L ALT 12 (10-53) U/L Alkaline Phosphatase 134 H (45-117) U/L Troponin Less than 0.05 (0.00-0.40) ng/mL Troponin I Cancelled B-Natriuretic Peptide (0-100) pg/mL Total Protein 7.2 (6.4-8.2) g/dL Albumin 3.0 L (3.4-5.0) g/dL Ur Collection Type Urine Color (Yellw/Straw) Urine Clarity (Clear) Urine pH (5.0-8.5) Ur Specific [place] (1.002-1.035) Urine Protein (Neg-Trace) mg/dL Urine Glucose (UA) (Negative) mg/dL Urine Ketones (Negative) mg/dL Urine Occult Blood (Negative) Urine Nitrate (Negative) Urine Bilirubin (Negative) Urine Urobilinogen (Less than 2) mg/dL Ur Leukocyte Esterase (Negative) Urine WBC (0-5) /hpf Ur Squamous Epith Cells (0-5) /hpf Micro UA Comment Ur Microscopic Review Urine Culture Comments Urine Opiates Screen (Neg) Ur Barbiturates Screen (Neg) Ur Amphetamines Screen (Neg) U Benzodiazepines Scrn (Neg) Urine Cocaine Screen (Neg) U Cannabinoids Screen (Neg) 02/13/18 02/13/18 02/13/18 Range/Units 12:50 12:50 14:00 CBC w Diff WBC (4.0-11.0) th/mm3 RBC (4.00-5.30) mil/mm3 Hgb (11.6-15.3) gm/dL POC Hgb (Calc) Hct (35.0-46.0) % POC Hct MCV (80.0-100.0) fL MCH (27.0-34.0) pg MCHC (32.0-36.0) % RDW (11.6-17.2) % Plt Count (150-450) th/mm3 MPV (7.0-11.0) fL Neut % (Auto) (16.0-70.0) % Lymph % (Auto) (9.0-44.0) % Brule % (Auto) (0.0-8.0) % Eos % (Auto) (0.0-4.0) % Baso % (Auto) (0.0-2.0) % Neut # (Auto) (1.8-7.7) th/mm3 Lymph # (Auto) (1.0-4.8) th/mm3 Brule # (Auto) (0.0-0.9) th/mm3 Eos # (Auto) (0.0-0.4) th/mm3 Baso # (Auto) (0.0-0.2) th/mm3 WBC Differential Differential Comment PT (9.8-11.6) sec INR Ratio APTT (23.4-31.7) sec Puncture Site Patient Temperature O2 Saturation (90-100) % ABG pH (7.380-7.420) ABG pCO2 (38-42) mmHg ABG pO2 (61-120) mmHg ABG HCO3 (22-26) mmol/L ABG O2 Content (12.0-20.0) Vol % ABG Base Excess (-2-2) mmol/L ABG Methemoglobin (0-2) % Guilherme Test Hemoglobin (12.0-16.0) G/DL Carboxyhemoglobin (0-4) % O2 Delivery Device Liter Flow L/M Critical Value POC Sodium (137-144) mmol/L Sodium (136-145) meq/L POC Potassium (3.6-5.0) mmol/L Potassium (3.5-5.1) meq/L POC Chloride (102-111) mmol/L Chloride (98-107) meq/L Carbon Dioxide (21.0-32.0) meq/L Anion Gap (5-15) meq/L POC BUN (5-21) mg/dL BUN (7-18) mg/dL Creatinine (0.50-1.00) mg/dL POC Creatinine (0.6-1.3) mg/dL Estimated GFR (>89) mL/min POC Glucose (68-110) mg/dL Random Glucose (74-106) mg/dL Lactic Acid 5.0 H* (0.4-2.0) mmol/L Calcium (8.5-10.1) mg/dL Calcium Adj for Albumin (8.5-10.1) mg/dL Total Bilirubin (0.2-1.0) mg/dL AST (15-37) U/L ALT (10-53) U/L Alkaline Phosphatase (45-117) U/L Troponin (0.00-0.40) ng/mL Troponin I B-Natriuretic Peptide 60 (0-100) pg/mL Total Protein (6.4-8.2) g/dL Albumin (3.4-5.0) g/dL Ur Collection Type Urine Color (Yellw/Straw) Urine Clarity (Clear) Urine pH (5.0-8.5) Ur Specific [place] (1.002-1.035) Urine Protein (Neg-Trace) mg/dL Urine Glucose (UA) (Negative) mg/dL Urine Ketones (Negative) mg/dL Urine Occult Blood (Negative) Urine Nitrate (Negative) Urine Bilirubin (Negative) Urine Urobilinogen (Less than 2) mg/dL Ur Leukocyte Esterase (Negative) Urine WBC (0-5) /hpf Ur Squamous Epith Cells (0-5) /hpf Micro UA Comment Ur Microscopic Review Urine Culture Comments Urine Opiates Screen Neg (Neg) Ur Barbiturates Screen Neg (Neg) Ur Amphetamines Screen Neg (Neg) U Benzodiazepines Scrn Neg (Neg) Urine Cocaine Screen Neg (Neg) U Cannabinoids Screen Neg (Neg) 02/13/18 02/13/18 02/13/18 Range/Units 14:00 14:30 19:50 CBC w Diff WBC (4.0-11.0) th/mm3 RBC (4.00-5.30) mil/mm3 Hgb (11.6-15.3) gm/dL POC Hgb (Calc) Hct (35.0-46.0) % POC Hct MCV (80.0-100.0) fL MCH (27.0-34.0) pg MCHC (32.0-36.0) % RDW (11.6-17.2) % Plt Count (150-450) th/mm3 MPV (7.0-11.0) fL Neut % (Auto) (16.0-70.0) % Lymph % (Auto) (9.0-44.0) % Brule % (Auto) (0.0-8.0) % Eos % (Auto) (0.0-4.0) % Baso % (Auto) (0.0-2.0) % Neut # (Auto) (1.8-7.7) th/mm3 Lymph # (Auto) (1.0-4.8) th/mm3 Brule # (Auto) (0.0-0.9) th/mm3 Eos # (Auto) (0.0-0.4) th/mm3 Baso # (Auto) (0.0-0.2) th/mm3 WBC Differential Differential Comment PT (9.8-11.6) sec INR Ratio APTT (23.4-31.7) sec Puncture Site Right radial Patient Temperature 98.6 O2 Saturation 96 (90-100) % ABG pH 7.41 (7.380-7.420) ABG pCO2 38 (38-42) mmHg ABG pO2 138 H (61-120) mmHg ABG HCO3 23 (22-26) mmol/L ABG O2 Content 13.8 (12.0-20.0) Vol % ABG Base Excess -0.6 (-2-2) mmol/L ABG Methemoglobin 1.2 (0-2) % Guilherme Test Present Hemoglobin 10.1 L (12.0-16.0) G/DL Carboxyhemoglobin 3.1 (0-4) % O2 Delivery Device Nasal cannula Liter Flow 3.00 L/M Critical Value No POC Sodium (137-144) mmol/L Sodium (136-145) meq/L POC Potassium (3.6-5.0) mmol/L Potassium (3.5-5.1) meq/L POC Chloride (102-111) mmol/L Chloride (98-107) meq/L Carbon Dioxide (21.0-32.0) meq/L Anion Gap (5-15) meq/L POC BUN (5-21) mg/dL BUN (7-18) mg/dL Creatinine (0.50-1.00) mg/dL POC Creatinine (0.6-1.3) mg/dL Estimated GFR (>89) mL/min POC Glucose (68-110) mg/dL Random Glucose (74-106) mg/dL Lactic Acid 5.3 H* (0.4-2.0) mmol/L Calcium (8.5-10.1) mg/dL Calcium Adj for Albumin (8.5-10.1) mg/dL Total Bilirubin (0.2-1.0) mg/dL AST (15-37) U/L ALT (10-53) U/L Alkaline Phosphatase (45-117) U/L Troponin (0.00-0.40) ng/mL Troponin I B-Natriuretic Peptide (0-100) pg/mL Total Protein (6.4-8.2) g/dL Albumin (3.4-5.0) g/dL Ur Collection Type Clean catch Urine Color Yellow (Yellw/Straw) Urine Clarity Clear (Clear) Urine pH 6.5 (5.0-8.5) Ur Specific [place] Less/equal 1.005 (1.002-1.035) Urine Protein Negative (Neg-Trace) mg/dL Urine Glucose (UA) Negative (Negative) mg/dL Urine Ketones Negative (Negative) mg/dL Urine Occult Blood Negative (Negative) Urine Nitrate Negative (Negative) Urine Bilirubin Negative (Negative) Urine Urobilinogen 0.2 (Less than 2) mg/dL Ur Leukocyte Esterase Negative (Negative) Urine WBC 0-5 (0-5) /hpf Ur Squamous Epith Cells 0-5 (0-5) /hpf Micro UA Comment Culture not ind Ur Microscopic Review Microscopic reviewed Urine Culture Comments Culture not ind Urine Opiates Screen (Neg) Ur Barbiturates Screen (Neg) Ur Amphetamines Screen (Neg) U Benzodiazepines Scrn (Neg) Urine Cocaine Screen (Neg) U Cannabinoids Screen (Neg) 02/14/18 02/14/18 02/14/18 Range/Units 00:01 04:35 04:35 CBC w Diff Auto diff final WBC 12.9 H (4.0-11.0) th/mm3 RBC 2.68 L (4.00-5.30) mil/mm3 Hgb 8.7 L D (11.6-15.3) gm/dL POC Hgb (Calc) Hct 26.4 L (35.0-46.0) % POC Hct MCV 98.6 (80.0-100.0) fL MCH 32.4 (27.0-34.0) pg MCHC 32.9 (32.0-36.0) % RDW 13.7 (11.6-17.2) % Plt Count 203 (150-450) th/mm3 MPV 7.8 (7.0-11.0) fL Neut % (Auto) 97.4 H (16.0-70.0) % Lymph % (Auto) 1.7 L (9.0-44.0) % Brule % (Auto) 0.7 (0.0-8.0) % Eos % (Auto) 0.1 (0.0-4.0) % Baso % (Auto) 0.1 (0.0-2.0) % Neut # (Auto) 12.6 H (1.8-7.7) th/mm3 Lymph # (Auto) 0.2 L (1.0-4.8) th/mm3 Brule # (Auto) 0.1 (0.0-0.9) th/mm3 Eos # (Auto) 0.0 (0.0-0.4) th/mm3 Baso # (Auto) 0.0 (0.0-0.2) th/mm3 WBC Differential . Differential Comment . PT (9.8-11.6) sec INR Ratio APTT (23.4-31.7) sec Puncture Site Patient Temperature O2 Saturation (90-100) % ABG pH (7.380-7.420) ABG pCO2 (38-42) mmHg ABG pO2 (61-120) mmHg ABG HCO3 (22-26) mmol/L ABG O2 Content (12.0-20.0) Vol % ABG Base Excess (-2-2) mmol/L ABG Methemoglobin (0-2) % Guilherme Test Hemoglobin (12.0-16.0) G/DL Carboxyhemoglobin (0-4) % O2 Delivery Device Liter Flow L/M Critical Value POC Sodium (137-144) mmol/L Sodium 144 (136-145) meq/L POC Potassium (3.6-5.0) mmol/L Potassium 3.4 L D (3.5-5.1) meq/L POC Chloride (102-111) mmol/L Chloride 112 H D (98-107) meq/L Carbon Dioxide 23.3 (21.0-32.0) meq/L Anion Gap 9 (5-15) meq/L POC BUN (5-21) mg/dL BUN 2 L (7-18) mg/dL Creatinine 0.34 L (0.50-1.00) mg/dL POC Creatinine (0.6-1.3) mg/dL Estimated GFR Greater than 89 (>89) mL/min POC Glucose (68-110) mg/dL Random Glucose 147 H (74-106) mg/dL Lactic Acid 0.9 (0.4-2.0) mmol/L Calcium 7.4 L* D (8.5-10.1) mg/dL Calcium Adj for Albumin 8.9 (8.5-10.1) mg/dL Total Bilirubin 0.3 (0.2-1.0) mg/dL AST 13 L (15-37) U/L ALT 8 L (10-53) U/L Alkaline Phosphatase 90 (45-117) U/L Troponin (0.00-0.40) ng/mL Troponin I B-Natriuretic Peptide (0-100) pg/mL Total Protein 5.3 L D (6.4-8.2) g/dL Albumin 2.1 L D (3.4-5.0) g/dL Ur Collection Type Urine Color (Yellw/Straw) Urine Clarity (Clear) Urine pH (5.0-8.5) Ur Specific [place] (1.002-1.035) Urine Protein (Neg-Trace) mg/dL Urine Glucose (UA) (Negative) mg/dL Urine Ketones (Negative) mg/dL Urine Occult Blood (Negative) Urine Nitrate (Negative) Urine Bilirubin (Negative) Urine Urobilinogen (Less than 2) mg/dL Ur Leukocyte Esterase (Negative) Urine WBC (0-5) /hpf Ur Squamous Epith Cells (0-5) /hpf Micro UA Comment Ur Microscopic Review Urine Culture Comments Urine Opiates Screen (Neg) Ur Barbiturates Screen (Neg) Ur Amphetamines Screen (Neg) U Benzodiazepines Scrn (Neg) Urine Cocaine Screen (Neg) U Cannabinoids Screen (Neg) Imaging Data Radiologist's impression: Chest X-Ray 02/13/18 12:55 CONCLUSION: Patchy interstitial changes similar to prior Chest CTA 02/13/18 12:56 CONCLUSION: This study is negative for pulmonary embolism. ECG Data EKG Prior to Arrival: No Attestation: I personally reviewed and interpreted this ECG as follows: Prior ECG tracings: available for review Interpretation: Sinus tachycardia with short NM interval, no ST elevation, left anterior old enlargement, right bundle branch block. Heart rate is 125 bpm. Discharge Plan Discharge Disposition Patient Disposition: ED Admit(ED Internal Use Only) Discharge Condition Condition: Serious Discharge Order Discharge Orders: ED Use Only Admit Order (Routine); Ordered 02/13/18 Ordered By: Nolberto Moore Discharge Details Diagnosis: COPD (chronic obstructive pulmonary disease), Lung cancer, Malnutrition, Pneumonia Physicians Team ED Provider: Nolberto Moore Primary Care Provider: Primary Care Carolina Valle Attending Provider: Mery Salcido Other Providers: Ariel Mcintyre ED Status: Left Department Discharge Information Discharge Date/Time: 02/13/18 18:01
[2018-02-13 13:10] LABS: Baso # (Auto) 0.3 th/mm3 (0.0-0.2); Baso % (Auto) 2.7 % (0.0-2.0); Eos # (Auto) 0.1 th/mm3 (0.0-0.4); Eos % (Auto) 0.5 % (0.0-4.0); Hematocrit 36.5 % (35.0-46.0); Hemoglobin 12.3 gm/dL (11.6-15.3); Lymph # (Auto) 0.7 th/mm3 (1.0-4.8); Lymph % (Auto) 6.2 % (9.0-44.0); Mean Corpuscular HGB Conc 33.8 % (32.0-36.0); Mean Corpuscular Hemoglobin 32.8 pg (27.0-34.0); Mean Corpuscular Volume 97.1 fL (80.0-100.0); Mean Platelet Volume 7.9 fL (7.0-11.0); Mono # (Auto) 0.5 th/mm3 (0.0-0.9); Mono % (Auto) 4.6 % (0.0-8.0); Neut # (Auto) 9.7 th/mm3 (1.8-7.7); Platelet Count 232 th/mm3 (150-450); Red Blood Count 3.76 mil/mm3 (4.00-5.30); Red Cell Distribution Width 13.8 % (11.6-17.2); White Blood Count 11.3 th/mm3 (4.0-11.0)
--- NOTE | 2018-02-13 13:21 | XR ---
EXAM DATE: 02/13/2018 1:11 PM EST AGE/SEX: 57 years / Female INDICATIONS: Productive cough and congestion. CLINICAL DATA: This is the patient's initial encounter. Patient reports that signs and symptoms have been present for 1 day and indicates a pain score of 0/10. MEDICAL/SURGICAL HISTORY: Carcinoma, lung. None. COMPARISON: [facility], CHEST 1V SINGLE AP, 12/06/2017. . FINDINGS: Right chest port is stable in good position. Patchy interstitial prominence is again noted similar to prior. No definite alveolar consolidation or pleural effusion. Cardiac contours are satisfactory. CONCLUSION: Patchy interstitial changes similar to prior Electronically signed by: Spenser Frye MD Board Certified Radiologist 02/13/2018 1:19 PM EST
[2018-02-13 13:29] LABS: Activated Partial Thrombo Time 30.6 sec (23.4-31.7); INR 0.9 Ratio; Prothrombin Time 9.4 sec (9.8-11.6)
--- NOTE | 2018-02-13 14:05 | CT ---
EXAM DATE: 02/13/2018 2:01 PM EST AGE/SEX: 57 years / Female INDICATIONS: Chest pain. Dyspnea. Cough. CLINICAL DATA: This is the patient's initial encounter. Patient reports that signs and symptoms have been present for 1 day and indicates a pain score of 8/10. MEDICAL/SURGICAL HISTORY: Carcinoma, lung. Chronic obstructive pulmonary disease. Spinal fractures . None. RADIATION DOSE: 5.47 CTDI (mGy) COMPARISON: [facility], CTA PULMONARY W CONTRAST W 3D, 10/16/2017. . TECHNIQUE: Volumetric scanning was performed using a multi-row detector CT scanner during bolus infu analia of 75 ml Omnipaque 350 (iohexol) nonionic water-soluble contrast as a single exam dose. The shazia a was post processed with a variety of visualization algorithms including full volume maximum intensi ty projection and sliding thin slab reformation. Using automated exposure control and adjustment of the mA and/or kV according to patient size, radiation dose was kept as low as reasonably achievable t o obtain optimal diagnostic quality images. DICOM format image data is available electronically for review and comparison. FINDINGS: Pulmonary Arteries: No filling defects are seen in the pulmonary arteries out to the subsegmental ve ssels. The left and right pulmonary arteries are normal in diameter. Lung: Moderate baseline emphysema. Patchy interstitial fibrotic change most notably in the posterior right midlung with some progression since prior exam. Effusion: None. Mediastinum: Mild right hilar jamin prominence as previously which may be reactive. Other: The axilla is unremarkable. CONCLUSION: This study is negative for pulmonary embolism. Electronically signed by: Spenser Frye MD Board Certified Radiologist 02/13/2018 2:04 PM EST
[2018-02-13 14:09] LABS: Bilirubin,Urine Negative (Negative); Clarity,Urine Clear (Clear); Color,Urine Yellow (Yellw/Straw); Glucose,Urine (UA) Negative (Negative); Leukocyte Esterase,Urine Negative (Negative); Nitrite,Urine Negative (Negative); PH,Urine 6.5 (5.0-8.5); Specific Gravity,Urine Less/Equal 1.005 (1.002-1.035); Urobilinogen,Urine 0.2 mg/dL (Less than 2)
[2018-02-13 14:13] LABS: Chloride 99 meq/L (98-107); Potassium 4.6 meq/L (3.5-5.1); Sodium 137 meq/L (136-145)
[2018-02-13 14:17] LABS: Anion Gap 11 meq/L (5-15); Blood Urea Nitrogen 5 mg/dL (7-18); Calcium 9.1 mg/dL (8.5-10.1); Carbon Dioxide 27.2 meq/L (21.0-32.0); Glucose,Random 109 mg/dL (74-106)
[2018-02-13 14:18] LABS: Squamous Epithelial Cell,Urine 0-5 /hpf (0-5); WBC,Urine 0-5 /hpf (0-5)
[2018-02-13 14:20] LABS: Alanine Aminotransferase 12 U/L (10-53); Aspartate Aminotransferase 20 U/L (15-37); Glomerular Filtration Rate 87 mL/min (>89)
[2018-02-13 14:22] LABS: Total Protein 7.2 g/dL (6.4-8.2)
[2018-02-13 14:23] LABS: Alkaline Phosphatase 134 U/L (45-117)
[2018-02-13 14:30] LABS: Amphetamine Screen,Urine Neg (Neg)
[2018-02-13 14:35] LABS: Barbiturate Screen,Urine Neg (Neg)
[2018-02-13 14:38] LABS: ABG Base Excess -0.6 mmol/L (-2-2); ABG PCO2 38 mmHg (38-42); ABG PO2 138 mmHg (61-120)
[2018-02-13 14:39] LABS: Cannabinoid Screen,Urine Neg (Neg); Cocaine Screen,Urine Neg (Neg)
[2018-02-13 14:41] LABS: Opiate Screen,Urine Neg (Neg)
[2018-02-13] MEDS ORDERED: Digoxin Inj 500 MCG/2 ML Ampul IV.PUSH ONE (15:20)
[2018-02-13] MEDS ORDERED: Vancomycin Inj 1,000 MG in Sodium Chlor 0.9% Inj 250 ML IV.SIG ONE (15:21)
[2018-02-13] MEDS ORDERED: Piperacil/Tazo 2.25 GM Premix 2.25 GM/50 ML PIGGYBACK IV.SIG ONE (15:21)
--- NOTE | 2018-02-13 15:50 | ECG ---
Date Performed: 02/13/2018 Time Performed: 12:46:05 PTAGE: 57 years EKG: SINUS TACHYCARDIA WITH SHORT CT INTERVAL WITH OCCASIONAL SUPRAVENTRICULAR PREMATURE COMPLEX ES ANTEROSEPTAL MYOCARDIAL INFARCTION ATRIAL ABNORMALITY ABNORMAL ECG Since PREVIOUS TRACING , no significant change noted PREVIOUS TRACIN10/30/2017 10.48 DOCTOR: Mehrdad Cortez Interpretating Date/Time 02/13/2018 15:49:30
[2018-02-13] MEDS ORDERED: Acetaminophen 325 MG Tablet PO PRN (15:57)
[2018-02-13] MEDS ORDERED: Bisacodyl 10 MG Supp RECTAL PRN (15:57)
--- NOTE | 2018-02-13 17:35 | P.HPIM ---
History of Present Illness Primary Care Physician: No Primary Care Physician Chief Complaint: cough,shortness of breath. History of Present Illness: 57 yo M with h/o Ca lung s/p chemo and radiation therapy-completed 12/2017, COPD, who presented with 4 days of cough and shortness of breath. Cough said to be productive of yellow sputum, associated with chest pain on deep breathing, wheezing. She has had to use her nebulizers frequently. Also had episodes of diarrhea 3/day, no vomiting, no abdominal pain. Reports subjective fever. She took alkaselzer for cold/flu, and tylenol Her son was sick with similar symptoms but he is getting better. Patient also reports some pain around the port over the last month. ROS is negative except as stated above. In ER patient noted to be wheezing, tachycardic,hypotensive,with leucocytosis, with lactic acidosis. She received IV Vanc/Zosyn and IV NS 3 liters,NEBS treatment,solumedrol. Inpatient Certification Inpatient Certification: I certify that the inpatient services were ordered in accordance with Medicare regulations governing the order. This includes certification that hospital inpatient services are reasonable and necessary and in the case of services not specified as inpatient-only under 42 CFR 419.22(n), that they are appropriately provided as inpatient services in accordance to with the 2-midnight benchmark under 43 CFR 412.3(e) Estimated Total Length of Stay (Days): 4 Plans for Post Hospital Care: Not yet determined Review of Systems Review of Systems: all other systems reviewed are negative [facility] Medical History Medical History Anxiety (Acute) Back pain (Acute) COPD (chronic obstructive pulmonary disease) (Acute) Depression (Acute) Lung cancer (Acute) On home oxygen therapy (Acute) Port-A-Cath in place (Acute) Surgical History Surgical History History of bilateral tubal ligation (Acute) Previous section (Acute) S/P appendectomy (Acute) Status post chemotherapy (Acute) Status post radiation therapy (Acute) Family History Family History Father Diabetes mellitus COPD (chronic obstructive pulmonary disease) Dementia Alzheimer disease HTN (hypertension) Mother COPD (chronic obstructive pulmonary disease) Alzheimer disease Father No problems noted. Father No problems noted. Mother Dementia Father No problems noted. Social History Social History Substance History: No History of Abuse Second Hand Smoke Exposure: No Smoking Status: Current every day smoker Tobacco Type: Cigarettes How Often Do You Have a Drink Containing Alcohol: Never Recent Travel in [facility] within the Last 8 Weeks: No Recent Out of Country Travel within the Last 8 Weeks: No Immunization History Tetanus Immunization: <5 Years Medications and Allergies Allergies Allergy/AdvReac Type Severity Reaction Status Date / Time No Known Allergies Allergy Verified 12/06/17 05:36 Active Medications: Active Medications Acetaminophen (Tylenol) 650 mg PO Q4H PRN PRN Reason: Temp > 100.4 Al Hydroxide/Mg Hydroxide (Milk Of Magnesia Liq) 30 ml PO Q12H PRN PRN Reason: Mild Constipation Bisacodyl (Dulcolax Supp) 10 mg RECTAL DAILY PRN PRN Reason: SEVERE CONSITIPATION Lactulose (Lactulose Liq) 30 ml PO DAILY PRN PRN Reason: SEVERE CONSITIPATION Ondansetron HCl (Zofran Inj) 4 mg IV.PUSH Q6H PRN PRN Reason: NAUSEA OR VOMITING Senna/Docusate Sodium (Britt-Colace) 1 tab PO BID BRITNEY Sennosides (Senokot) 17.2 mg PO Q12H PRN PRN Reason: Moderate Constipation Sodium Chloride (Ns Flush) 2 ml IV.FLUSH PRN PRN PRN Reason: FLUSH AFTER USING IV ACCESS Last Admin: 02/13/18 13:06 Dose: 2 ml Sodium Chloride (Ns Flush) 2 ml IV.FLUSH PRN PRN PRN Reason: FLUSH AFTER USING IV ACCESS Sodium Chloride (Ns Flush) 2 ml IV.FLUSH BID [facility] Physical Exam Vital signs: Last Vital Signs Temp 98.3 F 02/13/18 12:47 Pulse 131 H 02/13/18 15:58 Resp 20 02/13/18 15:58 BP 100/45 L 02/13/18 15:58 Pulse Ox 100 02/13/18 15:20 Intake & Output 02/11/18 02/12/18 02/13/18 02/14/18 06:59 06:59 06:59 06:59 Intake Total 3300 / 3300 Output Total 300 / 300 Balance 3000 / 3000 Weight 40.823 kg Narrative: GENERAL: Middle aged woman,chronically ill looking, cachectic. HEENT:not pale,anicteric,acyanotic. Oxygen by nasal canula in situ. CARDIOVASCULAR: Regular rate and rhythm without murmurs, gallops, or rubs. CHEST:reduced air entry bilaterally with no rales or wheezes. GASTROINTESTINAL: Abdomen soft, non-tender, nondistended. Normal active bowel sounds MUSCULOSKELETAL: Extremities without clubbing, cyanosis, or edema. NEURO: Alert & Oriented x4 to person, place, time, situation. Moves all ext x4 SKIN:tatoos noted. Results Labs CBC & Chem 7: 02/14/18 04:35 02/14/18 04:35 Imaging Impressions Chest X-Ray 02/13/18 12:55 CONCLUSION: Patchy interstitial changes similar to prior Chest CTA 02/13/18 12:56 CONCLUSION: This study is negative for pulmonary embolism. Caprini VTE Risk Assessment Caprini VTE Risk Assessment: Moderate/High Risk (score >= 2) Caprini Risk Assessment Model: Point Value = 1 Point Value = 2 Point Value = 3 Point Value = 5 Age 41-60 Minor surgery BMI > 25 kg/m2 Swollen legs Varicose veins or History of unexplained or recurrent spontaneous Oral contraceptives or hormone replacement Sepsis (< 1 month) Serious lung disease, including pneumonia (< 1 month) Abnormal pulmonary function Acute myocardial infarction Congestive heart failure (< 1 month) History of inflammatory bowel disease Medical patient at bed rest Age 61-74 Arthroscopic surgery Major open surgery (> 45 min) Laparoscopic surgery (> 45 min) Malignancy Confined to bed (> 72 hours) Immobilizing plaster cast Central venous access Age >= 75 History of VTE Family history of VTE Factor V Leiden Prothrombin [id number] Lupus anticoagulant Anticardiolipin antibodies Elevated serum homocysteine Heparin-induced thrombocytopenia Other congenital or acquired thrombophilia Stroke (< 1 month) Elective arthroplasty Hip, pelvis, or leg fracture Acute spinal cord injury (< 1 month) Prophylaxis Regimen: Total Risk Factor Score Risk Level Prophylaxis Regimen 0-1 Low Early ambulation 2 Moderate Order ONE of the following: *Sequential Compression Device (SCD) *Heparin 5000 units SQ BID 3-4 Higher Order ONE of the following medications: *Heparin 5000 units SQ TID *Enoxaparin/Lovenox 40 mg SQ daily (WT < 150 kg, CrCl > 30 mL/min) *Enoxaparin/Lovenox 30 mg SQ daily (WT < 150 kg, CrCl > 10-29 mL/min) *Enoxaparin/Lovenox 30 mg SQ BID (WT < 150 kg, CrCl > 30 mL/min) AND/OR *Sequential Compression Device (SCD) 5 or more Highest Order ONE of the following medications: *Heparin 5000 units SQ TID (Preferred with Epidurals) *Enoxaparin/Lovenox 40 mg SQ daily (WT < 150 kg, CrCl > 30 mL/min) *Enoxaparin/Lovenox 30 mg SQ daily (WT < 150 kg, CrCl > 10-29 mL/min) *Enoxaparin/Lovenox 30 mg SQ BID (WT < 150 kg, CrCl > 30 mL/min) AND *Sequential Compression Device (SCD) Assessment and Plan Plan 57 yo F with h/o COPD,chronic hypoxic respiratory failure on home oxygen, Lung cancer s/p chemo/radiotherapy 12/2017 who presented with cough, shortness of breath,fever. Found to be tachycardic, hypotensive,with leucocytosis and lactic acidosis in keeping with sepsis. Severe Sepsis: 3/4 sirs criteria as mentioned above. admit to ICU. CT chest without acute findings, patient has had a productive cough and sick contacts. check sputum culture, flu panel. had diarrhea as well, but seems to have subsided,if other episodes then obtain stool for C.diff and culture. follow up blood culture. Keep on IV Vanc/Zosyn Given patient remains borderline hypotensive with tachycardia in 120's, repeat another fluid bolus, then continue maintenance fluids. repeat lactate. COPD exacerbation, chronic hypoxic respiratory failure on home oxygen keep on Ipratropium nebs given tachycardia, antibiotics as above. IV Solumedrol 40mg q8h Continue home Oxygen 3 liters/min. H/o lung cancer-s/p chemoradiotherapy. DVT ppx--high risk given recent h/o cancer. keep on sq Lovenox.
[2018-02-13] MEDS ORDERED: Vancomycin Inj 1,000 MG in Sodium Chlor 0.9% Inj 250 ML IV.SIG SCH (18:06)
[2018-02-13] MEDS ORDERED: Vancomycin Consult Pharmacy OTHER PRN (18:14)
[2018-02-13] MEDS: Sod Chloride 0.9% Inj 1,000 ML IV.CONT SCH (18:17)
[2018-02-13] MEDS: Senna/Docusate Sodium 8.6/50 MG Tablet PO SCH (20:22)
[2018-02-13] MEDS: MethylPREDNISolone Sod Succinate Inj 40 MG/ML Vial IV.PUSH SCH (21:50)
[2018-02-13] MEDS ORDERED: Sod Chloride 0.9% Inj 1,000 ML IV.SIG ONE (21:55)
[2018-02-13] MEDS ORDERED: Ketorolac Inj 30 MG/ML (IVP) Vial IV.PUSH ONE (21:55)
[2018-02-13] MEDS ORDERED: Thiamine Inj 100 MG in Sodium Chlor 0.9% Inj 100 ML IV.SIG ONE (21:56)
[2018-02-13] MEDS: Piperacil/Tazo 3.375 GM Premix 3.375 GM/50 ML PIGGYBACK IV.SIG SCH (22:21)
[2018-02-13] MEDS ORDERED: Norepinephrine Inj 4 MG in Sodium Chlor 0.9% Inj 246 ML IV.SIG PRN (23:28)
[2018-02-14] MEDS: Piperacil/Tazo 3.375 GM Premix 3.375 GM/50 ML PIGGYBACK IV.SIG SCH ×5 (04:55→23:27)
[2018-02-14] MEDS: Sod Chloride 0.9% Inj 1,000 ML IV.CONT SCH ×3 (04:55→23:02)
[2018-02-14] MEDS: MethylPREDNISolone Sod Succinate Inj 40 MG/ML Vial IV.PUSH SCH ×3 (05:12→23:03)
[2018-02-14 05:28] LABS: Baso % (Auto) 0.1 % (0.0-2.0); Eos % (Auto) 0.1 % (0.0-4.0); Hematocrit 26.4 % (35.0-46.0); Hemoglobin 8.7 gm/dL (11.6-15.3); Lymph # (Auto) 0.2 th/mm3 (1.0-4.8); Lymph % (Auto) 1.7 % (9.0-44.0); Mean Corpuscular HGB Conc 32.9 % (32.0-36.0); Mean Corpuscular Hemoglobin 32.4 pg (27.0-34.0); Mean Corpuscular Volume 98.6 fL (80.0-100.0); Mean Platelet Volume 7.8 fL (7.0-11.0); Mono # (Auto) 0.1 th/mm3 (0.0-0.9); Mono % (Auto) 0.7 % (0.0-8.0); Neut # (Auto) 12.6 th/mm3 (1.8-7.7); Neut % (Auto) 97.4 % (16.0-70.0); Platelet Count 203 th/mm3 (150-450); Red Blood Count 2.68 mil/mm3 (4.00-5.30); Red Cell Distribution Width 13.7 % (11.6-17.2); White Blood Count 12.9 th/mm3 (4.0-11.0)
[2018-02-14 05:41] LABS: Alanine Aminotransferase 8 U/L (10-53); Albumin 2.1 g/dL (3.4-5.0); Alkaline Phosphatase 90 U/L (45-117); Anion Gap 9 meq/L (5-15); Aspartate Aminotransferase 13 U/L (15-37); Blood Urea Nitrogen 2 mg/dL (7-18); Calcium 7.4 mg/dL (8.5-10.1); Carbon Dioxide 23.3 meq/L (21.0-32.0); Chloride 112 meq/L (98-107); Glomerular Filtration Rate Greater Than 89 mL/min (>89); Glucose,Random 147 mg/dL (74-106); Potassium 3.4 meq/L (3.5-5.1); Sodium 144 meq/L (136-145); Total Protein 5.3 g/dL (6.4-8.2)
--- NOTE | 2018-02-14 08:32 | P.PNIM ---
Subjective Interval history: still coughing, shortness of breath improving. Interval events-bp dropped to systolic 70's overnight, required vasopressor support with Levophed. Physical Exam Vital signs: Last Vital Signs Temp 98.7 F 02/14/18 04:00 Pulse 84 02/14/18 06:00 Resp 15 02/14/18 05:00 BP 125/62 02/14/18 06:00 Pulse Ox 98 02/14/18 06:00 Intake & Output 02/12/18 02/13/18 02/14/18 02/15/18 06:59 06:59 06:59 06:59 Intake Total 6501 / 6501 Output Total 300 / 300 Balance 6201 / 6201 Weight 35.2 kg Narrative: GENERAL: Middle aged woman,chronically ill looking, cachectic. HEENT:not pale,anicteric,acyanotic. Oxygen by nasal canula in situ. CARDIOVASCULAR: Regular rate and rhythm without murmurs, gallops, or rubs. CHEST:reduced air entry bilaterally with no rales or wheezes. GASTROINTESTINAL: Abdomen soft, non-tender, nondistended. Normal active bowel sounds MUSCULOSKELETAL: Extremities without clubbing, cyanosis, or edema. NEURO: Alert & Oriented x4 to person, place, time, situation. Moves all ext x4 SKIN:tatoos noted. Results Labs CBC & Chem 7: 02/14/18 04:35 02/14/18 04:35 Labs: Microbiology 02/13/18 20:30 Nasal Aspirate Influenza Types A,B Antigen - Final Negative for FLU A and B antigen Infection due to influenza A or B cannot be ruled out since the antigen present in the sample may be below the detection limit of the test. Imaging Imaging: Impressions Chest X-Ray 02/13/18 12:55 CONCLUSION: Patchy interstitial changes similar to prior Chest CTA 02/13/18 12:56 CONCLUSION: This study is negative for pulmonary embolism. Assessment and Plan Plan 57 yo F with h/o COPD,chronic hypoxic respiratory failure on home oxygen, Lung cancer s/p chemo/radiotherapy 12/2017 who presented with cough, shortness of breath,fever. Found to be tachycardic, hypotensive,with leucocytosis and lactic acidosis in keeping with sepsis. Severe Sepsis: 3/4 sirs criteria as mentioned above.still requires ICU care. CT chest without acute findings, patient has had a productive cough and sick contacts.flu panel-negative.diarrhea has subsided. overnight had systolic BP drop to 70's, required vasopressor support with Levophed, currently 2mcg/min.BP improved to 120's range. Taper off Levophed as tolerated. Continue IV fluids. lactate trended down from 5.3 to 0.9 follow up blood culture. check sputum culture continue IV Vanc/Zosyn Given patient remains borderline hypotensive with tachycardia in 120's, repeat another fluid bolus, then continue maintenance fluids. COPD exacerbation, chronic hypoxic respiratory failure on home oxygen. Breathing improving. keep on Ipratropium nebs given tachycardia, antibiotics as above. IV Solumedrol 40mg q8h Continue home Oxygen 3 liters/min. H/o lung cancer-s/p chemoradiotherapy. Protein calorie malnutrition--albumin 2.3. offer Ensure,multivits. Macrocytic anemia-chronic. Hb slightly lower than previous in November, likely hemodilution due to IV fluids. Electrolyte imbalances-hypokalemia--replete as per ICU protocol. check mg and phosp DVT ppx--high risk given recent h/o cancer. keep on sq Lovenox. Progress Note: Quality VTE Deep Vein Thrombosis/Pulmonary Embolism Present on Admission: No
[2018-02-14] MEDS ORDERED: Magnesium Sulfate Inj 4 GM in Sodium Chlor 0.9% Inj 92 ML IV.SIG PRN (08:38)
[2018-02-14] MEDS ORDERED: Potassium Chloride 25 MEQ Effervescent Tablet PO PRN (08:38)
[2018-02-14] MEDS ORDERED: Potassium Chlor 40 mEq Premix 40 MEQ/100 ML PIGGYBACK IV.SIG PRN ×2 (08:38)
[2018-02-14] MEDS ORDERED: Magnesium Sulfate Inj 2 GM in Sodium Chlor 0.9% Inj 96 ML IV.SIG PRN (08:38)
[2018-02-14] MEDS ORDERED: Magnesium Oxide 400 MG Tablet PO PRN (08:38)
[2018-02-14] MEDS ORDERED: Sodium Phosphate Inj 30 MMOL in Sodium Chlor 0.9% Inj 250 ML IV.SIG PRN (08:38)
[2018-02-14] MEDS ORDERED: Potassium Phosphate Inj 30 MMOL in Sodium Chlor 0.9% Inj 250 ML IV.SIG PRN (08:38)
[2018-02-14] MEDS ORDERED: Potassium Chlor 20 mEq Premix 20 MEQ/100 ML PIGGYBACK IV.SIG PRN ×2 (08:38)
[2018-02-14] MEDS ORDERED: Potassium Phosphate 500 MG Soluble Tablet PO PRN ×2 (08:38)
--- NOTE | 2018-02-14 08:39 | ECG ---
Date Performed: 02/13/2018 Time Performed: 18:31:10 PTAGE: 57 years EKG: SINUS TACHYCARDIA LOW QRS VOLTAGE IN PRECORDIAL LEADS POSSIBLE RIGHT VENTRICULAR CONDUCTION DELAY ANTEROSEPTAL MYOCARDIAL INFARCTION ABNORMAL ECG PREVIOUS TRACING : 02/13/2018 12.46 DOCTOR: Micah San Interpretating Date/Time 02/14/2018 08:38:09
[2018-02-14] MEDS ORDERED: Vancomycin Inj 500 MG in Sodium Chlor 0.9% Inj 100 ML IV.SIG SCH (09:00)
[2018-02-14] MEDS: Enoxaparin Inj 40 MG/0.4 ML Syringe SQ SCH (09:05)
[2018-02-14] MEDS: Senna/Docusate Sodium 8.6/50 MG Tablet PO SCH ×2 (09:08→23:03)
--- NOTE | 2018-02-14 09:51 | P.CONCC ---
History of Present Illness Service: ICU Consult date: 02/14/18 Requesting Physician: Angi Polanco Reason for Consult: Hypotension/septic shock Primary Care Provider: No Primary Care Physician Chief Complaint: cough,shortness of breath. History of Present Illness: This is a 57-year-old female that presented to the ED yesterday with complaints of shortness of breath and coughing. The patient's medical history significant for COPD, lung cancer and she is status post chemotherapy and radiation therapy with completion noted per records 12/2017. The patient also had complaints of having diarrhea for 3 days. The patient was initially admitted to hospitalist service but continued to be hypotensive critical care medicine was consulted secondary to hypotension. The patient received a bolus of IV fluids ,was placed on a norepinephrine infusion, prophylactic antibiotics was initiated. Review of Systems All other systems reviewed negative except as stated in HPI PMFSH - History History Provided By: Patient - Medical History Medical History: Medical History (Last Reviewed 02/13/18 @ 17:49 by Mery Salcido MD) Anxiety Back pain COPD (chronic obstructive pulmonary disease) Depression Lung cancer On home oxygen therapy Port-A-Cath in place - Surgical History Surgical History: Surgical History (Last Reviewed 02/13/18 @ 17:49 by Mery Salcido MD) History of bilateral tubal ligation Previous section S/P appendectomy Status post chemotherapy Status post radiation therapy - Family History Family History: Family History (Last Reviewed 02/13/18 @ 17:49 by Mery Salcido MD) Father Diabetes mellitus COPD (chronic obstructive pulmonary disease) Dementia Alzheimer disease HTN (hypertension) Mother COPD (chronic obstructive pulmonary disease) Alzheimer disease Father No problems noted. Father No problems noted. Mother Dementia Father No problems noted. - Tobacco History Second Hand Smoke Exposure: No Tobacco Use In Past 30 Days: No Smoking Status: Current every day smoker Tobacco Type: Cigarettes - Alcohol History How Often Do You Have a Drink Containing Alcohol: Never - Substance Use History Substance History: No History of Abuse - Travel History Recent Travel in the [place] Within the Last 8 Weeks: No Recent Travel Out of the Country Within the Last 8 Weeks: No - Immunization History Tetanus Immunization: <5 Years Hx Influenza Vaccine This Season: Yes Medications and Allergies Active Medications: Active Medications Acetaminophen (Tylenol) 650 mg PO Q4H PRN PRN Reason: Temp > 100.4 Last Admin: 12/20/18 19:35 Dose: 650 mg Al Hydroxide/Mg Hydroxide (Milk Of Magnesia Liq) 30 ml PO Q12H PRN PRN Reason: Mild Constipation Bisacodyl (Dulcolax Supp) 10 mg RECTAL DAILY PRN PRN Reason: SEVERE CONSITIPATION Enoxaparin Sodium (Lovenox Inj) 40 mg SQ DAILY [facility] Last Admin: 02/14/18 09:05 Dose: 40 mg Sodium Chloride (Ns Inj) 1,000 mls @ 125 mls/hr IV.CONT .Q8H [facility] Last Admin: 02/14/18 04:55 Dose: 125 mls/hr Piperacillin/Tazobactam/Dextrose (Zosyn 3.375 Gm Premix) 3.375 gm in 50 mls @ 100 mls/hr IV.SIG Q6H [facility] Last Admin: 02/14/18 09:05 Dose: 100 mls/hr Norepinephrine Bitartrate 4 mg (/ Sodium Chloride) 250 mls @ 7.5 mls/hr IV.SIG TITRATE PRN; Protocol PRN Reason: Per Protocol Last Admin: 02/13/18 23:57 Dose: 2 mcg/min, 7.5 mls/hr Magnesium Sulfate 4 gm/ Sodium (Chloride) 100 mls @ 50 mls/hr IV.SIG UNSCH PRN PRN Reason: For Magnesium 0.9 - 1.1 mg/dL Magnesium Sulfate 2 gm/ Sodium (Chloride) 100 mls @ 50 mls/hr IV.SIG UNSCH PRN PRN Reason: For Magnesium 1.2 - 1.6 mg/dL Potassium Chloride (Kcl 40 Meq Premix Inj) 40 meq in 100 mls @ 25 mls/hr IV.SIG Q2H PRN PRN Reason: For Potassium 2.8 - 3.2 mEq/L Potassium Chloride (Kcl 20 Meq Premix Inj) 20 meq in 100 mls @ 50 mls/hr IV.SIG Q2H PRN PRN Reason: For Potassium 3.3 - 3.5 mEq/L Potassium Chloride (Kcl 40 Meq Premix Inj) 40 meq in 100 mls @ 25 mls/hr IV.SIG UNSCH PRN PRN Reason: For Potassium 3.3 - 3.5 mEq/L Potassium Chloride (Kcl 20 Meq Premix Inj) 20 meq in 100 mls @ 50 mls/hr IV.SIG Q2H PRN PRN Reason: For Potassium 2.8 - 3.2 mEq/L Sodium Phosphate 30 mmol/ (Sodium Chloride) 260 mls @ 42 mls/hr IV.SIG UNSCH PRN PRN Reason: For Phosphorus < 2.5 mg/dL Potassium Phosphate 30 mmol/ (Sodium Chloride) 260 mls @ 42 mls/hr IV.SIG UNSCH PRN PRN Reason: SEE LABEL COMMENTS Vancomycin HCl 500 mg/ Sodium (Chloride) 100 mls @ 200 mls/hr IV.SIG Q18H [facility] Last Admin: 02/14/18 09:05 Dose: 200 mls/hr Ipratropium [place] (Atrovent Neb) 0.5 mg NEB Q4HR NEB [facility] Last Admin: 02/14/18 09:01 Dose: 0.5 mg Lactulose (Lactulose Liq) 30 ml PO DAILY PRN PRN Reason: SEVERE CONSITIPATION Magnesium Oxide (Mag-Ox) 800 mg PO UNSCH PRN PRN Reason: For Magnesium 1.2 - 1.6 mg/dL Methylprednisolone Sodium Succinate (Solumedrol Inj) 40 mg IV.PUSH Q8HR [facility] Last Admin: 02/14/18 05:12 Dose: 40 mg Miscellaneous Information ([facility] Ordered Lab Info) 0 each OTHER ONCE ONE Stop: 02/15/18 20:46 Multivitamins (Theragran) 1 tab PO DAILY [facility] Last Admin: 02/14/18 09:05 Dose: 1 tab Ondansetron HCl (Zofran Inj) 4 mg IV.PUSH Q6H PRN PRN Reason: NAUSEA OR VOMITING Pharmacy Profile Note (Vancomycin Consult Pharmacy) 1 each OTHER UNSCH PRN PRN Reason: Pharmacy to dose Potassium Bicarb/Potassium Chloride (K-Lyte Cl Eff) 50 meq PO UNSCH PRN PRN Reason: For Potassium 3.3 - 3.5 mEq/L Potassium Phosphate (K-Phos Original) 2,000 mg PO Q4H PRN PRN Reason: Phosphorus Less Than 2.5 mg/dL Potassium Phosphate (K-Phos Original) 2,000 mg PO UNSCH PRN PRN Reason: SEE LABEL COMMENTS Senna/Docusate Sodium (Britt-Colace) 1 tab PO BID [facility] Last Admin: 02/14/18 09:08 Dose: Not Given Sennosides (Senokot) 17.2 mg PO Q12H PRN PRN Reason: Moderate Constipation Sodium Chloride (Ns Flush) 2 ml IV.FLUSH PRN PRN PRN Reason: FLUSH AFTER USING IV ACCESS Last Admin: 02/13/18 13:06 Dose: 2 ml Sodium Chloride (Ns Flush) 2 ml IV.FLUSH PRN PRN PRN Reason: FLUSH AFTER USING IV ACCESS Sodium Chloride (Ns Flush) 2 ml IV.FLUSH BID [facility] Last Admin: 02/14/18 09:08 Dose: 2 ml Terbutaline Sulfate (Brethine Inj) 1 mg SQ UNSCH PRN PRN Reason: For Extravasation Allergies Allergy/AdvReac Type Severity Reaction Status Date / Time No Known Allergies Allergy Verified 12/06/17 05:36 Physical Exam Vital signs: Vital Signs 02/13/18 12:47 02/13/18 12:55 02/13/18 12:57 Temperature 98.3 F Pulse Rate 135 H 118 H Respiratory Rate 22 22 Blood Pressure 104/77 86/62 L Pulse Oximetry 100 99 99 02/13/18 13:14 02/13/18 13:19 02/13/18 13:40 Temperature Pulse Rate 117 H 108 H 112 H Respiratory Rate 14 22 Blood Pressure 94/52 L 109/56 L Pulse Oximetry 100 02/13/18 14:25 02/13/18 14:28 02/13/18 15:20 Temperature Pulse Rate 138 H 138 H 132 H Respiratory Rate 22 22 18 Blood Pressure 94/53 L 105/56 L Pulse Oximetry 100 100 02/13/18 15:58 02/13/18 17:40 02/13/18 18:00 Temperature 99 F Pulse Rate 131 H 126 H Respiratory Rate 20 Blood Pressure 100/45 L 98/55 L Pulse Oximetry 99 98 02/13/18 19:29 02/13/18 20:00 02/13/18 23:00 Temperature Pulse Rate 118 H 112 H Respiratory Rate 20 17 Blood Pressure 85/44 L Pulse Oximetry 100 97 100 02/13/18 23:20 02/14/18 00:00 02/14/18 01:00 Temperature 98.5 F Pulse Rate 113 H 109 H 108 H Respiratory Rate 18 22 14 Blood Pressure 115/59 L 109/52 L Pulse Oximetry 99 99 02/14/18 02:00 02/14/18 03:00 02/14/18 03:41 Temperature Pulse Rate 89 88 99 H Respiratory Rate 18 18 18 Blood Pressure 117/56 L 115/60 Pulse Oximetry 100 99 02/14/18 04:00 02/14/18 05:00 02/14/18 06:00 Temperature 98.7 F Pulse Rate 117 H 96 H 84 Respiratory Rate 29 H 15 Blood Pressure 106/59 L 123/63 125/62 Pulse Oximetry 92 L 98 98 02/14/18 09:01 Temperature Pulse Rate 106 H Respiratory Rate 16 Blood Pressure Pulse Oximetry 96 Intake & Output 02/13/18 02/14/18 02/14/18 18:59 06:59 18:59 Intake Total 3300 / 3300 3201 / 3201 Output Total 300 / 300 Balance 3000 / 3000 3201 / 3201 Weight 35.2 kg Intake: IV 3300 / 3300 3201 / 3201 NS Inj 1,000 ML @ 125 mls/hr IV 1000 / 1000 .CONT .Q8H [facility] Rx#:[id number] Zosyn 2.25 GM Premix 2.25 gm In 50 / 50 50 ml @ 100 mls/hr IV.SIG ONCE ONE Rx#:[id number] Zosyn 3.375 GM Premix 3.375 gm 100 / 100 In 50 ml @ 100 mls/hr IV.SIG Q6H [facility] Rx#:[id number] NS Inj 1,000 ML @ Wide Open IV. 3000 / 3000 2000 / 2000 SIG BOLUS ONE Rx#:[id number] Thiamine Inj 100 MG In NS Inj 101 / 101 100 ML @ 100 mls/hr IV.SIG ONCE ONE Rx#:[id number] Vancomycin Inj 1,000 MG In NS 250 / 250 Inj 250 ML @ 250 mls/hr IV.SIG ONCE ONE Rx#:[id number] Output: Urine 300 / 300 Other: Date of Last Bowel Movement 02/13/18 02/13/18 Weight On Admission 35.2 kg - Constitutional no acute distress - Routine HEENT Exam Head: Present: normocephalic Eye: Present: EOMI, PERRL, normal accommodation ENT: Present: mucous membranes dry, dentition normal, nares patent, external ear normal - Routine Neck Exam Present: supple, full ROM - Routine Cardiovascular Exam Present: RRR, S1, S2 - Routine Abdominal Exam Present: soft, normoactive bowel sounds - Routine Skin Exam Present: intact (Noticed some mild ecchymotic bruise on extremities) - Routine Neurological Exam Present: alert, oriented X3, CN II-XII intact, normal reflexes, normal tone, vision grossly intact, hearing grossly intact, normal speech - Detailed Neurological Exam: Coma Scale Eye Opening: Spontaneous Verbal Response: Oriented Motor Response: Obey commands Matti Coma Scale Total: 15 - Routine Psychiatric Exam Present: normal affect, normal thought process, good insight, good judgment Assessment and Plan - Assessment and Plan Plan: Assessment This is a 57-year-old female with a history of COPD, history of lung cancer status post radiation and chemotherapy, home O2 dependency secondary to respiratory failure that presented with septic shock. Vasopressors initiated. Admit to ICU. The patient is critically ill. Plan by systems: Neurologic: Headache Dementia Anxiety disorder Tylenol 650 mg every 6 hours as needed for pain 6-10 Give fentanyl 50 mics IV x1 dose for breakthrough pain (headache) GCS 15 Respiratory: Acute on chronic hypoxemic respiratory failure Home O2 dependency Lung cancer Maintain O2 sat greater than 92% Continue home dosing O2 at 3 LPM/NC Duo nebs as needed ABGs, chest x-ray if clinically indicated 02/13chest x-raypatchy interstitial changes similar to prior exam 02/13 CTA Pulmonary, negative for pulmonary emboli Cardiovascular: Septic shock He of hypertension Continue norepinephrine to maintain map greater than 65mmHg, wean as tolerated Telemetry sinus tach Obtain appropriate size automated blood pressure cuff appropriate calibration of BP Renal: No [place] cath indicated at this time -- Strict I/Os FEN/GI: Hypovolemia 2/2 fluid losses Diarrhea Protein calorie malnutrition Normal saline 125 cc/hour Zofran for nausea Famotidine for GI prophylaxis Heme/ID: Leukocytosis Septic shock Monitor CBC Follow-up blood cultures Obtain lactate level in a.m. Endocrine: Close monitoring per ICU protocol -- SSI Prophylaxis: GI Prophylaxis Famotidine DVT Prophylaxis -- SCDs Lovenox Lines: Port-A-Cath right chest, peripheral IVs x2 Dispo: My billing statement This patient remains critically ill with one or more organ systems which are or may become a threat to life. I have spent in excess of 47 minutes discontinuously in the care and management of this patient. This time is exclusive of procedures, and includes, but is not limited to, evaluation of the patient, review of the medical record, discussions with family, consultants, nursing staff, or respiratory therapy, and documentation in the medical record. Code Status: FULL Discussed Condition With: Patient and OPTICAL INSTRUMENT ASSEMBLER at bedside
[2018-02-14] MEDS ORDERED: fentaNYL Citrate Inj 100 MCG/2 ML Ampul IV.PUSH ONE (10:00)
[2018-02-14] MEDS ORDERED: Acetaminophen 500 MG Tablet PO ONE (10:00)
[2018-02-14 10:12] LABS: Magnesium 1.4 mg/dL (1.5-2.5)
[2018-02-14 10:16] LABS: Phosphorus 3.1 mg/dL (2.5-4.9)
--- NOTE | 2018-02-14 13:18 | P.DIET ---
Nutritional Evaluation Type of nutrition evaluation: initial Nutrition screening: Weight Loss > 10 lbs (appetite is poor) Subjective Subjective Comments: breakfast today 02/14/18 w/90% po intake. Review of previous admissions here w wt 35 kg noted. Objective - Diagnosis Pneumonia R/O Sepsis, COPD Exacerbation - Objective % IBW: 70 Body Weight Used for Calculations: Actual (35.2 kg) Energy Needs - Lower Range (kCal/kg): 38 Energy Needs - Upper Range (kCal/kg): 44 Lower Limit kCal/kg (kCals): 1,338 Upper Limit kCal/kg (kCals): 1,549 Lower Limit Protein Factor (Grams per Kg): 1.2 Upper Limit Protein Factor (Grams per Kg): 1.5 Lower Protein Needs (Protein): 42 Upper Protein Needs (Protein): 53 Dietitian Reviewed in Medical Record: Current diet, Curent medications, Intake & Output, Labs, Medical history Diet Order: Regular Oral Diet Intake Amount: Good 75-90% Objective Comments: PMH includes: back pain, COPD, Depression, Lung Cancer s/p chemotherapy, s/p radiation therapy; on home O2, Port-O-Cath in place Glucose 147 Assessment Assessment: Pt is at high nutrition risk r/t recent unintentional wt loss w/poor appetite and very low BMI 14.2. Monitor po intake. Send Ensure Enlive TID(= 350 kcal and 20g protein per serving). Labs reviewed. Dietitian will follow. Recommendations: 1. Monitor po intake 2. Send Ensure Enlive TID 3. Dietitian will follow Dietitian to Monitor: Lab values, Supplement acceptance, Intake & Output, Diet tolerance, Weight change, PO Intake, Medical course
[2018-02-14] MEDS ORDERED: Ibuprofen 400 MG Tablet PO ONE (22:49)
[2018-02-15] MEDS: Piperacil/Tazo 3.375 GM Premix 3.375 GM/50 ML PIGGYBACK IV.SIG SCH ×4 (05:35→22:13)
[2018-02-15] MEDS: MethylPREDNISolone Sod Succinate Inj 40 MG/ML Vial IV.PUSH SCH ×2 (05:40→14:34)
[2018-02-15] MEDS: Sod Chloride 0.9% Inj 1,000 ML IV.CONT SCH ×3 (06:21→18:36)
[2018-02-15 07:45] LABS: Baso % (Auto) 0.1 % (0.0-2.0); Eos # (Auto) 0.1 th/mm3 (0.0-0.4); Eos % (Auto) 0.6 % (0.0-4.0); Hematocrit 27.4 % (35.0-46.0); Hemoglobin 8.8 gm/dL (11.6-15.3); Lymph # (Auto) 0.3 th/mm3 (1.0-4.8); Lymph % (Auto) 1.9 % (9.0-44.0); Mean Corpuscular Hemoglobin 31.7 pg (27.0-34.0); Mean Corpuscular Volume 99.2 fL (80.0-100.0); Mean Platelet Volume 8.3 fL (7.0-11.0); Mono # (Auto) 0.2 th/mm3 (0.0-0.9); Mono % (Auto) 1.3 % (0.0-8.0); Neut # (Auto) 17.2 th/mm3 (1.8-7.7); Neut % (Auto) 96.1 % (16.0-70.0); Platelet Count 205 th/mm3 (150-450); Red Blood Count 2.76 mil/mm3 (4.00-5.30); Red Cell Distribution Width 14.1 % (11.6-17.2); White Blood Count 17.8 th/mm3 (4.0-11.0)
[2018-02-15 08:05] LABS: Chloride 110 meq/L (98-107); Potassium 3.8 meq/L (3.5-5.1); Sodium 145 meq/L (136-145)
[2018-02-15 08:08] LABS: Anion Gap 7 meq/L (5-15); Calcium 7.7 mg/dL (8.5-10.1); Carbon Dioxide 27.6 meq/L (21.0-32.0); Glucose,Random 130 mg/dL (74-106)
[2018-02-15 08:09] LABS: Blood Urea Nitrogen 5 mg/dL (7-18); Magnesium 1.6 mg/dL (1.5-2.5)
[2018-02-15 08:12] LABS: Glomerular Filtration Rate Greater Than 89 mL/min (>89); Phosphorus 2.6 mg/dL (2.5-4.9)
[2018-02-15] MEDS: Senna/Docusate Sodium 8.6/50 MG Tablet PO SCH ×2 (08:27→20:45)
[2018-02-15] MEDS: Enoxaparin Inj 40 MG/0.4 ML Syringe SQ SCH (08:27)
--- NOTE | 2018-02-15 12:48 | P.PNIM ---
Subjective Interval history: patient reports improvement in her cough,feeling better today. Physical Exam Vital signs: Last Vital Signs Temp 97.2 F L 02/15/18 07:59 Pulse 96 H 02/15/18 11:22 Resp 18 02/15/18 11:22 BP 134/86 02/15/18 07:59 Pulse Ox 93 L 02/15/18 07:59 Intake & Output 02/13/18 02/14/18 02/15/18 02/16/18 06:59 06:59 06:59 06:59 Intake Total 6501 / 6501 3265 / 3265 Output Total 300 / 300 Balance 6201 / 6201 3265 / 3265 Weight 35.2 kg 35.2 kg Narrative: GENERAL: Middle aged woman,chronically ill looking, cachectic. HEENT:not pale,anicteric,acyanotic. Oxygen by nasal canula in situ. CARDIOVASCULAR: Regular rate and rhythm without murmurs, gallops, or rubs. CHEST:reduced air entry bilaterally with no rales or wheezes. GASTROINTESTINAL: Abdomen soft, non-tender, nondistended. Normal active bowel sounds MUSCULOSKELETAL: Extremities without clubbing, cyanosis, or edema. NEURO: Alert & Oriented x4 to person, place, time, situation. Moves all ext x4 SKIN:tatoos noted. Results Labs CBC & Chem 7: 02/15/18 06:45 02/16/18 06:15 Labs: Microbiology 02/13/18 12:50 Blood - Line Aerobic Blood Culture - Preliminary No growth in 2 days 02/13/18 12:50 Blood - Line Anaerobic Blood Culture - Preliminary No growth in 2 days 02/13/18 13:00 Blood - Line Aerobic Blood Culture - Preliminary No growth in 2 days 02/13/18 13:00 Blood - Line Anaerobic Blood Culture - Preliminary No growth in 2 days Assessment and Plan Plan 57 yo F with h/o COPD,chronic hypoxic respiratory failure on home oxygen, Lung cancer s/p chemo/radiotherapy 12/2017 who presented with cough, shortness of breath,fever. Found to be tachycardic, hypotensive,with leucocytosis and lactic acidosis in keeping with sepsis. Severe Sepsis: 3/4 sirs criteria as mentioned above.still requires ICU care. CT chest without acute findings, patient has had a productive cough and sick contacts.flu panel-negative.diarrhea has subsided.blood culture remains negative lactate trended down from 5.3 to 0.9 continue IV Vanc/Zosyn -noted leucocytosis increased today, this is likely due to steroids given patient has clinically improved. COPD exacerbation, chronic hypoxic respiratory failure on home oxygen. Breathing improving. keep on Ipratropium nebs given tachycardia, antibiotics as above. IV Solumedrol 40mg c7c--[id number] to oral Prednisone. Continue home Oxygen 3 liters/min. H/o lung cancer-s/p chemoradiotherapy. Protein calorie malnutrition--albumin 2.3. offer Ensure,multivits. Macrocytic anemia-chronic. Hb slightly lower than previous in November, likely hemodilution due to IV fluids. Electrolyte imbalances-hypokalemia--resolved. DVT ppx--high risk given recent h/o cancer. keep on sq Lovenox. Progress Note: Quality VTE Deep Vein Thrombosis/Pulmonary Embolism Present on Admission: No
[2018-02-15] MEDS ORDERED: Pharmacy Ordered Lab Info OTHER ONE (20:45)
[2018-02-16] MEDS: Piperacil/Tazo 3.375 GM Premix 3.375 GM/50 ML PIGGYBACK IV.SIG SCH (05:22)
[2018-02-16 08:05] LABS: Glomerular Filtration Rate Greater Than 89 mL/min (>89)
[2018-02-16 08:13] VITALS: RESP 18
--- NOTE | 2018-02-16 08:55 | P.DS ---
DS: Providers Date of admission: 02/13/18 15:44 Primary care physician: No Primary Care Physician Consults: 02/13/18 23:33 Consult to Roof Designer Stat Consulting Provider: Ariel Mcintyre For STAT consult, spoke directly to:: Miguelina Reason for Consultation: profound hypotension, sepsis, hx of lung cancer Notified:: Service Spoke with:: radha Date Notified:: 02/13/18 Time Notified:: 23:39 Ordering Provider: KEVIN Brief History from admission: 57 yo M with h/o Ca lung s/p chemo and radiation therapy-completed 12/2017, COPD, who presented with 4 days of cough and shortness of breath. Cough said to be productive of yellow sputum, associated with chest pain on deep breathing, wheezing. She has had to use her nebulizers frequently. Also had episodes of diarrhea 3/day, no vomiting, no abdominal pain. Reports subjective fever. She took alkaselzer for cold/flu, and tylenol Her son was sick with similar symptoms but he is getting better. Patient also reports some pain around the port over the last month. ROS is negative except as stated above. In ER patient noted to be wheezing, tachycardic,hypotensive,with leucocytosis, with lactic acidosis. She received IV Vanc/Zosyn and IV NS 3 liters,NEBS treatment,solumedrol. DS: Diagnosis Discharge Diagnosis (1) Bronchitis: Status: Acute (2) Sepsis: Status: Acute (3) COPD exacerbation: Status: Acute DS: Summary ISSUES ADDRESSED DURING THIS HOSPITALIZATION: 1.Severe Sepsis with septic shock: 3/4 sirs criteria as mentioned,patient was admitted to the ICU. CT chest without acute findings, patient has had a productive cough and sick contacts.flu panel-negative.diarrhea has subsided.blood culture remained negative.lactate trended down from 5.3 to 0.9. She started on IV Vanc/Zoysn, fluid resuscitation. Patient clinically improved, blood pressure normalized.She was transferred to the medical floor where IV antibiotics were continued. leucocytosis increased despite significant clinical improvement likely due to steroids that were given for COPD exacerbation below. Patient was transitioned to oral Levofloxacin on discharge. 2.COPD exacerbation, chronic hypoxic respiratory failure on home oxygen. She was started on Ipratropium nebs given that she was tachycardic on admission. Antibiotics were given as above, and IV Solumedrol.home Oxygen 3 liters/min was continued. She showed marked clinical improvement and was switched to oral Prednisone. 3. Electrolyte imbalances-hypokalemia--was replenished. now resolved. Patient advised to follow up with her PCP within 1 week for re-evaluation. Time Spent with Patient Total time spent providing and/or coordinating discharge services:>30 MIN Quality: VTE Deep Vein Thrombosis/Pulmonary Embolism Present on Admission: No Results Labs on day of discharge: Labs from last 24 hours 02/16/18 02/15/18 06:15 20:45 Creatinine 0.37 L Estimated GFR Greater than 89 Vancomycin Trough 6.2 Preliminary micro results at discharge 02/13/18 12:50 Aerobic Blood Culture - Preliminary Blood - Line No growth in 2 days Anaerobic Blood Culture - Preliminary No growth in 2 days 02/13/18 13:00 Aerobic Blood Culture - Preliminary Blood - Line No growth in 2 days Anaerobic Blood Culture - Preliminary No growth in 2 days Impressions ITS Impressions Chest X-Ray 02/13/18 12:55 CONCLUSION: Patchy interstitial changes similar to prior Chest CTA 02/13/18 12:56 CONCLUSION: This study is negative for pulmonary embolism. Discharge Plan Discharge Disposition Patient Disposition: 01 Discharge Home Discharge Condition Condition: Stable Discharge Order Discharge Orders: Discharge Order (Routine); Ordered 02/16/18 Ordered By: Mery Salcido Discharge Details Anticipated Discharge Date: 02/16/18 Physicians Team Primary Care Provider: Primary Carolina Reyes Attending Provider: Mery Salcido Other Providers: Ariel Mcintyre Rxs /Orders / Referrals /Forms Prescriptions: New prednisone 20 mg Tablet 40 mg PO DAILY 4 Days Qty: 8 RF: 0 levofloxacin 500 mg tablet 500 mg PO DAILY 5 Days Qty: 5 RF: 0 Continue albuterol sulfate [ProAir HFA] 90 mcg/actuation Hfa Aerosol Inhaler 2 puff INHALATION Q6H PRN (Reason: sob) Qty: 1 RF: 0 Referrals: Primary Care Carolina Valle [Primary Care Provider] - See Instructions ( Please call the physician's office to book the appointment ) Discharge Interventions Interventions: Discharge Planning - Case Management Last Done: 02/13/18 16:33 Status ED Status: Left Department
[2018-02-16] MEDS ORDERED: predniSONE 20 MG Tablet PO SCH (09:00)
[2018-02-16] MEDS ORDERED: Vancomycin Inj 600 MG in Sodium Chlor 0.9% Inj 250 ML IV.SIG SCH (09:00)
[2018-02-16 10:06] VITALS: BP 109/73; PULSE 103; TEMP 98; O2SAT 98
[2018-02-16] MEDS ORDERED: Heparin Central Flush 100 UNIT/ML 5 ML Vial IV.FLUSH PRN ×2 (10:17)
[2018-02-16 10:24] LABS: Baso % (Auto) 0.4 % (0.0-2.0); Hematocrit 29.2 % (35.0-46.0); Hemoglobin 9.6 gm/dL (11.6-15.3); Lymph # (Auto) 0.6 th/mm3 (1.0-4.8); Lymph % (Auto) 5.6 % (9.0-44.0); Mean Corpuscular HGB Conc 32.7 % (32.0-36.0); Mean Corpuscular Hemoglobin 32.2 pg (27.0-34.0); Mean Corpuscular Volume 98.4 fL (80.0-100.0); Mean Platelet Volume 7.8 fL (7.0-11.0); Mono # (Auto) 0.7 th/mm3 (0.0-0.9); Mono % (Auto) 6.8 % (0.0-8.0); Neut # (Auto) 8.7 th/mm3 (1.8-7.7); Neut % (Auto) 87.2 % (16.0-70.0); Platelet Count 234 th/mm3 (150-450); Red Blood Count 2.97 mil/mm3 (4.00-5.30); Red Cell Distribution Width 14.3 % (11.6-17.2)
[2018-02-16] MEDS: Enoxaparin Inj 40 MG/0.4 ML Syringe SQ SCH (10:24)
[2018-02-16] MEDS: Senna/Docusate Sodium 8.6/50 MG Tablet PO SCH (10:24)
[2018-02-17] MEDS ORDERED: VANCOMYCIN TROUGH OTHER ONE (20:45)
== END 2018-02-16 11:22 | disposition home or self-care (01) ==
LOC: PHED 12:39 → PHEDA 15:44 → PHICU 18:03 → PH3 02-14 20:25
PROVIDERS: ADMIT Hospitalist; ATTEND Hospitalist
DX: Z90.49 Acquired absence of other specified parts of digestive tract; E86.1 Hypovolemia; M54.9 Dorsalgia, unspecified; J44.0 Chronic obstructive pulmonary disease with (acute) lower respiratory infection; A41.9 Sepsis, unspecified organism; Z92.21 Personal history of antineoplastic chemotherapy; E87.6 Hypokalemia; R00.0 Tachycardia, unspecified; Z83.3 Family history of diabetes mellitus; J96.21 Acute and chronic respiratory failure with hypoxia; E87.2 Acidosis; F17.210 Nicotine dependence, cigarettes, uncomplicated; Z92.3 Personal history of irradiation; J44.1 Chronic obstructive pulmonary disease with (acute) exacerbation; E46 Unspecified protein-calorie malnutrition; D53.9 Nutritional anemia, unspecified; F32.9 Major depressive disorder, single episode, unspecified; R65.21 Severe sepsis with septic shock; Z85.118 Personal history of other malignant neoplasm of bronchus and lung; R19.7 Diarrhea, unspecified; Z82.5 Family history of asthma and other chronic lower respiratory diseases; F03.90 Unspecified dementia, unspecified severity, without behavioral disturbance, psychotic disturbance, mood disturbance, and anxiety; F41.9 Anxiety disorder, unspecified; Z98.51 Tubal ligation status; I45.10 Unspecified right bundle-branch block; I10 Essential (primary) hypertension; Z99.81 Dependence on supplemental oxygen; J18.9 Pneumonia, unspecified organism; Z82.49 Family history of ischemic heart disease and other diseases of the circulatory system; Z82.0 Family history of epilepsy and other diseases of the nervous system